=== PATIENT | female | born 1985 | race Caucasian/White ===

== ENCOUNTER 2019-03-18 06:26 | Emergency (ER) | payer OTHER, SELFPAY ==
[2019-03-18 06:27] VITALS: BP 130/81; PULSE 87; RESP 14; TEMP 36.4; O2SAT 99; BMI 20.4
--- NOTE | 2019-03-18 06:42 | EKG12_ITS ---
Test Reason : SOB Blood Pressure : / mmHG Vent. Rate : 088 BPM Atrial Rate : 088 BPM P-R Int : 124 ms QRS Dur : 094 ms QT Int : 350 ms P-R-T Axes : 082 080 062 degrees QTc Int : 423 ms Normal sinus rhythm Normal ECG Confirmed by LISA CHIU, KIP ([id number]), deputy editor in chief MARK NICHOLS ([id number]) on 03/21/2019 10:53:07 AM Referred By: GRABIEL Confirmed By:AMARI GONZALEZ MD
[2019-03-18 06:50] LABS: Absolute Lymphocyte Count 2.53 X10^3/uL (0.83-4.51); Absolute Neutrophil Count 4.3 X10^3/uL (2.0-7.7); Basophil# 0.03 X10^3/uL; Basophil% 0.4 % (0-1); Eosinophil# 0.06 X10^3/uL; Eosinophils% 0.8 % (0-5); Hematocrit 42.5 % (37-47); Hemoglobin 14.5 g/dL (12.0-15.0); Lymphocyte # 2.53 X10^3/ul (4.0); Lymphocyte % 34.3 % (19-41); Mean Corp Hgb Conc 34.1 g/dL (32-36); Mean Corpuscular Hgb 31.3 pg (27.0-32.0); Mean Corpuscular Volume 91.6 fL (81-99); Mean Platelet Vol. 9.7 fl (6.2-12.0); Monocyte# 0.48 X10^3/uL; Monocyte% 6.5 % (0-10); NRBC Flagged by Analyzer 0 % (0-5); Neutrophil # 4.26 X10^3/uL (2.7-7.7); Neutrophil % 57.7 % (47-70); Platelet Count 290 K/mm3 (150-450); RBC Distribution Width CV 11.7 % (11.6-14.6); RBC Distribution Width SD 39.3 fl (35.1-43.9); Red Blood Count 4.64 M/mm3 (4.2-5.4); White Blood Count 7.4 K/mm3 (4.4-11.0)
--- NOTE | 2019-03-18 06:50 | RAD_ITS ---
STUDY: X-RAY CHEST REASON FOR EXAM: Female, 33 years old. Chest tightness TECHNIQUE: PA and lateral views of the chest. COMPARISON: None. FINDINGS: EKG leads overlie the chest The lungs are clear and expanded. There is no demonstrated pleural abnormality. Normal size heart. Normal mediastinum and romeo. Normal visualized pulmonary arteries. Normal visualized aortic arch and descending thoracic aorta. Normal visualized thoracic spine. Normal visualized ribs, clavicles, and shoulders. There is no demonstrated abnormality of the visualized soft tissue structures of the upper abdomen. RAD/Chest PA and Lateral IMPRESSION: Normal x-ray examination of the chest. Electronically Signed: Edenilson Diop MD at 7:58 EST , Service support ,
--- NOTE | 2019-03-18 06:51 | ED.DCSUM_ITS ---
- ER Visit Summary Date of Service: 03/18/19 Chief Complaint: [Dyspnea and paresthesias] History of Present Illness: The patient is a 33 F [presents to the emergency department with complaint of paresthesias in the left leg that started 5 days ago. Patient initially thought maybe she slept wrong but described as a numb tingly sensation over the anterior aspect of her ankle and anterior galindo. Patient then 2 days ago when got adjusted at the chiropractor. This morning patient woke up at 5 AM and noted some numbness to the left arm as well as the left face and scalp. Patient denies any headache. She denies visual changes. She denies weakness in extremities. Patient does not have history of migraines. Patient has no medical history otherwise. She has had prior appendectomy. She denies recent illness. Patient also describes some discomfort and tightness in her chest. She does have some anxiety history but does not take any medications and she states that she is never had a panic attack.] Physical Examination: [HEENT-PERRLA, EOMI. Cranial nerves II through XII gr ossly intact. TMs clear. Mucous membranes moist. No adenopathy. Cardiovascular-regular rate and rhythm without murmur or ectopy Lungs-clear to auscultation, chest wall stable without crepitus or subcu emphysema Abdomen-normoactive bowel sounds, soft, nontender, no rebound or rigidity, no peritoneal signs. Neuro vzai-zbvrpl-ebco and heel galindo testing within normal limits, negative Romberg, negative pronator drift , Fundi benign. NIH stroke scale was a 1 for paresthesias. Extremities-intact ?4, normal range of motion, normal pulses, atraumatic] Test Results: [EKG obtained arrival showed a sinus rhythm with a ventricular rate of 88 bpm with no acute segment changes. Chemistries as well as CTA head and neck ordered and pending.] Emergency Department Course and Treatment: [] Treatment Plan: [Care of patient will be turned over the morning physician awaiting results and final disposition] Disposition: [Pending] Impression: [Paresthesias Chest pain] This note was generated with [employer] dictation software. It may contain incorrect words, spelling, and punctuation that were not noted in review of the chart prior to signing <Taj Vasquez - Last Filed: 03/18/19 06:53> - ER Visit Summary Date of Service: 03/18/19 Patient was signed out to me pending CTA of the head and neck. These are unremarkable. Noncontrast MRI of the head was then obtained and is unremarkable as well. At this time patient states the only symptom she has is slight numbness to the left upper lip. I spoke with her primary care physician, Dr. Moore. She will be sure to follow-up closely with the patient and have her seen by neurology. If the patient's symptoms worsen in any way she is to return to the emergency room. Patient and spouse at bedside voiced understanding and agreement. Disposition: Discharge Impression: Paresthesias This note was generated with [employer] dictation software. It may contain incorrect words, spelling, and punctuation that were not noted in review of the chart prior to signing <Cassandra Mcrae - Last Filed: 03/18/19 10:43> ED Disposition <Taj Vasquez - Last Filed: 03/18/19 06:53> <Cassandra Mcrae - Last Filed: 03/18/19 10:43> - Plan for ED Patient: Disposition: Home or Assisted Living Diagnosis: Paresthesia Instructions: Paraesthesias Referrals: Yuniel Moore DO [Primary Care Provider] - Keep Tc appointment
--- NOTE | 2019-03-18 06:53 | CT_ITS ---
STUDY: CTA HEAD AND NECK WITH CONTRAST REASON FOR EXAM: Female, 33 years old. NUMBNESS on left side RADIATION DOSAGE (If Supplied By Facility): CTDIvol = ( 23.30 ) mGy, DLP = ( 1196.28 ) mGycm TECHNIQUE: CT angiography was performed with a multi-detector CT scanner. Data acquisition was obtained from the skull base through the vertex following intravenous administration of 100 ML ISOVUE 370. MIP images were reconstructed from the axial data set. Post-processing of the angiographic images was performed, with multiplanar reformation and 3D reconstruction. Individualized dose optimization techniques were used for this CT. COMPARISON: No relevant priors. FINDINGS: Normal bilateral petrous carotid arteries. Normal right cavernous carotid artery with a normal supraclinoid bifurcation. Normal left cavernous carotid artery with a normal supraclinoid bifurcation. Normal right A1 segments of the anterior cerebral artery. Normal left A1 segments of the anterior cerebral artery. Normal intact anterior communicating artery (ACOM). Normal bilateral A2 segments of the anterior cerebral arteries. Normal right M1 and M2 segments of the middle cerebral arteries, with a normal M1 bifurcation. Normal left M1 and M2 segments of the middle cerebral arteries, with a normal M1 bifurcation. Normal right posterior communicating artery (PCOM). Normal left posterior communicating artery (PCOM). Normal bilateral vertebral arteries. Normal basilar artery with a normal basilar bifurcation. The visualized bilateral superior cerebellar (SCA) arteries are normal. Normal bilateral P1, P2 and visualized P3 segments of the posterior cerebral arteries. There is no demonstrated aneurysm of the mechoopda of [place]. There is no demonstrated abnormality of the visualized brain. AORTIC ARCH: Normal visualized aortic arch. Normal origins of the brachiocephalic, left common carotid, and left subclavian arteries. RIGHT CAROTID ARTERIES: Normal right common carotid artery (CCA). Normal right common carotid bulb. Normal origin of the right internal carotid (ICA) artery without a hemodynamically significant stenosis. Normal visualized cervical portion of the right internal carotid artery. Normal origin of the right external carotid artery (ECA). LEFT CAROTID ARTERIES: Normal left common carotid artery (CCA). Normal left common carotid bulb. Normal origin of the left internal carotid (ICA) artery without a hemodynamically significant stenosis. Normal visualized cervical portion of the left internal carotid artery. Normal origin of the left external carotid artery (ECA). VERTEBRAL ARTERIES: Normal bilateral vertebral arteries. CT/CTA Head AND Neck W/ Contrast IMPRESSION: Normal CTA Head and neck with contrast. Electronically Signed: Edenilson Diop MD at 7:37 EST , Service support ,
[2019-03-18 06:56] LABS: Internal QC Validated? YES +Cl - CLEAR BKGD; Pregnancy, Serum, hCG Quali. NEGATIVE Negative
[2019-03-18] MEDS: 0.9% Normal Saline 1,000 ML 150 ML IV (07:00)
[2019-03-18 07:08] LABS: Anion Gap 4 (5-15); BUN 14 mg/dL (7-18); BUN/Creat Ratio 16.3 RATIO (10-20); Calcium,Total 9.2 mg/dL (8.5-10.1); Chloride 108 mmol/L (98-107); Creatinine, Serum 0.86 mg/dL (0.55-1.02); EST Glomerular Filtration Rate 80 mL/min (>60); Est Glom Filt Rate - Afr Amer 97 mL/min (>60); Glucose 104 mg/dL (74-106); Potassium 3.5 mmol/L (3.5-5.1); Sodium Level 140 mmol/L (136-145)
--- NOTE | 2019-03-18 07:49 | MRI_ITS ---
STUDY: MRI BRAIN WITHOUT CONTRAST REASON FOR EXAM: Female, 33 years old. Numbness and tingling began 5 days ago in LEFT ankle, has progressed to left face and scalp area TECHNIQUE: Standardized multiplanar fat and water weighted pulse sequences were obtained. COMPARISON: None. FINDINGS: Normal size of the ventricles and extra-axial spaces for the patient''s age. Normal white matter tracts of the supratentorial brain. Normal bilateral basal ganglia. Normal thalami. There is no extra-axial fluid accumulation. Normal flow voids within the major intracranial circulation suggesting patency by spin echo criteria. Normal sella turcica, pituitary gland, infundibular stalk, optic chiasm and hypothalamus. Normal tectal plate and pineal gland. Normal midbrain, man and medulla. Normal cerebellum. Normal bilateral temporal bones. MRI/Brain without Contrast IMPRESSION: Unremarkable unenhanced MRI of the brain. Electronically Signed: John Lozano MD at 9:34 EST Tel , Service support ,
[2019-03-18 09:17] VITALS: BP 111/71; PULSE 82; RESP 16; O2SAT 98
[2019-03-18 10:54] VITALS: BP 108/77; PULSE 62; RESP 15; O2SAT 98
== END 2019-03-18 10:55 | disposition home or self-care (01) ==
PROVIDERS: Emergency Provider Emergency Medicine; PCP Student in an Organized Health Care Education/Training Program
DX: R07.9 Chest pain, unspecified (principal); R20.2 Paresthesia of skin; R06.00 Dyspnea, unspecified; F41.9 Anxiety disorder, unspecified
CPT/HCPCS: 70496; 70498; 70551; 71046; 80048; 84484; 84703; 85025; 93005; 96360; 96361; 99284; J7030; Q9967; A4216

== ENCOUNTER 2020-09-10 08:50 | Day surgery (SDC) | payer OTHER, SELFPAY ==
[2020-07-25 09:04] VITALS: BMI 20.4
--- NOTE | 2020-09-09 21:51 | PCM.HP.BLA ---
History and Physical Date of Admission: 09/10/20 HISTORY OF PRESENT ILLNESS 34 year old female presents for evaluation of a soft mass on her right posterior mid arm. She states that she has had it for years. It has enlarged over time. She denies fever. She denies trauma. She denies numbness. She has no trouble with activities of daily living. She presents at this time for further evaluation and treatment. PAST MEDICAL HISTORY Subcutaneous mass of right upper extremity PAST SURGICAL HISTORY appendectomy ALLERGIES No Known Allergies MEDICATIONS NK FAMILY HISTORY Father - Melanoma Mother - Osteoporosis Other - Family history of skin cancer SOCIAL HISTORY Smoking Status: Never smoker substance use type: does not use REVIEW OF SYSTEMS General - Denies fever, fatigue, and weight loss. Eyes - Denies cataracts and glaucoma. ENT - Denies nasal congestion and sore throat. Endocrine - Denies excessive thirst and urination. Skin - Denies skin cancer. Family history of melanoma. She has a mass on right posterior arm that has enlarged over time. Musculoskeletal - Denies joint pain, joint stiffness, weakness of muscles and joints, back pain, and arthritis. Neuro - Denies headaches. Cardiovascular - Denies chest pain, fatigue, and shortness of breath with exertion. Psych - Denies anxiety and depression. Respiratory - Denies chronic cough and shortness of breath. Gastrointestinal - Denies nausea, vomiting, diarrhea, and constipation. Hematologic - Denies abnormal bruising and bleeding. Genitourinary - Denies hematuria and urinary frequency. PHYSICAL EXAMINATION General - Alert and oriented. HEENT - PERRL. EOMI. Throat is clear. Neck - Supple and non-tender. No cervical adenopathy. Lungs- Clear to auscultation. Heart - Regular rate and rhythm. Abdomen - Soft and non distended. Extremities - FROM. No axillary adenopathy. Radial pulses are palpable. On the right posterior mid arm is a soft tissue mass that measures 8 x 8 cm. It is mobile. There is no evidence of infection. No ulceration. Mass is nontender. Neuro - CN II-XII grossly intact. Psych - Normal mood and affect. ASSESSMENT 1. 8 cm soft tissue mass right posterior mid arm. 2. Family history of skin cancer. PLAN Patient has a soft tissue mass right posterior mid arm that has increased in size over the last several months. She has trouble wearing clothes. She has concerns about possible carcinoma. Clinically it looks like a benign lipoma. Recommend excision of this enlarging soft tissue mass and send it to Pathology for analysis to rule out carcinoma. Depending on the size of the wound defect, a drain may be necessary postoperatively for 7-10 days. A compression rebeka wrap will also be placed to minimize postoperative seroma. Surgery can be done under local anesthesia and IV sedation on an outpatient basis. Patient was informed of the risks and complications of the procedure including alternatives to surgery. These were discussed with the patient personally. Patient voices understanding and wishes to proceed. Some of the risks and complications were included in a form from the [place] [employer]. Potential risks and complications included but not inclusive of bleeding, infection, seroma, hematoma, bruising, swelling, prolonged need for drains, loss of sensation to skin, wound breakdown, need for wound care, poor scarring, poor aesthetic outcome, intra operative cardiac or neurologic events, DVT, PE, and reaction to anesthesia. We discussed the current risks associated with COVID-19. While it is understood that there is a community spread of COVID-19, the risk of susy COVID-19 while at [facility] ([facility]) is very low; however, the risk cannot be completely mitigated because of the community spread of the disease. We discussed in detail the risk of exposure to and/or potential harm posed by the COVID-19 virus with having a surgery/procedure at this time versus the risk of delaying the surgery/procedure. It is not possible to know either the risk of delaying the surgery or procedure or chance of getting an infection with perfect accuracy, but a joint decision was made to proceed at this time with the scheduled surgery/procedure as indicated on the consent form. Patient was notified that we will need to comply with any screening or testing [facility] wishes to perform or that surgery may be delayed for any positive results. Procedure Criteria Procedure Type: Elective COVID Risk Discussion: The surgeon/proceduralist and patient have discussed in detail the risk of exposure to and/or potential harm posed by the COVID-19 virus with having a surgery/procedure at this time versus the risk of delaying the surgery/procedure. It is not possible to know either the risk of delaying the surgery or procedure or chance of getting an infection with perfect accuracy, but a joint decision was made between the patient and the surgeon/proceduralist to proceed at this time with the scheduled surgery/procedure as indicated on the consent form.
[2020-09-10] VITALS (9 sets, daily range): BP systolic 90–109; BP diastolic 45–73; PULSE 53–71; RESP 16; TEMP 36.4–36.8; O2SAT 100; BMI 20.9
--- NOTE | 2020-09-10 | MASS_PTH ---
PATIENT: JOEY DELVALLE [place] [facility] [id number] AGE/SX: 34/F ROOM: RE09/10/[address]: Dr. Jose Carey MD : 1985 BED: DIS: 09/10/2020 SPEC #: [id number] RECD: 09/11/20 08:09 STATUS: PRINCE RENiels #: [id number] MARIELOS: 09/10/20 00:[address]: Jose Carey DEPT: SURGICAL PATHOLOGY RECD BY: Shon Sanabria ENTERED: 09/11/20 08:09 SP TYPE: Mass OTHR DR: Dr. Yuniel Moore, DO Tissues: Arm, NOS Procedures: Surgery Specimen Level III HEADER OPERATION: Excision soft tissue mass posterior arm PRE-OP DIAGNOSIS: 8 cm soft tissue mass right posterior mid arm; family history skin cancer TISSUE SUBMITTED: Soft tissue mass right posterior arm MICROSCOPIC DIAGNOSIS Soft tissue mass of right posterior arm, excision: Mature adipose tissue consistent with lipoma. AM:cristal 09/12/2020 MICROSCOPIC DESCRIPTION Slides are reviewed. GROSS DESCRIPTION Received in fixative is one container labeled with the patient's name and designated soft tissue mass right posterior arm. The specimen consists of a piece of yellow adipose tissue measuring 7.5 x 6 x 3 cm. Also present in the container are multiple pieces of yellow adipose tissue measuring in aggregate 4 x 3.5 x 1 cm. Sections reveal yellow adipose cut surfaces without area of hemorrhage, necrosis or cystic degeneration. [employer] sections are submitted in four cassettes. / SJ:cristal 09/11/20 TC:1 CPT: 60308
[2020-09-10 09:30] LABS: Internal QC Validated? YES +Cl - CLEAR BKGD; Pregnancy, Urine Negative Negative
[2020-09-10] MEDS: Lactated Ringers 1,000 ML 100 ML IV (09:37)
--- NOTE | 2020-09-10 11:02 | SUR.PREOP ---
pt up to bathroom, given update about surgery delay. family at bedside
[2020-09-10] MEDS: Cefazolin 2 GM in 0.9% Normal Saline 100 ML IV (11:22)
[2020-09-10] MEDS: Lidocaine 1% /Epi 1:100 (20ml) 20 ML Vial (11:55)
--- NOTE | 2020-09-10 12:11 | PCM.OPRPT ---
Problems Associated Problem List Diagnoses (1) Subcutaneous mass of right upper extremity: (2) Family history of skin cancer: Report of Operation Date of Procedure: 09/10/20 Pre-Operative Diagnosis: 1. 8 cm soft tissue mass right posterior mid arm. 2. Family history of skin cancer. Post-Operative Diagnosis: Same. Surgery/Procedure Performed:: Excision 8 cm soft tissue mass right posterior mid arm with 5 cm layered closure. Description of Surgical Findings:: 34 year old female presents for evaluation of a soft mass on her right posterior mid arm. She states that she has had it for years. It has enlarged over time. She denies fever. She denies trauma. She denies numbness. She has no trouble with activities of daily living. Patient was informed of the risks and complications of the procedure including alternatives to surgery. These were discussed with the patient personally. Patient voices understanding and wishes to proceed. Some of the risks and complications were included in a form from the [place] [employer]. I used Kandi absorbable hemostat. Reference Number - [id number]-[id number]. Lot Number - [id number]. Expiration - November 06, 2024. Surgeon: Jose Carey mine engineering manager: None Type of Anesthesia: Local MAC (xylocaine with epinephrine and IV sedation.) Specimen's removed: Soft tissue mass right posterior mid arm to Pathology. Drains: Robert. Estimated Blood Loss (mL): 10. Description of Procedure: Patient was taken to OR in supine position and was given IV sedation. The right arm was prepped and draped in the usual fashion. SCD's were placed for DVT prophylaxis. Perioperative antibiotics were given intravenously. The soft tissue mass right posterior mid arm was infiltrated with xylocaine and epinephrine. After waiting 5 minutes for the anesthetic to take effect, I made a longitudinal incision down into the subcutaneous tissue until the soft tissue mass was identified. The mass was sharply dissected off the subcutaneous tissue. The soft tissue mass extended down to the muscular fascia. The soft tissue mass was well-encapsulated. It was clinically consistent with a soft tissue lipoma. It was excised in its entirety and sent to Pathology for analysis to rule out carcinoma. The wound was irrigated with saline. Hemostasis was obtained with electrocautery. Due to the size of the cavity, I decided on a drain postoperatively. I placed a size 15 Robert drain through a separate stab incision inferiorly and secured to the skin with 3-0 Nylon suture. I then sprayed Kandi absorbable hemostat into the wound to minimize seroma formation postoperatively. I then closed the incision in a layered fashion with 3-0 Monocryl figure of eight interrupted sutures for the deep subcutaneous tissue. The deep dermis and subcutaneous tissue was approximated with 3-0 Monocryl interrupted sutures. The skin was approximated with 4-0 V lock unidirectional barbed running subcuticular suture and followed with Histoacryl skin tissue adhesive. Gauze dressing was applied followed by a compression rebeka wrap. The length of the skin closure was 5 cm. Patient tolerated the procedure well and was sent to PACU in satisfactory condition. Patient will be sent home on antibiotics and pain medication. She will keep her right arm elevated during the initial postoperative period. Patient will followup in a week for a wound check and for discussion of the pathology report and for removal of the drain. Grafts/Implants Used: Kandi. Complications None. Admit VTE Documentation VTE Present on Admission: No VTE Mechan Device Prophylaxis: SCD's VTE Pharm Prophylaxis ordered?: No Addendum Addendum: Surgery Charges CPT - 24130 ICD-10 - R22.31, Z80.8
--- NOTE | 2020-09-10 12:11 | PCM.DC ---
Discharge Instructions Diet Discharge Diet: No restrictions Activity Discharge Activity: May Not Drive (while taking pain medication.), May Not Shower (until the drain is removed.) and - (elevate right arm. no heavy lifting.) May shower in (days): 7 (after the drain is removed.) May resume sexual activity in: No Restrictions Weight Bearing Status: Weight bearing as tolerated Lifting Restrictions: 20 lbs. Keep extremity elevated above heart level: Right Arm Dressing / Incision Call your doctor if your incision/area has: Continuous Slow Oozing, Sudden Increased Bleeding, Increased Pain/ Swelling, Increased Redness, Foul Smelling Discharge and Swelling at the incision site Call your doctor if you observe: Fever of 101 or Higher, Coldness, Increased Pain, Shortness of breath, Chest pain, Calf discomfort and Uncontrolled pain Suture Line Care: - (after operative dressing is removed in the office, apply dry dressing daily followed by compression rebeka wrap.) Remove Dressing in: 1 week (will remove dressing in the office.) Cleanse incision/area with: - (may get incision wet in the shower after the drain is removed.) Drain: Suction (edmond drain to bulb suction. empty and record drainage output daily.) Additional Dressing/Incision Instructions:: if right forearm and hand become swollen, may loosen the rebeka wrap. Follow Up Care Please Follow Up With: Jose Carey MD When: one week. call [phone] for appt. Test Results: Test results from this visit will be discussed in further detail at your follow-up appointment, if applicable. Discharge Plan Admission Primary Reason for Your Visit: outpatient surgery - excision lipoma right arm Attending Provider: Jose Carey Primary Care Provider: Yuniel Moore Discharge Orders/Prescriptions Prescriptions: New doxycycline hyclate 100 mg capsule 100 mg PO BID Qty: 14 RF: 0 oxycodone-acetaminophen [Percocet] 5-325 mg tablet 1 tab PO Q6H PRN (Reason: pain (scale score 7-10)) 5 Days Qty: 20 RF: 0 Referrals / Follow Up: Yuniel Moore DO [Primary Care Provider] - Disposition Disposition (needs filled in before D/C Order can be placed): Home, Self Care
== END 2020-09-10 13:56 | disposition home or self-care (01) ==
LOC: SDC 08:51 → AC 08:52
PROVIDERS: Anesthesiology; PCP Student in an Organized Health Care Education/Training Program; Referring Provider Surgery; Visit Provider Surgery
PROC: (CPT 24071; principal; 2020-09-10 10:10)
DX: R22.31 Localized swelling, mass and lump, right upper limb (principal); Z80.8 Family history of malignant neoplasm of other organs or systems
CPT/HCPCS: 00400; 24071; 81025; 88304; 88305; J7120; J2405

== ENCOUNTER 2021-10-14 17:55 | Outpatient (CLI) | payer OTHER, SELFPAY ==
[2021-10-14 18:09] VITALS: BP 115/76; PULSE 81; TEMP 36.9; O2SAT 98
[2021-10-14 18:10] VITALS: PULSE 81; O2SAT 98
--- NOTE | 2021-10-14 23:09 | OB.TRI.HP_ITS ---
HPI - General General Date of Admission: 10/14/21 Date of Service: 10/14/21 Chief Complaint: ctxs HPI Narrative JOEY DELVALLE, is a 35 F who presents at 38 weeks gestation with a breech fetus and some contractions. She has a history of rapid labor in the past. She denied any vaginal bleeding or leaking of fluid. [facility] Medical History (Updated 10/14/21 @ 23:[address] Radha Dumont MD) Anemia Breech presentation Lipoma of right upper extremity Non-smoker Subcutaneous mass of right upper extremity Wears glasses Home Medications Iron (ferrous sulfate) 325 mg PO.IVFORM DAILY anemia 10/14/21 [History Last Taken Unknown] Prenatabs FA 1 tab PO.IVFORM DAILY 10/14/21 [History Last Taken Un known] Allergy/AdvReac Type Severity Reaction Status Date / Time No Known Allergies Allergy Verified 10/02/20 13:35 Family History Father Melanoma Mother Osteoporosis Other Family history of skin cancer Surgical History History of appendectomy History of excision of mass Social History Smoking Status: Never smoker substance use type: does not use additional social history: Does Not Take Aspirin Does Not Take Ibuprofen History Elective abortions Hx Para 1 Spontaneous abortions Hx # Term Pregnancies Ectopic pregnancies Hx # Pregnancies Multiple births # of living children NST FHR Rate Baby A Baseline: 120 Variability:: Moderate Accelerations:: 15 x 15 Decelerations:: None NST Reactive:: Yes FHR Category:: Category I Uterine Activity:: irreg ctxs Assessment & Plan (1) False labor: PLAN: 35-year-old 3 para 2 at 38 weeks with false labor. Breech presentation. If fetus remains breech at 39 weeks or when she returns in labor we will proceed with primary section. Discharged home with routine follow-up or return as needed.
== END 2021-10-14 20:05 | disposition home or self-care (01) ==
LOC: WPOUT 17:57 → WP 17:57
PROVIDERS: PCP Student in an Organized Health Care Education/Training Program; Referring Provider Obstetrics & Gynecology; Visit Provider Obstetrics & Gynecology
DX: O47.1 False labor at or after 37 completed weeks of gestation (principal); O99.013 Anemia complicating pregnancy, third trimester; D64.9 Anemia, unspecified; O09.523 Supervision of elderly multigravida, third trimester; Z3A.38 38 weeks gestation of pregnancy; O32.1XX0 Maternal care for breech presentation, not applicable or unspecified
CPT/HCPCS: 59025; 59050; 99218; G0378

== ENCOUNTER 2021-10-17 04:05 | Inpatient (IN) | payer OTHER, SELFPAY ==
[2021-10-14 18:21] VITALS: BMI 25.7
[2021-10-17] VITALS (20 sets, daily range): BP systolic 97–127; BP diastolic 42–66; PULSE 64–99; RESP 14–18; TEMP 36.1–37.2; O2SAT 96–99; BMI 25.6
[2021-10-17] MEDS: Lactated Ringers 1,000 ML 999 ML IV (04:15)
[2021-10-17 04:26] LABS: ROM Internal Control Test YES-OK TO RESULT pt. (Internal QC); ROM Patient Test POSITIVE (Negative)
[2021-10-17 04:29] LABS: Absolute Lymphocyte Count 1.82 X10^3/uL (0.83-4.51); Basophil# 0.03 X10^3/uL; Basophil% 0.3 % (0-1); Eosinophil# 0.08 X10^3/uL; Eosinophils% 0.7 % (0-5); Hematocrit 32.9 % (37-47); Hemoglobin 11.2 g/dL (12.0-15.0); Lymphocyte # 1.82 X10^3/ul (0.83-4.51); Mean Corpuscular Hgb 32.4 pg (27.0-32.0); Mean Corpuscular Volume 95.1 fL (81-99); Monocyte# 0.71 X10^3/uL; Monocyte% 6.6 % (0-10); NRBC Flagged by Analyzer 0 % (0-5); Neutrophil # 7.95 X10^3/uL (2.7-7.7); Neutrophil % 74.2 % (47-70); Platelet Count 187 K/mm3 (150-450); RBC Distribution Width CV 13.4 % (11.6-14.6); RBC Distribution Width SD 46.5 fl (35.1-43.9); Red Blood Count 3.46 M/mm3 (4.2-5.4); White Blood Count 10.7 K/mm3 (4.4-11.0)
--- NOTE | 2021-10-17 04:54 | PCM.HP.OB ---
HPI - General General Date of Admission: 10/17/21 Date of Service: 10/17/21 Chief Complaint: SROM HPI Narrative JOEY DELVALLE, is a 35 F who presents with SROM at 38w3d. No regular ctx's. No vb. Good FM. Maternal Data Information Final BJ: 10/28/21 Final BJ Source: LMP PFSH PFSH Medical History (Updated 10/17/21 @ 04:[address] Cecelia Masters, DO) Anemia Breech presentation Lipoma of right upper extremity Non-smoker Subcutaneous mass of right upper extremity Wears glasses Home Medications Iron (ferrous sulfate) 325 mg PO.IVFORM DAILY anemia 10/14/21 [History Last Taken 10/15/21 08:00] Prenatabs FA 1 tab PO.IVFORM DAILY 10/14/21 [History Last Taken 10/16/21 08:00] Allergy/AdvReac Type Severity Reaction Status Date / Time No Known Allergies Allergy Verified 10/17/21 04:12 Family History Father Melanoma Mother Osteoporosis Other Family history of skin cancer Surgical History History of appendectomy History of excision of mass Social History Smoking Status: Never smoker substance use type: does not use additional social history: Does Not Take Aspirin Does Not Take Ibuprofen History Elective abortions Hx Para 2 Spontaneous abortions Hx # Term Pregnancies Ectopic pregnancies Hx # Pregnancies Multiple births # of living children NST FHR Rate Baby A FHR Category:: Category I Uterine Activity:: Irregular uterine ctx's Vital Signs Vital Signs Vital Signs: 10/17/21 03:50 10/17/21 03:50 10/17/21 04:26 Temperature Temperature Source Temporal Pulse Rate 99 Respiratory Rate Blood Pressure 104/66 Blood Pressure Mean BP Systolic 104 BP Diastolic 66 Blood Pressure Source Blood Pressure Position Blood Pressure Location Pulse Ox Oxygen Delivery Method 10/17/21 04:27 10/17/21 04:27 10/17/21 04:26 Temperature Temperature Source Pulse Rate 72 Respiratory Rate Blood Pressure 127/66 H Blood Pressure Mean BP Systolic 127 BP Diastolic 66 Blood Pressure Source Blood Pressure Position Blood Pressure Location Pulse Ox 98 Oxygen Delivery Method 10/17/21 04:26 10/17/21 04:28 Temperature 97.0 F L 97 F L Temperature Source Temporal Pulse Rate 72 Respiratory Rate 16 Blood Pressure 127/66 H Blood Pressure Mean 86 BP Systolic BP Diastolic Blood Pressure Source Monitor Blood Pressure Position Semi-Fowlers Blood Pressure Location Left Arm Pulse Ox 98 Oxygen Delivery Method Room Air Weight Weight: 154 lb 3.2 oz Body Mass Index (BMI) 25.6 Labs Labs Labs: Blood Type A POSITIVE Antibody Screen NEGATIVE Hct 32.9 % (37-47) L Hgb 11.2 g/dL (12.0-15.0) L Chlamydia DNA (SAUL) Negative (Negative) Neisseria gonorrhoeae DNA (SAUL) Negative (Negative) Rhogam given: No Assessment & Plan (1) 38 weeks gestation of : PLAN: - Admit for routine pre op care. Ancef pre op. Bedside TAUS performed and baby still in breech presentation. Discussed r/b/a to a section and she desires to proceed. (2) SROM (spontaneous rupture of membranes): (3) Breech presentation: (4) Advanced maternal age (AMA) in :
[2021-10-17] MEDS: Lactated Ringers 1,000 ML 150 ML IV (05:12)
[2021-10-17] MEDS: Acetaminophen 500 MG Tablet 1000 MG PO ×4 (05:13→23:31)
[2021-10-17] MEDS: Sodium Citrate/Citric Acid 30 ML UDC PO (05:13)
[2021-10-17] MEDS: Cefazolin 2 GM in 0.9% Normal Saline 100 ML IV (05:22)
--- NOTE | 2021-10-17 06:27 | OP.PCM_ITS ---
Problems Associated Problem List Diagnoses (1) Advanced maternal age (AMA) in : (2) Breech presentation: (3) SROM (spontaneous rupture of membranes): (4) 38 weeks gestation of : Report of Operation Date of Procedure: 10/17/21 Pre-Operative Diagnosis: 38 week gestation, single IUP, SROM, breech presentation Post-Operative Diagnosis: As above Surgery/Procedure Performed:: PLTCS via pfannenstiel incision Description of Surgical Findings:: VMI in joanna breech presentation. Apgars 9, 9. Clear fluid. Normal appearing placenta with 3 VC. Normal appearing uterus and bilateral adnexa. Surgeon: Cecelia Masters coach mechanic: Shahla FRANCISCO Type of Anesthesia: Spinal Special Medications: None Specimen's removed: Placenta Drains: Elizabeth Estimated Blood Loss (mL): 800 Fluids Replaced: 1 L Description of Procedure: The patient was taken to the operating room where spinal anesthesia was initiated. She was prepped and draped in the dorsal position with a leftward tilt. A Pfannenstiel skin incision was made with a scalpel and this was carried down to the underlying layer of fascia. The fascia was incised in midline. The fascia was extended laterally using Ordonez scissors. The fascia was dissected off of the rectus muscles using a combination of sharp and blunt dissection. Rectus muscles were in the midline. The peritoneum was entered bluntly with good visualization of the bladder. The peritoneal incision was extended bluntly. A bladder blade was inserted. A low transverse incision was made on the uterus with a scalpel. Uterine incision was extended bluntly. Membranes were ruptured for clear fluid. The buttocks of the infant was elevated and delivered through the hysterotomy, followed by the body and legs, arms, and head easily and without any force or delay. The head was flexed during delivery. The cord was clamped and cut after a slight delay. The male was vigorous and handed off to the waiting nursery staff. The placenta was removed with manual extraction. The uterus was exteriorized. The uterus was cleared of all clot and debris. The uterine incision was closed with 1-0 Vicryl in a 2 layer fashion. The first layer was running locked. The second layer was imbricating. Hemostasis was noted. The uterus and bilateral adnexa were normal-appearing. The uterus was placed back into the abdomen. Kandi was placed over the incision. The peritoneum was closed with 3-0 Vicryl in a running fashion. The fascia was closed with strata fix in a running fashion. The subcutaneous space was irrigated. The subcutaneous space was reapproximated with 3-0 Vicryl. The skin was closed with 4-0 Monocryl in a subcuticular fashion. A dressing was placed. Instrument, sponge, sharp counts correct. The patient was taken to the recovery in stable condition. Grafts/Implants Used: None Procedure Start Time: 05:42 Procedure Stop Time: 06:20 Complications None Admit VTE Documentation VTE Present on Admission: No VTE Mechan Device Prophylaxis: SCD's
[2021-10-17] MEDS: Oxytocin 30 units/NS 500 ml 30 UNITS/500 ML IV.SOLN 167 UNITS IV (06:28)
[2021-10-17] MEDS: Ketorolac 30 MG/ML Syringe IV ×3 (06:57→19:23)
[2021-10-17] MEDS: 0.9% Saline Lock 10 ML Syringe IV ×4 (06:57→19:23)
[2021-10-17] MEDS: Lactated Ringers 1,000 ML 100 ML IV (09:36)
[2021-10-17] MEDS: Senna/Docusate Sodium 1 Tablet PO (11:19)
--- NOTE | 2021-10-17 14:16 | NURSING ---
This nursing technician reviewed the documentation completed by Rudy Varner, student nurse.
[2021-10-18] MEDS: Ketorolac 30 MG/ML Syringe IV (01:04)
[2021-10-18] MEDS: 0.9% Saline Lock 10 ML Syringe IV (01:04)
[2021-10-18 04:20] VITALS: BP 93/55; PULSE 64; RESP 16; TEMP 36.3; O2SAT 97
[2021-10-18] MEDS: Acetaminophen 500 MG Tablet 1000 MG PO ×3 (05:38→18:16)
[2021-10-18 05:49] LABS: Hematocrit 27.8 % (37-47); Hemoglobin 9.4 g/dL (12.0-15.0); Mean Corp Hgb Conc 33.8 g/dL (32-36); Mean Corpuscular Volume 97.5 fL (81-99); Mean Platelet Vol. 10.5 fl (6.2-12.0); Platelet Count 151 K/mm3 (150-450); RBC Distribution Width CV 13.5 % (11.6-14.6); RBC Distribution Width SD 48.5 fl (35.1-43.9); Red Blood Count 2.85 M/mm3 (4.2-5.4); White Blood Count 14.8 K/mm3 (4.4-11.0)
--- NOTE | 2021-10-18 07:20 | PCM.PN.OB ---
Subjective Subjective Patient seen at bedside. Feeling good. Ambulating and voiding without difficulty. Denies headache, dizziness, SOB or CP. with shield. Desires discharge home tomorrow. Objective Data Objective Data Vital Signs: Vital Signs Temp Pulse Resp BP Pulse Ox O2 Del Method 97.4 F L 64 16 93/55 L 97 Room Air 10/18/21 04:20 10/18/21 04:20 10/18/21 04:20 10/18/21 04:20 10/18/21 04:20 10/18/21 04:20 Oxygen Delivery Method Room Air Weight: 154 lb 3.2 oz Body Mass Index (BMI) 25.6 Intake & Output: Intake and Output for Last 24 Hours 10/16/21 10/17/21 10/18/21 23:59 23:59 23:59 Intake Total 3077.38 / 3077.38 Output Total 1885 / 1885 700 / 700 Balance 1192.38 / 1192.38 -700 / -700 Lab / Micro Data Result Diagrams: 10/18/21 05:45 Labs: Laboratory Results - last 24 hr 10/18/21 05:45: WBC 14.8 H, RBC 2.85 L, Hgb 9.4 L, Hct 27.8 L, MCV 97.5, MCH 33.0 H, MCHC 33.8, RDW Std Deviation 48.5 H, RDW Coeff of Alber 13.5, Plt Count 151, MPV 10.5 Micro: Microbiology 10/17/21 04:15 Nasal Secretion SARS-CoV-2 Antigen (Rapid) - Final ROS Eyes Eyes: Denies blurry vision, change in vision or spots in vision ENT HEENT: Denies dizziness or headache(s) Cardiovascular Cardiovascular: Denies abdominal pain, chest pain or dyspnea Respiratory/Chest Respiratory/Chest: Denies cough, dyspnea, shortness of breath at rest or shortness of breath with exertion Gastrointestinal Gastrointestinal: Denies abdominal pain, diarrhea or vomiting Genitourinary Genitourinary: Denies change in urinary stream, difficulty urinating or dysuria Musculoskeletal Musculoskeletal: Reports none Integumentary Integumentary: Denies rash Neurologic Neurologic: Denies dizziness, headache(s), memory loss or weakness Physical Exam Narrative Dressing is dry and intact Const alert and no apparent distress General Appearance: cooperative and comfortable Exam Limitations: no limitations HEENT normocephalic Eyes General Eye: normal appearance of both eyes Neck full ROM General: normal visual inspection Chest Chest: symmetrical chest wall rise Resp normal respiratory effort and normal air movement Effort and Inspection: symmetric chest movement Auscultation: clear to auscultation bilaterally Cardio regular rate and regular rhythm GI normal to inspection, nondistended, normoactive bowel sounds Back/Spine normal ROM Extremity full ROM and no calf tenderness General Extremity: normal exam except as noted Skin no rashes or lesions noted Neuro CN's II-XII intact bilaterally Psych mental status grossly normal Assessment & Plan (1) Status post primary low transverse section: (2) Care and examination of lactating mother: PLAN: Plan PO Day 1 Primary C/S for breech Routine care Pain control Increase ambulation today Anticipate discharge home tomorrow
[2021-10-18] MEDS: Ibuprofen 600 MG Tablet PO ×3 (07:24→19:00)
[2021-10-18 07:26] VITALS: BP 99/60; PULSE 70; RESP 16; TEMP 36.3; O2SAT 98
[2021-10-18] MEDS: Senna/Docusate Sodium 1 Tablet PO (09:43)
[2021-10-18 13:22] VITALS: BP 100/54; PULSE 60; RESP 16; TEMP 36.6; O2SAT 100
--- NOTE | 2021-10-18 17:26 | NURSING ---
Reviewed and agreed with Freddy RN charting.
[2021-10-18 20:20] VITALS: BP 92/59; PULSE 74; RESP 16; TEMP 36.7; O2SAT 98
[2021-10-18] MEDS: oxyCODONE 5 MG Tablet PO (20:23)
[2021-10-19] MEDS: Acetaminophen 500 MG Tablet 1000 MG PO ×2 (00:29→06:30)
[2021-10-19] MEDS: Ibuprofen 600 MG Tablet PO ×2 (01:39→08:55)
[2021-10-19 01:40] VITALS: BP 93/56; PULSE 73; RESP 16; TEMP 36.5; O2SAT 99
--- NOTE | 2021-10-19 07:17 | DCINST_ITS ---
Discharge Instructions Diet Discharge Diet: No restrictions Activity Discharge Activity: May Not Drive (Until you are not longer taking oxycodone, and until you feel you can slam on a car brake or turn a steering wheel sharply) and May Shower May resume sexual activity in: 6 weeks Ice area for (Minutes): 15 Weight Bearing Status: Weight bearing as tolerated Lifting Restrictions: Nothing heavier than baby Dressing / Incision Call your doctor if your incision/area has: Continuous Slow Oozing, Sudden Increased Bleeding, Increased Pain/ Swelling, Increased Redness, Foul Smelling Discharge and Swelling at the incision site Call your doctor if you observe: Fever of 101 or Higher, Coldness, Increased Pain, Numbness or Tingling, Change in Color, Inability to urinate, Inability to have a bowel movement, Using more than 1 pad per hour, Shortness of breath, Dizziness, Fainting spells, Swelling in the ankles, Chest pain, Increased palpitations (irregular heartbeat), Calf discomfort and Uncontrolled pain Suture Line Care: Avoid Pulling/Pushing and Avoid Pinching/Bending Remove Dressing in: 4 days (Ok to remove in the shower. If you are uncomfortable removing it, ok to leave in place until follow up) Cleanse incision/area with: Soap & Water Follow Up Care Please Follow Up With: Cecelia Masters DO When: 1 week for incision check 6 weeks for visit Test Results: Test results from this visit will be discussed in further detail at your follow- up appointment, if applicable. Discharge Plan Admission Admit Date/Time: 10/17/21 04:05 Primary Reason for Your Visit: delivery Attending Provider: Cecelia Masters Primary Care Provider: Yuniel Moore Instructions Patient Instructions: After a Discharge Orders/Prescriptions Prescriptions: New oxycodone 5 mg tablet 5 mg PO Q6H PRN (Reason: pain) 7 Days Qty: 10 0RF ibuprofen 600 mg tablet 600 mg PO Q6H PRN (Reason: pain) Qty: 30 0RF docusate sodium [Colace] 100 mg capsule 100 mg PO BID Qty: 30 0RF Continued Iron (ferrous sulfate) 325 mg PO.IVFORM DAILY Prenatabs FA 1 tab PO.IVFORM DAILY Referrals / Follow Up: Yuniel Moore DO [Primary Care Provider] - Disposition Disposition (needs filled in before D/C Order can be placed): Home, Self Care
--- NOTE | 2021-10-19 07:19 | PCM.PN.OB ---
Subjective Subjective Pt is doing well. Pain well controlled. She is ambulating without lightheadedness or dizziness. She is voiding without difficulty. No bowel movements yet. She is tolerating a regular diet without nausea or vomiting. She denies chest pain, shortness of breath, leg pain. Lochia is normal. She is breast-feeding. She desires to go home today. Objective Data Objective Data Vital Signs: Vital Signs Temp Pulse Resp BP Pulse Ox O2 Del Method 97.7 F L 73 16 93/56 L 99 Room Air 10/19/21 01:40 10/19/21 01:40 10/19/21 01:40 10/19/21 01:40 10/19/21 01:40 10/19/21 01:40 Oxygen Delivery Method Room Air Weight: 154 lb 3.2 oz Body Mass Index (BMI) 25.6 Intake & Output: Intake and Output for Last 24 Hours 10/17/21 10/18/21 10/19/21 23:59 23:59 23:59 Intake Total 3077.38 / 3077.38 Output Total 1885 / 1885 700 / 700 Balance 1192.38 / 1192.38 -700 / -700 Lab / Micro Data Result Diagrams: 10/18/21 05:45 Micro: Microbiology 10/17/21 04:15 Nasal Secretion SARS-CoV-2 Antigen (Rapid) - Final Physical Exam Const alert and no apparent distress General Appearance: comfortable HEENT normocephalic Resp normal respiratory effort GI soft to palpation GI Narrative: ATTP, dressing intact with a small 1cm area of old blood present at left corner, non acute Assessment & Plan (1) Status post primary low transverse section: PLAN: S/p PLTCS for breech presentation. Meeting milestones to go home. Labs reviewed and VSS. Pt desires discharge today. Rx's sent and discharge instructions reviewed. To follow up next week.
[2021-10-19] MEDS: oxyCODONE 5 MG Tablet PO ×2 (07:30→11:47)
[2021-10-19 08:30] VITALS: BP 100/54; PULSE 71; RESP 18; TEMP 36.6; O2SAT 97
[2021-10-19] MEDS: Senna/Docusate Sodium 1 Tablet PO (08:56)
== END 2021-10-19 12:00 | disposition home or self-care (01) | DRG 788 ==
LOC: WPOUT 04:06 → WP 04:06
PROVIDERS: Admitting Provider Obstetrics & Gynecology; PCP Student in an Organized Health Care Education/Training Program; Visit Provider Obstetrics & Gynecology
DX: O32.1XX0 Maternal care for breech presentation, not applicable or unspecified (principal); D64.9 Anemia, unspecified; Z37.0 Single live birth; O99.02 Anemia complicating childbirth; Z79.899 Other long term (current) drug therapy; Z3A.38 38 weeks gestation of pregnancy; Z20.822 Contact with and (suspected) exposure to COVID-19
CPT/HCPCS: 59025; 59050; 76815; 84112; 85025; 85027; 86850; 86900; 86901; 87426; 99218; J7120; A4216; G0378; J2405

== ENCOUNTER 2024-08-28 10:09 | Emergency (ER) | payer OTHER, SELFPAY ==
[2024-08-28 10:11] VITALS: BP 141/96; PULSE 89; RESP 15; TEMP 35.8; O2SAT 100; BMI 22.3
--- NOTE | 2024-08-28 10:42 | EX.ED.DYSGE1 ---
HPI History of Present Illness Chief Complaint: Dizziness Informant: patient Onset/Context/Timing Onset: Today Timing: Intermittent Current Severity: Gone Maximum Severity: Mild Narrative Narrative: 38-year-old female past medical history of anemia. Today was in evangelical singing had an episode of dizziness which she described as lightheaded. She has had episodes like this before she had a CTA of her head and neck and an MRI in the last year or so both were negative. Currently she is symptom-free. She is going to physical therapy for some muscular tightness in her neck and upper back. She denies any recent illness. She denies any fever. No headache. No chest pain. No shortness of breath. No abdominal pain. No nausea, vomiting or diarrhea. No dysuria. Last menstrual period was within the last 2 weeks. Prior similar symptoms: Yes Recent Illness/Hospitalization: No PFSH PFSH Medical History Breech presentation Anemia Lipoma of right upper extremity Wears glasses Non-smoker Subcutaneous mass of right upper extremity Home Medications ?Medication ?Instructions ?Recorded ?Last Taken ?Type NK 08/28/24 Unknown History Allergy/AdvReac Type Severity Reaction Status Date / Time No Known Allergies Allergy Verified 08/28/24 10:14 Family History Father Melanoma Mother Osteoporosis Other Family history of skin cancer Surgical History Status post primary low transverse section History of excision of mass History of appendectomy Social History Smoking Status: Never smoker substance use type: does not use additional social history: Does Not Take Aspirin Does Not Take Ibuprofen ROS ROS ED ROS Narrative Denies recent illness. Constitutional Constitutional ED: Denies chills or fever(s) Eyes Eyes: Denies blurry vision ENT ENT ED: Denies ear pain Cardiovascular Cardiovascular: Denies chest pain Respiratory/Chest Respiratory/Chest: Denies cough or dyspnea Gastrointestinal Gastrointestinal: Denies abdominal pain Genitourinary Genitourinary ED: Denies dysuria or hematuria Musculoskeletal Musculoskeletal: Denies arthralgias Integumentary Denies abscess Neurologic Neurologic: Denies headache(s) Psychiatric Psychiatric: Denies anxiety Endocrine Endocrinology: Denies cold intolerance Hematologic/Lymphatic Hematologic/Lymphatic: Reports none Allergic/Immunologic Allergic/Immunologic ED: Denies mouth swelling, tongue swelling or urticaria EXAM Physical Exam Narrative Exam Narrative: Well-appearing 38-year-old female. Vital signs are stable afebrile. She is in no acute distress. Clinically looks well. H EENT exam pupils round reactive light. Moist mucous membranes. No facial droop. Normal speech. No trauma to her face or scalp. TMs normal bilaterally. Neck nontender. No lymphadenopathy. Lungs clear to auscultation bilaterally. Heart regular rhythm no murmur. Chest wall nontender. Abdomen nontender. Back nontender. Moving all 4 extremities. 5 out of 5 residential manager strength. Dorsi plantarflexion intact. Nontender no edema. Neurologic exam normal. NIH 0. Fingertip to nose [id number] within normal limits. No drift. Normal strength. Normal sensation. She got up out of bed ambulate to the door and back with no difficulty. Negative Romberg. She is a totally normal exam. Const Vital Signs: 08/28/24 10:11 Temperature 96.5 F L Temperature Source Temporal Pulse Rate 89 Respiratory Rate 15 Blood Pressure 141/96 H Blood Pressure Mean 111 Pulse Ox 100 Oxygen Delivery Method Room Air Positive well nourished and well developed; Negative for obese, cachectic, contractures or unkempt General Appearance ED: well developed; Negative for unkempt, cachectic, contractures, cyanotic, diaphoretic or pallor Nutritional Appearance: Negative for cachectic or obese HEENT Reports moist mucous membranes Negative for trauma or tenderness Eyes PERRL and EOMs intact bilaterally General Eye ED: Negative for pale conjunctiva or scleral icterus Neck no lymphadenopathy, supple and no JVD General: Negative for tenderness Chest Wall inspection of chest normal and palpation of chest normal Resp normal respiratory effort and clear to auscultation bilaterally Cardio regular rate, regular rhythm, S1 normal heart sound, S2 normal heart sound and no murmurs GI normal to inspection, nondistended, normoactive bowel sounds, non-tender, non-distended and no masses Auscultation: normoactive bowel sounds Palpation: soft; Negative for tender, guarding or rebound tenderness present Back/Spine no CVA tenderness General Back: Negative for CVA tenderness Cervical Spine: Negative for cervical spine tenderness Thoracic Spine / Upper Back: Negative for thoracic spinal tenderness or paraspinal muscle tenderness Lumbar Spine / Lower Back: Negative for lumbar spinal tenderness Extremity normal to inspection General Extremety ED: Negative for edema or tenderness General Extremity: Negative for edema Neuro oriented x3 and CN's II-XII intact bilaterally Sensorium / Orientation: alert; Negative for orientation impaired, lethargic or stuporous Motor Exam: strength 5/5 throughout; Negative for general weakness or strength abnormal Psych mental status grossly normal Appearance: Negative for unkempt Attitude: No agitated Mood & Affect: Negative for depressed, anxious or tearful Skin no rashes or lesions noted, no wounds and skin turgor normal General Skin Exam: Negative for jaundice or pallor Lesions: No lesion noted Rashes: No rashes noted Trauma: Negative for abrasion Wounds: Negative for wounds noted MDM MDM MDM Narrative Medical decision making narrative: 38-year-old female with lightheadedness. Currently exam is completely normal and benign. I will obtain a CBC and chemistry due to her anemia in the past. Repeat exam patient is doing well at 11:43 PM. We went over her test results. She will be discharged to home. History & Record Review Discussion w/independent historian: Patient Additional record(s) reviewed:: Prior inpatient record, Prior outpatient record, Prior ED visit and Prior labs Lab Data Attestation: I reviewed the patient's lab results. Lab results narrative: CBC white count of 7. H&H 13.3 and 37 which is better than her prior anemia at 9.4. Platelets of 220. Electrolytes normal gap 11. Normal BUN and creatinine of 14 and 0.7. Glucose 118. Labs: Laboratory Results - last 24 hr 08/28/24 10:55 WBC 7.2 RBC 4.24 Hgb 13.3 Hct 37.6 MCV 88.7 MCH 31.4 MCHC 35.4 RDW Std Deviation 37.8 RDW Coeff of Alber 11.9 Plt Count 220 MPV 9.7 Immature Gran % (Auto) 0.400 Neut % (Auto) 74.0 H Lymph % (Auto) 18.6 L [place] % (Auto) 6.0 Eos % (Auto) 0.6 Baso % (Auto) 0.4 Absolute Neuts (auto) 5.3 Absolute Lymphs (auto) 1.33 Nucleated RBC % 0 Sodium 136 Potassium 3.8 Chloride 105 Carbon Dioxide 20.4 L Anion Gap 11 BUN 14 Creatinine 0.76 Estim Creat Clear Calc 89.43 Est GFR (MDRD) Non-Af 102 BUN/Creatinine Ratio 18.4 Glucose 118 H Calcium 9.0 Discharge Plan Triage Chief Complaint: Dizziness ED Provider: Benedicto Rose Dx/Rx/DC Orders Clinical Impression: Dizziness Instructions: ED Dizziness, Uncertain Cause Prescriptions: No Action NK Primary Care Provider: Yuniel Moore Referrals: Yuniel Moore, DO [Primary Care Provider] - 3-5 Days if not improving Activity Restrictions/Additional Instructions: Exam and labs look good. You are not anemic your blood counts and electrolytes and kidney function are good. Follow-up with your doctor. As needed. Print Language: Bengali Disposition Disposition: Home, Self Care
[2024-08-28 11:02] LABS: Hematocrit 37.6 % (37-47); Hemoglobin 13.3 g/dL (12.0-15.0); Immature Granulocytes Count 0.030 X10^3/uL (0.0-0.0); Mean Corp Hgb Conc 35.4 g/dL (32-36); Mean Corpuscular Volume 88.7 fL (81-99); Mean Platelet Vol. 9.7 fl (6.2-12.0); NRBC Flagged by Analyzer 0 % (0-5); Platelet Count 220 K/mm3 (150-450); RBC Distribution Width CV 11.9 % (11.6-14.6); RBC Distribution Width SD 37.8 fl (35.1-43.9); Red Blood Count 4.24 M/mm3 (4.2-5.4); White Blood Count 7.2 K/mm3 (4.4-11.0)
--- OUTSIDE RECORDS SUMMARY | 2024-08-28 11:11 | XMS RPT_ITS | CCD ---
Author Organization [facility] Care Team Providers Care Process Control Operator Name Role Phone Yuniel Moore DO Primary Care Provider Kris Garcia Attending Unavailable Kris Garcia Admitting Unavailable Moore, Yuniel Primary Care Unavailable Radha Dumont Referring Unavailable Radha Dumont Attending Unavailable MooreYuniel Primary Care Unavailable Cecelia Masters Attending Unavailable Cecelia Masters Admitting Unavailable MooreYuniel Primary Care Unavailable Yuniel Moore DO Primary Care Provider Yuniel Moore DO Primary Care Provider Moore Yuniel NUNEZ Primary Care Provider Wu ACCESS CONTROL SPECIALIST.Myla ZAMBRANO Unavailable [facility] ACCESS CONTROL SPECIALIST.Madison ZAMBRANO Unavailable [facility] ACCESS CONTROL SPECIALIST.Belem ZAMBRANO Unavailable YUNIEL MOORE Primary Care Unavailable YUNIEL MOORE L Attending Unavailable MOORE, YUNIEL L Primary Care Unavailable PATRICK HIRSCH Attending Unavailable MOORE, YUNIEL L Primary Care Unavailable MOORE, YUNIEL L Referring Unavailable FELIX EMERSON Attending Unavailable MOORE, YUNIEL L Referring Unavailable FELIX EMERSON Attending Unavailable MOORE, YUNIEL L Primary Care Unavailable MOORE, YUNIEL L Primary Care Unavailable MOORE, YUNIEL L Referring Unavailable MOORE, YUNIEL L Primary Care Unavailable MOORE, YUNIEL L Referring Unavailable MOORE, YUNIEL L Primary Care Unavailable MOORE, YUNIEL L Referring Unavailable CAITY EMERSONN Attending Unavailable MOORE, YUNIEL L Referring Unavailable MOORE, YUNIEL L Primary Care Unavailable KI, FELIX Attending Unavailable MOORE, YUNIEL L Referring Unavailable MOORE, YUNIEL L Primary Care Unavailable FELIX EMERSON Attending Unavailable MOOREYUNIEL L Referring Unavailable MOORE, YUNIEL L Primary Care Unavailable FELIX EMERSON Attending Unavailable MOOREYUNIEL L Referring Unavailable MOORE, YUNIEL L Primary Care Unavailable FELIX EMERSON Attending Unavailable SANTOS WHITE Attending Unavailable MOORE, YUNIEL Grayson Primary Care Unavailable MOOREYUNIEL L Referring Unavailable MOORE, YUNIEL L Primary Care Unavailable MOOREYUNIEL Referring Unavailable FELIX EMERSON Attending Unavailable MOOREYUNIEL L Primary Care Unavailable MOORE, YUNIEL L Referring Unavailable FELIX EMERSON Attending Unavailable MOOREYUNIEL L Referring Unavailable MOORE, YUNIEL L Primary Care Unavailable FELIX EMERSON Attending Unavailable MOOREYUNIEL L Primary Care Unavailable MOORE, YUNIEL L Referring Unavailable KI, FELIX Attending Unavailable MOORE, YUNIEL L Primary Care Unavailable MOORE, YUNIEL L Attending Unavailable MOORE, YUNIEL L Primary Care Unavailable MOORE, YUNIEL L Attending Unavailable SELF Referring Unavailable MOOREYUNIEL L Primary Care Unavailable MOOREYUNIEL L Referring Unavailable FELIX EMERSON Attending Unavailable MOOREYUNIEL L Primary Care Unavailable MOORE, YUNIEL L Referring Unavailable KI, FELXI Attending Unavailable MOORE, YUNIEL L Primary Care Unavailable PATRICK HIRSCH Referring Unavailable MOOREYUNIEL Primary Care Unavailable PATRICK HIRSCH Referring Unavailable MOORE, YUNIEL L Primary Care Unavailable OMER NELSON Attending Unavailable Medications Current Medications Medication Drug Class(es) Dates Sig (Normalized) Sig (Original) cyclobenzaprine hydrochloride 10 mg oral tablet (20 sources) Muscle Relaxant Start: 10-14-2023 take 0.5-1 tablets by mouth at bedtime as needed for pain cyclobenzaprine (FLEXERIL) 10 mg tablet Indications: Numbness and tingling in both hands Take 0.5-1 tablets by mouth at bedtime as needed for muscle spasm or pain. 30 tablet 1 10/14/2023 Active docusate sodium 100 mg oral capsule (1 source) Start: 10-19-2021 take 1 capsule by mouth twice daily Docusate Sodium (Colace) 100 mg capsule Active 100 MG PO TWICE A DAY October 19, 2021 12:00am ibuprofen 600 mg oral tablet (1 source) Nonsteroidal Anti-inflammatory Drug Start: 10-19-2021 take 600 mg by mouth every six hours Ibuprofen Active 600 MG PO EVERY 6 HOURS October 19, 2021 12:00am Iron (2 sources) Start: 10-14-2021 take 325 mg by mouth once daily Iron (ferrous sulfate) Active 325 MG PO.IVFORM DAILY October 14, 2021 12:00am iv contrast (will be provided with radiology test) (2 sources) Start: 11-18-2023 End: 11-19-2023 inject 1 dose intravenously once iv contrast (will be provided with radiology test) Indications: Motor neuron disease (HCC) , Paresthesia of skin , Weakness of both arms , Chronic neck pain , Worsening headaches MRI Brain Inject, intravenously, once for 1 dose.No IV access, insert saline lock prior to beginning of sedation, infusion, injection of imaging exam.Discontinue saline lock post exam. If Pt. has a central line or IVAD, may access for administration according to line specific nursing protocol.Once exam is complete flush line and de-access according to line specific nursing protocol in the MR contrast administration guidelines link 1 Each 11/18/2023 11/19/2023 Active Start: 11-18-2023 End: 11-19-2023 iv contrast (will be provide d with radiology test) Indications: Motor neuron disease (HCC) , Paresthesia of skin , Weakness of both arms , Chronic neck pain , Worsening headaches MRI CSP Inject, intravenously, once for 1 dose. No IV access, insert saline lock prior to the beginning of sedation, infusion, injection of imaging exam. Discontinue saline lock post exam. If Pt. has a central line or IVAD, may access for administration according to line specific nursing protocol. Once exam is complete flush line and de-access according to line specific nursing protocol in the MR contrast administration guidelines link. 1 Each 11/18/2023 11/19/2023 Active meloxicam 15 mg oral tablet (20 sources) Nonsteroidal Anti-inflammatory Drug Start: 10-14-2023 take 1 tablet by mouth once daily at mealtime meloxicam (MOBIC) 15 mg tablet Indications: Numbness and tingling in both hands Take 1 tablet by mouth once daily. Take with food. 30 tablet 3 10/14/2023 Active naproxen 500 mg oral tablet (20 sources) Nonsteroidal Anti-inflammatory Drug Start: 10-06-2023 take 1 tablet by mouth twice daily as needed for pain naproxen (NAPROSYN) 500 mg tablet Indications: Cervicalgia , Numbness and tingling in both hands Take 1 tablet by mouth two times a day as needed (for pain/inflammation ). Take with food. 60 tablet 10/06/2023 Active oxyCODONE hydrochloride 5 mg oral tablet (1 source) Opioid Agonist Start: 10-19-2021 take 5 mg by mouth every six hours Oxycodone Active 5 MG PO EVERY 6 HOURS 11 15October 19, 2021 Start: 10-19-2021 take 5 mg by mouth e very six hours Oxycodone Active 5 MG PO EVERY 6 HOURS 11 15October 19, 2021 Prenatabs FA (2 sources) Start: 10-14-2021 [facility] Prenatabs FA Active 1 TABLET PO.IVFORM DAILY October 14, 2021 12:00am Completed/Discontinued Medications Medication Drug Class(es) Dates Sig (Normalized) Sig (Original) acetaminophen 325 mg / oxyCODONE hydrochloride 5 mg oral tablet (2 sources) Opioid Agonist Start: 09-10-2020 End: 10-02-2020 take 1 tablet by mouth every six hours Oxycodone-Acetamin ophen (Percocet) 5-325 mg tablet Discontinued 1 TABLET PO EVERY 6 HOURS 28 06September 10, 2020 October 02, 2020 1:36pm 20 tabs (twenty) cholecalciferol 0.125 mg oral capsule (20 sources) Vitamin D Start: 01-16-2021 End: 03-24-2024 take 1 capsule by mouth once daily Cholecalciferol, Vitamin D3, 125 mcg (5,000 unit) cap Indications: Vitamin D deficiency Take 1 capsule by mouth once daily. 90 capsule 3 01/16/2021 03/24/2024 Discontinued Comment on above: Take 1 capsule by [facility] once daily. doxycycline hyclate 100 mg oral capsule (2 sources) Tetracycline-cla ss Drug Start: 09-10-2020 End: 10-02-2020 take 100 mg by mouth twice daily Doxycycline Hyclate Discontinued 100 MG PO TWICE A DAY 14 September 10, 2020 12:00am October 02, 2020 1:36pm Nnhyfyqx-Eu-Ajz-Fe-FA ( VITAMIN) tab (11 sources) take 1 tablet by mouth once Ndakbkid-Vv-Uqi-Fe -FA ( VITAMIN) tab Take 1 tablet by mouth. 0 Active Comment on above: Take 1 tablet by [facility] Woerdecl-Ca-Ujq-Fe-FA tab (20 sources) End: 03-24-2024 take 1 tablet by mouth once Kkxwakst-Eo-Ojz-Fe -FA tab Take 1 tablet by mouth. 03/24/2024 Discontinued take 1 tablet by mouth once Pren atal Qsdmyway-Rl-Gjb-Fe-FA tab Take 1 tablet by mouth. Active take 1 tablet by mouth once Pren atal Hyqgbrjp-Ts-Srt-Fe-FA tab Take 1 tablet by mouth. 0 Active Comment on above: Take 1 tablet by [facility] Problems Active Problems Problem Classification Problem Date Documented Date Episodic/Chronic Early or threatened labor (2 sources) False labor; Translations: [False labor, unspecified] Episodic Headache; including migraine (3 sources) Headache; Translations: [Worsening headaches] 11-18-2023 Episodic Malaise and fatigue (2 sources) Fatigue; Translations: [Other fatigue] Episodic Other complications of ; puerperium affecting management of mother (2 sources) Advanced maternal age ; Translations: [Advanced maternal age during ] Episodic Other complications of (2 sources) High risk ; Translations: [Supervision of other high risk pregnancies, first trimester] Episodic Other complications of (1 source) Supervision of elderly multigravida, third trimester; Translations: [Supervision of elderly multigravida, third trimester] Onset: 11-12-2021 Episodic Other connective tissue disease (1 source) Muscle spasm of cervical muscle of neck; Translations: [Other muscle spasm] 10-14-2023 Episodic Other connective tissue disease (6 sources) Bilateral weakness of upper limbs; Translations: [Other symptoms and signs involving the musculoskeletal system] 10-14-2023 Episodic Other hereditary and degenerative nervous system conditions (3 sources) Motor neuron disease; Translations: [Motor neuron disease, unspecified] 11-18-2023 Chronic Other hereditary and degenerative nervous system conditions (1 source) Motor neuron disease, unspecified; Translations: [Motor neuron disease (HCC)] Onset: 12-24-2023 Chronic Other nervous system disorders (1 source) Other chronic pain; Translations: [Chronic neck pain] Onset: 12-24-2023 Chronic Other nervous system disorders (2 sources) Acute postoperative pain; Translations: [Other acute postprocedural pain] Episodic Other nervous system disorders (5 sources) Paresthesia; Translations: [Paresthesia of skin] 11-18-2023 Episodic Other nervous system disorders (1 source) Postoperative pain ; Translations: [Other acute postprocedural pain] Episodic Other nervous system disorders (20 sources) Paresthesia of hand ; Translations: [Anesthesia of skin] Onset: 11-04-2023 10-06-2023 Episodic Residual codes; unclassified (1 source) Gestation period, 17 weeks; Translations: [17 weeks gestation of ] Episodic Residual codes; unclassified (2 sources) Gestation period, 20 weeks; Translations: [20 weeks gestation of ] Episodic Residual codes; unclassified (1 source) Gestation period, 24 weeks; Translations: [24 weeks gestation of ] Episodic Residual codes; unclassified (1 source) Gestation period, 28 weeks; Translations: [28 weeks gestation of ] Episodic Residual codes; unclassified (1 source) Gestation period, 30 weeks; Translations: [30 weeks gestation of ] Episodic Residual codes; unclassified (2 sources) Gestation period, 32 weeks; Translations: [32 weeks gestation of ] Episodic Residual codes; unclassified (1 source) Gestation period, 34 weeks; Translations: [34 weeks gestation of ] Episodic Residual codes; unclassified (1 source) Gestation period, 36 weeks; Translations: [36 weeks gestation of ] Episodic Residual codes; unclassified (1 source) Gestation period, 37 weeks; Translations: [37 weeks gestation of ] Episodic Residual codes; unclassified (2 sources) History finding; Translations: [Other specified health status] Episodic Residual codes; unclassified (2 sources) Family history of malignant neoplasm of skin; Translations: [Family history of malignant neoplasm of other organs or systems] Episodic Residual codes; unclassified (1 source) Gestation period, 38 weeks; Translations: [38 weeks gestation of ] Episodic Residual codes; unclassified (1 source) 38 weeks gestation of ; Translations: [ state, incidental] Episodic Residual codes; unclassified (1 source) History of uterine scar from previous surgery; Translations: [Other postprocedural status] Episodic Thyroid disorders (2 sources) Finding of thyroid gland; Translations: [Other specified disorders of thyroid] Episodic Unclassified (2 sources) Spontaneous rupture of membranes; Translations: [Spontaneous rupture of amniotic membranes] Unclassified (1 source) Worsening headaches; Translations: [Worsening headaches] Onset: 12-24-2023 Past or Other Problems Problem Classification Problem Date Documented Date Episodic/Chronic Anal and rectal conditions (20 sources) Anal fissure; Translations: [Anal fissure, unspecified] Onset: 07-30-2016 Resolved: 12-07-2019 12-07-2019 Episodic Immunizations and screening for infectious disease (20 sources) Vaccination needed; Translations: [Encounter for immunization] Onset: 03-05-2016 Resolved: 05-19-2016 Episodic Malposition; malpresentation (20 sources) Breech presentation with problem; Translations: [Maternal care for breech presentation, not applicable or unspecified] Onset: 09-04-2021 Resolved: 11-29-2021 09-04-2021 Episodic Other and unspecified benign neoplasm (20 sources) Lipoma of right upper limb; Translations: [Benign lipomatous neoplasm of skin and subcutaneous tissue of right arm] Onset: 05-29-2015 Resolved: 12-07-2019 02-04-2021 Episodic Other complications of (20 sources) Anemia in mother complicating , childbirth AND/OR puerperium; Translations: [Anemia complicating , third trimester] Onset: 08-13-2021 Resolved: 11-29-2021 08-13-2021 Chronic Other complications of (20 sources) Multigravida of advanced maternal age; Translations: [Supervision of elderly multigravida, first trimester] Onset: 12-01-2019 Resolved: 11-29-2021 Episodic Other complications of (20 sources) History of third degree perineal laceration; Translations: [Supervision of with other poor reproductive or obstetric history, unspecified trimester] Onset: 12-03-2015 Resolved: 11-29-2021 03-21-2021 Episodic Other complications of (20 sources) H/O: previous delivery by vacuum extraction; Translations: [Supervision of with other poor reproductive or obstetric history, unspecified trimester] Onset: 12-03-2015 Resolved: 08-05-2016 08-05-2016 Episodic Other complications of (20 sources) Spotting per vagina in ; Translations: [Spotting complicating , unspecified trimester] Onset: 12-01-2019 Resolved: 12-07-2019 12-07-2019 Episodic Other connective tissue disease (1 source) Other symptoms and signs involving the musculoskeletal system; Translations: [Weakness of both arms] Onset: 12-24-2023 Episodic Other female genital disorders (20 sources) Vaginospasm; Translations: [Vaginismus] Onset: 09-26-2010 Resolved: 09-24-2011 09-24-2011 Episodic Other nervous system disorders (1 source) Anesthesia of skin; Translations: [Numbness and tingling in both hands] Onset: 11-04-2023 Episodic Other nervous system disorders (2 sources) Paresthesia of skin; Translations: [Numbness and tingling in both hands] Onset: 11-04-2023 Episodic Other and delivery including normal (20 sources) Encounter for care and examination of lactating mother; Translations: [ care and examination of lactating mother] Onset: 10-05-2013 Resolved: 12-03-2015 Episodic Other screening for suspected conditions (not mental disorders or infectious disease) (4 sources) Patient encounter status; Translations: [Encounter for other specified screening] Onset: 03-24-2024 Episodic Residual codes; unclassified (17 sources) Down's child in family; Translations: [Family history of other congenital malformations, deformations and chromosomal abnormalities] Onset: 12-03-2015 03-21-2021 Episodic Residual codes; unclassified (20 sources) H/O: ; Translations: [Personal history of other complications of , childbirth and the puerperium] Onset: 03-21-2021 Resolved: 11-29-2021 03-21-2021 Episodic Residual codes; unclassified (20 sources) FH: Chromosomal anomaly; Translations: [Family history of other congenital malformations, deformations and chromosomal abnormalities] Onset: 12-03-2015 Resolved: 11-29-2021 11-29-2021 Episodic Spondylosis; intervertebral disc disorders; other back problems (20 sources) Neck pain; Translations: [Cervicalgia] Onset: 11-04-2023 10-06-2023 Episodic Unclassified (1 source) Patient encounter status 03-24-2024 Results Test Name Value Interpretation Reference Range Facility CNTHERAPYon 08-11-2024 CNTHERAPY OT/PT/Speech Visit (PTWS) JOEY DELVALLE ([id number]) 1985 F Date Time Provider Department 08/11/24 5:15 PM FELIX EMERSON PTWS Date Time Provider Department [place] 08/11/2024 5:15 PM [id number], SEAN PTWS Karen Rainey Reason for Visit: PT Re-eval [891] Primary Visit Diagnosis:Cervicalgia [M54.2] Other Visit Diagnosis:Numbness and tingling in both hands [R20.0, R20.2] Allergies As of Date: 08/11/2024 (No Known Allergies) Date Reviewed: 07/27/2024 Reviewed by: Niurka Smith LPN - Fully Assessed Prescriptions as of 08/11/2024 - cyclobenzaprine (FLEXERIL) 10 mg tablet Take 0.5-1 tablets by mouth at bedtime as needed for muscle spasm or pain. - meloxicam (MOBIC) 15 mg tablet Take 1 tablet by mouth once daily. Take with food. - naproxen (NAPROSYN) 500 mg tablet Take 1 tablet by mouth two times a day as needed (for pain/inflammation). Take with food. Normal [facility] CNOVon 07-27-2024 CNOV Office Visit (FAMPWS ) JOEY DELVALLE ([id number]) 1985 F Date Time Provider Department 07/27/24 12:00 PM YUNIEL MOORE FAMPWS During your visit today, we recorded the following information about you: Temperature Pulse Respiration Blood pressure 99.2 degrees 64/minute 16/minute 104/70 Weight Height Last Period 59.4 kg 1.66 m 07/13/24 Yuniel Moore DO 07/27/2024 1:23 PM Signed CC: Joey Delvalle is a 38 year old female who presents to the office for physical HPI: Overall she is doing well Still with intermittent necck pain, left >right side, better with dry needling and PHYSICAL THERAPY as well as stretches and intermittent use of heating pad Wondering any supplements that would benefit her symptoms PAST MEDICAL HISTORY Diagnosis Date Antepartum anemia complicating in third trimester (HCC) 08/13/2021 PAST SURGICAL HISTORY Procedure Laterality Date APPENDECTOMY 02/09/1991 SECTION HX 10/17/2021 LIPOMA (LARGE) 09/10/2020 right arm Social History: Social History Tobacco Use Smoking status: Never Smokeless tobacco: Never Vaping Use Vaping status: Never Used Substance Use Topics Alcohol use: Not Currently Comment: very rare, not while Drug use: No FAMILY HISTORY Problem Relation Age of Onset Osteoporosis Mother 55 Hyperlipidemia Mother Cancer Father 57 melanoma Hyperlipidemia Father Heart Attack Father 66 No Known Problems Sister No Known Problems Brother Osteoporosis Maternal Grandmother Parkinson?s Disease Maternal Grandfather No Known Problems Paternal Grandmother No Known Problems Paternal Grandfather No Known Problems Son No Known Problems Son Parkinson?s Disease Maternal Uncle Current Outpatient prescriptions: cyclobenzaprine (FLEXERIL) 10 mg tablet Take 0.5-1 tablets by mouth at bedtime as needed for muscle spasm or pain. meloxicam (MOBIC) 15 mg tablet Take 1 tablet by mouth once daily. Take with food. naproxen (NAPROSYN) 500 mg tablet Take 1 tablet by mouth two times a day as needed (for pain/inflammation). Take with food. Allergies: ALLERGIES No Known Allergies ROS: See HPI PE: 07/27/24 1209 BP: 104/70 Pulse: 64 Resp: 16 Temp: 37.3 ?C (99.2 ?F) TempSrc: Right Tympanic Weight: 59.4 kg (131 lb) Height: 166 cm (5' 5.35) Gen: AANDO, NAD, non-toxic appearing, Pleasant, cooperative HEENT: NT/AC, PERRLA, EOMs intact b/l, nares clear and patent b/l, pharynx without erythema, exudate or lesions. Uvula midline. EACs without erythema or debris. TMs pearly laguerre with intact landmarks b/l. Neck: supple, No cervical LAD, no thyromegaly, no carotid bruits.. + cervical muscle spasms left >right CV: RRR, normal S1 and S2, no murmurs, no gallops, no rubs, Pulses 2+ and symmetric in UE and LE b/l Lungs: normal respiratory effort, CTA b/l, no wheezing or rhonchi or rales Abd: soft, small reducible umbilical hernia without signs of incarceration or strangulation. NT, ND, +BS, no hepatosplenomegaly MS: FROM all 4 extremities Neuro: CN II-XII intact b/l, strength 5/5 b/l UE and LE, DTRs 2/4 UE and LE, sensation intact. Skin: warm, dry, intact, No rashes or lesions on exposed skin. ASSESSMENT/PLAN: 1. Well adult exam - ICD9: V70.0, ICD10: Z00.00 (primary diagnosis) - Counseled on healthy diet and regular exercise 2. Cervicalgia - ICD9: 723.1, ICD10: M54.2 Continue PHYSICAL THERAPY/dry needling intermittently as well as use of TENS unit and stretches Yuniel Moore DO To ER if develops chest pain, shortness of breath, or severe worsening of symptoms. Discussed risks, benefits, alternatives, and potential side effects of medications. Patient expressed understanding and agreed with the plan. Yuniel Moore DO [address] [place] [address] Yuniel Moore DO 07/27/2024 1:02 PM Signed Collagen powder daily in coffee or hot tea or smoothie- brand that is good is Ancient nutrition or [employer] brand Vitamin B complex - liquid or chewable with at least 50-100 mg of vitamin B6 in it protein intake of at least 100 grams a day. Can use Transparent Pop.it brand of powder if interested. Use this post lift/work up Creatinine 2-5 mg after lifting- can use Transparent Kontest brand for this as well if interested. Turmeric-curcumin 500 mg 1-2 times a day with meals to help inflammation pain I also like super greens and super beets powders to add in smoothies- this brand I use is [employer] nutrition online Referring Provider: SELF [200] Allergies As of Date: 07/27/2024 (No Known Allergies) Date Reviewed: 07/27/2024 Reviewed by: Niurka Smith LPN - Fully Assessed Reason for Visit: Yearly Exam [187] Primary Visit Diagnosis:Well adult exam [Z00.00] Other Visit Diagnoses:Cervicalgia [M54.2] Weakness of both arm (more content not included)... Normal [facility] CNTHERAPYon 05-19-2024 CNTHERAPY OT/PT/Speech Visit (PTWS) JOEY DELVALLE ([id number]) 1985 F Date Time Provider Department 05/19/24 12:30 PM FELIX EMERSON PTWS Date Time Provider Department Center 05/19/2024 12:30 PM [id number], SEAN PTWS [facility] Reason for Visit: PT Discharge [752] Primary Visit Diagnosis:Cervicalgia [M54.2] Other Visit Diagnosis:Numbness and tingling in both hands [R20.0, R20.2] Allergies As of Date: 05/19/2024 (No Known Allergies) Date Reviewed: 03/24/2024 Reviewed by: Omer Nelson APRN.VICE PRESIDENT TALENT MANAGEMENT - Fully Assessed Prescriptions as of 05/20/2024 - cyclobenzaprine (FLEXERIL) 10 mg tablet Take 0.5-1 tablets by mouth at bedtime as needed for muscle spasm or pain. - meloxicam (MOBIC) 15 mg tablet Take 1 tablet by mouth once daily. Take with food. - naproxen (NAPROSYN) 500 mg tablet Take 1 tablet by mouth two times a day as needed (for pain/inflammation). Take with food. Normal [facility] CNTHERAPYon 04-08-2024 CNTHERAPY OT/PT/Speech Visit (PTWS) JOEY DELVALLE ([id number]) 1985 F Date Time Provider Department 04/08/24 1:45 PM FELIX EMERSON PTDOROTHY Date Time Provider Department Center 04/08/2024 1:45 PM [id number], SEAN PTDOROTHY Rainey Reason for Visit: Physical Therapy [503] Primary Visit Diagnosis:Cervicalgia [M54.2] Other Visit Diagnosis:Numbness and tingling in both hands [R20.0, R20.2] Allergies As of Date: 04/08/2024 (No Known Allergies) Date Reviewed: 03/24/2024 Reviewed by: Omer Nelson APRN.VICE PRESIDENT TALENT MANAGEMENT - Fully Assessed Prescriptions as of 04/08/2024 - cyclobenzaprine (FLEXERIL) 10 mg tablet Take 0.5-1 tablets by mouth at bedtime as needed for muscle spasm or pain. - meloxicam (MOBIC) 15 mg tablet Take 1 tablet by mouth once daily. Take with food. - naproxen (NAPROSYN) 500 mg tablet Take 1 tablet by mouth two times a day as needed (for pain/inflammation). Take with food. Normal [facility] CNOVon 03-24-2024 CNOV Office Visit (OBGYWM ) JOEY DELVALLE ([id number]) 1985 F Date Time Provider Department 03/24/24 4:00 PM OMER NELSON During your visit today, we recorded the following information about you: Blood pressure Weight Height Last Period 122/64 59.4 kg 1.651 m 02/28/24 Omer Nelson APRN.VICE PRESIDENT TALENT MANAGEMENT 03/24/2024 4:36 PM Signed Joey is a 38 year old who presents for an annual gynecologic exam without complaints. 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 History LMP: 02/28/2024, Having periods Age at Menarche: 11 Age at First : Age at Menopause: 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 History Comments: Sexual Activity: Yes; Male Contraception: Rhythm Menstrual Tracking History Flowsheet Row Appointment from 03/24/2024 in OB/Gynecology Period Cycle (Days) 26 Period Duration (Days) 5 Menstrual Flow Light PAST MEDICAL HISTORY Diagnosis Date Antepartum anemia complicating in third trimester 08/13/2021 NEGATIVE MEDICAL HISTORY PAST SURGICAL HISTORY Procedure Laterality Date APPENDECTOMY 02/09/1991 SECTION HX 10/17/2021 LIPOMA (LARGE) 09/10/2020 right arm FAMILY HISTORY Problem Relation Age of Onset Osteoporosis Mother 55 Hyperlipidemia Mother Cancer Father 57 melanoma Hyperlipidemia Father Heart Attack Father 66 No Known Problems Sister No Known Problems Brother Osteoporosis Maternal Grandmother Parkinson?s Disease Maternal Grandfather No Known Problems Paternal Grandmother No Known Problems Paternal Grandfather No Known Problems Son No Known Problems Son Parkinson?s Disease Maternal Uncle SOCIAL HISTORY Social History Tobacco Use Smoking status: Never Smokeless tobacco: Never Vaping Use Vaping status: Never Used Substance Use Topics Alcohol use: Not Currently Comment: very rare, not while Drug use: No REVIEW OF SYSTEMS Abdomen: No abdominal pain, nausea, vomiting, diarrhea, or constipation. No bloating, early satiety, indigestion, or increased flatulence. Bladder: No dysuria, gross hematuria, urinary frequency, urinary urgency, or incontinence. Breast: No breast lumps, nipple d/c, overlying skin changes, redness or skin retraction. Allergies and current medication updated:Yes SENSITIVE EXAM: The sensitive examination was discussed with the Patient or Patient's Authorized Oyster Fisherman. As applicable, any other physician, advance practice provider, medical student, or other health professional student that will be observing or involved in the sensitive examination for educational or training purposes was discussed with the Patient or Authorized Oyster Fisherman. The Patient or Authorized Oyster Fisherman has agreed to proceed with the sensitive examination. (Sensitive examination includes inspection and/or palpation of the breasts, pelvis, prostate and anorectal regions). EXAM: BP 122/64 Ht 5' 5 (1.65m) Wt 131 lb (59.4kg) LMP 02/28/2024 BMI 21.80 kg/(m2). GENERAL: pleasant, female in no apparent distress HEENT: Normocephalic, atraumatic, mucus membranes moist, and no lesions NECK: Supple, full range of motion, no adenopathy, and thyroid normal DERMATOLOGY: Normal, without lesions, non-icteric, and non-hirsute BREAST: soft, non-tender, symmetric, no dominant mass, normal nipple-areolar complex, no lymphadenopathy, and no nipple discharge CHEST: Normal inspiratory effort ABDOMEN: soft, non-tender, and no masses PELVIC: external genitalia normal, normal Bartholin's glands, urethra, [place]'s glands, no vulvar lesions, no cervical lesions, good vaginal support, physiologic discharge present, normal appearing perineal body and perianal region BIMANUAL: uterus normal size, shape and consistency, no adnexal masses, and non-tender RECTOVAGINAL: deferred. NEURO: alert and oriented x3,exam grossly non-focal EXTREMITIES: normal ASSESSMENT/PLAN: 1) Health maintenance: Pap/HPV up to date 2020. Deferred until 2025. Mammogram ordered. Nutrition, exercise and routine health maintenance exams reviewed. HPV vaccine: discussed, not interested Sees dermatology 2) Contraception: natural family planning. Declines contraception. Reviewed risk of and recommend PNV. 3) STD screening: Declined STD check. Plan for early BMD due to family history. 4) Follow up one year or sooner as n (more content not included)... Normal [facility] CNTHERAPYon 03-08-2024 CNTHERAPY OT/PT/Speech Visit (PTWS) JOEY DELVALLE ([id number]) 1985 F Date Time Provider Department 03/08/24 12:30 PM FELIX EMERSON PTWS Date Time Provider Department Center 03/08/2024 12:30 PM [id number], SEAN PTWS Karen Rainey Reason for Visit: PT Progress Note [1596] Primary Visit Diagnosis:Cervicalgia [M54.2] Other Visit Diagnosis:Numbness and tingling in both hands [R20.0, R20.2] Allergies As of Date: 03/08/2024 (No Known Allergies) Date Reviewed: 11/18/2023 Reviewed by: Niurka Smith LPN - Fully Assessed Prescriptions as of 03/08/2024 - cyclobenzaprine (FLEXERIL) 10 mg tablet Take 0.5-1 tablets by mouth at bedtime as needed for muscle spasm or pain. - meloxicam (MOBIC) 15 mg tablet Take 1 tablet by mouth once daily. Take with food. - naproxen (NAPROSYN) 500 mg tablet Take 1 tablet by mouth two times a day as needed (for pain/inflammation). Take with food. - Cholecalciferol, Vitamin D3, 125 mcg (5,000 unit) cap Take 1 capsule by mouth once daily. - Eiekpjsg-Mt-Peu-Fe-FA tab Take 1 tablet by mouth. Normal [facility] CNTHERAPYon 02-09-2024 CNTHERAPY OT/PT/Speech Visit (PTWS) JOEY DELVALLE ([id number]) 1985 F Date Time Provider Department 02/09/24 12:30 PM FELIX EMERSON PTWS Date Time Provider Department Center 02/09/2024 12:30 PM [id number], SEAN PTWS Karen Rainey Reason for Visit: Physical Therapy [503] Primary Visit Diagnosis:Cervicalgia [M54.2] Other Visit Diagnosis:Numbness and tingling in both hands [R20.0, R20.2] Allergies As of Date: 02/09/2024 (No Known Allergies) Date Reviewed: 11/18/2023 Reviewed by: Niurka Smith LPN - Fully Assessed Prescriptions as of 02/09/2024 - cyclobenzaprine (FLEXERIL) 10 mg tablet Take 0.5-1 tablets by mouth at bedtime as needed for muscle spasm or pain. - meloxicam (MOBIC) 15 mg tablet Take 1 tablet by mouth once daily. Take with food. - naproxen (NAPROSYN) 500 mg tablet Take 1 tablet by mouth two times a day as needed (for pain/inflammation). Take with food. - Cholecalciferol, Vitamin D3, 125 mcg (5,000 unit) cap Take 1 capsule by mouth once daily. - Njheslma-Ev-Bgp-Fe-FA tab Take 1 tablet by mouth. Normal [facility] CNTHERAPYon 01-29-2024 CNTHERAPY OT/PT/Speech Visit (PTWS) JOEY DELVALLE ([id number]) 1985 F Date Time Provider Department 01/29/24 1:00 PM FELIX EMERSON PTWS Date Time Provider Department Center 01/29/2024 1:00 PM [id number], SEAN PTWS Karen Ollie Reason for Visit: Physical Therapy [503] Primary Visit Diagnosis:Cervicalgia [M54.2] Other Visit Diagnosis:Numbness and tingling in both hands [R20.0, R20.2] Allergies As of Date: 01/29/2024 (No Known Allergies) Date Reviewed: 11/18/2023 Reviewed by: Niurka Smith LPN - Fully Assessed Prescriptions as of 01/29/2024 - cyclobenzaprine (FLEXERIL) 10 mg tablet Take 0.5-1 tablets by mouth at bedtime as needed for muscle spasm or pain. - meloxicam (MOBIC) 15 mg tablet Take 1 tablet by mouth once daily. Take with food. - naproxen (NAPROSYN) 500 mg tablet Take 1 tablet by mouth two times a day as needed (for pain/inflammation). Take with food. - Cholecalciferol, Vitamin D3, 125 mcg (5,000 unit) cap Take 1 capsule by mouth once daily. - Jmtskkpm-Dp-Vgj-Fe-FA tab Take 1 tablet by mouth. Die Polisher: Therapy (PT/OT/Speech/Resp) ID: [id number] 01/29/2024 1:40 PM Author: FELIX EMERSON Signed by FELIX EMERSON PT on 01/29/2024 at 1:40 PM Document text: Program_ID:[id number] Access Code: [email or web address] URL: [email or web address] Date: 01-29-2024 Prepared By: Felix Emerson Program Notes Exercises - Seated Passive Cervical Retraction - 1 x daily - 7 x weekly - 3 sets - 10 reps - Seated Cervical Retraction and Extension - 1 x daily - 7 x weekly - 3 sets - 10 reps - Upper Trapezius Stretch - 3 x daily - 7 x weekly - 1 sets - 3 reps - Seated Assisted Cervical Rotation with Towel - 1 x daily - 7 x weekly - 3 sets - 10 reps - Upper Cervical Extension SNAG with Strap - 1 x daily - 7 x weekly - 3 sets - 10 reps - Upper Cervical Rotation SNAG with Strap - 1 x daily - 7 x weekly - 3 sets - 10 reps - First Rib Mobilization with Strap - 1 x daily - 7 x weekly - 3 sets - 10 reps - Doorway Pec Stretch at 60 Degrees Abduction with Arm Straight - 1 x daily - 7 x weekly - 1 sets - 3 reps - Sternocleidomastoid Stretch - 1 x daily - 7 x weekly - 1 sets - 3 reps - Standing Shoulder External Rotation with Resistance - 1 x daily - 7 x weekly - 3 sets - 10 reps - Standing Shoulder Horizontal Abduction with Resistance - 1 x daily - 7 x weekly - 3 sets - 10 reps - Standing Shoulder Diagonal Horizontal Abduction 60/120 Degrees with Resistance - 1 x daily - 7 x weekly - 3 sets - 10 reps - Median Nerve Flossing - Tray - 1 x daily - 7 x weekly - 3 sets - 10 reps Normal [facility] THERAPY NTon 01-29-2024 THERAPY NT HNO ID: [id number] Author: FELIX EMERSON PT Service: ? Author Type: Physical Therapist Type: Therapy (PT/OT/Speech/Resp) Filed: 01/29/2024 13:40 Note Text: Program_ID:[id number] Access Code: [email or web address] URL: [email or web address] Date: 01-29-2024 Prepared By: Felix Emerson Program Notes Exercises - Seated Passive Cervical Retraction - 1 x daily - 7 x weekly - 3 sets - 10 reps - Seated Cervical Retraction and Extension - 1 x daily - 7 x weekly - 3 sets - 10 reps - Upper Trapezius Stretch - 3 x daily - 7 x weekly - 1 sets - 3 reps - Seated Assisted Cervical Rotation with Towel - 1 x daily - 7 x weekly - 3 sets - 10 reps - Upper Cervical Extension SNAG with Strap - 1 x daily - 7 x weekly - 3 sets - 10 reps - Upper Cervical Rotation SNAG with Strap - 1 x daily - 7 x weekly - 3 sets - 10 reps - First Rib Mobilization with Strap - 1 x daily - 7 x weekly - 3 sets - 10 reps - Doorway Pec Stretch at 60 Degrees Abduction with Arm Straight - 1 x daily - 7 x weekly - 1 sets - 3 reps - Sternocleidomastoid Stretch - 1 x daily - 7 x weekly - 1 sets - 3 reps - Standing Shoulder External Rotation with Resistance - 1 x daily - 7 x weekly - 3 sets - 10 reps - Standing Shoulder Horizontal Abduction with Resistance - 1 x daily - 7 x weekly - 3 sets - 10 reps - Standing Shoulder Diagonal Horizontal Abduction 60/120 Degrees with Resistance - 1 x daily - 7 x weekly - 3 sets - 10 reps - Median Nerve Flossing - Tray - 1 x daily - 7 x weekly - 3 sets - 10 reps Normal [facility] CNTHERAPYon 01-14-2024 CNTHERAPY OT/PT/Speech Visit (PTWS) JOEY DELVALLE ([id number]) 1985 F Date Time Provider Department 01/14/24 1:15 PM FELIX EMERSON PTWS Date Time Provider Department [place] 01/14/2024 1:15 PM [id number], SEAN PTWS Karen Rainey Reason for Visit: PT Progress Note [1596] Primary Visit Diagnosis:Cervicalgia [M54.2] Other Visit Diagnosis:Numbness and tingling in both hands [R20.0, R20.2] Allergies As of Date: 01/14/2024 (No Known Allergies) Date Reviewed: 11/18/2023 Reviewed by: Niurka Smith LPN - Fully Assessed Prescriptions as of 01/15/2024 - cyclobenzaprine (FLEXERIL) 10 mg tablet Take 0.5-1 tablets by mouth at bedtime as needed for muscle spasm or pain. - meloxicam (MOBIC) 15 mg tablet Take 1 tablet by mouth once daily. Take with food. - naproxen (NAPROSYN) 500 mg tablet Take 1 tablet by mouth two times a day as needed (for pain/inflammation). Take with food. - Cholecalciferol, Vitamin D3, 125 mcg (5,000 unit) cap Take 1 capsule by mouth once daily. - Jvltsiiw-Cr-Ezn-Fe-FA tab Take 1 tablet by mouth. Die Polisher: Therapy (PT/OT/Speech/Resp) ID: [id number] 01/14/2024 1:46 PM Author: FELIX EMERSON Signed by FELIX EMERSON PT on 01/14/2024 at 1:46 PM Document text: Program_ID:[id number] Access Code: [email or web address] URL: [email or web address] .[email or web address]/ Date: 01-14-2024 Prepared By: Felix Emerson Program Notes Exercises - Seated Passive Cervical Retraction - 1 x daily - 7 x weekly - 3 sets - 10 reps - Seated Cervical Retraction and Extension - 1 x daily - 7 x weekly - 3 sets - 10 reps - Upper Trapezius Stretch - 3 x daily - 7 x weekly - 1 sets - 3 reps - Seated Assisted Cervical Rotation with Towel - 1 x daily - 7 x weekly - 3 sets - 10 reps - Upper Cervical Extension SNAG with Strap - 1 x daily - 7 x weekly - 3 sets - 10 reps - Upper Cervical Rotation SNAG with Strap - 1 x daily - 7 x weekly - 3 sets - 10 reps - First Rib Mobilization with Strap - 1 x daily - 7 x weekly - 3 sets - 10 reps - Doorway Pec Stretch at 60 Degrees Abduction with Arm Straight - 1 x daily - 7 x weekly - 1 sets - 3 reps - Sternocleidomastoid Stretch - 1 x daily - 7 x weekly - 1 sets - 3 reps - Standing Shoulder External Rotation with Resistance - 1 x daily - 7 x weekly - 3 sets - 10 reps - Standing Shoulder Horizontal Abduction with Resistance - 1 x daily - 7 x weekly - 3 sets - 10 reps - Standing Shoulder Diagonal Horizontal Abduction 60/120 Degrees with Resistance - 1 x daily - 7 x weekly - 3 sets - 10 reps Normal [facility] THERAPY NTon 01-14-2024 THERAPY NT HNO ID: [id number] Author: FELIX EMERSON PT Service: ? Author Type: Physical Therapist Type: Therapy (PT/OT/Speech/Resp) Filed: 01/14/2024 13:46 Note Text: Program_ID:[id number] Access Code: [email or web address] URL: [email or web address] Date: 01-14-2024 Prepared By: Felix Emerson Program Notes Exercises - Seated Passive Cervical Retraction - 1 x daily - 7 x weekly - 3 sets - 10 reps - Seated Cervical Retraction and Extension - 1 x daily - 7 x weekly - 3 sets - 10 reps - Upper Trapezius Stretch - 3 x daily - 7 x weekly - 1 sets - 3 reps - Seated Assisted Cervical Rotation with Towel - 1 x daily - 7 x weekly - 3 sets - 10 reps - Upper Cervical Extension SNAG with Strap - 1 x daily - 7 x weekly - 3 sets - 10 reps - Upper Cervical Rotation SNAG with Strap - 1 x daily - 7 x weekly - 3 sets - 10 reps - First Rib Mobilization with Strap - 1 x daily - 7 x weekly - 3 sets - 10 reps - Doorway Pec Stretch at 60 Degrees Abduction with Arm Straight - 1 x daily - 7 x weekly - 1 sets - 3 reps - Sternocleidomastoid Stretch - 1 x daily - 7 x weekly - 1 sets - 3 reps - Standing Shoulder External Rotation with Resistance - 1 x daily - 7 x weekly - 3 sets - 10 reps - Standing Shoulder Horizontal Abduction with Resistance - 1 x daily - 7 x weekly - 3 sets - 10 reps - Standing Shoulder Diagonal Horizontal Abduction 60/120 Degrees with Resistance - 1 x daily - 7 x weekly - 3 sets - 10 reps Normal [facility] CNTHERAPYon 01-06-2024 CNTHERAPY OT/PT/Speech Visit (PTWS) JOEY DELVALLE ([id number]) 1985 F Date Time Provider Department 01/06/24 11:15 AM FELIX EMERSON Date Time Provider Department [place] 01/06/2024 11:15 AM [id number] EMERSONoster Ollie Reason for Visit: Physical Therapy [503] Primary Visit Diagnosis:Cervicalgia [M54.2] Other Visit Diagnosis:Numbness and tingling in both hands [R20.0, R20.2] Allergies As of Date: 01/06/2024 (No Known Allergies) Date Reviewed: 11/18/2023 Reviewed by: Niurka Smith LPN - Fully Assessed Prescriptions as of 01/06/2024 - cyclobenzaprine (FLEXERIL) 10 mg tablet Take 0.5-1 tablets by mouth at bedtime as needed for muscle spasm or pain. - meloxicam (MOBIC) 15 mg tablet Take 1 tablet by mouth once daily. Take with food. - naproxen (NAPROSYN) 500 mg tablet Take 1 tablet by mouth two times a day as needed (for pain/inflammation). Take with food. - Cholecalciferol, Vitamin D3, 125 mcg (5,000 unit) cap Take 1 capsule by mouth once daily. - Olsfrpqm-Zs-Wlr-Fe-FA tab Take 1 tablet by mouth. [facility] JOE[facility] DEL[facility] ([id number]) 1985 F Date Time Provider Department 12/30/23 YUNIEL MOORE [facility] During your visit today, we recorded the following information about you: Yuniel Moore DO 12/30/2023 10:13 PM Signed Please inform patient that her MRI of the brain and cervical spine are normal appearing. Her pain is likely coming from muscle tightness/spasm and restriction DO Abe Maria Linda M, LPN 12/31/2023 10:24 AM Signed Left message to return call. Jose Eduardo Lugo RN 12/31/2023 10:30 AM Signed Pt returned call and given provider's message below with verbalized understanding. Allergies As of Date: 12/30/2023 (No Known Allergies) Date Reviewed: 11/18/2023 Reviewed by: Niurka Smith LPN - Fully Assessed Prescriptions as of 12/31/2023 - cyclobenzaprine (FLEXERIL) 10 mg tablet Take 0.5-1 tablets by mouth at bedtime as needed for muscle spasm or pain. - meloxicam (MOBIC) 15 mg tablet Take 1 tablet by mouth once daily. Take with food. - naproxen (NAPROSYN) 500 mg tablet Take 1 tablet by mouth two times a day as needed (for pain/inflammation). Take with food. - Cholecalciferol, Vitamin D3, 125 mcg (5,000 unit) cap Take 1 capsule by mouth once daily. - Vjfwazlk-Yx-Mpu-Fe-FA tab Take 1 tablet by mouth. Problem List As Of Date 12/30/2023 Noted Resolved Vaginismus [N94.2] 09/26/2010 09/24/2011 Supervision of normal first [Z34.00] 10/05/2013 12/03/2015 Lipoma of right upper extremity [D17.21] 05/29/2015 12/07/2019 History of maternal third degree perineal lacer*12/03/2015 11/29/2021 History of delivery by vacuum extractionlan*12/03/2015 08/05/2016 Family history of Down syndrome [Z82.79] 12/03/2015 11/29/2021 Abnormal antibody titer [R76.0] 03/05/2016 05/19/2016 Anal fissure [K60.2] 07/30/2016 12/07/2019 Well adult exam [Z00.00] 07/30/2016 12/07/2019 Antepartum multigravida of advanced maternal ag*12/01/2019 11/29/2021 Spotting in [O26.859] 12/01/2019 12/07/2019 Well adult exam [Z00.00] 12/28/2020 H/O rapid labor [Z87.59] 03/21/2021 11/29/2021 Antepartum anemia complicating in thi*08/13/2021 11/29/2021 Breech presentation with problem [O32*09/04/2021 11/29/2021 Cervicalgia [M54.2] 11/04/2023 Numbness and tingling in both hands [R20.0, R20*11/04/2023 Encounter Status:Closed by Jose Eduardo LUGO on 12/31/23 [facility] CNTHERAPYon 12-24-2023 CNTHERAPY OT/PT/Speech Visit (PTWS) JOEY DELVALLE ([id number]) 1985 F Date Time Provider Department 12/24/23 10:30 AM SANTOS WHITE PTWS Date Time Provider Department [place] 12/24/2023 10:30 AM [id number], MCKENA PTWS Karen Ollie Reason for Visit: PT Progress Note [1596] Primary Visit Diagnosis:Cervicalgia [M54.2] Other Visit Diagnosis:Numbness and tingling in both hands [R20.0, R20.2] Allergies As of Date: 12/24/2023 (No Known Allergies) Date Reviewed: 11/18/2023 Reviewed by: Niurka Smith LPN - Fully Assessed Prescriptions as of 12/24/2023 - cyclobenzaprine (FLEXERIL) 10 mg tablet Take 0.5-1 tablets by mouth at bedtime as needed for muscle spasm or pain. - meloxicam (MOBIC) 15 mg tablet Take 1 tablet by mouth once daily. Take with food. - naproxen (NAPROSYN) 500 mg tablet Take 1 tablet by mouth two times a day as needed (for pain/inflammation). Take with food. - Cholecalciferol, Vitamin D3, 125 mcg (5,000 unit) cap Take 1 capsule by mouth once daily. - Cupgjbds-Wv-Swz-Fe-FA tab Take 1 tablet by mouth. Normal [facility] MR Brain WO and W contrast I Von 12-24-2023 * * *Final Report* * * DATE OF EXAM: Dec 24 2023 9:29AM [facility] [id number] - MRI BRAIN WO/W IVCON / PROCEDURE REASON: multiple diagnoses * * * * Physician Interpretation * * * * EXAMINATION: MRI BRAIN WO/W IVCON, MRI CERVICAL SPINE WO/W IVCON CLINICAL HISTORY: Intermittent numbness and paresthesias of the lower extremities, neck, left Velma left shoulder pain, numbness and paresthesias of the left upper extremity, and prior episode of lightheadedness and dizziness. Evaluate for demyelinating disease, cervical radiculopathy or motor neuron disease. TECHNIQUE: Demyelinating disease protocol the brain with and without gadolinium. MQ: MRBWOW_2; Routine cervical spine MR protocol without and with intravenous gadolinium. MQ: MRCSPWO_3 Contrast: 12 mL Dotarem IV COMPARISON: None. RESULT: BRAIN: Acute Change: There is no evidence of an acute intracranial process. Hemorrhage: No clear evidence of prior parenchymal hemorrhage within the constraints of the acquisition. Mass Lesion/ Mass Effect: There is no evidence of an intracranial mass or extra-axial fluid collection. No abnormal parenchymal or leptomeningeal enhancement is noted otherwise following gadolinium administration. Chronic Change: The white matter is within normal limits of signal intensity for age. Specifically, there is no evidence of intracranial demyelinating disease by MRI. Parenchyma: No significant volume loss for age. The brain parenchyma is otherwise within normal limits of signal intensity and morphology. Ventricles: Normal caliber and morphology. Skull Base: Hypothalamic and pituitary region are grossly normal. Craniocervical junction is normal. No significant marrow replacement process. Vasculature: Major intracranial arterial structures, and dural venous sinuses show typical flow void, suggesting patency by spin echo criteria. Other: The paranasal sinuses, mastoid air cells and middle ear cavities are clear. CERVICAL: Counting reference: Craniocervical junction. Anatomic Variants: None. Localizer images: No additional findings. Alignment: Alignment is anatomic. Craniocervical junction: Craniocervical junction is normal. Cord: The cervical and visualized upper thoracic spinal cord is within normal limits of signal intensity and morphology. Specifically, no evidence of demyelinating disease, syrinx formation, or other intrinsic abnormality of the upper spinal cord by MRI. No abnormal intradural enhancement is noted otherwise following gadolinium administration. Bone marrow signal/fracture: No evidence of pathologic marrow infiltration. No evidence of prior fracture. Cervical soft tissues: The paraspinal soft tissues are within normal limits. C2-C3: Canal and foramina are patent. C3-C4: Canal and foramina are patent. C4-C5: Canal and foramina are patent. C5-C6: Canal and foramina are patent. C6-C7: Canal and foramina are patent. C7-T1: Canal and foramina are patent. DIVISION OF RADIOLOGY Provider, [facility] - 12/24/2023 * * *Final Report* * * DATE OF EXAM: Dec 24 2023 9:29AM [facility] 0295 - MRI BRAIN WO/W IVCON / PROCEDURE REASON: multiple diagnoses * * * * Physician Interpretation * * * * EXAMINATION: MRI BRAIN WO/W IVCON, MRI CERVICAL SPINE WO/W IVCON CLINICAL HISTORY: Intermittent numbness and paresthesias of the lower extremities, neck, left Velma left shoulder pain, numbness and paresthesias of the left upper extremity, and prior episode of lightheadedness and dizziness. Evaluate for demyelinating disease, cervical radiculopathy or motor neuron disease. TECHNIQUE: Demyelinating disease protocol the brain with and without gadolinium. MQ: MRBWOW_2; Routine cervical spine MR protocol without and with intravenous gadolinium. MQ: MRCSPWO_3 Contrast: 12 mL Dotarem IV COMPARISON: None. RESULT: BRAIN: Acute Change: There is no evidence of an acute intracranial process. Hemorrhage: No clear evidence of prior parenchymal hemorrhage within the constraints of the acquisition. Mass Lesion/ Mass Effect: There is no evidence of an intracranial mass or extra-axial fluid collection. No abnormal parenchymal or leptomeningeal enhancement is noted otherwise following gadolinium administration. Chronic Change: The white matter is within normal limits of signal intensity for age. Specifically, there is no evidence of intracranial demyelinating disease by MRI. Parenchyma: No significant volume loss for age. The brain parenchyma is otherwise within normal limits of signal intensity and morphology. Ventricles: Normal caliber and morphology. Skull Base: Hypothalamic and pituitary region are grossly normal. Craniocervical junction is normal. No significant marrow replacement process. Vasculature: Major intracranial arterial structures, and dural venous sinuses show typical flow void, suggesting patency by spin echo criteria. Other: The paranasal sinuses, mastoid air cells and middle ear cavities are clear. CERVICAL: Counting reference: Craniocervical junction. Anatomic Variants: None. Localizer images: No additional findings. Alignment: Alignment is anatomic. Craniocervical junction: Craniocervical junction is normal. Cord: The cervical and visualized upper thoracic spinal cord is within normal limits of signal intensity and morphology. Specifically, no evidence of demyelinating disease, syrinx formation, or other intrinsic abnormality of the upper spinal cord by MRI. No abnormal intradural enhancement is noted otherwise following gadolinium administration. Bone marrow signal/fracture: No evidence of pathologic marrow infiltration. No evidence of prior fracture. Cervical soft tissues: The paraspinal soft tissues are within normal limits. C2-C3: Canal and foramina are patent. C3-C4: Canal and foramina are patent. C4-C5: Canal and foramina are patent. C5-C6: Canal and foramina are patent. C6-C7: Canal and foramina are patent. C7-T1: Canal and foramina are patent. IMPRESSION IMPRESSION: Normal MRI of the brain and cervical spine. Anatomic Variant: None. Assume 7 cervical vertebrae with counting from the craniocervical junction. News Broadcaster: PSC[employer] Transcribe Date/Time: Dec 24 2023 10:11A Dictated by : DARÍO CONROY MD This examination was interpreted and the report reviewed and electronically signed by: DARÍO CONROY MD on Dec 24 2023 10:19AM EST [facility] Radiology Study observation (narrative) [facility] MR Cervical spine WO and W pavan rodriguez Smith 12-24-2023 * * *Final Report* * * DATE OF EXAM: Dec 24 2023 9:29AM [facility] 0298 - MRI CERVICAL SPINE WO/W IVCON / PROCEDURE REASON: multiple diagnoses * * * * Physician Interpretation * * * * EXAMINATION: MRI BRAIN WO/W IVCON, MRI CERVICAL SPINE WO/W IVCON CLINICAL HISTORY: Intermittent numbness and paresthesias of the lower extremities, neck, left Velma left shoulder pain, numbness and paresthesias of the left upper extremity, and prior episode of lightheadedness and dizziness. Evaluate for demyelinating disease, cervical radiculopathy or motor neuron disease. TECHNIQUE: Demyelinating disease protocol the brain with and without gadolinium. MQ: MRBWOW_2; Routine cervical spine MR protocol without and with intravenous gadolinium. MQ: MRCSPWO_3 Contrast: 12 mL Dotarem IV COMPARISON: None. RESULT: BRAIN: Acute Change: There is no evidence of an acute intracranial process. Hemorrhage: No clear evidence of prior parenchymal hemorrhage within the constraints of the acquisition. Mass Lesion/ Mass Effect: There is no evidence of an intracranial mass or extra-axial fluid collection. No abnormal parenchymal or leptomeningeal enhancement is noted otherwise following gadolinium administration. Chronic Change: The white matter is within normal limits of signal intensity for age. Specifically, there is no evidence of intracranial demyelinating disease by MRI. Parenchyma: No significant volume loss for age. The brain parenchyma is otherwise within normal limits of signal intensity and morphology. Ventricles: Normal caliber and morphology. Skull Base: Hypothalamic and pituitary region are grossly normal. Craniocervical junction is normal. No significant marrow replacement process. Vasculature: Major intracranial arterial structures, and dural venous sinuses show typical flow void, suggesting patency by spin echo criteria. Other: The paranasal sinuses, mastoid air cells and middle ear cavities are clear. CERVICAL: Counting reference: Craniocervical junction. Anatomic Variants: None. Localizer images: No additional findings. Alignment: Alignment is anatomic. Craniocervical junction: Craniocervical junction is normal. Cord: The cervical and visualized upper thoracic spinal cord is within normal limits of signal intensity and morphology. Specifically, no evidence of demyelinating disease, syrinx formation, or other intrinsic abnormality of the upper spinal cord by MRI. No abnormal intradural enhancement is noted otherwise following gadolinium administration. Bone marrow signal/fracture: No evidence of pathologic marrow infiltration. No evidence of prior fracture. Cervical soft tissues: The paraspinal soft tissues are within normal limits. C2-C3: Canal and foramina are patent. C3-C4: Canal and foramina are patent. C4-C5: Canal and foramina are patent. C5-C6: Canal and foramina are patent. C6-C7: Canal and foramina are patent. C7-T1: Canal and foramina are patent. DIVISION OF RADIOLOGY Provider, Catrina Rodríguez [facility] - 12/24/2023 * * *Final Report* * * DATE OF EXAM: Dec 24 2023 9:29AM [facility] 0298 - MRI CERVICAL SPINE WO/W IVCON / PROCEDURE REASON: multiple diagnoses * * * * Physician Interpretation * * * * EXAMINATION: MRI BRAIN WO/W IVCON, MRI CERVICAL SPINE WO/W IVCON CLINICAL HISTORY: Intermittent numbness and paresthesias of the lower extremities, neck, left Velma left shoulder pain, numbness and paresthesias of the left upper extremity, and prior episode of lightheadedness and dizziness. Evaluate for demyelinating disease, cervical radiculopathy or motor neuron disease. TECHNIQUE: Demyelinating disease protocol the brain with and without gadolinium. MQ: MRBWOW_2; Routine cervical spine MR protocol without and with intravenous gadolinium. MQ: MRCSPWO_3 Contrast: 12 mL Dotarem IV COMPARISON: None. RESULT: BRAIN: Acute Change: There is no evidence of an acute intracranial process. Hemorrhage: No clear evidence of prior parenchymal hemorrhage within the constraints of the acquisition. Mass Lesion/ Mass Effect: There is no evidence of an intracranial mass or extra-axial fluid collection. No abnormal parenchymal or leptomeningeal enhancement is noted otherwise following gadolinium administration. Chronic Change: The white matter is within normal limits of signal intensity for age. Specifically, there is no evidence of intracranial demyelinating disease by MRI. Parenchyma: No significant volume loss for age. The brain parenchyma is otherwise within normal limits of signal intensity and morphology. Ventricles: Normal caliber and morphology. Skull Base: Hypothalamic and pituitary region are grossly normal. Craniocervical junction is normal. No significant marrow replacement process. Vasculature: Major intracranial arterial structures, and dural venous sinuses show typical flow void, suggesting patency by spin echo criteria. Other: The paranasal sinuses, mastoid air cells and middle ear cavities are clear. CERVICAL: Counting reference: Craniocervical junction. Anatomic Variants: None. Localizer images: No additional findings. Alignment: Alignment is anatomic. Craniocervical junction: Craniocervical junction is normal. Cord: The cervical and visualized upper thoracic spinal cord is within normal limits of signal intensity and morphology. Specifically, no evidence of demyelinating disease, syrinx formation, or other intrinsic abnormality of the upper spinal cord by MRI. No abnormal intradural enhancement is noted otherwise following gadolinium administration. Bone marrow signal/fracture: No evidence of pathologic marrow infiltration. No evidence of prior fracture. Cervical soft tissues: The paraspinal soft tissues are within normal limits. C2-C3: Canal and foramina are patent. C3-C4: Canal and foramina are patent. C4-C5: Canal and foramina are patent. C5-C6: Canal and foramina are patent. C6-C7: Canal and foramina are patent. C7-T1: Canal and foramina are patent. IMPRESSION IMPRESSION: Normal MRI of the brain and cervical spine. Anatomic Variant: None. Assume 7 cervical vertebrae with counting from the craniocervical junction. News Broadcaster: TWYLA Transcribe Date/Time: Dec 24 2023 10:11A Dictated by : DARÍO CONROY MD This examination was interpreted and the report reviewed and electronically signed by: DARÍO CONROY MD on Dec 24 2023 10:19AM EST [facility] Radiology Study observation (narrative) [facility] MRI BRAIN WO/W IVCONon 12-23 MRI BRAIN WO/W IVCON * * *Final Report* * * DATE OF EXAM: Dec 24 2023 9:29AM [facility] 0295 - MRI BRAIN WO/W IVCON / PROCEDURE REASON: multiple diagnoses * * * * Physician Interpretation * * * * EXAMINATION: MRI BRAIN WO/W IVCON, MRI CERVICAL SPINE WO/W IVCON CLINICAL HISTORY: Intermittent numbness and paresthesias of the lower extremities, neck, left Velma left shoulder pain, numbness and paresthesias of the left upper extremity, and prior episode of lightheadedness and dizziness. Evaluate for demyelinating disease, cervical radiculopathy or motor neuron disease. TECHNIQUE: Demyelinating disease protocol the brain with and without gadolinium. MQ: MRBWOW_2; Routine cervical spine MR protocol without and with intravenous gadolinium. MQ: MRCSPWO_3 Contrast: 12 mL Dotarem IV COMPARISON: None. RESULT: BRAIN: Acute Change: There is no evidence of an acute intracranial process. Hemorrhage: No clear evidence of prior parenchymal hemorrhage within the constraints of the acquisition. Mass Lesion/ Mass Effect: There is no evidence of an intracranial mass or extra-axial fluid collection. No abnormal parenchymal or leptomeningeal enhancement is noted otherwise following gadolinium administration. Chronic Change: The white matter is within normal limits of signal intensity for age. Specifically, there is no evidence of intracranial demyelinating disease by MRI. Parenchyma: No significant volume loss for age. The brain parenchyma is otherwise within normal limits of signal intensity and morphology. Ventricles: Normal caliber and morphology. Skull Base: Hypothalamic and pituitary region are grossly normal. Craniocervical junction is normal. No significant marrow replacement process. Vasculature: Major intracranial arterial structures, and dural venous sinuses show typical flow void, suggesting patency by spin echo criteria. Other: The paranasal sinuses, mastoid air cells and middle ear cavities are clear. CERVICAL: Counting reference: Craniocervical junction. Anatomic Variants: None. Localizer images: No additional findings. Alignment: Alignment is anatomic. Craniocervical junction: Craniocervical junction is normal. Cord: The cervical and visualized upper thoracic spinal cord is within normal limits of signal intensity and morphology. Specifically, no evidence of demyelinating disease, syrinx formation, or other intrinsic abnormality of the upper spinal cord by MRI. No abnormal intradural enhancement is noted otherwise following gadolinium administration. Bone marrow signal/fracture: No evidence of pathologic marrow infiltration. No evidence of prior fracture. Cervical soft tissues: The paraspinal soft tissues are within normal limits. C2-C3: Canal and foramina are patent. C3-C4: Canal and foramina are patent. C4-C5: Canal and foramina are patent. C5-C6: Canal and foramina are patent. C6-C7: Canal and foramina are patent. C7-T1: Canal and foramina are patent. IMPRESSION: Normal MRI of the brain and cervical spine. Anatomic Variant: None. Assume 7 cervical vertebrae with counting from the craniocervical junction. News Broadcaster: PSCB Transcribe Date/Time: Dec 24 2023 10:11A Dictated by : DARÍO CONROY MD This examination was interpreted and the report reviewed and electronically signed by: DARÍO CONROY MD on Dec 24 2023 10:19AM EST [id number] Normal [facility] MRI CERVICAL SPINE WO/W IVCO Non 12-24-2023 MRI CERVICAL SPINE WO/W IVCON * * *Final Report* * * DATE OF EXAM: Dec 24 2023 9:29AM [facility] 0298 - MRI CERVICAL SPINE WO/W IVCON / PROCEDURE REASON: multiple diagnoses * * * * Physician Interpretation * * * * EXAMINATION: MRI BRAIN WO/W IVCON, MRI CERVICAL SPINE WO/W IVCON CLINICAL HISTORY: Intermittent numbness and paresthesias of the lower extremities, neck, left Velma left shoulder pain, numbness and paresthesias of the left upper extremity, and prior episode of lightheadedness and dizziness. Evaluate for demyelinating disease, cervical radiculopathy or motor neuron disease. TECHNIQUE: Demyelinating disease protocol the brain with and without gadolinium. MQ: MRBWOW_2; Routine cervical spine MR protocol without and with intravenous gadolinium. MQ: MRCSPWO_3 Contrast: 12 mL Dotarem IV COMPARISON: None. RESULT: BRAIN: Acute Change: There is no evidence of an acute intracranial process. Hemorrhage: No clear evidence of prior parenchymal hemorrhage within the constraints of the acquisition. Mass Lesion/ Mass Effect: There is no evidence of an intracranial mass or extra-axial fluid collection. No abnormal parenchymal or leptomeningeal enhancement is noted otherwise following gadolinium administration. Chronic Change: The white matter is within normal limits of signal intensity for age. Specifically, there is no evidence of intracranial demyelinating disease by MRI. Parenchyma: No significant volume loss for age. The brain parenchyma is otherwise within normal limits of signal intensity and morphology. Ventricles: Normal caliber and morphology. Skull Base: Hypothalamic and pituitary region are grossly normal. Craniocervical junction is normal. No significant marrow replacement process. Vasculature: Major intracranial arterial structures, and dural venous sinuses show typical flow void, suggesting patency by spin echo criteria. Other: The paranasal sinuses, mastoid air cells and middle ear cavities are clear. CERVICAL: Counting reference: Craniocervical junction. Anatomic Variants: None. Localizer images: No additional findings. Alignment: Alignment is anatomic. Craniocervical junction: Craniocervical junction is normal. Cord: The cervical and visualized upper thoracic spinal cord is within normal limits of signal intensity and morphology. Specifically, no evidence of demyelinating disease, syrinx formation, or other intrinsic abnormality of the upper spinal cord by MRI. No abnormal intradural enhancement is noted otherwise following gadolinium administration. Bone marrow signal/fracture: No evidence of pathologic marrow infiltration. No evidence of prior fracture. Cervical soft tissues: The paraspinal soft tissues are within normal limits. C2-C3: Canal and foramina are patent. C3-C4: Canal and foramina are patent. C4-C5: Canal and foramina are patent. C5-C6: Canal and foramina are patent. C6-C7: Canal and foramina are patent. C7-T1: Canal and foramina are patent. IMPRESSION: Normal MRI of the brain and cervical spine. Anatomic Variant: None. Assume 7 cervical vertebrae with counting from the craniocervical junction. News Broadcaster: [employer] Transcribe Date/Time: Dec 24 2023 10:11A Dictated by : DARÍO CONROY MD This examination was interpreted and the report reviewed and electronically signed by: DARÍO CONROY MD on Dec 24 2023 10:19AM EST [id number] Normal [facility] No Panel Informationon 12-23 IMPRESSION: Normal MRI of the brain and cervical spine. Anatomic Variant: None. Assume 7 cervical vertebrae with counting from the craniocervical junction. News Broadcaster: [facility] Transcribe Date/Time: Dec 24 2023 10:11A Dictated by : DARÍO CONROY MD This examination was interpreted and the report reviewed and electronically signed by: DARÍO CONROY MD on Dec 24 2023 10:19AM EST DIVISION OF RADIOLOGY No Panel InformationOrdered By: Cc Provider on 12-24-2023 [facility] CNTHERAPYon 12-15-2023 CNTHERAPY OT/PT/Speech Visit (PTWS) JOEY DELVALLE ([id number]) 1985 F Date Time Provider Department 12/15/23 1:15 PM FELIX EMERSON Date Time Provider Department Center 12/15/2023 1:15 PM [id number] EMERSON Reason for Visit: Physical Therapy [503] Primary Visit Diagnosis:Cervicalgia [M54.2] Other Visit Diagnosis:Numbness and tingling in both hands [R20.0, R20.2] Allergies As of Date: 12/15/2023 (No Known Allergies) Date Reviewed: 11/18/2023 Reviewed by: Niurka Smith LPN - Fully Assessed Prescriptions as of 12/15/2023 - cyclobenzaprine (FLEXERIL) 10 mg tablet Take 0.5-1 tablets by mouth at bedtime as needed for muscle spasm or pain. - meloxicam (MOBIC) 15 mg tablet Take 1 tablet by mouth once daily. Take with food. - naproxen (NAPROSYN) 500 mg tablet Take 1 tablet by mouth two times a day as needed (for pain/inflammation). Take with food. - Cholecalciferol, Vitamin D3, 125 mcg (5,000 unit) cap Take 1 capsule by mouth once daily. - Udmwjmid-Ew-Gjv-Fe-FA tab Take 1 tablet by mouth. Die Polisher: Addendum Therapy (PT/OT/Speech/Resp) ID: [id number] 12/15/2023 1:40 PM Author: FELIX EMERSON Signed by FELIX EMERSON PT on 12/15/2023 at 1:40 PM * * * This document replaces document [id number] * * * Document text: Program_ID:[id number] Access Code: [email or web address] URL: [email or web address]/ Date: 12-15-2023 Prepared By: Felix Emerson Program Notes Exercises - Seated Passive Cervical Retraction - 1 x daily - 7 x weekly - 3 sets - 10 reps - Seated Cervical Retraction and Extension - 1 x daily - 7 x weekly - 3 sets - 10 reps - Upper Trapezius Stretch - 3 x daily - 7 x weekly - 1 sets - 3 reps - Seated Assisted Cervical Rotation with Towel - 1 x daily - 7 x weekly - 3 sets - 10 reps - Upper Cervical Extension SNAG with Strap - 1 x daily - 7 x weekly - 3 sets - 10 reps - Upper Cervical Rotation SNAG with Strap - 1 x daily - 7 x weekly - 3 sets - 10 reps - First Rib Mobilization with Strap - 1 x daily - 7 x weekly - 3 sets - 10 reps - Doorway Pec Stretch at 60 Degrees Abduction with Arm Straight - 1 x daily - 7 x weekly - 1 sets - 3 reps - Sternocleidomastoid Stretch - 1 x daily - 7 x weekly - 1 sets - 3 reps Normal [facility] THERAPY NTon 12-15-2023 THERAPY NT HNO ID: [id number] Author: FELIX EMERSON PT Service: ? Author Type: Physical Therapist Type: Therapy (PT/OT/Speech/Resp) Filed: 12/15/2023 13:40 Note Text: Program_ID:[id number] Access Code: [email or web address] URL: [email or web address]/ Date: 12-15-2023 Prepared By: Felix Emerson Program Notes Exercises - Seated Passive Cervical Retraction - 1 x daily - 7 x weekly - 3 sets - 10 reps - Seated Cervical Retraction and Extension - 1 x daily - 7 x weekly - 3 sets - 10 reps - Upper Trapezius Stretch - 3 x daily - 7 x weekly - 1 sets - 3 reps - Seated Assisted Cervical Rotation with Towel - 1 x daily - 7 x weekly - 3 sets - 10 reps - Upper Cervical Extension SNAG with Strap - 1 x daily - 7 x weekly - 3 sets - 10 reps - Upper Cervical Rotation SNAG with Strap - 1 x daily - 7 x weekly - 3 sets - 10 reps - First Rib Mobilization with Strap - 1 x daily - 7 x weekly - 3 sets - 10 reps - Doorway Pec Stretch at 60 Degrees Abduction with Arm Straight - 1 x daily - 7 x weekly - 1 sets - 3 reps - Sternocleidomastoid Stretch - 1 x daily - 7 x weekly - 1 sets - 3 reps Normal [facility] CNTHERAPYon 12-09-2023 CNTHERAPY OT/PT/Speech Visit (PTWS) JOEY DELVALLE ([id number]) 1985 F Date Time Provider Department 12/09/23 1:00 PM FELIX EMERSON PTDOROTHY Date Time Provider Department [place] 12/09/2023 1:00 PM [id number], SEAN PTDOROTHY FosterKaren Ollie Reason for Visit: Physical Therapy [503] Primary Visit Diagnosis:Cervicalgia [M54.2] Other Visit Diagnosis:Numbness and tingling in both hands [R20.0, R20.2] Allergies As of Date: 12/09/2023 (No Known Allergies) Date Reviewed: 11/18/2023 Reviewed by: Niurka Smith LPN - Fully Assessed Prescriptions as of 12/09/2023 - cyclobenzaprine (FLEXERIL) 10 mg tablet Take 0.5-1 tablets by mouth at bedtime as needed for muscle spasm or pain. - meloxicam (MOBIC) 15 mg tablet Take 1 tablet by mouth once daily. Take with food. - naproxen (NAPROSYN) 500 mg tablet Take 1 tablet by mouth two times a day as needed (for pain/inflammation). Take with food. - Cholecalciferol, Vitamin D3, 125 mcg (5,000 unit) cap Take 1 capsule by mouth once daily. - Mgikttfg-Xr-Hqv-Fe-FA tab Take 1 tablet by mouth. Normal [facility] CNTHERAPYon 12-02-2023 CNTHERAPY OT/PT/Speech Visit (PTWS) JOEY DELVALLE ([id number]) 1985 F Date Time Provider Department 12/02/23 1:00 PM FELIX EMERSON PTDOROTHY Date Time Provider Department Center 12/02/2023 1:00 PM [id number] ARREOLA Reason for Visit: Physical Therapy [503] Primary Visit Diagnosis:Cervicalgia [M54.2] Other Visit Diagnosis:Numbness and tingling in both hands [R20.0, R20.2] Allergies As of Date: 12/02/2023 (No Known Allergies) Date Reviewed: 11/18/2023 Reviewed by: Niurka Smith LPN - Fully Assessed Prescriptions as of 12/02/2023 - cyclobenzaprine (FLEXERIL) 10 mg tablet Take 0.5-1 tablets by mouth at bedtime as needed for muscle spasm or pain. - meloxicam (MOBIC) 15 mg tablet Take 1 tablet by mouth once daily. Take with food. - naproxen (NAPROSYN) 500 mg tablet Take 1 tablet by mouth two times a day as needed (for pain/inflammation). Take with food. - Cholecalciferol, Vitamin D3, 125 mcg (5,000 unit) cap Take 1 capsule by mouth once daily. - Marbnoqs-Vs-Iut-Fe-FA tab Take 1 tablet by mouth. Normal [facility] CNTHERAPYon 11-26-2023 CNTHERAPY OT/PT/Speech Visit (PTWS) JOEY DELVALLE ([id number]) 1985 F Date Time Provider Department 11/26/23 1:15 PM FELIX EMERSON Date Time Provider Department Center 11/26/2023 1:15 PM [id number] GREGG Reason for Visit: Physical Therapy [503] Primary Visit Diagnosis:Cervicalgia [M54.2] Other Visit Diagnosis:Numbness and tingling in both hands [R20.0, R20.2] Allergies As of Date: 11/26/2023 (No Known Allergies) Date Reviewed: 11/18/2023 Reviewed by: Niurka Smith LPN - Fully Assessed Prescriptions as of 11/26/2023 - cyclobenzaprine (FLEXERIL) 10 mg tablet Take 0.5-1 tablets by mouth at bedtime as needed for muscle spasm or pain. - meloxicam (MOBIC) 15 mg tablet Take 1 tablet by mouth once daily. Take with food. - naproxen (NAPROSYN) 500 mg tablet Take 1 tablet by mouth two times a day as needed (for pain/inflammation). Take with food. - Cholecalciferol, Vitamin D3, 125 mcg (5,000 unit) cap Take 1 capsule by mouth once daily. - Hvilvkyl-Cs-Ziq-Fe-FA tab Take 1 tablet by mouth. Die Polisher: Addendum Therapy (PT/OT/Speech/Resp) ID: [id number] 11/26/2023 2:04 PM Author: FELIX EMERSON Signed by FELIX EMERSON PT on 11/26/2023 at 2:05 PM * * * This document replaces document [id number] * * * Document text: Program_ID:[id number] Access Code: [email or web address] URL: [email or web address] .[email or web address]/ Date: 11-26-2023 Prepared By: Felix Emerson Program Notes Exercises - Seated Passive Cervical Retraction - 1 x daily - 7 x weekly - 3 sets - 10 reps - Seated Cervical Retraction and Extension - 1 x daily - 7 x weekly - 3 sets - 10 reps - Upper Trapezius Stretch - 3 x daily - 7 x weekly - 1 sets - 3 reps - Seated Assisted Cervical Rotation with Towel - 1 x daily - 7 x weekly - 3 sets - 10 reps - Upper Cervical Extension SNAG with Strap - 1 x daily - 7 x weekly - 3 sets - 10 reps - Upper Cervical Rotation SNAG with Strap - 1 x daily - 7 x weekly - 3 sets - 10 reps Normal [facility] THERAPY NTon 11-26-2023 THERAPY NT HNO ID: [id number] Author: FELIX EMERSON PT Service: ? Author Type: Physical Therapist Type: Therapy (PT/OT/Speech/Resp) Filed: 11/26/2023 14:05 Note Text: Program_ID:[id number] Access Code: [email or web address] URL: [email or web address]/ Date: 11-26-2023 Prepared By: Felix Emerson Program Notes Exercises - Seated Passive Cervical Retraction - 1 x daily - 7 x weekly - 3 sets - 10 reps - Seated Cervical Retraction and Extension - 1 x daily - 7 x weekly - 3 sets - 10 reps - Upper Trapezius Stretch - 3 x daily - 7 x weekly - 1 sets - 3 reps - Seated Assisted Cervical Rotation with Towel - 1 x daily - 7 x weekly - 3 sets - 10 reps - Upper Cervical Extension SNAG with Strap - 1 x daily - 7 x weekly - 3 sets - 10 reps - Upper Cervical Rotation SNAG with Strap - 1 x daily - 7 x weekly - 3 sets - 10 reps Normal [facility] CNPNon 11-24-2023 CNPN Telephone (FAMWS) JOEY DELVALLE ([id number]) 1985 F Date Time Provider Department 11/24/23 YUNIEL MOORE FAMPWS During your visit today, we recorded the following information about you: Niurka Smith LPN 11/24/2023 9:10 AM Addendum osebrock, Joey P Wstr Famp My Chart Rx Pool I thought of a few more questions I had. I am signed up to get my flu shot at school is it okay to go ahead and get this before my MRI. I also was wondering if I should avoid getting a massage before my MRI. Also we have been dealing with a mold issue in our newly renovated master bathroom. I have had mold exposure years ago in an old apartment of ours but never tested myself for mold toxicity. I didn't know if that could exacerbate my symptoms. I feel like my symptoms continue to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 m/uL [facility] WBC (Bld) [#/Vol] 10.43 10*3/uL [facility] Basophils (Bld) [#/Vol] 0.04 10*3/uL Normal <0.11 [facility] Comment on above: Order Comment: Speci men Type: BLOOD SPECIMENOrdering Facility: [facility] Address: [address] [place] [address] Performed By: #### 5 7021-8 ####[facility] LABCLIA [id number] [address] [place] Basophils/100 WBC (Bld) 0.4 % Normal [facility] Comment on above: Order Comment: Speci men Type: BLOOD SPECIMENOrdering Facility: [facility] Address: [address] [place] [address] Performed By: #### 5 7021-8 ####[facility] LABCLIA [id number] [place] [address] [place] Differential cell count method Nom (Bld) Auto Normal [facility] Comment on above: Order Comment: Speci men Type: BLOOD SPECIMENOrdering Facility: [facility] Address: [address] [place] [address] Performed By: #### 5 7021-8 ####[facility] LABCLIA [id number] [place] [address] [place] Eosinophils (Bld) [#/Vol] 10*3/uL Normal <0.46 [facility] Comment on above: Order Comment: Speci men Type: BLOOD SPECIMENOrdering Facility: [facility] Address: [address] [place] [address] Performed By: #### 5 7021-8 ####[facility] LABCLIA [id number] [place] [address] [place] Eosinophils/100 WBC (Bld) 0.1 % Normal [facility] Comment on above: Order Comment: Speci men Type: BLOOD SPECIMENOrdering Facility: [facility] Address: [address] [place] [address] Performed By: #### 5 7021-8 ####[facility] LABCLIA [id number] [place] [address] [place] Erythrocyte distribution width (RBC) [Ratio] 11.8 % Normal 11.5-15.0 [facility] Comment on above: Order Comment: Speci men Type: BLOOD SPECIMENOrdering Facility: [facility] Address: [address] [place] [address] Performed By: #### 5 7021-8 ####[facility] LABCLIA [id number] [place] [address] [place] Hematocrit (Bld) [Volume fraction] 39.6 % Normal 36.0-46.0 [facility] Comment on above: Order Comment: Speci men Type: BLOOD SPECIMENOrdering Facility: [facility] Address: [address] [place] [address] Performed By: #### 5 7021-8 ####[facility] LABIA [id number] [place] [address] [place] Hemoglobin (Bld) [Mass/Vol] 13.3 g/dL Normal 11.5-15.5 [facility] Comment on above: Order Comment: Speci men Type: BLOOD SPECIMENOrdering Facility: [facility] Address: [address] [place] [address] Performed By: #### 5 7021-8 ####[facility] LABIA [id number] [place] [address] [place] Immature granulocytes (Bld) [#/Vol] 0.03 10*3/uL Normal <0.10 [facility] Comment on above: Order Comment: Speci men Type: BLOOD SPECIMENOrdering Facility: [facility] Address: [address] [place] [address] Performed By: #### 5 7021-8 ####[facility] LABIA [id number] [place] [address] [place] Immature granulocytes/100 WBC (Bld) 0.3 % Normal [facility] Comment on above: Order Comment: Speci men Type: BLOOD SPECIMENOrdering Facility: [facility] Address: [address] [place] [address] Performed By: #### 5 7021-8 ####[facility] LABIA [id number] [place] [address] [place] Lymphocytes (Bld) [#/Vol] 1.71 10*3/uL Normal 1.00-4.00 [facility] Comment on above: Order Comment: Speci men Type: BLOOD SPECIMENOrdering Facility: [facility] Address: [address] [place] [address] Performed By: #### 5 7021-8 ####[facility] LABCLIA [id number] [place] [address] [place] Lymphocytes/100 WBC (Bld) 16.4 % Normal [facility] Comment on above: Order Comment: Speci men Type: BLOOD SPECIMENOrdering Facility: [facility] Address: [address] [place] [address] Performed By: #### 5 7021-8 ####[facility] LABCLIA [id number] [place] [address] [place] MCH (RBC) [Entitic mass] 30.9 pg Normal 26.0-34.0 [facility] Comment on above: Order Comment: Speci men Type: BLOOD SPECIMENOrdering Facility: [facility] Address: [address] [place] [address] Performed By: #### 5 7021-8 ####[facility] LABIA [id number] [place] [address] [place] MCHC (RBC) [Mass/Vol] 33.6 g/dL Normal 30.5-36.0 [facility] Comment on above: Order Comment: Speci men Type: BLOOD SPECIMENOrdering Facility: [facility] Address: [address] [place] [address] Performed By: #### 5 7021-8 ####[facility] LABIA [id number] [place] [address] [place] MCV (RBC) [Entitic vol] 92.1 fL Normal 80.0-100.0 [facility] Comment on above: Order Comment: Speci men Type: BLOOD SPECIMENOrdering Facility: [facility] Address: [address] [place] [address] Performed By: #### 5 7021-8 ####[facility] LABCLIA [id number] [place] [address] [place] Monocytes (Bld) [#/Vol] 0.54 10*3/uL Normal <0.87 [facility] Comment on above: Order Comment: Speci men Type: BLOOD SPECIMENOrdering Facility: [facility] Address: [facility] [place] [address] Performed By: #### 5 7021-8 ####[facility] LABCLIA [id number] [place] [address] [place] Monocytes/100 WBC (Bld) 5.2 % Normal [facility] Comment on above: Order Comment: Speci men Type: BLOOD SPECIMENOrdering Facility: [facility] Address: [address] [place] [address] Performed By: #### 5 7021-8 ####[facility] LABCLIA [id number] [place] [address] [place] Neutrophils (Bld) [#/Vol] 8.10 10*3/uL High 1.45-7.50 [facility] Comment on above: Order Comment: Speci men Type: BLOOD SPECIMENOrdering Facility: [facility] Address: [address] [place] [address] Performed By: #### 5 7021-8 ####[facility] LABCLIA [id number] [place] [address] [place] Neutrophils/100 WBC (Bld) 77.6 % Normal [facility] Comment on above: Order Comment: Speci men Type: BLOOD SPECIMENOrdering Facility: [facility] Address: [address] [place] [address] Performed By: #### 5 7021-8 ####[facility] LABCLIA [id number] [place] [address] [place] Nucleated RBC (Bld) [#/Vol] 10*3/uL Normal <0.01 [facility] Comment on above: Order Comment: Speci men Type: BLOOD SPECIMENOrdering Facility: [facility] Address: [address] [place] [address] Performed By: #### 5 7021-8 ####[facility] LABCLIA [id number] [place] [address] [place] Nucleated RBC/100 WBC (Bld) [Ratio] 0.0 /100 WBC Normal [facility] Comment on above: Order Comment: Speci men Type: BLOOD SPECIMENOrdering Facility: [facility] Address: [address] [place] [address] Performed By: #### 5 7021-8 ####[facility] LABIA [id number] [place] [address] [place] Platelet mean volume (Bld) [Entitic vol] 10.5 fL Normal 9.0-12.7 [facility] Comment on above: Order Comment: Speci men Type: BLOOD SPECIMENOrdering Facility: [facility] Address: [address] [place] [address] Performed By: #### 5 7021-8 ####[facility] LABIA [id number] [place] [address] [place] Platelets (Bld) [#/Vol] 245 10*3/uL Normal 150-400 [facility] Comment on above: Order Comment: Speci men Type: BLOOD SPECIMENOrdering Facility: [facility] Address: [address] [place] [address] Performed By: #### 5 7021-8 ####[facility] LABIA [id number] [place] [address] [place] RBC (Bld) [#/Vol] 4.30 10*6/uL Normal 3.90-5.[address] [facility] Comment on above: Order Comment: Speci men Type: BLOOD SPECIMENOrdering Facility: [facility] Address: [address] [place] [address] Performed By: #### 5 7021-8 ####[facility] LABIA [id number] [place] [address] [place] WBC (Bld) [#/Vol] 10.43 10*3/uL Normal 3.70-11.00 [facility] Comment on above: Order Comment: Speci men Type: BLOOD SPECIMENOrdering Facility: [facility] Address: [address] [place] [address] Performed By: #### 5 7021-8 ####[facility] LABCLIA [id number] [id number] [id number] [place] CNOVon 10-06-2023 CNOV Office Visit (FAMPWS ) JOEY DELVALLE ([id number]) 1985 F Date Time Provider Department 10/06/23 12:40 PM [facility] your visit today, we recorded the following information about you: Pulse Respiration Blood pressure Weight 90/minute 16/minute 108/66 59.2 kg Last Period 09/21/23 Patrick Hirsch PA-C 10/06/2023 1:45 PM Signed 10/06/2023 Patient presents with: hand/wrist pain: Has been ongoing issue pain comes and goes but consistent the last week. neck/shoulder pain/tightness that radiates SUBJECTIVE: This is a 37 year old that is here today for Complaint(s) of TUAN wrist/hand pain x years, worse over the last couple weeks. She also has had a lot of muscle tightness and tension in her upper back/shoulder, neck. Having pain in th posterior neck that radiates into the back of her head like a vice invasive physician. She did note some numbness/tingling in the top of her head today. .denies worst HAMMOND of life, vision changes, diplopia, vomiting, visual aura. 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 She did see her massage therapist today, which helped slightly. Wrists/hands-notes numbness/tingling and achy feeling in her hands TUAN, worse when waking up in the morning. She does mention having numbness/tingling in her toes TUAN at times as well. No LE weakness. PAST MEDICAL HISTORY 08/13/2021: Antepartum anemia complicating in third trimester No date: NEGATIVE MEDICAL HISTORY ALLERGIES Patient has no known allergies. MEDICATIONS Current Outpatient Medications Medication Sig Cholecalciferol, Vitamin D3, 125 mcg (5,000 unit) cap Take 1 capsule by mouth once daily. (Patient taking differently: Take 5,000 Units by mouth once daily. Patient reports not consistent.) Dppdgqkz-Qi-Jbg-Fe-FA tab Take 1 tablet by mouth. (Patient not taking: Reported on 10/06/2023) No current facility-administered medications for this visit. SOCIAL HISTORY Social History Tobacco Use Smoking status: Never Smokeless tobacco: Never Vaping Use Vaping status: Never Used Substance Use Topics Alcohol use: Not Currently Comment: very rare, not while Drug use: No REVIEW OF SYSTEMS See HPI OBJECTIVE: BP 108/66 Pulse 90 Resp 16 Wt 59.2 kg (130 lb 9.6 oz) LMP 09/21/2023 (Approximate) SpO2 99% BMI 21.73 kg/m? APPEARANCE Well appearing, alert, in no acute distress, well-hydrated, well nourished. EYES PERRLA, conjunctiva and sclera normal. EARS External ears normal, canals clear NOSE/SINUS Nares normal. Septum midline. Mucosa normal. No drainage or sinus tenderness. THROAT normal, no erythema NECK Supple, no adenopathy; thyroid symmetric, normal size, HEART RRR with normal S1 and S2 LUNG clear to auscultation BACK: Normal exam EXTREMITIES Extremities normal, No deformities, No skin discoloration, No edema, and Normal pulses bilaterally. NEURO Awake, alert and oriented x 3, Cranial nerves II-XII grossly intact, Reflexes symmetrical, Normal gait, and No involuntary motions. Normal finger to nose. Negative Romberg. ASSESSMENT/PLAN: 1. Cervicalgia - ICD9: 723.1, ICD10: M54.2 (primary diagnosis) Check XR today Consider referral to PT - XR CERV OTHER 4V AP/LAT/OBL - NAPROXEN 500 MG TABLET Reviewed red flags and when to seek care sooner. Seek care sooner if new/worsening HAs-consider MRI brain at that time. If PT not helpful, consider cervical MRI. 2. Numbness and tingling in both hands - ICD9: 782.0, ICD10: R20.0, R20.2 Check labs. Suspicious for carpal tunnel vs cervical radiculopathy. Cock up wrist splints applied today by nurse at visit. - VITAMIN B12 - IRON AND TIBC - FERRITIN - MAGNESIUM - COMPLETE BLOOD COUNT AND DIFFERENTIAL - BASIC METABOLIC PANEL - NAPROXEN 500 MG TABLET The patient indicates understanding of these issues and agrees with the plan. Reviewed red flags and when to seek care sooner. Patrick Hirsch PA-C Allergies As of Date: 10/06/2023 (No Known Allergies) Date Reviewed: 10/06/2023 Reviewed by: Faith Pham LPN - Fully Assessed Reason for Visit: hand/wrist pain [Other] Cmt: Has been ongoing issue pain comes and goes but consistent the last week. neck/shoulder pain/tightness that radiates [Other] Primary Visit Diagnosis:Cervicalgia [M54.2] Other Visit Diagnosis:Numbness and tingling in both hands [R20.0, R20.2] Order(s):XR CERV OTHER 4V AP/LAT/OBL [9971428] Order #: [id number] FUTURE VITAMIN B12 [SQB12] Order #: [id number] FUTURE IRON AND TIBC [SQIRON] Order #: [id number] FUTURE FERRITIN [SQFERR] Order #: [id number] FUTURE MAGNESIUM [SQMG1] Order #: [id number] FUTURE COMPLETE BLOOD COUNT AND DIFFERENTIAL [SQCBCDIF] Order #: [id number] FUTURE BASIC METABOLIC PANEL [SQBMP] Order #: [id number] FUTURE naproxen (NAPROSYN) 500 mg tabletTake (more content not included)... Normal [facility] Ferritin SerPl-christinaon 2023 Ferritin [Mass/Vol] 44.2 ng/mL Normal 14.7-205.[address] [facility] Comment on above: Order Comment: Speci men Type: BLOOD SPECIMENOrdering Facility: [facility] Address: [address] [place] [address] [place] [address] Performed By: #### 2 977-4, 61918-2, 19325-7, 61709-9 ####[facility] LABIA [id number] [place] [id number] [place] Iron and Iron binding capaci ty panelon 10-06-2023 Iron [Mass/Vol] 63 ug/dL Normal 41-186 [facility] Comment on above: Order Comment: Speci men Type: BLOOD SPECIMENOrdering Facility: [facility] Address: [address] [place] [address] Performed By: #### 2 276-4, 67023-4, 03497-6, 69335-8 ####[facility] [id number] [place] [address] [place] Iron binding capacity [Mass/Vol] 322 ug/dL Normal 232-386 [facility] Comment on above: Order Comment: Speci men Type: BLOOD SPECIMENOrdering Facility: [facility] Address: [address] [place] [address] Performed By: #### 2 276-4, 04184-7, 04046-3, 61124-5 ####[facility] [id number] [place] [address] [place] Iron/TIBC [Molar ratio] 19.6 % Normal 15.0-57.0 [facility] Comment on above: Order Comment: Speci men Type: BLOOD SPECIMENOrdering Facility: [facility] Address: [address] [place] [address] Performed By: #### 2 276-4, 98448-4, 92254-8, 61965-0 ####[facility] [id number] [place] [id number] [place] Magnesium SerPl-mCncon 10-05 Magnesium [Mass/Vol] 2.1 mg/dL Normal 1.7-2.3 [facility] Comment on above: Order Comment: Speci men Type: BLOOD SPECIMENOrdering Facility: [facility] Address: [address] [place] [address] Performed By: #### 2 276-4, 92706-7, 87297-8, 62978-0 ####[facility] LABCLIA [id number] [place] [address] [place] Vit B12 SerPl-mCncon 10-05-2 024 Cobalamin (Vitamin B12) [Mass/Vol] 464 pg/mL Normal 232-1245 [facility] Comment on above: Order Comment: Speci men Type: BLOOD SPECIMENOrdering Facility: [facility] Address: [address] [place] [address] Performed By: #### 2 132-9 ####[facility] LABCLIA [id number] [place] [address] [place] XR CERVICAL 4V AP/LAT/OBLon 10-06-2023 XR CERVICAL 4V AP/LAT/OBL * * *Final Report* * * DATE OF EXAM: Oct 06 2023 2:05PM WOX [id number] - XR CERVICAL 4V AP/LAT/OBL / PROCEDURE REASON: Cervicalgia * * * * Physician Interpretation * * * * EXAMINATION: XR CERVICAL 4V AP/LAT/OBL PATIENT/TECHNOLOGIST PROVIDED HISTORY: Chronic neck pain CLINICAL INFORMATION: 37 years old Female with Cervicalgia TECHNIQUE: XR CERVICAL 4V AP/LAT/OBL Laterality: NOT APPLICABLE Number of different views (projections): 4 COMPARISON: None RESULT: Cervical spine: Counting reference: Craniocervical junction. Anatomic Variants: None. Post-op assessment: N/A Alignment: Alignment is satisfactory. Vertebral bodies: Vertebral body heights are maintained. Spine articulations: Disc spaces are maintained. Oblique images demonstrate patent bilateral neural foramina. IMPRESSION: No significant radiographic abnormality in the cervical spine. News Broadcaster: PSC[employer] Transcribe Date/Time: Oct 08 2023 6:11P Dictated by : PIPER JIANG DO This examination was interpreted and the report reviewed and electronically signed by: PIPER JIANG DO on Oct 08 2023 6:12PM EST [id number] Normal [facility] XR Cervical spine AP and Lat eral and obliqueon 10-06-2023 Radiology Study observation (narrative) [facility] Discharge Instructionon 10-10 Discharge Instruction [facility] Medical Records Department [address] [place] [address] Instructions for Home/Discharge Instructions 10/19/21 0717 MR#: [id number] Acct: [id number] Name: JOEY DELVALLE Rep #: [id number] : 1985 35 From: Cecelia Masters DO PCP: Dr. Yuniel Moore DO Status:ADM IN Discharge Instructions Diet Discharge Diet: No restrictions Activity Discharge Activity: May Not Drive (Until you are not longer taking oxycodone, and until you feel you can slam on a car brake or turn a steering wheel sharply) and May Shower May resume sexual activity in: 6 weeks Ice area for (Minutes): 15 Weight Bearing Status: Weight bearing as tolerated Lifting Restrictions: Nothing heavier than baby Dressing / Incision Call your doctor if your incision/area has: Continuous Slow Oozing, Sudden Increased Bleeding, Increased Pain/ Swelling, Increased Redness, Foul Smelling Discharge and Swelling at the incision site Call your doctor if you observe: Fever of 101 or Higher, Coldness, Increased Pain, Numbness or Tingling, Change in Color, Inability to urinate, Inability to have a bowel movement, Using more than 1 pad per hour, Shortness of breath, Dizziness, Fainting spells, Swelling in the ankles, Chest pain, Increased palpitations (irregular heartbeat), Calf discomfort and Uncontrolled pain Suture Line Care: Avoid Pulling/Pushing and Avoid Pinching/Bending Remove Dressing in: 4 days (Ok to remove in the shower. If you are uncomfortable removing it, ok to leave in place until follow up) Cleanse incision/area with: Soap Water Follow Up Care Please Follow Up With: Cecelia Masters DO When: 1 week for incision check 6 weeks for visit Test Results: Test results from this visit will be discussed in further detail at your follow-up appointment, if applicable. Discharge Plan Admission Admit Date/Time: 10/17/21 04:05 Primary Reason for Your Visit: delivery Attending Provider: Cecelia Masters Primary Care Provider: Yuniel Moore Instructions Patient Instructions: After a Discharge Orders/Prescriptions Prescriptions: New oxycodone 5 mg tablet 5 mg PO Q6H PRN (Reason: pain) 7 Days Qty: 10 0RF ibuprofen 600 mg tablet 600 mg PO Q6H PRN (Reason: pain) Qty: 30 0RF docusate sodium [Colace] 100 mg capsule 100 mg PO BID Qty: 30 0RF Continued Iron (ferrous sulfate) 325 mg PO.IVFORM DAILY Prenatabs FA 1 tab PO.IVFORM DAILY Referrals / Follow Up: Yuniel Moore DO [Primary Care Provider] - Disposition Disposition (needs filled in before D/C Order can be placed): Home, Self Care 10/19/21 0719 Cecelia Masters DO CC: Dr. Yuniel Moore DO Signed Normal [facility] Basophil percentageon 2021 WBC (Bld) [#/Vol] 14.8 10*3/uL 4.4-11.0 [facility] Work Phone: Blood erythrocytes count (nu mber/volume)on 10-18-2021 RBC (Bld) [#/Vol] 2.85 10*6/uL 4.2-5.4 [facility] Work Phone: Blood hemoglobin measurement (mass/volume)on 10-18-2021 Hemoglobin (Bld) [Mass/Vol] 9.4 g/dL 12.0-15.0 [facility] Work Phone: Blood platelet mean volumeon 10-18-2021 Platelet mean volume (Bld) [Entitic vol] 10.5 fL 6.2-12.0 [facility] Work Phone: CBC-Complete Blood Cnt No Di ffon 10-18-2021 Erythrocyte distribution width (RBC) [Ratio] 13.5 % Normal 11.6-14.6 [facility] Comment on above: Order Comment: Comme nts: Day #1 Reason for Laboratory Test Performed By: #### L 100.0500 #### [facility] [address] [place], [place], [id number] Hematocrit (Bld) [Volume fraction] 27.8 % Low 37-47 [facility] Comment on above: Order Comment: Comme nts: Day #1 Reason for Laboratory Test Performed By: #### L 100.0500 #### [facility] [address] [place], [address] Hemoglobin (Bld) [Mass/Vol] 9.4 g/dL Low 12.0-15.0 [facility] Comment on above: Order Comment: Comme nts: Day #1 Reason for Laboratory Test Performed By: #### L 100.0500 #### [facility] [address] [place], [address] MCH (RBC) [Entitic mass] 33.0 pg High 27.0-32.0 [facility] Comment on above: Order Comment: Comme nts: Day #1 Reason for Laboratory Test Performed By: #### L 100.0500 #### [facility] [address] [place], [address] MCHC (RBC) [Mass/Vol] 33.8 g/dL Normal 32-36 [facility] Comment on above: Order Comment: Comme nts: Day #1 Reason for Laboratory Test Performed By: #### L 100.0500 #### [facility] [address] [place], [address] MCV (RBC) [Entitic vol] 97.5 fL Normal 81-99 [facility] Comment on above: Order Comment: Comme nts: Day #1 Reason for Laboratory Test Performed By: #### L 100.0500 #### [facility] [address] [place], [address] Platelet mean volume (Bld) [Entitic vol] 10.5 fL Normal 6.2-12.0 [facility] Comment on above: Order Comment: Comme nts: Day #1 Reason for Laboratory Test Performed By: #### L 100.0500 #### [facility] [address] [place], [address] Platelets (Bld) [#/Vol] 151 10*3/uL Normal 150-450 [facility] Comment on above: Order Comment: Comme nts: Day #1 Reason for Laboratory Test Performed By: #### L 100.0500 #### [facility] [address] [place], [address] RBC (Bld) [#/Vol] 2.85 10*6/uL Low 4.2-5.4 [facility] Comment on above: Order Comment: Comme nts: Day #1 Reason for Laboratory Test Performed By: #### L 100.0500 #### [facility] [address] [place], [address] RDW SD 48.5 fl High 35.1-43.9 [facility] Comment on above: Order Comment: Comme nts: Day #1 Reason for Laboratory Test Performed By: #### L 100.0500 #### [facility] [address] [place], [address] WBC (Bld) [#/Vol] 14.8 10*3/uL High 4.4-11.0 [facility] Comment on above: Order Comment: Comme nts: Day #1 Reason for Laboratory Test Performed By: #### L 100.0500 #### [facility] [address] [place], [address] Determination of erythrocyte mean corpuscular volume (MCV)on 10-18-2021 MCV (RBC) [Entitic vol] 97.5 fL 81-99 [facility] Work Phone: Hematocrit Auto (Bld) [Volum e fraction]on 10-18-2021 Hematocrit (Bld) [Volume fraction] 27.8 % 37-47 [facility] Work Phone: Laboratory - Hematology and Cell countson 10-18-2021 Erythrocyte distribution width (RBC) [Entitic vol] 48.5 fL 35.1-43.9 [facility] Work Phone: Erythrocyte distribution width (RBC) [Ratio] 13.5 % 11.6-14.6 [facility] Work Phone: MCH (RBC) [Entitic mass] 33.0 pg 27.0-32.0 [facility] Work Phone: MCHC Auto (RBC) [Mass/Vol]on 10-18-2021 MCHC (RBC) [Mass/Vol] 33.8 g/dL 32-36 [facility] Work Phone: Platelets bldon 10-18-2021 Platelets (Bld) [#/Vol] 151 10*3/uL 150-450 [facility] Work Phone: (ROM) Rupture Of Membraneson 10-17-2021 ROM Positive Abnormal Negative [facility] Comment on above: Result Comment: Amni otic fluid present indicates rupture of Membranes. RESULTS CALLED TO Alex PUGA 10/17/21 0426 Antoni Cheung. REPORT READ BACK BY SAME. Performed By: #### L 205.1000 #### [facility] [address] [place], [place], [id number] Absolute lymphocyte counton 10-17-2021 Lymphocytes Auto (Unsp spec) [#/Vol] 1.82 10*3/uL 0.83-4.51 [facility] Work Phone: Basophil percentageon 2021 Basophils/100 WBC (Bld) 0.3 % 0-1 [facility] Work Phone: Eosinophils/100 WBC (Bld) 0.7 % 0-5 [facility] Work Phone: Neutrophils (Bld) [#/Vol] 8.0 10*3/uL 2.0-7.7 [facility] Work Phone: Neutrophils/100 WBC (Bld) 74.2 % 47-70 [facility] Work Phone: Blood lymphocytes/100 leukoc yteson 10-17-2021 Lymphocytes/100 WBC (Bld) 17.0 % 19-41 [facility] Work Phone: Blood monocytes/100 leukocyt eson 10-17-2021 Monocytes/100 WBC (Bld) 6.6 % 0-10 [facility] Work Phone: CBC W/Diff, Automatedon - Absolute Lymph 1.82 X10 3/uL Normal 0.83-4.51 [facility] Comment on above: Performed By: #### Alex HALE, L100.0100 #### [facility] [address] [place], [address] Absolute Neut 8.0 X10 3/uL High 2.0-7.7 [facility] Comment on above: Performed By: #### Alex HALE, L100.0100 #### [facility] [address] [place], [address] Basophils/100 WBC (Bld) 0.3 % Normal 0-1 [facility] Comment on above: Performed By: #### Alex HALE, L100.0100 #### [facility] [address] [place], [address] Eosinophils/100 WBC (Bld) 0.7 % Normal 0-5 [facility] Comment on above: Performed By: #### Alex HALE, L100.0100 #### [facility] [address] [place], [address] Erythrocyte distribution width (RBC) [Ratio] 13.4 % Normal 11.6-14.6 [facility] Comment on above: Performed By: #### Alex HALE, L100.0100 #### [facility] [address] [place], [address] Hematocrit (Bld) [Volume fraction] 32.9 % Low 37-47 [facility] Comment on above: Performed By: #### Alex HALE, L100.0100 #### [facility] [address] [place], [address] Hemoglobin (Bld) [Mass/Vol] 11.2 g/dL Low 12.0-15.0 [facility] Comment on above: Performed By: #### Alex HALE, L100.0100 #### [facility] [address] [place], [address] IG% 1.200 High 0.0-0.9 [facility] Comment on above: Result Comment: IG% - Immature Granulocytes (promyelocytes, myelocytes and metamyelocytes) > 1% indicates that a LEFT SHIFT is Present. Performed By: #### Alex HALE, L100.0100 #### [facility] [address] [place], [address] Lymphocytes/100 WBC (Bld) 17.0 % Low 19-41 [facility] Comment on above: Performed By: #### Alex HALE, L100.0100 #### [facility] [address] [place], [address] MCH (RBC) [Entitic mass] 32.4 pg High 27.0-32.0 [facility] Comment on above: Performed By: #### Alex HALE, L100.0100 #### [facility] [address] [place], [address] MCHC (RBC) [Mass/Vol] 34.0 g/dL Normal 32-36 [facility] Comment on above: Performed By: #### Alex HALE, L100.0100 #### [facility] [address] [place], [address] MCV (RBC) [Entitic vol] 95.1 fL Normal 81-99 [facility] Comment on above: Performed By: #### Alex HALE, L100.0100 #### [facility] [address] [place], [address] Monocytes/100 WBC (Bld) 6.6 % Normal 0-10 [facility] Comment on above: Performed By: #### Alex HALE, L100.0100 #### [facility] [address] [place], [address] Neutrophils/100 WBC (Bld) 74.2 % High 47-70 [facility] Comment on above: Performed By: #### Alex HALE, L100.0100 #### [facility] [address] [place], [address] Nucleated RBC (Bld) [#/Vol] 0 10*3/uL Normal 0-5 [facility] Comment on above: Performed By: #### Alex HALE, L100.0100 #### [facility] [address] [place], [address] Platelet mean volume (Bld) [Entitic vol] 11.0 fL Normal 6.2-12.0 [facility] Comment on above: Performed By: #### Alex HALE, L100.0100 #### [facility] [address] [place], [address] Platelets (Bld) [#/Vol] 187 10*3/uL Normal 150-450 [facility] Comment on above: Performed By: #### Alex HALE, L100.0100 #### [facility] [address] [place], [address] RBC (Bld) [#/Vol] 3.46 10*6/uL Low 4.2-5.4 [facility] Comment on above: Performed By: #### Alex HALE, L100.0100 #### [facility] [address] [place], [address] RDW SD 46.5 fl High 35.1-43.9 [facility] Comment on above: Performed By: #### Alex HALE, L100.0100 #### [facility] [address] [place], [address] WBC (Bld) [#/Vol] 10.7 10*3/uL Normal 4.4-11.0 [facility] Comment on above: Performed By: #### B TS, L100.0100 #### [facility] [address] [place], [place], [id number] COVID 19 AG RAPID (NETO Saleem)on 10-17-2021 SARS-CoV-2 (COVID-19) RNA SAUL+probe Ql (Unsp spec) *Negative results from patients with symptom onset beyond five days should be treated as presumptive and confirmed by a molecular assay if clinically necessary. Negative results should not be used as the sole basis for treatment or for patient management. SARS-CoV-2 Ag Resp Ql IA.rapid *Positive results do not differentiate between SARS-CoV and SARS-CoV-2. If differentiation of the specific SARS virus is desired an additional sample and an additional order is required. SARS-CoV-2 Ag Resp Ql IA.rapid * This test has not been FDA cleared or approved; the test has been authorized by FDA under an Emergency Use Authorization (EAU) for use by laboratories certified under CLIA that meet the requirements to perform moderate, high, or waived complexity tests. SARS-CoV-2 Ag Resp Ql IA.rapid Normal Reference Range: Negative SARS-CoV-2 (COVID 19) Negative RAPID METHOD Quidel Fabiola Analyzer BEE Normal [facility] Comment on above: Performed By: #### M 100.505 #### [facility] [address] [place], [place], [address] H AND P Exam - OB/GYNon H&P Exam - NUTRITION EDUCATOR [facility] Medical Records Department [address] [place] [address] H P Exam - NUTRITION EDUCATOR 10/17/21 0454 MR#: [id number] Acct: [id number] Name: ADELIAJOEY L Rep #: [id number] : 1985 35 From: Cecelia Masters DO PCP: Dr. Yuniel Moore DO Status:ADM IN Location: [id number] HPI - General General Date of Admission: 10/17/21 Date of Service: 10/17/21 Chief Complaint: SROM HPI Narrative JOEY DELVALLE, is a 35 F who presents with SROM at 38w3d. No regular ctx's. No vb. Good FM. Maternal Data Information Final BJ: 10/28/21 Final BJ Source: LMP PFSH PFS Medical History (Updated 10/17/21 @ 04:[address] Cecelia Masters, DO) Anemia Breech presentation Lipoma of right upper extremity Non-smoker Subcutaneous mass of right upper extremity Wears glasses Home Medications Iron (ferrous sulfate) 325 mg PO.IVFORM DAILY anemia 10/14/21 [History Last Taken 10/15/21 08:00] Prenatabs FA 1 tab PO.IVFORM DAILY 10/14/21 [History Last Taken 10/16/21 08:00] Allergy/AdvReac Type Severity Reaction Status Date / Time No Known Allergies Allergy Verified 10/17/21 04:12 Family History Father Melanoma Mother Osteoporosis Other Family history of skin cancer Surgical History History of appendectomy History of excision of mass Social History Smoking Status: Never smoker substance use type: does not use additional social history: Does Not Take Aspirin Does Not Take Ibuprofen History Elective abortions Hx Para 2 Spontaneous abortions Hx # Term Pregnancies Ectopic pregnancies Hx # Pregnancies Multiple births # of living children NST FHR Rate Baby A FHR Category:: Category I Uterine Activity:: Irregular uterine ctx's Vital Signs Vital Signs Vital Signs: 10/17/21 03:50 10/17/21 03:50 10/17/21 04:26 Temperature Temperature Source Temporal Pulse Rate 99 Respiratory Rate Blood Pressure 104/66 Blood Pressure Mean BP Systolic 104 BP Diastolic 66 Blood Pressure Source Blood Pressure Position Blood Pressure Location Pulse Ox Oxygen Delivery Method 10/17/21 04:27 10/17/21 04:27 10/17/21 04:26 Temperature Temperature Source Pulse Rate 72 Respiratory Rate Blood Pressure 127/66 H Blood Pressure Mean BP Systolic 127 BP Diastolic 66 Blood Pressure Source Blood Pressure Position Blood Pressure Location Pulse Ox 98 Oxygen Delivery Method 10/17/21 04:26 10/17/21 04:28 Temperature 97.0 F L 97 F L Temperature Source Temporal Pulse Rate 72 Respiratory Rate 16 Blood Pressure 127/66 H Blood Pressure Mean 86 BP Systolic BP Diastolic Blood Pressure Source Monitor Blood Pressure Position Semi-Fowlers Blood Pressure Location Left Arm Pulse Ox 98 Oxygen Delivery Method Room Air Weight Weight: 154 lb 3.2 oz Body Mass Index (BMI) 25.6 Labs Labs Labs: Blood Type A POSITIVE Antibody Screen NEGATIVE Hct 32.9 % (37-47) L Hgb 11.2 g/dL (12.0-15.0) L Chlamydia DNA (SAUL) Negative (Negative) Neisseria gonorrhoeae DNA (SAUL) Negative (Negative) Rhogam given: No Assessment Plan (1) 38 weeks gestation of : PLAN: - Admit for routine pre op care. Ancef pre op. Bedside TAUS performed and baby still in breech presentation. Discussed r/b/a to a section and she desires to proceed. (2) SROM (spontaneous rupture of membranes): (3) Breech presentation: (4) Advanced maternal age (AMA) in : 10/17/21 0457 Cosigner Signature (if applicable): CC: Dr. Yuniel Moore, DO; Dr. Cecelia Masters, DO Signed Normal [facility] - Hematology and Cell countson 10-17-2021 Immature granulocytes/100 WBC (Bld) 1.200 % 0.0-0.9 [facility] Work Phone: Comment on above: IG% - Immature Granu locytes (promyelocytes, myelocytes and metamyelocytes) > 1% indicates that a LEFT SHIFT is Present. Nucleated RBC/100 WBC (Bld) [Ratio] 0 % 0-5 [facility] Work Phone: No Panel Informationon 10-17 Vaginal Amniotic Fluid Detection Positive Negative [facility] Work Phone: Comment on above: Amniotic fluid prese nt indicates rupture of Membranes. RESULTS CALLED TO Alex PRO RN WP 10/17/21 0426 Antoni Cheung.REPORT READ BACK BY SAME. Operative Reporton Operative Report [facility] Medical Records Department [address] [place] [address] Operative Report 10/17/21 0627 MR#: [id number] Acct: [id number] Name: JOEY DELVALLE Rep #: [id number] : 1985 35 From: Cecelia Masters DO PCP: Dr. Yuniel Moore DO Status:ADM IN Location: [id number] Problems Associated Problem List Diagnoses (1) Advanced maternal age (AMA) in : (2) Breech presentation: (3) SROM (spontaneous rupture of membranes): (4) 38 weeks gestation of : Report of Operation Date of Procedure: 10/17/21 Pre-Operative Diagnosis: 38 week gestation, single IUP, SROM, breech presentation Post-Operative Diagnosis: As above Surgery/Procedure Performed:: PLTCS via pfannenstiel incision Description of Surgical Findings:: VMI in jaonna breech presentation. Apgars 9, 9. Clear fluid. Normal appearing placenta with 3 VC. Normal appearing uterus and bilateral adnexa. Surgeon: Cecelia Masters carpet sewer: Shahla FRANCISCO Type of Anesthesia: Spinal Special Medications: None Specimen's removed: Placenta Drains: Elizabeth Estimated Blood Loss (mL): 800 Fluids Replaced: 1 L Description of Procedure: The patient was taken to the operating room where spinal anesthesia was initiated. She was prepped and draped in the dorsal position with a leftward tilt. A Pfannenstiel skin incision was made with a scalpel and this was carried down to the underlying layer of fascia. The fascia was incised in midline. The fascia was extended laterally using Ordonez scissors. The fascia was dissected off of the rectus muscles using a combination of sharp and blunt dissection. Rectus muscles were in the midline. The peritoneum was entered bluntly with good visualization of the bladder. The peritoneal incision was extended bluntly. A bladder blade was inserted. A low transverse incision was made on the uterus with a scalpel. Uterine incision was extended bluntly. Membranes were ruptured for clear fluid. The buttocks of the was elevated and delivered through the hysterotomy, followed by the body and legs, arms, and head easily and without any force or delay. The head was flexed during delivery. The cord was clamped and cut after a slight delay. The male was vigorous and handed off to the waiting nursery staff. The placenta was removed with manual extraction. The uterus was exteriorized. The uterus was cleared of all clot and debris. The uterine incision was closed with 1-0 Vicryl in a 2 layer fashion. The first layer was running locked. The second layer was imbricating. Hemostasis was noted. The uterus and bilateral adnexa were normal-appearing. The uterus was placed back into the abdomen. Sonia was placed over the incision. The peritoneum was closed with 3-0 Vicryl in a running fashion. The fascia was closed with strata fix in a running fashion. The subcutaneous space was irrigated. The subcutaneous space was reapproximated with 3-0 Vicryl. The skin was closed with 4-0 Monocryl in a subcuticular fashion. A dressing was placed. Instrument, sponge, sharp counts correct. The patient was taken to the recovery in stable condition. Grafts/Implants Used: None Procedure Start Time: 05:42 Procedure Stop Time: 06:20 Complications None Admit VTE Documentation VTE Present on Admission: No VTE Mechan Device Prophylaxis: SCD's 10/17/2133 Cosigner Signature (if applicable): CC: Dr. Yuniel Moore, DO; Dr. Cecelia Masters, DO Signed Normal [facility] Type AND Screenon 10-17-2021 Ab SCREEN GEL Negative [facility] Comment on above: Order Comment: S Performed By: #### B TS, L100.0100 #### [facility] [address] [place], [address] ABO and Rh group Nom (Bld) Blood group A Rh(D) positive [facility] Comment on above: Order Comment: S Performed By: #### B TS, L100.0100 #### [facility] [address] [place], [address] OB Triage Physician Noteon 0 10-15-2021 OB Triage Physician Note [facility] Medical Records Department [address] [place] [address] OB Triage Physician Note 10/14/21 2309 MR#: [id number] Acct: [id number] Name: JOEY DELVALLE Rep #: [id number] : 1985 35 From: Radha Dumont MD PCP: Dr. Yuniel Moore, DO Status:DEP CLI Y Location: [facility] - General General Date of Admission: 10/14/21 Date of Service: 10/14/21 Chief Complaint: ctxs HPI Narrative JOEY DELVALLE, is a 35 F who presents at 38 weeks gestation with a breech fetus and some contractions. She has a history of rapid labor in the past. She denied any vaginal bleeding or leaking of fluid. [facility] Medical History (Updated 10/14/21 @ 23:[address] Radha Dumont MD) Anemia Breech presentation Lipoma of right upper extremity Non-smoker Subcutaneous mass of right upper extremity Wears glasses Home Medications Iron (ferrous sulfate) 325 mg PO.IVFORM DAILY anemia 10/14/21 [History Last Taken Unknown] Prenatabs FA 1 tab PO.IVFORM DAILY 10/14/21 [History Last Taken Unknown] Allergy/AdvReac Type Severity Reaction Status Date / Time No Known Allergies Allergy Verified 10/02/20 13:35 Family History Father Melanoma Mother Osteoporosis Other Family history of skin cancer Surgical History History of appendectomy History of excision of mass Social History Smoking Status: Never smoker substance use type: does not use additional social history: Does Not Take Aspirin Does Not Take Ibuprofen History Elective abortions Hx Para 1 Spontaneous abortions Hx # Term Pregnancies Ectopic pregnancies Hx # Pregnancies Multiple births # of living children NST FHR Rate Baby A Baseline: 120 Variability:: Moderate Accelerations:: 15 x 15 Decelerations:: None NST Reactive:: Yes FHR Category:: Category I Uterine Activity:: irreg ctxs Assessment Plan (1) False labor: PLAN: 35-year-old 3 para 2 at 38 weeks with false labor. Breech presentation. If fetus remains breech at 39 weeks or when she returns in labor we will proceed with primary section. Discharged home with routine follow-up or return as needed. 10/14/21 2311 Date Radha Dumont MD Cosign Signature (if applicable): Date CC: Dr. Yuniel Moore DO; Dr. Radha Dumont MD Signed Normal [facility] URINE OB DIP B/Oon 2 Glucose Ql (U) Negative Neg mg/dL [facility] Protein.monoclonal (U) [Mass/Vol] Negative Neg mg/dL [facility] URINE OB DIP B/Oon 2 Glucose Ql (U) Negative Neg mg/dL [facility] Protein.monoclonal (U) [Mass/Vol] Negative Neg mg/dL [facility] URINE OB DIP B/Oon 2 Glucose Ql (U) Negative Neg mg/dL [facility] Protein.monoclonal (U) [Mass/Vol] Negative Neg mg/dL [facility] URINE OB DIP B/Oon 2 Glucose Ql (U) Negative Neg mg/dL [facility] Protein.monoclonal (U) [Mass/Vol] Negative Neg mg/dL [facility] URINE OB DIP B/Oon 2 Glucose Ql (U) Negative Neg mg/dL [facility] Protein.monoclonal (U) [Mass/Vol] Negative Neg mg/dL [facility] URINE OB DIP B/Oon 2 Glucose Ql (U) Negative Neg mg/dL [facility] Protein.monoclonal (U) [Mass/Vol] Negative Neg mg/dL [facility] URINE OB DIP B/Oon 2 Glucose Ql (U) Negative Neg mg/dL [facility] Protein.monoclonal (U) [Mass/Vol] Negative Neg mg/dL [facility] OBSTETRIC ULTRASOUND WHIon 0 06-12-2021 [facility] URINE OB DIP B/Oon 2 Glucose Ql (U) Negative Neg mg/dL [facility] Protein.monoclonal (U) [Mass/Vol] Negative Neg mg/dL [facility] Vital Signs Date Time Vital Sign Value Performing Clinician Facility 07-27-2024 12:09-0400 Body height 166 cm Yuniel Moore DO Work Phone: [facility] 07-27-2024 12:09-0400 Body mass index (BMI) [Ratio] 21.56 kg/m2 Yuniel Moore DO Work Phone: [facility] 07-27-2024 12:09-0400 Body temperature 99.19 [degF] Yuniel Moore DO Work Phone: [facility] 07-27-2024 12:09-0400 Body weight 59.42 kg Yuniel Moore DO Work Phone: [facility] 07-27-2024 12:09-0400 Diastolic blood pressure 70 mm[Hg] Yuniel Moore DO Work Phone: [facility] 07-27-2024 12:09-0400 Heart rate 64 /min Yuniel Moore DO Work Phone: [facility] 07-27-2024 12:09-0400 Respiratory rate 16 /min Yuniel Moore DO Work Phone: [facility] 07-27-2024 12:09-0400 Systolic blood pressure 104 mm[Hg] Yuniel Moore DO Work Phone: [facility] 03-24-2024 15:51-0500 Body height 165.1 cm Omer Nelson APRN.VICE PRESIDENT TALENT MANAGEMENT Work Phone: [facility] 03-24-2024 15:51-0500 Body mass index (BMI) [Ratio] 21.8 kg/m2 Omer Nelson ACCESS CONTROL SPECIALIST.VICE PRESIDENT TALENT MANAGEMENT Work Phone: [facility] 03-24-2024 15:51-0500 Body weight 59.42 kg Omer Nelson APRN.VICE PRESIDENT TALENT MANAGEMENT Work Phone: [facility] 03-24-2024 15:51-0500 Diastolic blood pressure 64 mm[Hg] Omer Nelson APRN.VICE PRESIDENT TALENT MANAGEMENT Work Phone: [facility] 03-24-2024 15:51-0500 Systolic blood pressure 122 mm[Hg] Omer Hammondlucho VIZCARRA.VICE PRESIDENT TALENT MANAGEMENT Work Phone: [facility] 11-18-2023 15:18-0400 Body mass index (BMI) [Ratio] 21.47 kg/m2 Yuniel Moore DO Work Phone: [facility] 11-18-2023 15:18-0400 Body temperature 97.5 [degF] Yuniel Moore DO Work Phone: [facility] 11-18-2023 15:18-0400 Body weight 58.51 kg Yuniel Moore DO Work Phone: [facility] 11-18-2023 15:18-0400 Diastolic blood pressure 70 mm[Hg] Yuniel Moore DO Work Phone: [facility] 11-18-2023 15:18-0400 Heart rate 80 /min Yuniel Moore DO Work Phone: [facility] 11-18-2023 15:18-0400 Respiratory rate 16 /min Yuniel Moore DO Work Phone: [facility] 11-18-2023 15:18-0400 Systolic blood pressure 116 mm[Hg] Yuniel Moore DO Work Phone: [facility] 10-14-2023 12:52-0400 Body mass index (BMI) [Ratio] 21.63 kg/m2 Yuniel Moore DO Work Phone: [facility] 10-14-2023 12:52-0400 Body temperature 96.8 [degF] Yuniel Moore DO Work Phone: [facility] 10-14-2023 12:52-0400 Body weight 58.97 kg Yuniel Moore DO Work Phone: [facility] 10-14-2023 12:52-0400 Diastolic blood pressure 80 mm[Hg] Yuniel Moore DO Work Phone: [facility] 10-14-2023 12:52-0400 Heart rate 76 /min Yuniel Moore DO Work Phone: [facility] 10-14-2023 12:52-0400 Respiratory rate 12 /min Yuniel Moore DO Work Phone: [facility] 10-14-2023 12:52-0400 Systolic blood pressure 120 mm[Hg] Yuniel Moore DO Work Phone: [facility] 10-06-2023 12:44-0400 Body mass index (BMI) [Ratio] 21.73 kg/m2 Patrick Bogner PA-C Work Phone: [facility] 10-06-2023 12:44-0400 Body weight 59.24 kg Patrick Bogner PA-C Work Phone: [facility] 10-06-2023 12:44-0400 Diastolic blood pressure 66 mm[Hg] Patrick Bogner PA-C Work Phone: [facility] 10-06-2023 12:44-0400 Heart rate 90 /min Patrick Bogner PA-C Work Phone: [facility] 10-06-2023 12:44-0400 Respiratory rate 16 /min Patrick Bogner PA-C Work Phone: [facility] [facility] 10-06-2023 12:44-0400 SaO2% (BldA) [Mass fraction] 99 % Patrick Bogner PA-C Work Phone: [facility] 10-06-2023 12:44-0400 Systolic blood pressure 108 mm[Hg] Patrick Bogner PA-C Work Phone: [facility] 03-20-2023 15:40-0500 Body height 165.1 cm Omer Nelson APRN.VICE PRESIDENT [employer]NAG[employer] Work Phone: [facility] 03-20-2023 15:40-0500 Body weight 58.6 kg Omer Nelson APRN.VICE PRESIDENT [employer] MANAG[employer] Work Phone: [facility] 03-20-2023 15:40-0500 Diastolic blood pressure 60 mm[Hg] Omer Nelson APRN.VICE PRESIDENT [employer] MANAGEMENT Work Phone: [facility] 03-20-2023 15:40-0500 Systolic blood pressure 100 mm[Hg] Omer Nelson VICE PRESIDENT [employer]AL[employer] MANAGEMENT Work Phone: [facility] 03-05-2022 17:12-0500 Body height 166 cm Yuniel Moore DO Work Phone: [facility] 03-05-2022 17:12-0500 Body temperature 96.69 [degF] Yuniel Moore DO Work Phone: [facility] 03-05-2022 17:12-0500 Body weight 58.51 kg Yuniel Moore DO Work Phone: [facility] 03-05-2022 17:12-0500 Diastolic blood pressure 70 mm[Hg] Yuniel Moore DO Work Phone: [facility] 03-05-2022 17:12-0500 Heart rate 80 /min Yuniel Moore DO Work Phone: [facility] 03-05-2022 17:12-0500 Respiratory rate 12 /min Yuniel Moore DO Work Phone: [facility] 03-05-2022 17:12-0500 Systolic blood pressure 110 mm[Hg] Yuniel Moore DO Work Phone: [facility] 11-29-2021 16:10-0400 Body weight 61.24 kg Radha Dumont MD Work Phone: [facility] 11-29-2021 16:10-0400 Diastolic blood pressure 76 mm[Hg] Radha Dumont MD Work Phone: [facility] 11-29-2021 16:10-0400 Systolic blood pressure 110 mm[Hg] Radha Dumont MD Work Phone: [facility] 10-25-2021 13:18-0400 Body weight 64.68 kg Cec[place] Masters MD Work Phone: [facility] 10-25-2021 13:18-0400 Diastolic blood pressure 64 mm[Hg] [place] Masters MD Work Phone: [facility] 10-25-2021 13:18-0400 Systolic blood pressure 110 mm[Hg] [place] Masters MD Work Phone: [facility] 10-19-2021 08:30-0400 Body temperature 98 [degF] [facility] Work Phone: 10-19-2021 08:30-0400 Diastolic blood pressure 54 mm[Hg] [facility] Work Phone: 10-19-2021 08:30-0400 Heart rate 71 /min [facility] Work Phone: 10-19-2021 08:30-0400 Respiratory rate 18 /min [facility] Work Phone: 10-19-2021 08:30-0400 SaO2% (BldA) [Mass fraction] 97 % [facility] Work Phone: 10-19-2021 08:30-0400 Systolic blood pressure 100 mm[Hg] [facility] Work Phone: 10-17-2021 04:11-0400 Body height 165.1 cm [facility] Work Phone: 10-17-2021 04:11-0400 Body mass index (BMI) [Ratio] 25.6 kg/m2 [facility] Work Phone: 10-17-2021 04:11-0400 Body weight 69.94 kg [facility] Work Phone: 10-14-2021 18:10-0400 Heart rate 81 /min [facility] Work Phone: 10-14-2021 18:10-0400 SaO2% (BldA) [Mass fraction] 98 % [facility] Work Phone: 10-14-2021 18:09-0400 Body temperature 98.5 [degF] [facility] Work Phone: 10-14-2021 18:09-0400 Diastolic blood pressure 76 mm[Hg] [facility] Work Phone: 10-14-2021 18:09-0400 Systolic blood pressure 115 mm[Hg] [facility] Work Phone: 10-09-2021 13:29-0400 Body weight 69.94 kg Cecelia Masters MD Work Phone: [facility] 10-09-2021 13:29-0400 Diastolic blood pressure 62 mm[Hg] [place] Masters MD Work Phone: [facility] 10-09-2021 13:29-0400 Systolic blood pressure 106 mm[Hg] [place] Masters MD Work Phone: [facility] 10-03-2021 08:37-0400 Body weight 69.4 kg Radha Dumont MD Work Phone: [facility] 10-03-2021 08:37-0400 Diastolic blood pressure 62 mm[Hg] Radha Dumont MD Work Phone: [facility] 10-03-2021 08:37-0400 Systolic blood pressure 104 mm[Hg] Radha Dumont MD Work Phone: [facility] 09-18-2021 08:25-0400 Body weight 68.49 kg Radha Dumont MD Work Phone: [facility] 09-18-2021 08:25-0400 Diastolic blood pressure 68 mm[Hg] Radha Dumont MD Work Phone: [facility] 09-18-2021 08:25-0400 Systolic blood pressure 104 mm[Hg] Radha Dumont MD Work Phone: [facility] 09-04-2021 10:24-0400 Body weight 68.04 kg Radha Dumont MD Work Phone: [facility] 09-04-2021 10:24-0400 Diastolic blood pressure 60 mm[Hg] Radha Dumont MD Work Phone: [facility] 09-04-2021 10:24-0400 Systolic blood pressure 102 mm[Hg] Radha Duomnt MD Work Phone: [facility] 08-21-2021 08:40-0400 Body weight 65.77 kg Radha Dumont MD Work Phone: [facility] 08-21-2021 08:40-0400 Diastolic blood pressure 58 mm[Hg] Radha Dumont MD Work Phone: [facility] 08-21-2021 08:40-0400 Systolic blood pressure 98 mm[Hg] Radha Dumont MD Work Phone: [facility] 08-07-2021 11:04-0400 Body weight 66.22 kg Radha Dumont MD Work Phone: [facility] 08-07-2021 11:04-0400 Diastolic blood pressure 60 mm[Hg] Radha Dumont MD Work Phone: [facility] 08-07-2021 11:04-0400 Systolic blood pressure 102 mm[Hg] Radha Dumont MD Work Phone: [facility] 07-10-2021 08:41-0400 Body weight 63.96 kg Radha Dumont MD Work Phone: [facility] 07-10-2021 08:41-0400 Diastolic blood pressure 58 mm[Hg] Radha Dumont MD Work Phone: [facility] 07-10-2021 08:41-0400 Systolic blood pressure 110 mm[Hg] Radha Dumont MD Work Phone: [facility] 06-12-2021 13:44-0400 Body weight 61.69 kg Radha Dumont MD Work Phone: [facility] 06-12-2021 13:44-0400 Diastolic blood pressure 60 mm[Hg] Radha Dumont MD Work Phone: [facility] 06-12-2021 13:44-0400 Systolic blood pressure 120 mm[Hg] Radha Dumont MD Work Phone: [facility] 05-20-2021 13:36-0400 Body weight 60.06 kg Cecelia Masters MD Work Phone: [facility] 05-20-2021 13:36-0400 Diastolic blood pressure 62 mm[Hg] Cecelia Masters MD Work Phone: [facility] 05-20-2021 13:36-0400 Systolic blood pressure 100 mm[Hg] Cecelia Masters MD Work Phone: [facility] Encounters Encounter Date Encounter Type Care Provider Facility Start: 08-11-2024 End: 08-11-2024 ambulatory Felix Emerson PT [facility] Comment on above: Cervicalgia (Primary Dx); Numbness and tingling in both hands Start: 07-27-2024 End: 07-27-2024 Patient encounter procedure Yuniel Moore DO Work Phone: [facility] Comment on above: Well adult exam (Gloria don Dx); Cervicalgia; Weakness of both arms; Numbness and tingling in both hands Start: 07-27-2024 End: 07-27-2024 Patient encounter status Yuniel Moore DO Work Phone: [facility] Start: 07-27-2024 End: 07-27-2024 ambulatory YUNIEL MOORE Facility:[facility] Start: 05-19-2024 End: 05-19-2024 ambulatory Felix Emerson PT [facility] Comment on above: Cervicalgia (Primary Dx); Numbness and tingling in both hands Start: 04-08-2024 End: 04-08-2024 ambulatory Felix Emerson PT [facility] Comment on above: Cervicalgia (Primary Dx); Numbness and tingling in both hands Start: 03-24-2024 End: 03-24-2024 Patient encounter procedure Omer Nelson APRN.VICE PRESIDENT [employer]AL[employer] MANAGEMENT Work Phone: OB/Gynecology Comment on above: Encounter for gyneco logical examination (general) (routine) without abnormal findings (Primary Dx); Encounter for screening mammogram for breast cancer Start: 03-24-2024 End: 03-24-2024 Patient encounter status Omer Nelson APRN.VICE PRESIDENT [employer] MANAGEMENT Work Phone: [facility] Start: 03-24-2024 End: 03-24-2024 ambulatory YUNIEL MOORE Facility:[facility] Start: 03-24-2024 Encounter for gynecological examination (general) (routine) without abnormal findings OMER NELSON [facility] Start: 03-08-2024 End: 03-08-2024 ambulatory Felix Emerson [facility] Comment on above: Cervicalgia (Primary Dx); Numbness and tingling in both hands Start: 02-09-2024 End: 02-09-2024 ambulatory Felix Emerson PT [facility] Comment on above: Cervicalgia (Primary Dx); Numbness and tingling in both hands Start: 01-29-2024 End: 01-29-2024 ambulatory Felix Emerson PT [facility] Comment on above: Cervicalgia (Primary Dx); Numbness and tingling in both hands Start: 01-14-2024 End: 01-14-2024 ambulatory Felix Emerson PT [facility] Comment on above: Cervicalgia (Primary Dx); Numbness and tingling in both hands Start: 01-06-2024 End: 01-06-2024 ambulatory Felix Emerson PT [facility] Comment on above: Cervicalgia (Primary Dx); Numbness and tingling in both hands Start: 12-30-2023 End: 12-31-2023 Telephone encounter Yuniel Moore DO Work Phone: [facility] Start: 12-24-2023 End: 12-24-2023 ambulatory Santos White PT, DPT [facility] Comment on above: Cervicalgia (Primary Dx); Numbness and tingling in both hands Start: 12-24-2023 End: 12-24-2023 ambulatory YUNIEL MOORE Facility:[facility] Start: 12-24-2023 End: 12-24-2023 Subsequent hospital visit by physician Mri Radio [facility] (I-Stat/1.5t) Work Phone: Radiology Comment on above: 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] Start: 12-15-2023 End: 12-15-2023 ambulatory Felix Emerson [facility] Comment on above: Cervicalgia (Primary Dx); Numbness and tingling in both hands Start: 12-09-2023 End: 12-09-2023 ambulatory Felix Emerson [facility] Comment on above: Cervicalgia (Primary Dx); Numbness and tingling in both hands Start: 12-02-2023 End: 12-02-2023 ambulatory Felix Emerson NABOR [facility] Comment on above: Cervicalgia (Primary Dx); Numbness and tingling in both hands Start: 11-26-2023 End: 11-26-2023 ambulatory Felix Emerson NABOR [facility] Comment on above: Cervicalgia (Primary Dx); Numbness and tingling in both hands Start: 11-24-2023 End: 02-16-2024 Telephone encounter Yuniel Moore DO Work Phone: [facility] [place] Comment on above: Question Start: 11-21-2023 End: 11-24-2023 ambulatory Yuniel Moore DO Work Phone: [facility] [place] Comment on above: Symptoms and MRI Start: 11-18-2023 End: 11-18-2023 ambulatory YUNIEL MOORE Facility:[facility] Start: 11-18-2023 End: 11-18-2023 Patient encounter procedure Yuniel Moore DO Work Phone: [facility] [place] Comment on above: Motor neuron disease (HCC) (Primary Dx); Paresthesia of skin; Weakness of both arms; Chronic neck pain; Worsening headaches Start: 11-04-2023 End: 11-04-2023 ambulatory Felix Emerson [facility] Comment on above: Cervicalgia (Primary Dx); Numbness and tingling in both hands Start: 10-14-2023 End: 10-14-2023 Patient encounter procedure Yuniel Moore DO Work Phone: [facility] [place] Comment on above: Cervicalgia (Primary Dx); Numbness and tingling in both hands; Muscle spasms of neck; Bilateral arm weakness Start: 10-14-2023 End: 10-14-2023 ambulatory Nurse Intm/Famp Triage [facility] Work Phone: Nurse Phone Triage Comment on above: left side jaw pain; left shoulder pain Continue to experien ce pain Start: 10-09-2023 End: 10-09-2023 ambulatory Yuniel Moore DO Work Phone: [facility] [place] Comment on above: X ray results. MRI p erhaps? Start: 10-06-2023 End: 10-06-2023 Subsequent hospital visit by physician [place] Work Phone: Radiology Comment on above: Cervicalgia [M54.2] Start: 10-06-2023 End: 10-06-2023 ambulatory YUNIEL SALASRISON Facility:[facility] Start: 10-06-2023 End: 10-06-2023 ambulatory YUNIEL L MOORE Facility:[facility] Start: 10-06-2023 End: 10-06-2023 Office outpatient visit 25 minutes Patrick Hirsch PA-C Work Phone: [facility] [place] Comment on above: Cervicalgia (Primary Dx); Numbness and tingling in both hands Start: 07-07-2023 Telephone encounter Yuniel Renuka fletcher DO Work Phone: [facility] [place] Comment on above: Results Start: 07-02-2023 ambulatory Yuniel wilson DO Work Phone: [facility] [place] Comment on above: Blood Work Start: 07-02-2023 Patient encounter status Marilu Moore DO Work Phone: [facility] Start: 03-20-2023 End: 03-20-2023 Patient encounter procedure Omer Nelson APRN.VICE PRESIDENT [employer]ALENT MANAGEMENT Work Phone: OB/Gynecology Comment on above: Encounter for gyneco logical examination (general) (routine) without abnormal findings (Primary Dx) Start: 03-20-2023 End: 03-20-2023 Patient encounter status Omer Nelson APRN.VICE PRESIDENT TALENT MANAGEMENT Work Phone: [facility] Start: 03-05-2022 End: 03-05-2022 Patient encounter procedure Yuniel Moore DO Work Phone: [facility] [place] Comment on above: Well adult exam ([facility] Dx); Fatigue, unspecified type; Thyroid fullness Start: 03-05-2022 End: 03-05-2022 Patient encounter status Yuniel Moore DO Work Phone: [facility] Start: 02-06-2022 ambulatory Radha pugh MD Work Phone: OB/Gynecology Comment on above: Return to work form Start: 11-29-2021 End: 11-29-2021 Patient encounter procedure Radha Dumont MD Work Phone: OB/Gynecology Comment on above: care and examination (Primary Dx) Start: 11-20-2021 End: 11-20-2021 Patient encounter procedure [facility] Comment on above: Need for influenza v accination (Primary Dx) Start: 10-25-2021 End: 10-25-2021 Patient encounter procedure Cecelia Masters MD Work Phone: OB/Gynecology Comment on above: state (Pr imary Dx) Start: 10-21-2021 ambulatory Kris Garcia Facility:[facility] Start: 10-17-2021 ambulatory Cecelia Ballard Work Phone: OB/Gynecology Comment on above: Ob Delivery Note Start: 10-17-2021 End: 10-19-2021 Evaluation and management of inpatient Cecelia Masters Facility:[facility] Start: 10-17-2021 End: 10-19-2021 Evaluation and management of inpatient [facility] Start: 10-14-2021 End: 10-14-2021 ambulatory Radha Dumont Facility:[facility] Start: 10-14-2021 End: 10-14-2021 ambulatory [facility] Work Phone: Start: 10-14-2021 End: 10-14-2021 Patient encounter procedure [facility] Start: 10-09-2021 End: 10-09-2021 Patient encounter procedure Cecelia Masters MD Work Phone: OB/Gynecology Comment on above: 37 weeks gestation o f (Primary Dx); AMA (advanced maternal age) multigravida 35+, third trimester; Breech presentation, single or unspecified fetus; Supervision of high-risk of elderly multigravida, third trimester Start: 10-03-2021 End: 10-03-2021 Patient encounter procedure Radha Dumont MD Work Phone: OB/Gynecology Comment on above: AMA (advanced matern al age) multigravida 35+, third trimester (Primary Dx); 36 weeks gestation of Start: 09-18-2021 End: 09-18-2021 Patient encounter procedure Radha Dumont MD Work Phone: OB/Gynecology Comment on above: 34 weeks gestation o f (Primary Dx); AMA (advanced maternal age) multigravida 35+, third trimester Start: 09-04-2021 End: 09-04-2021 Patient encounter procedure Janey Cohn MD Work Phone: Maternal Medicine Comment on above: Multigravida of adva nced maternal age in third trimester (Primary Dx); 32 weeks gestation of 32 weeks gestation o f (Primary Dx); AMA (advanced maternal age) multigravida 35+, third trimester Start: 08-21-2021 End: 08-21-2021 Patient encounter procedure Radha Dumont MD Work Phone: OB/Gynecology Comment on above: AMA (advanced matern al age) multigravida 35+, third trimester (Primary Dx); 30 weeks gestation of Start: 08-19-2021 ambulatory Radha pugh MD Work Phone: OB/Gynecology Comment on above: FMLA paperwork Start: 08-19-2021 E-mail encounter fro m caregiver Radha Dumont MD Work Phone: [facility] Start: 08-16-2021 ambulatory Radha pugh MD Work Phone: OB/Gynecology Comment on above: Paper Work for FMLA Start: 08-07-2021 End: 08-07-2021 Patient encounter procedure Radha Dumont MD Work Phone: OB/Gynecology Comment on above: AMA (advanced matern al age) multigravida 35+, third trimester (Primary Dx); 28 weeks gestation of ; Need for vaccination Start: 07-10-2021 End: 07-10-2021 Patient encounter procedure Radha Dumont MD Work Phone: OB/Gynecology Comment on above: AMA (advanced matern al age) multigravida 35+, second trimester (Primary Dx); 24 weeks gestation of Start: 06-12-2021 End: 06-12-2021 Patient encounter procedure Radha Dumont MD Work Phone: OB/Gynecology Comment on above: 20 weeks gestation o f (Primary Dx) Encounter for anatomic survey (Primary Dx); Multigravida of advanced maternal age in second trimester; 20 weeks gestation of Start: 05-20-2021 Telephone encounter Cecelia crawford MD Work Phone: OB/Gynecology Comment on above: Orders Start: 05-20-2021 End: 05-20-2021 Patient encounter procedure Cecelia Masters MD Work Phone: OB/Gynecology Comment on above: 17 weeks gestation o f (Primary Dx); AMA (advanced maternal age) multigravida 35+, first trimester; Supervision of other high risk pregnancies, first trimester Start: 12-28-2020 Encounter for genera l adult medical examination without abnormal findings YUNIEL MOORE [facility] Start: 12-28-2020 Patient encounter status Cecelia Masters MD Work Phone: [facility] Work Phone: Start: 07-30-2016 End: 12-07-2019 Patient encounter status Yuniel Moore DO Work Phone: [facility] Procedures Date Procedure Procedure Detail Performing Clinician Start: 12-24-2023 Mri brain brain stem w/o w/contrast material Yuniel Moore DO Work Phone: Start: 10-14-2023 Ecg routine ecg w/le ast 12 lds i&r only [facility] Provider Start: 10-06-2023 Radex spine cervical 4 or 5 views Patrick Hirsch PA-C Work Phone: Start: 11-20-2021 INFLUENZA VACCINE QUADRIVALENT 6 MO - 64 YRS IM Dottie Hernadez CHRISS Work Phone: Start: 10-09-2021 URINE OB DIP B/O Cecelia lehman MD Work Phone: Start: 10-03-2021 URINE OB DIP B/O Ryan Dumont MD Work Phone: Start: 09-18-2021 URINE OB DIP B/O Ryan Dumont MD Work Phone: Start: 09-04-2021 URINE OB DIP B/O Ryan Dumont MD Work Phone: Start: 08-21-2021 URINE OB DIP B/O Ryan Dumont MD Work Phone: Start: 08-07-2021 URINE OB DIP B/O Ryan Dumont MD Work Phone: Start: 07-10-2021 URINE OB DIP B/O Ryan Dumont MD Work Phone: Start: 06-12-2021 Us preg uterus after 1st trimest 02/09 gestation Radha Dumont MD Work Phone: Start: 05-20-2021 URINE OB DIP B/O Cecelia lehman MD Work Phone: Start: 12-28-2020 Adult depression screening assessment Cecelia Masters MD Work Phone: H/O: section Status pos t primary low transverse section H/O: surgery History of excis ion of mass Viral antigen assay Plan of Treatment Date Care Activity Detail Author Start: 08-08-2031 Urine microalbumin profile [facility] Start: 03-24-2026 Urine microalbumin profile DTA P,TDAP,TD (3 - Td or Tdap) [facility] Start: 11-06-2025 HPV TESTING HPV TESTING [facility] Start: 11-06-2025 PAP TESTING PAP TESTING [facility] Start: 11-06-2025 Screening for malign ant neoplasm of cervix [facility] Start: 07-27-2025 End: 10-26-2025 CBC panel - Blood by Automated count COMPLETE BLOOD COUNT Lab Routine Well adult exam Expected: 07/27/2025, Expires: 10/26/2025 [facility] Comment on above: Expected: 07/27/2025 , Expires: 10/26/2025 Start: 07-27-2025 End: 10-26-2025 Comprehensive metabolic 2000 panel - Serum or Plasma COMPREHENSIVE METABOLIC PANEL Lab Routine Well adult exam Expected: 07/27/2025, Expires: 10/26/2025 [facility] Work Phone: Comment on above: Expected: 07/27/2025 , Expires: 10/26/2025 Start: 07-27-2025 End: 10-26-2025 Hemoglobin A1c in Blood HEMOGLOBIN A1C Lab Routine Well adult exam Expected: 07/27/2025, Expires: 10/26/2025 [facility] Comment on above: Expected: 07/27/2025 , Expires: 10/26/2025 Start: 07-27-2025 End: 10-26-2025 Lipid 1996 panel - Serum or Plasma LIPID PANEL, FASTING Lab Routine Well adult exam Expected: 07/27/2025, Expires: 10/26/2025 [facility] Comment on above: Expected: 07/27/2025 , Expires: 10/26/2025 Start: 07-27-2025 End: 10-26-2025 Thyrotropin [Units/volume] in Serum or Plasma THYROID STIMULATING HORMONE Lab Routine Well adult exam Expected: 07/27/2025, Expires: 10/26/2025 [facility] Comment on above: Expected: 07/27/2025 , Expires: 10/26/2025 Start: 11-17-2024 Covid-19 Vaccine ( season) Covid-19 Vaccine () [facility] Comment on above: Postponed from 10/10 (Declined at this time) Start: 10-11-2024 End: 10-11-2024 ambulatory 10/11/2024 5:15 PM EDT OT/PT/Speech Visit [facility] [address] [place] [address] Felix Emerson PT Cervicalgia [M54.2] [facility] Comment on above: Cervicalgia [M54.2] Start: 10-10-2024 Influenza vaccination [facility] Start: 09-15-2024 End: 09-15-2024 ambulatory 09/15/2024 5:15 PM EDT OT/PT/Speech Visit [facility] [address] [place] [address] Felix Emerson, PT Cervicalgia [M54.2] [facility] Comment on above: Cervicalgia [M54.2] Start: 08-11-2024 End: 08-11-2024 ambulatory 08/11/2024 5:15 PM EDT OT/PT/Speech Visit [facility] [address] [place] [address] Felix Emerson, PT Cervicalgia [M54.2] [facility] Comment on above: Cervicalgia [M54.2] Start: 08-08-2024 Influenza vaccination Influenza Vacc ine (#1) [facility] Comment on above: Postponed from 10/10 (Declined at this time) Start: 07-27-2024 End: 07-27-2024 Patient encounter procedure 07/27/2024 12:00 PM EDT Office Visit [facility] [place] [address] [facility] [place] [address] Yuniel Moore, [address] [place] [address] yearly exam [facility] [place] Comment on above: yearly exam Start: 05-19-2024 End: 05-19-2024 ambulatory 05/19/2024 12:30 PM EDT OT/PT/Speech Visit [facility] [address] [place] [address] Felix Emerson, PT Cervicalgia [M54.2] [facility] Comment on above: Cervicalgia [M54.2] Start: 04-08-2024 End: 04-08-2024 ambulatory 04/08/2024 1:45 PM EST OT/PT/Speech Visit [facility] [address] [place] [address] Felix Emerson, PT Cervicalgia [M54.2] [facility] Comment on above: Cervicalgia [M54.2] Start: 03-24-2024 End: 03-24-2024 Patient encounter procedure 03/24/2024 4:00 PM EST Office Visit OB/Gynecology [address] [place] [address] Omer Nelson APRN.VICE PRESIDENT [employer] MANAGEMENT [address] [place] [address] ANNUAL OB/Gynecology Comment on above: ANNUAL Start: 03-16-2024 End: 03-16-2024 Patient encounter procedure 03/16/2024 5:00 PM EST Office Visit [facility] [place] [address] [facility] [place] [address] Yuniel Moore DO [address] [place] [address] yearly exam [facility] Comment on above: yearly exam Start: 03-11-2024 Covid-19 Vaccine () Covid-19 Vaccine () [facility] Comment on above: Postponed from 10/10 (Declined at this time) Start: 03-08-2024 End: 03-08-2024 ambulatory 03/08/2024 12:30 PM EST OT/PT/Speech Visit [facility] [address] [place] [address] Felix Emerson, PT M54.2 - Cervicalgia [facility] Comment on above: M54.2 - Cervicalgia Start: 02-09-2024 End: 02-09-2024 ambulatory 02/09/2024 12:30 PM EST OT/PT/Speech Visit [facility] [address] [place] [address] Felix Emerson, PT M54.2 (ICD-10-CM) - Cervicalgia [facility] Comment on above: M54.2 (ICD-10-CM) - Cervicalgia Start: 01-29-2024 End: 01-29-2024 ambulatory 01/29/2024 1:00 PM EST OT/PT/Speech Visit [facility] [address] [place] [address] Felix Emerson, PT M54.2 (ICD-10-CM) - Cervicalgia [facility] Comment on above: M54.2 (ICD-10-CM) - Cervicalgia Start: 01-14-2024 End: 01-14-2024 ambulatory 01/14/2024 1:15 PM EST OT/PT/Speech Visit [facility] [address] [place] [address] Felix Emerson, PT Dx: Cervicalgia [M54.2 (ICD-10-CM)]; Numbness and tingling in both hands [R20.0, R20.2 (ICD-10-CM)] [facility] Comment on above: Dx: Cervicalgia [M54 .2 (ICD-10-CM)]; Numbness and tingling in both hands [R20.0, R20.2 (ICD-10-CM)] Start: 01-08-2024 End: 01-08-2024 ambulatory 01/08/2024 8:15 AM EST OT/PT/Speech Visit [facility] [address] [place] [address] Felix Emerson, PT Dx: Cervicalgia [M54.2 (ICD-10-CM)]; Numbness and tingling in both hands [R20.0, R20.2 (ICD-10-CM)] [facility] Comment on above: Dx: Cervicalgia [M54 .2 (ICD-10-CM)]; Numbness and tingling in both hands [R20.0, R20.2 (ICD-10-CM)] Start: 01-06-2024 End: 01-06-2024 ambulatory 01/06/2024 11:15 AM EST OT/PT/Speech Visit [facility] [address] [place] [address] Felix Emerson, PT Dx: Cervicalgia [M54.2 (ICD-10-CM)]; Numbness and tingling in both hands [R20.0, R20.2 (ICD-10-CM)] [facility] Comment on above: Dx: Cervicalgia [M54 .2 (ICD-10-CM)]; Numbness and tingling in both hands [R20.0, R20.2 (ICD-10-CM)] Start: 12-29-2023 End: 12-29-2023 ambulatory 12/29/2023 12:45 PM EST OT/PT/Speech Visit [facility] [address] [place] [address] Santos Whiet, PT, DPT Dx: Cervicalgia [M54.2 (ICD-10-CM)]; Numbness and tingling in both hands [R20.0, R20.2 (ICD-10-CM)] [facility] Comment on above: Dx: Cervicalgia [M54 .2 (ICD-10-CM)]; Numbness and tingling in both hands [R20.0, R20.2 (ICD-10-CM)] Start: 12-24-2023 End: 12-24-2023 ambulatory 12/24/2023 10:30 AM EST OT/PT/Speech Visit [facility] [address] [place] [address] Santos White, PT, DPT Dx: Cervicalgia [M54.2 (ICD-10-CM)]; Numbness and tingling in both hands [R20.0, R20.2 (ICD-10-CM)] [facility] Comment on above: Dx: Cervicalgia [M54 .2 (ICD-10-CM)]; Numbness and tingling in both hands [R20.0, R20.2 (ICD-10-CM)] Start: 12-24-2023 End: 12-24-2023 Patient encounter procedure Radiology Comment on above: 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] Start: 12-15-2023 End: 12-15-2023 ambulatory 12/15/2023 1:15 PM EST OT/PT/Speech Visit [facility] [address] [place] [address] Felix Emerson, PT M54.2 (ICD-10-CM) - Cervicalgia [facility] Comment on above: M54.2 (ICD-10-CM) - Cervicalgia Start: 12-09-2023 End: 12-09-2023 ambulatory 12/09/2023 1:00 PM EDT OT/PT/Speech Visit [facility] [address] [place] [address] Felix Emerson, PT M54.2 (ICD-10-CM) - Cervicalgia [facility] Comment on above: M54.2 (ICD-10-CM) - Cervicalgia Start: 12-02-2023 End: 12-02-2023 ambulatory 12/02/2023 1:00 PM EDT OT/PT/Speech Visit [facility] [address] [place] [address] Felix Emerson, PT M54.2 (ICD-10-CM) - Cervicalgia [facility] Comment on above: M54.2 (ICD-10-CM) - Cervicalgia Start: 11-26-2023 End: 11-26-2023 ambulatory 11/26/2023 1:15 PM EDT OT/PT/Speech Visit [facility] [address] [place] [address] Felix Emerson, PT M54.2 (ICD-10-CM) - Cervicalgia [facility] Comment on above: M54.2 (ICD-10-CM) - Cervicalgia Start: 11-18-2023 End: 11-18-2023 Patient encounter procedure 11/18/2023 3:20 PM EDT Office Visit [facility] [address] [place] [address] Yuniel Moore DO [address] [place] [address] Follow up Family Medicine [place] Comment on above: Follow up Start: 11-04-2023 End: 11-04-2023 ambulatory 11/04/2023 11:15 AM EDT OT/PT/Speech Visit [facility] [address] [place] [address] Felix Emerson, PT Neck pain [facility] Comment on above: Neck pain Start: 11-03-2023 End: 11-03-2023 Patient encounter procedure 11/03/2023 1:00 PM EDT Office Visit [facility] [address] [place] [address] Patrick Hirsch PA-C [address] [place] [address] 4 week follow up- wrist Family Medicine [facility] Comment on above: 4 week follow up- wr ist Start: 10-11-2023 Covid-19 Vaccine ( season) Covid-19 Vaccine ( season) [facility] Start: 10-11-2023 Covid-19 Vaccine ( season) Covid-19 Vaccine ( season) [facility] Start: 10-11-2023 Influenza vaccination Influenza Vacc ine (#1) [facility] Start: 10-06-2023 End: 01-05-2024 Basic metabolic 2000 panel - Serum or Plasma [facility] Comment on above: Expected: 10/06/2023 , Expires: 01/05/2024 Start: 10-06-2023 End: 01-05-2024 Cobalamin (Vitamin B12) [Mass/volume] in Serum or Plasma [facility] Comment on above: Expected: 10/06/2023 , Expires: 01/05/2024 Start: 10-06-2023 End: 01-05-2024 Ferritin [Mass/volume] in Serum or Plasma [facility] Comment on above: Expected: 10/06/2023 , Expires: 01/05/2024 Start: 10-06-2023 End: 01-05-2024 Iron and Iron binding capacity panel - Serum or Plasma [facility] Comment on above: Expected: 10/06/2023 , Expires: 01/05/2024 Start: 10-06-2023 End: 01-05-2024 Magnesium [Mass/volume] in Serum or Plasma [facility] Comment on above: Expected: 10/06/2023 , Expires: 01/05/2024 Start: 07-04-2023 End: 07-04-2023 ambulatory 07/04/2023 8:00 AM EDT Results Only [facility] Draw Station [address] [facility] [place] [address] Karen [facility] Draw Station Start: 07-02-2023 End: 10-01-2023 25-hydroxyvitamin D3 [Mass/volume] in Serum or Plasma VITAMIN D 25 HYDROXY Lab Routine Fatigue, unspecified type Expected: 07/02/2023, Expires: 10/01/2023 [facility] Comment on above: Expected: 07/02/2023 , Expires: 10/01/2023 Start: 07-02-2023 End: 10-01-2023 Comprehensive metabolic 2000 panel - Serum or Plasma COMPREHENSIVE METABOLIC PANEL Lab Routine Fatigue, unspecified type Well adult exam Expected: 07/02/2023, Expires: 10/01/2023 [facility] Comment on above: Expected: 07/02/2023 , Expires: 10/01/2023 Start: 07-02-2023 End: 10-01-2023 Lipid 1996 panel - Serum or Plasma LIPID PANEL BASIC Lab Routine Fatigue, unspecified type Well adult exam Expected: 07/02/2023, Expires: 10/01/2023 [facility] Work Phone: Comment on above: Expected: 07/02/2023 , Expires: 10/01/2023 Start: 07-02-2023 End: 10-01-2023 Thyrotropin [Units/volume] in Serum or Plasma THYROID STIMULATING HORMONE Lab Routine Thyroid fullness Expected: 07/02/2023, Expires: 10/01/2023 [facility] Comment on above: Expected: 07/02/2023 , Expires: 10/01/2023 Start: 07-02-2023 End: 10-01-2023 Thyroxine (T4) free [Mass/volume] in Serum or Plasma T4 FREE/FREE THYROXINE Lab Routine Thyroid fullness Expected: 07/02/2023, Expires: 10/01/2023 [facility] Comment on above: Expected: 07/02/2023 , Expires: 10/01/2023 Start: 07-02-2023 End: 10-01-2023 Triiodothyronine (T3) [Mass/volume] in Serum or Plasma T3 Lab Routine Thyroid fullness Expected: 07/02/2023, Expires: 10/01/2023 [facility] Comment on above: Expected: 07/02/2023 , Expires: 10/01/2023 Start: 02-09-2023 Behavioral Health Screening Behavioral Health Screening [facility] Start: 03-05-2022 End: 05-05-2022 25-hydroxyvitamin D3 [Mass/volume] in Serum or Plasma VITAMIN D 25 HYDROXY Lab Routine Well adult exam Fatigue, unspecified type Expected: 03/05/2022, Expires: 05/05/2022 [facility] Work Phone: Comment on above: Expected: 03/05/2022 , Expires: 05/05/2022 Start: 03-05-2022 End: 05-05-2022 C reactive protein [Mass/volume] in Serum or Plasma C-REACTIVE PROTEIN (CRP) Lab Routine Well adult exam Fatigue, unspecified type Expected: 03/05/2022, Expires: 05/05/2022 [facility] Work Phone: Comment on above: Expected: 03/05/2022 , Expires: 05/05/2022 Start: 03-05-2022 End: 05-05-2022 CBC W Auto Differential panel - Blood CBC + DIFF Lab Routine Well adult exam Fatigue, unspecified type Thyroid fullness Expected: 03/05/2022, Expires: 05/05/2022 [facility] Work Phone: Comment on above: Expected: 03/05/2022 , Expires: 05/05/2022 Start: 03-05-2022 End: 05-05-2022 Cobalamin (Vitamin B12) [Mass/volume] in Serum or Plasma VITAMIN B12 BLOOD Lab Routine Well adult exam Fatigue, unspecified type Expected: 03/05/2022, Expires: 05/05/2022 [facility] Work Phone: Comment on above: Expected: 03/05/2022 , Expires: 05/05/2022 Start: 03-05-2022 End: 05-05-2022 Comprehensive metabolic 2000 panel - Serum or Plasma COMP METABOLIC PANEL Lab Routine Well adult exam Fatigue, unspecified type Thyroid fullness Expected: 03/05/2022, Expires: 05/05/2022 [facility] Work Phone: Comment on above: Expected: 03/05/2022 , Expires: 05/05/2022 Start: 03-05-2022 End: 05-05-2022 Ferritin [Mass/volume] in Serum or Plasma FERRITIN BLD Lab Routine Well adult exam Fatigue, unspecified type Expected: 03/05/2022, Expires: 05/05/2022 [facility] Work Phone: Comment on above: Expected: 03/05/2022 , Expires: 05/05/2022 Start: 03-05-2022 End: 05-05-2022 Iron and Iron binding capacity panel - Serum or Plasma IRON + TIBC Lab Routine Well adult exam Fatigue, unspecified type Expected: 03/05/2022, Expires: 05/05/2022 [facility] Work Phone: Comment on above: Expected: 03/05/2022 , Expires: 05/05/2022 Start: 03-05-2022 End: 05-05-2022 THYROID PEROXIDASE ANTIBODY BLOOD THYROID PEROXIDASE ANTIBODY BLOOD Lab Routine Thyroid fullness Expected: 03/05/2022, Expires: 05/05/2022 [facility] Work Phone: Comment on above: Expected: 03/05/2022 , Expires: 05/05/2022 Start: 03-05-2022 End: 05-05-2022 Thyrotropin [Units/volume] in Serum or Plasma TSH BLD Lab Routine Well adult exam Fatigue, unspecified type Thyroid fullness Expected: 03/05/2022, Expires: 05/05/2022 [facility] Work Phone: Comment on above: Expected: 03/05/2022 , Expires: 05/05/2022 Start: 03-05-2022 End: 05-05-2022 Thyroxine (T4) free [Mass/volume] in Serum or Plasma T4 FREE/FREE THYROX Lab Routine Well adult exam Fatigue, unspecified type Thyroid fullness Expected: 03/05/2022, Expires: 05/05/2022 [facility] Work Phone: Comment on above: Expected: 03/05/2022 , Expires: 05/05/2022 Start: 03-05-2022 End: 05-05-2022 Triiodothyronine (T3) Free [Mass/volume] in Serum or Plasma T3 FREE BLD Lab Routine Well adult exam Fatigue, unspecified type Thyroid fullness Expected: 03/05/2022, Expires: 05/05/2022 [facility] Work Phone: Comment on above: Expected: 03/05/2022 , Expires: 05/05/2022 Start: 02-09-2022 DEPRESSION ASSESSMENT DEPRESSION ASS ESSMENT [facility] Start: 12-28-2021 Adult depression scr eening assessment DEPRESSION SCREENING [facility] Start: 10-19-2021 Patient discharge [facility] Work Phone: Start: 10-18-2021 Application of abdom inal corset [facility] Work Phone: Start: 10-17-2021 End: 10-18-2021 [facility] Work Phone: Start: 10-17-2021 Post-anesthesia assessment [facility] Work Phone: Start: 10-17-2021 Administration of medication [facility] Work Phone: Start: 10-17-2021 Ambulation therapy management [facility] Work Phone: Start: 10-17-2021 Application of device [facility] Work Phone: Start: 10-17-2021 Application of intermittent pneumatic compression device [facility] Work Phone: Start: 10-17-2021 Assessment of risk o f venous thromboembolism [facility] Work Phone: Start: 10-17-2021 Catheterization of vein [facility] Work Phone: Start: 10-17-2021 Deep breathing and coughing exercises [facility] Work Phone: Start: 10-17-2021 Exercises [facility] Work Phone: Start: 10-17-2021 Incentive spirometry [facility] Work Phone: Start: 10-17-2021 Introduction of urin bolivar catheter [facility] Work Phone: Start: 10-17-2021 Measuring intake and output [facility] Work Phone: Start: 10-17-2021 Notification of physician [facility] Work Phone: Start: 10-17-2021 Procedure discontinued [facility] Work Phone: Start: 10-17-2021 Provision of activit y privileges [facility] Work Phone: Start: 10-17-2021 Vital signs measurements [facility] Work Phone: Start: 10-17-2021 Wound care [facility] Work Phone: Start: 10-17-2021 Application of abdom inal corset [facility] Work Phone: Start: 10-17-2021 Admission procedure [facility] Work Phone: Start: 10-10-2021 Influenza vaccination INFLUENZA (#1) [facility] Start: 07-10-2021 End: 09-09-2021 CBC W Auto Differential panel - Blood CBC + DIFF Lab Routine AMA (advanced maternal age) multigravida 35+, second trimester 24 weeks gestation of Expected: 07/10/2021, Expires: 09/09/2021 [facility] Work Phone: Comment on above: Expected: 07/10/2021 , Expires: 09/09/2021 Start: 07-10-2021 End: 09-09-2021 GEST GLUC SCREEN, 1-HR, 50 GM, NON-FASTING GEST GLUC SCREEN, 1-HR, 50 GM, NON-FASTING Lab Routine AMA (advanced maternal age) multigravida 35+, second trimester 24 weeks gestation of Expected: 07/10/2021, Expires: 09/09/2021 [facility] Work Phone: Comment on above: Expected: 07/10/2021 , Expires: 09/09/2021 Start: 07-10-2021 End: 09-09-2021 SYPHILIS TOTAL W/REFLEX SYPHILIS TOTAL W/REFLEX Lab Routine AMA (advanced maternal age) multigravida 35+, second trimester 24 weeks gestation of Expected: 07/10/2021, Expires: 09/09/2021 [facility] Work Phone: Comment on above: Expected: 07/10/2021 , Expires: 09/09/2021 Start: 05-20-2021 End: 07-20-2021 ALPHA FETOPRO MATERNAL ALPHA FETOPRO MATERNAL Lab Routine 17 weeks gestation of AMA (advanced maternal age) multigravida 35+, first trimester Supervision of other high risk pregnancies, first trimester Expected: 05/20/2021, Expires: 07/20/2021 [facility] Work Phone: Comment on above: Expected: 05/20/2021 , Expires: 07/20/2021 Start: 03-20-2021 COVID-19 VACCINE (4 - Booster for Moderna series) COVID-19 VACCINE (4 - Booster for Moderna series) [facility] Start: 02-09-2021 DEPRESSION ASSESSMENT DEPRESSION ASS ESSMENT [facility] Start: 2002 Anxiety Screening Anxiety Screening [facility] Start: 2002 Depression Screening Depression Scre ening [facility] Start: 1984 HEPATITIS B (1 of 3 - 3-dose series) HEPATITIS B (1 of 3 - 3-dose series) [facility] ECG COMPLETE [facility] Comment on above: Ordered: 10/14/2023 End: 04-23-2025 MG Breast Screening DIANA SCREENING Radiology Routine Encounter for screening mammogram for breast cancer 1 Occurrences starting 03/24/2024 until 04/23/2025 [facility] Work Phone: Comment on above: 1 Occurrences starti ng 03/24/2024 until 04/23/2025 End: 12-17-2024 MR Brain WO and W contrast IV MRI BRAIN WO/W IVCON Radiology Routine Motor neuron disease (HCC) Paresthesia of skin Weakness of both arms Chronic neck pain Worsening headaches 1 Occurrences starting 11/18/2023 until 12/17/2024 [facility] Work Phone: Comment on above: 1 Occurrences starti ng 11/18/2023 until 12/17/2024 End: 12-17-2024 MR Cervical spine WO and W contrast IV MRI CERVICAL SPINE WO/W IVCON Radiology Routine Motor neuron disease (HCC) Paresthesia of skin Weakness of both arms Chronic neck pain Worsening headaches 1 Occurrences starting 11/18/2023 until 12/17/2024 [facility] Comment on above: 1 Occurrences starti ng 11/18/2023 until 12/17/2024 OBSTETRIC ULTRASOUND WHI OBSTETR IC ULTRASOUND WHI Anc Imaging Routine AMA (advanced maternal age) multigravida 35+, third trimester 28 weeks gestation of Ordered: 08/07/2021 [facility] Work Phone: Comment on above: Ordered: 08/07/2021 Patient Education [facility] Work Phone: Patient referral [facility] Work Phone: ROUTINE, GR OUP B STREP PCR ROUTINE, GROUP B STREP PCR Microbiology Routine AMA (advanced maternal age) multigravida 35+, third trimester 36 weeks gestation of Ordered: 10/03/2021 [facility] Work Phone: Comment on above: Ordered: 10/03/2021 Ther px 1/> areas ea ch 15 minutes massage [facility] Procedures Routine Cervicalgia Numbness and tingling in both hands Ordered: 10/14/2023 [facility] Comment on above: Ordered: 10/14/2023 URINE OB DIP B/O URINE OB DIP B/ O Lab Routine 20 weeks gestation of Ordered: 06/12/2021 [facility] Work Phone: Comment on above: Ordered: 06/12/2021 End: 11-04-2024 XR Cervical spine AP and Lateral and oblique XR CERV OTHER 4V AP/LAT/OBL Radiology Routine Cervicalgia 1 Occurrences starting 10/06/2023 until 11/04/2024 [facility] Work Phone: Comment on above: 1 Occurrences starti ng 10/06/2023 until 11/04/2024 XR Cervical spine AP and Lateral and oblique XR CERV OTHER 4V AP/LAT/OBL Radiology Routine Cervicalgia 10/06/2023 2:05 PM EDT [facility] Immunizations Immunization Date Immunization Notes Care Provider Jackson coppola 11-19-2022 influenza, seasonal, injectable Omer Nelson APRN.CNP Work Phone: [facility] Work Phone: 11-19-2022 influenza virus vaccine, unspecified formulation Patrick Hirsch PA-C Work Phone: [facility] 11-20-2021 influenza, injectabl e, quadrivalent, contains preservative [facility] 08-07-2021 tetanus toxoid, reduced diphtheria toxoid, and acellular pertussis vaccine, adsorbed Radha Dumont MD Work Phone: [facility] 08-05-2021 Diphtheria, tetanus toxoids and acellular pertussis vaccine, and poliovirus vaccine, inactivated [facility] Work Phone: 11-23-2020 influenza, seasonal, injectable Cecelia Masters MD Work Phone: [facility] Work Phone: 04-13-2020 COVID-19 vaccine, fu ll dose (MODERNA) Cecelia Masters MD Work Phone: [facility] Work Phone: 03-13-2020 COVID-19 vaccine, fu ll dose (MODERNA) Cecelia Masters MD Work Phone: [facility] Work Phone: 10-18-2019 influenza, injectabl e, quadrivalent, preservative free Cecelia Masters MD Work Phone: [facility] 01-08-2018 influenza, injectabl e, quadrivalent, contains preservative Cecelia Masters MD Work Phone: [facility] 01-06-2017 influenza, injectabl e, quadrivalent, contains preservative Cecelia Masters MD Work Phone: [facility] Work Phone: 03-24-2016 tetanus toxoid, reduced diphtheria toxoid, and acellular pertussis vaccine, adsorbed Cecelia Masters MD Work Phone: [facility] 01-23-2016 tetanus toxoid, reduced diphtheria toxoid, and acellular pertussis vaccine, adsorbed [facility] Work Phone: 11-07-2015 Influenza virus vaccine [facility] Work Phone: 01-24-2014 tetanus toxoid, reduced diphtheria toxoid, and acellular pertussis vaccine, adsorbed Cecelia Masters MD Work Phone: [facility] Work Phone: 12-02-2013 Influenza virus vaccine [facility] Work Phone: 12-02-2013 influenza, seasonal, injectable Cecelia Masters MD Work Phone: [facility] Work Phone: Payers Date Payer Category Payer Self-pay [id number] 2020 Private Health Insurance [employer] [id number] 2020 Unknown [employer] PPO [id number] 2020-Present [phone] [address] [place] [address] PPO [id number] 2020 Unknown [id number] 2016 Unknown [id number] Unknown [id number] Unknown [id number] Social History Date Type Detail Facility Start: 10-09-2021 [facility] Work Phone: Start: 04-22-2021 End: 07-27-2024 Alcohol intake Ex-drinker (finding) [facility] Start: 12-03-2015 History SDOH Alcohol Comment very rare, not while [facility] Start: 12-07-2019 History SDOH Financial 5 [facility] Start: 12-07-2019 History SDOH Food Worry 2 [facility] Start: 12-01-2019 Education 18 [facility] Start: 02-04-2021 [facility] Start: 1985 Sex Assigned At Not on file [facility] Start: 04-12-2021 End: 11-29-2021 Exposure to SARS-CoV-2 (event) Not sure [facility] Start: 10-09-2021 Tobacco use and exposure Smoke less tobacco non-user [facility] Start: 10-02-2020 End: 10-17-2021 Tobacco smoking status NHIS Unknown if ever smoked [facility] Work Phone: Start: 1985 Sex Assigned At Female [facility] Work Phone: Start: 03-11-2023 End: 03-20-2023 History of Social function [facility] Start: 03-11-2023 End: 03-20-2023 Tobacco use panel [facility] How hard is it for y ou to pay for the very basics like food, housing, medical care, and heating Not hard at all [facility] (I/We) worried wheth er (my/our) food would run out before (I/we) got money to buy more. Sometimes true [facility] Has the [employer] or [employer] threatened to shut off services in your home in past 12Mo No [facility] Do you belong to any clubs or organizations such as bahai groups, unions, fraternal or athletic groups, or school groups? Yes [facility] Are you now , , , , never or living with a partner? [facility] How often to you hav e a drink containing alcohol? Monthly or less [facility] How many standard dr inks containing alcohol do you have on a typical day? 1 or 2 [facility] How often do you hav e 6 or more drinks on 1 occasion? Never [facility] Do you feel stress - tense, restless, nervous, or anxious, or unable to sleep at night because your mind is troubled all the time - these days [OSQ] Only a little [facility] (I/We) worried wheth er (my/our) food would run out before (I/we) got money to buy more. Never true [facility] Medical Equipment Procedure Code Equipment Code Equipment Origin al Text Equipment Identifier Dates Excision, mass SONIA 3GRM HEMO STAT ABS FDA Start: 09-10-2020 Excision, mass SONIA 3GRM HEMO STAT ABS FDA Start: 09-10-2020 Goals Date Patient Goal Desired Activity /State Functional Status Date Assessment Result Facility 06-07-2014 Are you deaf, or do you have serious difficulty hearing No 06/07/2014 4:25 PM EDT Vianca Linares LPN No [facility] 06-07-2014 Are you blind, or do you have serious difficulty seeing, even when wearing glasses No 06/07/2014 4:25 PM EDT Vianca Linares LPN No [facility] 06-07-2014 Do you have serious difficulty walking or climbing stairs No 06/07/2014 4:25 PM EDT Vianca Linares LPN [facility] 06-07-2014 Do you have difficul ty dressing or bathing No 06/07/2014 4:25 PM EDT Vianca Linares LPN [facility] 06-07-2014 Because of a physica l, mental, or emotional condition, do you have difficulty doing errands alone such as visiting a physician's office or shopping No 06/07/2014 4:25 PM EDT Vianca Linares LPN [facility] Mental Status Date Assessment Result Facility 10-17-2021 Cognitive function Level Of Cons ciousness Awake;Alert;Appropriate;Fol lows Commands [facility] Work Phone: 06-07-2014 Because of a physica l, mental, or emotional condition, do you have serious difficulty concentrating, remembering, or making decisions No 06/07/2014 4:25 PM AVRILT Vianca Linares LPN [facility] Clinical Notes 12-01-2019 to 08-11-2024 Felix Emerson, PT - 08/11/2024 6:07 PM EDTPatient Yuniel Linton DO - 07/27/2024 12:59 PM Felix Dias PT - 05/20/2024 1:14 PM Felix Dias PT - 04/08/2024 3:27 PM EST Note Date & Type Note Facility 08-11-2024 Note HNO ID: [id number] Author: FELIX EMERSON PT Service: ? 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 The patient has progressed toward goals. Patient continues to present with impairments in ADL's, overall function, range of motion, symptom management, and tissue tenderness that interfere with . Current prognosis is Good due to: current objective clinical presentation, good overall health status, positive past response to therapy, within-session changes, good support system/ coping skills . The patient will benefit from continued skilled therapy services to meet the updated goals for this plan of care as noted below. Goals for Episode of Care: established 08/11/24 Independent in a Home Exercise Program. Patient will decrease pain rating by 2 points to meet minimal clinical important difference for numeric pain rating scale. Restore pain free cervical ROM to WNL to allow for decreased pain. Improved Sleep throughout the night without pain/symptoms. Maintain proper sitting posture throughout the session to allow for decreased pain. Time Frame for Goals and Treatment : 10/12/24 Planned Interventions, Frequency, and Duration: 1x/month, 8 weeks Total Number of Visits Planned: 2 Patient to be seen for Therapeutic exercise (59087), Neuromuscular re-education (30579), Manual therapy (26191), Therapeutic activities (65032), Self-usp management (60982), Patient/Family/Caregiver Education, Body Mechanics Training PLAN FOR NEXT VISIT: Manual for symptom modulation and improved motion SUBJECTIVE: Patient returns with L>R numbness into pinky's and forearms. Also noticed B feet were sore and burning with increased activity, more stress with her travelling for work. Tight in the back, calves as well. Pain: Pain Pain Level: 5 Pain Location: Neck, Hand - Left, Hand - Right Description: Tightness, Sore, Radiating, Numbness Frequency: Continuous (tightness constant, numbness intermittent) Additional Pain Information : Location 2 Pain Level 2: 5 Pain Location 2: Low Back/Lumbar Spine - Right Description 2: Tightness, Aching, Burning Frequency 2: Intermittent Post Treatment Pain Post Treatment Pain Level: 3 Post Treatment Pain Location: Neck Post Treatment Pain Description: Sore Post Treatment Pain Score 2: No Change Post Treatment Pain Location 2: Low Back/Lumbar Spine - Right PROMIS Scales 08/11/2024 05/19/2024 04/08/2024 Higher is Better Phys Func - T Score 55 (within normal limits) 60 (within normal limits) 57 (within normal limits) Phys Func - Percentile 69 84 76 Self-Eff Symptom - T Score 48 (Average) 48 (Average) 48 (Average) Self-Eff Symptom - Percentile 42 42 42 11/04/2023 Lower is Better Pain Interference - T Score 62 (moderate) Pain Interference - Percentile 12 T-scores: mean of general population = 50. 5 points is clinically meaningfully difference Percentiles provide an indication of how the patient's score ranks in relation to the general population. Higher percentile rankings indicate better function/quality of life. 50th percentile is the average of the general population and indicates half of respondents had a worse score. OBJECTIVE MEASURES WITH LEVEL OF FUNCTION: Spine Observations R Cervical Spine Palpation Tenderness: Upper trapezius, Paraspinals L Cervical Spine Palpation Tenderness: Upper trapezius Lumbar Spine AROM Lumbar Flexion: Minimal limitation Lumbar Extension: Normal Lumbar R Side-Bend: Minimal limitation Lumbar L Side-Bend: Minimal limitation Lumbar R Rotation: Normal Lumbar L Rotation: Normal Cervical Spine ROM Cervical ROM : Limitation AROM Cervical Flexion AROM: Minimal limitation, End range pain Cervical Extension AROM: Normal Cervical Side-Bend Right AROM: Moderate limitation, End range pain Cervical Side-Bend Left AROM: Normal Cervical Rotation Right AROM: Normal Cervical Rotation Left AROM: Normal Special Tests - Cervical Cervical Special Tests: Cervical Compression, Cervical Distraction, Spurling Cervical Compression: Positive Cervical Distraction: Positive Spurling: Left Positive, Right Negative TREATMENT: Re-evaluation: Performed due to return of patient to therapy for same diagnosis. Manual Therapy: 2: STM, stripping, and CFM to R upper trap and paraspinals with push to tolerance 3: Manual cervical traction x5 min Dry Needling: (2) 30 mm enedles to L upper trap with pistoning and fanning (2 needles in, 2 needles out. Patient (more content not included)... [facility] 08-11-2024 History of Present illness Narrative Images from the original note were not included. 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 The patient has progressed toward goals. Patient continues to present with impairments in ADL's, overall function, range of motion, symptom management, and tissue tenderness that interfere with . Current prognosis is Good due to: current objective clinical presentation, good overall health status, positive past response to therapy, within-session changes, good support system/ coping skills . The patient will benefit from continued skilled therapy services to meet the updated goals for this plan of care as noted below. Goals for Episode of Care: established 08/11/24 Independent in a Home Exercise Program. Patient will decrease pain rating by 2 points to meet minimal clinical important difference for numeric pain rating scale. Restore pain free cervical ROM to WNL to allow for decreased pain. Improved Sleep throughout the night without pain/symptoms. Maintain proper sitting posture throughout the session to allow for decreased pain. Time Frame for Goals and Treatment : 10/12/24 Planned Interventions, Frequency, and Duration: 1x/month, 8 weeks Total Number of Visits Planned: 2 Patient to be seen for Therapeutic exercise (16202), Neuromuscular re-education (29719), Manual therapy (70131), Therapeutic activities (15385), Self-usp management (27050), Patient/Family/Caregiver Education, Body Mechanics Training PLAN FOR NEXT VISIT: Manual for symptom modulation and improved motion SUBJECTIVE: Patient returns with L>R numbness into pinky's and forearms. Also noticed B feet were sore and burning with increased activity, more stress with her travelling for work. Tight in the back, calves as well. Pain: Pain Pain Level: 5 Pain Location: Neck, Hand - Left, Hand - Right Description: Tightness, Sore, Radiating, Numbness Frequency: Continuous (tightness constant, numbness intermittent) Additional Pain Information : Location 2 Pain Level 2: 5 Pain Location 2: Low Back/Lumbar Spine - Right Description 2: Tightness, Aching, Burning Frequency 2: Intermittent Post Treatment Pain Post Treatment Pain Level: 3 Post Treatment Pain Location: Neck Post Treatment Pain Description: Sore Post Treatment Pain Score 2: No Change Post Treatment Pain Location 2: Low Back/Lumbar Spine - Right PROMIS Scales 08/11/2024 05/19/2024 04/08/2024 Higher is Better Phys Func - T Score 55 (within normal limits) 60 (within normal limits) 57 (within normal limits) Phys Func - Percentile 69 84 76 Self-Eff Symptom - T Score 48 (Average) 48 (Average) 48 (Average) Self-Eff Symptom - Percentile 42 42 42 11/04/2023 Lower is Better Pain Interference - T Score 62 (moderate) Pain Interference - Percentile 12 T-scores: mean of general population = 50. 5 points is clinically meaningfully difference Percentiles provide an indication of how the patient's score ranks in relation to the general population. Higher percentile rankings indicate better function/quality of life. 50th percentile is the average of the general population and indicates half of respondents had a worse score. OBJECTIVE MEASURES WITH LEVEL OF FUNCTION: Spine Observations R Cervical Spine Palpation Tenderness: Upper trapezius, Paraspinals L Cervical Spine Palpation Tenderness: Upper trapezius Lumbar Spine AROM Lumbar Flexion: Minimal limitation Lumbar Extension: Normal Lumbar R Side-Bend: Minimal limitation Lumbar L Side-Bend: Minimal limitation Lumbar R Rotation: Normal Lumbar L Rotation: Normal Cervical Spine ROM Cervical ROM : Limitation AROM Cervical Flexion AROM: Minimal limitation, End range pain Cervical Extension AROM: Normal Cervical Side-Bend Right AROM: Moderate limitation, End range pain Cervical Side-Bend Left AROM: Normal Cervical Rotation Right AROM: Normal Cervical Rotation Left AROM: Normal Special Tests - Cervical Cervical Special Tests: Cervical Compression, Cervical Distraction, Spurling Cervical Compression: Positive Cervical Distraction: Positive Spurling: Left Positive, Right Negative TREATMENT: Re-evaluation: Performed due to return of patient to therapy for same diagnosis. Manual Therapy: 2: STM, stripping, and CFM to R upper trap and paraspinals with push to tolerance 3: Manual cervical traction x5 min Dry Needling: (2) 30 mm enedles to L upper trap with pistoning and fanning (2 needles in, 2 needles out. Patient reports decreased tightness/pain, improved mobility, appropriate soreness.) Skilled Intervention: Manual skills to improve joint mobility, ROM, and decrease pain. Utilized anatomy knowledge of the clinician, and assessment of patient's response to intervention. Billing * Re-Evaluation Complexity: 1 Unit Manual TherapyTreatment Minutes: 30 Skilled Treatment Time Minutes (timed and untimed codes): 50 Total Session Time (minutes): 50 Session Start Time : 170 Session Stop Time : 1758 Felix Emerson PT documented in this encounter [facility] 07-27-2024 Instructions Yuniel Moore DO - 07/27/2024 1:02 PM EDT Collagen powder daily in coffee or hot tea or smoothie- brand that is good is [employer] or [employer] brand Vitamin B complex - liquid or chewable with at least 50-100 mg of vitamin B6 in it protein intake of at least 100 grams a day. Can use [employer] brand of powder if interested. Use this post lift/work up Creatinine 2-5 mg after lifting- can use [employer] brand for this as well if interested. Turmeric-curcumin 500 mg 1-2 times a day with meals to help inflammation pain I also like super greens and super beets powders to add in smoothies- this brand I use is [employer] online documented in this encounter [facility] 07-27-2024 Note HNO ID: [id number] Author: YUNIEL MOORE DO Service: ? Author Type: Physician Type: Progress Notes Filed: 07/27/2024 13:23 Note Text: CC: Joey Delvalle is a 38 year old female who presents to the office for physical HPI: Overall she is doing well Still with intermittent necck pain, left >right side, better with dry needling and PHYSICAL THERAPY as well as stretches and intermittent use of heating pad Wondering any supplements that would benefit her symptoms PAST MEDICAL HISTORY Diagnosis Date Antepartum anemia complicating in third trimester (HCC) 08/13/2021 PAST SURGICAL HISTORY Procedure Laterality Date APPENDECTOMY 02/09/1991 SECTION HX 10/17/2021 LIPOMA (LARGE) 09/10/2020 right arm Social History: Social History Tobacco Use Smoking status: Never Smokeless tobacco: Never Vaping Use Vaping status: Never Used Substance Use Topics Alcohol use: Not Currently Comment: very rare, not while Drug use: No FAMILY HISTORY Problem Relation Age of Onset Osteoporosis Mother 55 Hyperlipidemia Mother Cancer Father 57 melanoma Hyperlipidemia Father Heart Attack Father 66 No Known Problems Sister No Known Problems Brother Osteoporosis Maternal Grandmother Parkinson?s Disease Maternal Grandfather No Known Problems Paternal Grandmother No Known Problems Paternal Grandfather No Known Problems Son No Known Problems Son Parkinson?s Disease Maternal Uncle Current Outpatient prescriptions: cyclobenzaprine (FLEXERIL) 10 mg tablet Take 0.5-1 tablets by mouth at bedtime as needed for muscle spasm or pain. meloxicam (MOBIC) 15 mg tablet Take 1 tablet by mouth once daily. Take with food. naproxen (NAPROSYN) 500 mg tablet Take 1 tablet by mouth two times a day as needed (for pain/inflammation). Take with food. Allergies: ALLERGIES No Known Allergies ROS: See HPI PE: 07/27/24 1209 BP: 104/70 Pulse: 64 Resp: 16 Temp: 37.3 ?C (99.2 ?F) TempSrc: Right Tympanic Weight: 59.4 kg (131 lb) Height: 166 cm (5' 5.35) Gen: AANDO, NAD, non-toxic appearing, Pleasant, cooperative HEENT: NT/AC, PERRLA, EOMs intact b/l, nares clear and patent b/l, pharynx without erythema, exudate or lesions. Uvula midline. EACs without erythema or debris. TMs pearly laguerre with intact landmarks b/l. Neck: supple, No cervical LAD, no thyromegaly, no carotid bruits.. + cervical muscle spasms left >right CV: RRR, normal S1 and S2, no murmurs, no gallops, no rubs, Pulses 2+ and symmetric in UE and LE b/l Lungs: normal respiratory effort, CTA b/l, no wheezing or rhonchi or rales Abd: soft, small reducible umbilical hernia without signs of incarceration or strangulation. NT, ND, +BS, no hepatosplenomegaly MS: FROM all 4 extremities Neuro: CN II-XII intact b/l, strength 5/5 b/l UE and LE, DTRs 2/4 UE and LE, sensation intact. Skin: warm, dry, intact, No rashes or lesions on exposed skin. ASSESSMENT/PLAN: 1. Well adult exam - ICD9: V70.0, ICD10: Z00.00 (primary diagnosis) - Counseled on healthy diet and regular exercise 2. Cervicalgia - ICD9: 723.1, ICD10: M54.2 Continue PHYSICAL THERAPY/dry needling intermittently as well as use of TENS unit and stretches Yuniel Moore DO To ER if develops chest pain, shortness of breath, or severe worsening of symptoms. Discussed risks, benefits, alternatives, and potential side effects of medications. Patient expressed understanding and agreed with the plan. Yuniel Moore DO [address] [place] [address] [facility] 07-27-2024 History of Present illness Narrative CC: Joey Delvalle is a 38 year old female who presents to the office for physical HPI: Overall she is doing well Still with intermittent necck pain, left >right side, better with dry needling and PHYSICAL THERAPY as well as stretches and intermittent use of heating pad Wondering any supplements that would benefit her symptoms PAST MEDICAL HISTORY Diagnosis Date Antepartum anemia complicating in third trimester (HCC) 08/13/2021 PAST SURGICAL HISTORY Procedure Laterality Date APPENDECTOMY 02/09/1991 SECTION HX 10/17/2021 LIPOMA (LARGE) 09/10/2020 right arm Social History: Social History Tobacco Use Smoking status: Never Smokeless tobacco: Never Vaping Use Vaping status: Never Used Substance Use Topics Alcohol use: Not Currently Comment: very rare, not while Drug use: No FAMILY HISTORY Problem Relation Age of Onset Osteoporosis Mother 55 Hyperlipidemia Mother Cancer Father 57 melanoma Hyperlipidemia Father Heart Attack Father 66 No Known Problems Sister No Known Problems Brother Osteoporosis Maternal Grandmother Parkinson s Disease Maternal Grandfather No Known Problems Paternal Grandmother No Known Problems Paternal Grandfather No Known Problems Son No Known Problems Son Parkinson s Disease Maternal Uncle Current Outpatient prescriptions: cyclobenzaprine (FLEXERIL) 10 mg tablet Take 0.5-1 tablets by mouth at bedtime as needed for muscle spasm or pain. meloxicam (MOBIC) 15 mg tablet Take 1 tablet by mouth once daily. Take with food. naproxen (NAPROSYN) 500 mg tablet Take 1 tablet by mouth two times a day as needed (for pain/inflammation). Take with food. Allergies: ALLERGIES No Known Allergies ROS: See HPI PE: 07/27/24 1209 BP: 104/70 Pulse: 64 Resp: 16 Temp: 37.3 C (99.2 F) TempSrc: Right Tympanic Weight: 59.4 kg (131 lb) Height: 166 cm (5' 5.35) Gen: A&O, NAD, non-toxic appearing, Pleasant, cooperative HEENT: NT/AC, PERRLA, EOMs intact b/l, nares clear and patent b/l, pharynx without erythema, exudate or lesions. Uvula midline. EACs without erythema or debris. TMs pearly laguerre with intact landmarks b/l. Neck: supple, No cervical LAD, no thyromegaly, no carotid bruits.. + cervical muscle spasms left >right CV: RRR, normal S1 and S2, no murmurs, no gallops, no rubs, Pulses 2+ and symmetric in UE and LE b/l Lungs: normal respiratory effort, CTA b/l, no wheezing or rhonchi or rales Abd: soft, small reducible umbilical hernia without signs of incarceration or strangulation. NT, ND, +BS, no hepatosplenomegaly MS: FROM all 4 extremities Neuro: CN II-XII intact b/l, strength 5/5 b/l UE and LE, DTRs 2/4 UE and LE, sensation intact. Skin: warm, dry, intact, No rashes or lesions on exposed skin. ASSESSMENT/PLAN: 1. Well adult exam - ICD9: V70.0, ICD10: Z00.00 (primary diagnosis) - Counseled on healthy diet and regular exercise 2. Cervicalgia - ICD9: 723.1, ICD10: M54.2 Continue PHYSICAL THERAPY/dry needling intermittently as well as use of TENS unit and stretches Yuniel Moore DO To ER if develops chest pain, shortness of breath, or severe worsening of symptoms. Discussed risks, benefits, alternatives, and potential side effects of medications. Patient expressed understanding and agreed with the plan. Yuniel Moore DO [address] [place] [address] documented in this encounter [facility] 05-20-2024 History of Present illness Narrative Images from the original note were not included. Episode Visit Count: 13 Therapist That Will Accept/Oversee The Plan Of Care: Felix Emerson Start of Care Date: 11/04/23 Onset Date: 09/10/23 REHABILITATION AND SPORTS THERAPY PHYSICAL THERAPY DISCONTINUANCE OF CARE PLAN OF CARE UPDATE: Assessment: Joey Delvalle is discontinued from Physical Therapy services due to Patient/Clinician mutual decision to discontinue current plan of care.. Patient was seen for 13 visits from Start of Care Date: 11/04/23 to 05/20/2024 and treatment included: Therapeutic exercise and Manual therapy. Goals updated on 05/20/2024. Goals for Episode of Care: established 11/04/23 Independent in a Home Exercise Program. --met Patient will decrease pain rating by 2 points to meet minimal clinical important difference for numeric pain rating scale.-- Met Restore pain free cervical ROM to WNL to allow for decreased pain. Improved Sleep throughout the night without pain/symptoms.-- Partially met Maintain proper sitting posture throughout the session to allow for decreased pain. --Improved SUBJECTIVE: Patient has done well managing symptoms on her own. She has had a few HAMMOND's over the last 6 weeks, but the stretches continue to help. At this point she would like to try to manage on her own. Pain: Pain Pain Level: 2 Pain Location: Neck Description: Tightness, Sore Frequency: Intermittent PROMIS Scales 05/19/2024 04/08/2024 02/09/2024 Higher is Better Phys Func - T Score 60 (within normal limits) 57 (within normal limits) 55 (within normal limits) Phys Func - Percentile 84 76 69 Self-Eff Symptom - T Score 48 (Average) 48 (Average) 48 (Average) Self-Eff Symptom - Percentile 42 42 42 Proxy-reported 11/04/2023 Lower is Better Pain Interference - T Score 62 (moderate) Pain Interference - Percentile 12 T-scores: mean of general population = 50. 5 points is clinically meaningfully difference Percentiles provide an indication of how the patient's score ranks in relation to the general population. Higher percentile rankings indicate better function/quality of life. 50th percentile is the average of the general population and indicates half of respondents had a worse score. OBJECTIVE MEASURES WITH LEVEL OF FUNCTION: UE and Cervical Strength R UE Strength: 4+/5 L UE Strength: 4+/5 TREATMENT: Therapeutic Exercise: 1: C1 rotation 2: Pec minor stretch 3: Retractions plus extension 4: Objective measures obtained Skilled Intervention: Patient was educated in proper exercise technique and purpose for exercises. Skilled judgment was used in selection of appropriate interventions. Provided written instruction for home exercise program to facilitate proper performance and compliance. Correct performance of therapeutic exercises was facilitated with verbal, visual, and tactile cuing. Manual Therapy: 2: STM, stripping, and CFM to R upper trap and paraspinals with push to tolerance 3: Manual cervical traction x5 min 4: C1 rotation mobs 3x30 on L Skilled Intervention: Manual skills to improve joint mobility, ROM, and decrease pain. Utilized anatomy knowledge of the therapist, and assessment of patient's response to intervention. Billing Therapeutic Exercise Treatment Minutes: 15 Manual TherapyTreatment Minutes: 40 Skilled Treatment Time Minutes (timed and untimed codes): 55 Total Session Time (minutes): 55 Session Start Time : 1230 Session Stop Time : 1325 Felix Emerson PT documented in this encounter [facility] 05-20-2024 Note HNO ID: [id number] Author: FELIX EMERSON PT Service: ? Author Type: Physical Therapist Type: Progress Notes Filed: 05/20/2024 13:19 Note Text: Episode Visit Count: 13 Therapist That Will Accept/Oversee The Plan Of Care: Felix Emerson Start of Care Date: 11/04/23 Onset Date: 09/10/23 REHABILITATION AND SPORTS THERAPY PHYSICAL THERAPY DISCONTINUANCE OF CARE PLAN OF CARE UPDATE: Assessment: Joey Delvalle is discontinued from Physical Therapy services due to Patient/Clinician mutual decision to discontinue current plan of care.. Patient was seen for 13 visits from Start of Care Date: 11/04/23 to 05/20/2024 and treatment included: Therapeutic exercise and Manual therapy. Goals updated on 05/20/2024. Goals for Episode of Care: established 11/04/23 Independent in a Home Exercise Program. --met Patient will decrease pain rating by 2 points to meet minimal clinical important difference for numeric pain rating scale.-- Met Restore pain free cervical ROM to WNL to allow for decreased pain. Improved Sleep throughout the night without pain/symptoms.-- Partially met Maintain proper sitting posture throughout the session to allow for decreased pain. --Improved SUBJECTIVE: Patient has done well managing symptoms on her own. She has had a few HAMMOND's over the last 6 weeks, but the stretches continue to help. At this point she would like to try to manage on her own. Pain: Pain Pain Level: 2 Pain Location: Neck Description: Tightness, Sore Frequency: Intermittent PROMIS Scales 05/19/2024 04/08/2024 02/09/2024 Higher is Better Phys Func - T Score 60 (within normal limits) 57 (within normal limits) 55 (within normal limits) Phys Func - Percentile 84 76 69 Self-Eff Symptom - T Score 48 (Average) 48 (Average) 48 (Average) Self-Eff Symptom - Percentile 42 42 42 Proxy-reported 11/04/2023 Lower is Better Pain Interference - T Score 62 (moderate) Pain Interference - Percentile 12 T-scores: mean of general population = 50. 5 points is clinically meaningfully difference Percentiles provide an indication of how the patient's score ranks in relation to the general population. Higher percentile rankings indicate better function/quality of life. 50th percentile is the average of the general population and indicates half of respondents had a worse score. OBJECTIVE MEASURES WITH LEVEL OF FUNCTION: UE and Cervical Strength R UE Strength: 4+/5 L UE Strength: 4+/5 TREATMENT: Therapeutic Exercise: 1: C1 rotation 2: Pec minor stretch 3: Retractions plus extension 4: Objective measures obtained Skilled Intervention: Patient was educated in proper exercise technique and purpose for exercises. Skilled judgment was used in selection of appropriate interventions. Provided written instruction for home exercise program to facilitate proper performance and compliance. Correct performance of therapeutic exercises was facilitated with verbal, visual, and tactile cuing. Manual Therapy: 2: STM, stripping, and CFM to R upper trap and paraspinals with push to tolerance 3: Manual cervical traction x5 min 4: C1 rotation mobs 3x30 on L Skilled Intervention: Manual skills to improve joint mobility, ROM, and decrease pain. Utilized anatomy knowledge of the therapist, and assessment of patient's response to intervention. Billing Therapeutic Exercise Treatment Minutes: 15 Manual TherapyTreatment Minutes: 40 Skilled Treatment Time Minutes (timed and untimed codes): 55 Total Session Time (minutes): 55 Session Start Time : 1230 Session Stop Time : 1325 Felix Emerson PT [facility] 04-08-2024 Note HNO ID: [id number] Author: FELIX EMERSON PT Service: ? Author Type: Physical Therapist Type: Progress Notes Filed: 04/08/2024 15:30 Note Text: Episode Visit Count: 12 Therapist That Will Accept/Oversee The Plan Of Care: Felix Emerson Start of Care Date: 11/04/23 Onset Date: 09/10/23 REHABILITATION AND SPORTS THERAPY PHYSICAL THERAPY PROGRESS REPORT PLAN OF CARE UPDATE: Assessment: oJey Delvalle demonstrates moderate improvement in sleeping, working, ADLs. The patient has progressed toward goals. Patient continues to present with impairments in ADL's, overall function, range of motion, symptom management, and tissue tenderness that interfere with nothing . Current prognosis is Good due to: current objective clinical presentation, good overall health status, within-session changes, good support system/ coping skills . The patient will benefit from continued skilled therapy services to meet the updated goals for this plan of care as noted below. Goals updated on 04/08/2024. Goals for Episode of Care: established 11/04/23 Independent in a Home Exercise Program. --met Patient will decrease pain rating by 2 points to meet minimal clinical important difference for numeric pain rating scale.-- Met Restore pain free cervical ROM to WNL to allow for decreased pain. Progressing Sleep throughout the night without pain/symptoms.-- Progressing Maintain proper sitting posture throughout the session to allow for decreased pain. --Progressing Time Frame for Goals and Treatment : 06/06/24 Planned Interventions, Frequency, and Duration: 1 visit, 6 weeks Total Number of Visits Planned: 1 Patient to be seen for Therapeutic exercise (46209), Neuromuscular re-education (24051), Manual therapy (48920), Therapeutic activities (94703), Self-usp management (27637), Patient/Family/Caregiver Education, Body Mechanics Training PLAN FOR NEXT VISIT: [place] vs DC SUBJECTIVE: Overall patient did well, notes that she didn't get her exercises in as much as she would like last week and she had a HAMMOND and a bit more pain. When she can stretch daily, she feels great. If she doesnt, she feels more HAMMOND's. Functional Limitations: nothing Pain: Pain Pain Level: 2 Pain Location: Neck - Right Description: Tightness, Sore Frequency: Intermittent PROMIS Scales 04/08/2024 02/09/2024 12/24/2023 Higher is Better Phys Func - T Score 57 (within normal limits) 55 (within normal limits) Phys Func - Percentile 76 69 Self-Eff Symptom - T Score 48 (Average) 48 (Average) 48 (Average) Self-Eff Symptom - Percentile 42 42 42 Proxy-reported 11/04/2023 Lower is Better Pain Interference - T Score 62 (moderate) Pain Interference - Percentile 12 T-scores: mean of general population = 50. 5 points is clinically meaningfully difference Percentiles provide an indication of how the patient's score ranks in relation to the general population. Higher percentile rankings indicate better function/quality of life. 50th percentile is the average of the general population and indicates half of respondents had a worse score. OBJECTIVE MEASURES WITH LEVEL OF FUNCTION: Cervical Spine ROM Cervical Side-Bend Right AROM (degrees): 35 Degrees Cervical Side-Bend Left AROM (degrees) : 37 Degrees UE and Cervical Strength R UE Strength: 4/5 L UE Strength: 4/5 TREATMENT: Manual Therapy: 2: STM, stripping, and CFM to R upper trap and paraspinals with push to tolerance 3: Manual cervical traction x5 min 4: R facet closing and opening x30 each C3-5 5: Objective measures obtained Skilled Intervention: Manual skills to improve joint mobility, ROM, and decrease pain. Utilized anatomy knowledge of the therapist, and assessment of patient's response to intervention. Billing Manual TherapyTreatment Minutes: 42 Skilled Treatment Time Minutes (timed and untimed codes): 42 Total Session Time (minutes): 42 Session Start Time : 1346 Session Stop Time : 1428 Felix Emerson PT [facility] 04-08-2024 History of Present illness Narrative Images from the original note were not included. Episode Visit Count: 12 Therapist That Will Accept/Oversee The Plan Of Care: Felix Emerson Start of Care Date: 11/04/23 Onset Date: 09/10/23 REHABILITATION AND SPORTS THERAPY PHYSICAL THERAPY PROGRESS REPORT PLAN OF CARE UPDATE: Assessment: Joey Delvalle demonstrates moderate improvement in sleeping, working, ADLs. The patient has progressed toward goals. Patient continues to present with impairments in ADL's, overall function, range of motion, symptom management, and tissue tenderness that interfere with nothing . Current prognosis is Good due to: current objective clinical presentation, good overall health status, within-session changes, good support system/ coping skills . The patient will benefit from continued skilled therapy services to meet the updated goals for this plan of care as noted below. Goals updated on 04/08/2024. Goals for Episode of Care: established 11/04/23 Independent in a Home Exercise Program. --met Patient will decrease pain rating by 2 points to meet minimal clinical important difference for numeric pain rating scale.-- Met Restore pain free cervical ROM to WNL to allow for decreased pain. Progressing Sleep throughout the night without pain/symptoms.-- Progressing Maintain proper sitting posture throughout the session to allow for decreased pain. --Progressing Time Frame for Goals and Treatment : 06/06/24 Planned Interventions, Frequency, and Duration: 1 visit, 6 weeks Total Number of Visits Planned: 1 Patient to be seen for Therapeutic exercise (79711), Neuromuscular re-education (10609), Manual therapy (75951), Therapeutic activities (33566), Self-usp management (49004), Patient/Family/Caregiver Education, Body Mechanics Training PLAN FOR NEXT VISIT: [place] vs DC SUBJECTIVE: Overall patient did well, notes that she didn't get her exercises in as much as she would like last week and she had a HAMMOND and a bit more pain. When she can stretch daily, she feels great. If she doesnt, she feels more HAMMOND's. Functional Limitations: nothing Pain: Pain Pain Level: 2 Pain Location: Neck - Right Description: Tightness, Sore Frequency: Intermittent PROMIS Scales 04/08/2024 02/09/2024 12/24/2023 Higher is Better Phys Func - T Score 57 (within normal limits) 55 (within normal limits) Phys Func - Percentile 76 69 Self-Eff Symptom - T Score 48 (Average) 48 (Average) 48 (Average) Self-Eff Symptom - Percentile 42 42 42 Proxy-reported 11/04/2023 Lower is Better Pain Interference - T Score 62 (moderate) Pain Interference - Percentile 12 T-scores: mean of general population = 50. 5 points is clinically meaningfully difference Percentiles provide an indication of how the patient's score ranks in relation to the general population. Higher percentile rankings indicate better function/quality of life. 50th percentile is the average of the general population and indicates half of respondents had a worse score. OBJECTIVE MEASURES WITH LEVEL OF FUNCTION: Cervical Spine ROM Cervical Side-Bend Right AROM (degrees): 35 Degrees Cervical Side-Bend Left AROM (degrees) : 37 Degrees UE and Cervical Strength R UE Strength: 4/5 L UE Strength: 4/5 TREATMENT: Manual Therapy: 2: STM, stripping, and CFM to R upper trap and paraspinals with push to tolerance 3: Manual cervical traction x5 min 4: R facet closing and opening x30 each C3-5 5: Objective measures obtained Skilled Intervention: Manual skills to improve joint mobility, ROM, and decrease pain. Utilized anatomy knowledge of the therapist, and assessment of patient's response to intervention. Billing Manual TherapyTreatment Minutes: 42 Skilled Treatment Time Minutes (timed and untimed codes): 42 Total Session Time (minutes): 42 Session Start Time : 1346 Session Stop Time : 1428 Felix Emerson PT documented in this encounter [facility] 03-24-2024 Note HNO ID: [id number] Author: OMER NELSON APRN.[employer] Service: ? Author Type: Nurse Practitioner Type: Progress Notes Filed: 03/24/2024 16:36 Note Text: Joey is a 38 year old who presents for an annual gynecologic exam without complaints. 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 History LMP: 02/28/2024, Having periods Age at Menarche: 11 Age at First : Age at Menopause: 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 History Comments: Sexual Activity: Yes; Male Contraception: Rhythm Menstrual Tracking History Flowsheet Row Appointment from 03/24/2024 in OB/Gynecology Period Cycle (Days) 26 Period Duration (Days) 5 Menstrual Flow Light PAST MEDICAL HISTORY Diagnosis Date Antepartum anemia complicating in third trimester 08/13/2021 NEGATIVE MEDICAL HISTORY PAST SURGICAL HISTORY Procedure Laterality Date APPENDECTOMY 02/09/1991 SECTION HX 10/17/2021 LIPOMA (LARGE) 09/10/2020 right arm FAMILY HISTORY Problem Relation Age of Onset Osteoporosis Mother 55 Hyperlipidemia Mother Cancer Father 57 melanoma Hyperlipidemia Father Heart Attack Father 66 No Known Problems Sister No Known Problems Brother Osteoporosis Maternal Grandmother Parkinson?s Disease Maternal Grandfather No Known Problems Paternal Grandmother No Known Problems Paternal Grandfather No Known Problems Son No Known Problems Son Parkinson?s Disease Maternal Uncle SOCIAL HISTORY Social History Tobacco Use Smoking status: Never Smokeless tobacco: Never Vaping Use Vaping status: Never Used Substance Use Topics Alcohol use: Not Currently Comment: very rare, not while Drug use: No REVIEW OF SYSTEMS Abdomen: No abdominal pain, nausea, vomiting, diarrhea, or constipation. No bloating, early satiety, indigestion, or increased flatulence. Bladder: No dysuria, gross hematuria, urinary frequency, urinary urgency, or incontinence. Breast: No breast lumps, nipple d/c, overlying skin changes, redness or skin retraction. Allergies and current medication updated:Yes SENSITIVE EXAM: The sensitive examination was discussed with the Patient or Patient's Authorized Oyster Fisherman. As applicable, any other physician, advance practice provider, medical student, or other health professional student that will be observing or involved in the sensitive examination for educational or training purposes was discussed with the Patient or Authorized Oyster Fisherman. The Patient or Authorized Oyster Fisherman has agreed to proceed with the sensitive examination. (Sensitive examination includes inspection and/or palpation of the breasts, pelvis, prostate and anorectal regions). EXAM: BP 122/64 Ht 5' 5 (1.65m) Wt 131 lb (59.4kg) LMP 02/28/2024 BMI 21.80 kg/(m2). GENERAL: pleasant, female in no apparent distress HEENT: Normocephalic, atraumatic, mucus membranes moist, and no lesions NECK: Supple, full range of motion, no adenopathy, and thyroid normal DERMATOLOGY: Normal, without lesions, non-icteric, and non-hirsute BREAST: soft, non-tender, symmetric, no dominant mass, normal nipple-areolar complex, no lymphadenopathy, and no nipple discharge CHEST: Normal inspiratory effort ABDOMEN: soft, non-tender, and no masses PELVIC: external genitalia normal, normal Bartholin's glands, urethra, [place]'s glands, no vulvar lesions, no cervical lesions, good vaginal support, physiologic discharge present, normal appearing perineal body and perianal region BIMANUAL: uterus normal size, shape and consistency, no adnexal masses, and non-tender RECTOVAGINAL: deferred. NEURO: alert and oriented x3,exam grossly non-focal EXTREMITIES: normal ASSESSMENT/PLAN: 1) Health maintenance: Pap/HPV up to date 2020. Deferred until 2025. Mammogram ordered. Nutrition, exercise and routine health maintenance exams reviewed. HPV vaccine: discussed, not interested Sees dermatology 2) Contraception: natural family planning. Declines contraception. Reviewed risk of and recommend PNV. 3) STD screening: Declined STD check. Plan for early BMD due to family history. 4) Follow up one year or sooner as needed Omer Nelson APRN.[facility] 03-24-2024 History of Present illness Narrative Joey is a 38 year old who presents for an annual gynecologic exam without complaints. 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 History LMP: 02/28/2024, Having periods Age at Menarche: 11 Age at First : Age at Menopause: 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 History Comments: Sexual Activity: Yes; Male Contraception: Rhythm Menstrual Tracking History Flowsheet Row Appointment from 03/24/2024 in OB/Gynecology Period Cycle (Days) 26 Period Duration (Days) 5 Menstrual Flow Light PAST MEDICAL HISTORY Diagnosis Date Antepartum anemia complicating in third trimester 08/13/2021 NEGATIVE MEDICAL HISTORY PAST SURGICAL HISTORY Procedure Laterality Date APPENDECTOMY 02/09/1991 SECTION HX 10/17/2021 LIPOMA (LARGE) 09/10/2020 right arm FAMILY HISTORY Problem Relation Age of Onset Osteoporosis Mother 55 Hyperlipidemia Mother Cancer Father 57 melanoma Hyperlipidemia Father Heart Attack Father 66 No Known Problems Sister No Known Problems Brother Osteoporosis Maternal Grandmother Parkinson s Disease Maternal Grandfather No Known Problems Paternal Grandmother No Known Problems Paternal Grandfather No Known Problems Son No Known Problems Son Parkinson s Disease Maternal Uncle SOCIAL HISTORY Social History Tobacco Use Smoking status: Never Smokeless tobacco: Never Vaping Use Vaping status: Never Used Substance Use Topics Alcohol use: Not Currently Comment: very rare, not while Drug use: No REVIEW OF SYSTEMS Abdomen: No abdominal pain, nausea, vomiting, diarrhea, or constipation. No bloating, early satiety, indigestion, or increased flatulence. Bladder: No dysuria, gross hematuria, urinary frequency, urinary urgency, or incontinence. Breast: No breast lumps, nipple d/c, overlying skin changes, redness or skin retraction. Allergies and current medication updated:Yes SENSITIVE EXAM: The sensitive examination was discussed with the Patient or Patient's Authorized Oyster Fisherman. As applicable, any other physician, advance practice provider, medical student, or other health professional student that will be observing or involved in the sensitive examination for educational or training purposes was discussed with the Patient or Authorized Oyster Fisherman. The Patient or Authorized Oyster Fisherman has agreed to proceed with the sensitive examination. (Sensitive examination includes inspection and/or palpation of the breasts, pelvis, prostate and anorectal regions). EXAM: BP 122/64 Ht 5' 5 (1.65m) Wt 131 lb (59.4kg) LMP 02/28/2024 BMI 21.80 kg/(m^2). GENERAL: pleasant, female in no apparent distress HEENT: Normocephalic, atraumatic, mucus membranes moist, and no lesions NECK: Supple, full range of motion, no adenopathy, and thyroid normal DERMATOLOGY: Normal, without lesions, non-icteric, and non-hirsute BREAST: soft, non-tender, symmetric, no dominant mass, normal nipple-areolar complex, no lymphadenopathy, and no nipple discharge CHEST: Normal inspiratory effort ABDOMEN: soft, non-tender, and no masses PELVIC: external genitalia normal, normal Bartholin's glands, urethra, [place]'s glands, no vulvar lesions, no cervical lesions, good vaginal support, physiologic discharge present, normal appearing perineal body and perianal region BIMANUAL: uterus normal size, shape and consistency, no adnexal masses, and non-tender RECTOVAGINAL: deferred. NEURO: alert and oriented x3,exam grossly non-focal EXTREMITIES: normal ASSESSMENT/PLAN: 1) Health maintenance: Pap/HPV up to date 2020. Deferred until 2025. Mammogram ordered. Nutrition, exercise and routine health maintenance exams reviewed. HPV vaccine: discussed, not interested Sees dermatology 2) Contraception: natural family planning. Declines contraception. Reviewed risk of and recommend PNV. 3) STD screening: Declined STD check. Plan for early BMD due to family history. 4) Follow up one year or sooner as needed Omer Nelson APRN.[employer] PRESIDENT [employer]NAG[employer] documented in this encounter [facility] 03-08-2024 Note HNO ID: [id number] Author: FELIX EMERSON PT Service: ? Author Type: Physical Therapist Type: Progress Notes Filed: 03/08/2024 17:54 Note Text: Episode Visit Count: 11 Therapist That Will Accept/Oversee The Plan Of Care: Felix Emerson Start of Care Date: 11/04/23 Onset Date: 09/10/23 REHABILITATION AND SPORTS THERAPY PHYSICAL THERAPY PROGRESS REPORT PLAN OF CARE UPDATE: Assessment: Joey Delvalle demonstrates moderate improvement in HAMMOND's. The patient has progressed toward goals. Patient continues to present with impairments in strength, symptom management, and tissue tenderness that interfere with nothing . Current prognosis is Good due to: current objective clinical presentation, good overall health status, within-session changes, good support system/ coping skills . The patient will benefit from continued skilled therapy services to meet the updated goals for this plan of care as noted below. Goals updated on 03/08/2024. Goals for Episode of Care: established 11/04/23 Independent in a Home Exercise Program. --met Patient will decrease pain rating by 2 points to meet minimal clinical important difference for numeric pain rating scale.-- Met Restore pain free cervical ROM to WNL to allow for decreased pain. Progressing Sleep throughout the night without pain/symptoms.-- Progressing Maintain proper sitting posture throughout the session to allow for decreased pain. --Progressing Time Frame for Goals and Treatment : 04/08/24 Planned Interventions, Frequency, and Duration: 1x/month, 1 visit Total Number of Visits Planned: 1 Patient to be seen for Therapeutic exercise (95155), Neuromuscular re-education (37826), Manual therapy (07692), Therapeutic activities (60130), Self-usp management (61408), Patient/Family/Caregiver Education, Body Mechanics Training PLAN FOR NEXT VISIT: [place] vs DC SUBJECTIVE: Patient has felt pretty good the last month. She continues to notice when life gets busy and she is not as diligent with exercises that she hurts more, but nothing like when she first came in. Slight HAMMOND's here and there, but usually if she is able to rest or do her exercises, she is much better. Functional Limitations: nothing Pain: Pain Pain Level: 3 Pain Location: Neck, Jaw Description: Tightness, Numbness, Dull Frequency: Intermittent PROMIS Scales 02/09/2024 12/24/2023 12/08/2023 Higher is Better Phys Func - T Score 55 (within normal limits) 52 (within normal limits) Phys Func - Percentile 69 58 Self-Eff Symptom - T Score 48 (Average) 48 (Average) Self-Eff Symptom - Percentile 42 42 11/04/2023 Lower is Better Pain Interference - T Score 62 (moderate) Pain Interference - Percentile 12 T-scores: mean of general population = 50. 5 points is clinically meaningfully difference Percentiles provide an indication of how the patient's score ranks in relation to the general population. Higher percentile rankings indicate better function/quality of life. 50th percentile is the average of the general population and indicates half of respondents had a worse score. OBJECTIVE MEASURES WITH LEVEL OF FUNCTION: UE and Cervical Strength R UE Strength: 4/5 L UE Strength: 4/5 TREATMENT: Manual Therapy: 2: STM to L upper trap and cervical paraspinals with push to tolerance 3: Manual cervical traction x10 min 4: Objective measures obtained Skilled Intervention: Manual skills to improve joint mobility, ROM, and decrease pain. Utilized anatomy knowledge of the therapist, and assessment of patient's response to intervention. Billing Manual TherapyTreatment Minutes: 39 Skilled Treatment Time Minutes (timed and untimed codes): 39 Total Session Time (minutes): 39 Session Start Time : 1235 Session Stop Time : 1314 Felix Emerson PT [facility] 03-08-2024 History of Present illness Narrative Images from the original note were not included. Episode Visit Count: 11 Therapist That Will Accept/Oversee The Plan Of Care: Felix Emerson Start of Care Date: 11/04/23 Onset Date: 09/10/23 REHABILITATION AND SPORTS THERAPY PHYSICAL THERAPY PROGRESS REPORT PLAN OF CARE UPDATE: Assessment: Joey Delvalle demonstrates moderate improvement in HAMMOND's. The patient has progressed toward goals. Patient continues to present with impairments in strength, symptom management, and tissue tenderness that interfere with nothing . Current prognosis is Good due to: current objective clinical presentation, good overall health status, within-session changes, good support system/ coping skills . The patient will benefit from continued skilled therapy services to meet the updated goals for this plan of care as noted below. Goals updated on 03/08/2024. Goals for Episode of Care: established 11/04/23 Independent in a Home Exercise Program. --met Patient will decrease pain rating by 2 points to meet minimal clinical important difference for numeric pain rating scale.-- Met Restore pain free cervical ROM to WNL to allow for decreased pain. Progressing Sleep throughout the night without pain/symptoms.-- Progressing Maintain proper sitting posture throughout the session to allow for decreased pain. --Progressing Time Frame for Goals and Treatment : 04/08/24 Planned Interventions, Frequency, and Duration: 1x/month, 1 visit Total Number of Visits Planned: 1 Patient to be seen for Therapeutic exercise (14712), Neuromuscular re-education (65664), Manual therapy (76635), Therapeutic activities (30665), Self-usp management (83925), Patient/Family/Caregiver Education, Body Mechanics Training PLAN FOR NEXT VISIT: [place] vs DC SUBJECTIVE: Patient has felt pretty good the last month. She continues to notice when life gets busy and she is not as diligent with exercises that she hurts more, but nothing like when she first came in. Slight HAMMOND's here and there, but usually if she is able to rest or do her exercises, she is much better. Functional Limitations: nothing Pain: Pain Pain Level: 3 Pain Location: Neck, Jaw Description: Tightness, Numbness, Dull Frequency: Intermittent PROMIS Scales 02/09/2024 12/24/2023 12/08/2023 Higher is Better Phys Func - T Score 55 (within normal limits) 52 (within normal limits) Phys Func - Percentile 69 58 Self-Eff Symptom - T Score 48 (Average) 48 (Average) Self-Eff Symptom - Percentile 42 42 11/04/2023 Lower is Better Pain Interference - T Score 62 (moderate) Pain Interference - Percentile 12 T-scores: mean of general population = 50. 5 points is clinically meaningfully difference Percentiles provide an indication of how the patient's score ranks in relation to the general population. Higher percentile rankings indicate better function/quality of life. 50th percentile is the average of the general population and indicates half of respondents had a worse score. OBJECTIVE MEASURES WITH LEVEL OF FUNCTION: UE and Cervical Strength R UE Strength: 4/5 L UE Strength: 4/5 TREATMENT: Manual Therapy: 2: STM to L upper trap and cervical paraspinals with push to tolerance 3: Manual cervical traction x10 min 4: Objective measures obtained Skilled Intervention: Manual skills to improve joint mobility, ROM, and decrease pain. Utilized anatomy knowledge of the therapist, and assessment of patient's response to intervention. Billing Manual TherapyTreatment Minutes: 39 Skilled Treatment Time Minutes (timed and untimed codes): 39 Total Session Time (minutes): 39 Session Start Time : 1235 Session Stop Time : 1314 Felix Emerson PT documented in this encounter [facility] 02-09-2024 Note HNO ID: [id number] Author: FELIX EMERSON PT Service: ? Author Type: Physical Therapist Type: Progress Notes Filed: 02/09/2024 15:01 Note Text: Episode Visit Count: 10 Therapist That Will Accept/Oversee The Plan Of Care: Felix Emerson Start of Care Date: 11/04/23 Onset Date: 09/10/23 REHABILITATION AND SPORTS THERAPY PHYSICAL THERAPY PROGRESS REPORT PLAN OF CARE UPDATE: Assessment: Joey Delvalle demonstrates moderate improvement in sitting, heavy exertion, physical activities, working, and sleeping. The patient has progressed toward goals. Patient continues to present with impairments in strength, symptom management, and tissue tenderness that interfere with nothing . Current prognosis is Good due to: current objective clinical presentation, good overall health status, within-session changes, good support system/ coping skills . The patient will benefit from continued skilled therapy services to meet the updated goals for this plan of care as noted below. Goals updated on 01/14/2024. Goals for Episode of Care: established 11/04/23 Independent in a Home Exercise Program. --met Patient will decrease pain rating by 2 points to meet minimal clinical important difference for numeric pain rating scale.-- progressing Restore pain free cervical ROM to WNL to allow for decreased pain. Sleep throughout the night without pain/symptoms.-- progressing Maintain proper sitting posture throughout the session to allow for decreased pain. --progressing Time Frame for Goals and Treatment : 03/11/23 Planned Interventions, Frequency, and Duration: 1x/month, 1 visit Total Number of Visits Planned: 1 Patient to be seen for Therapeutic exercise (68524), Neuromuscular re-education (72356), Manual therapy (39534), Therapeutic activities (38670), Self-usp management ([id number]), Patient/Family/Caregiver Education, Body Mechanics Training PLAN FOR NEXT VISIT: CA vs DC SUBJECTIVE: Overall patient is doing much better. Being more consistent with exercises has eased symptoms. Constant tightness in the L upper trap, but symptoms are minimal compared to before. Only very light and infrequent numbness into her L jaw. Patient is doing well but still feels unsure if she is confident enough to be on her own. Functional Limitations: nothing Pain: Pain Pain Level: 1 Pain Location: Neck, Jaw Description: Tightness, Numbness Frequency: Intermittent PROMIS Scales 02/09/2024 12/24/2023 12/08/2023 Higher is Better Phys Func - Score 55 (within normal limits) 52 (within normal limits) Phys Func - Percentile 69 58 Self-Eff Symptom - Score 48 (Average) 48 (Average) Self-Eff Symptom - Percentile 42 42 T-scores: mean of general population = 50. 5 points is clinically meaningfully difference Percentiles provide an indication of how the patient's score ranks in relation to the general population. Higher percentile rankings indicate better function/quality of life. 50th percentile is the average of the general population and indicates half of respondents had a worse score. OBJECTIVE MEASURES WITH LEVEL OF FUNCTION: Cervical Spine ROM Cervical Flexion AROM (degrees) : 45 Degrees Cervical Extension AROM (degrees) : 45 Degrees Cervical Side-Bend Right AROM (degrees): 35 Degrees Cervical Side-Bend Left AROM (degrees) : 35 Degrees Cervical Rotation Right AROM (degrees) : 70 Degrees Cervical Rotation Left AROM (degrees) : 75 Degrees UE and Cervical Strength R UE Strength: 4/5 grossly L UE Strength: 4/5 grossly TREATMENT: Manual Therapy: 2: STM to L upper trap and cervical paraspinals with push to tolerance 3: Manual cervical traction x10 min 4: Objective measures obtained Skilled Intervention: Manual skills to improve joint mobility, ROM, and decrease pain. Utilized anatomy knowledge of the therapist, and assessment of patient's response to intervention. Billing Manual TherapyTreatment Minutes: 39 Skilled Treatment Time Minutes (timed and untimed codes): 39 Total Session Time (minutes): 39 Session Start Time : 1236 Session Stop Time : 1315 Felix Emerson PT [facility] 02-09-2024 History of Present illness Narrative Episode Visit Count: 10 Therapist That Will Accept/Oversee The Plan Of Care: Felix Emerson Start of Care Date: 11/04/23 Onset Date: 09/10/23 REHABILITATION AND SPORTS THERAPY PHYSICAL THERAPY PROGRESS REPORT PLAN OF CARE UPDATE: Assessment: Joey Delvalle demonstrates moderate improvement in sitting, heavy exertion, physical activities, working, and sleeping. The patient has progressed toward goals. Patient continues to present with impairments in strength, symptom management, and tissue tenderness that interfere with nothing . Current prognosis is Good due to: current objective clinical presentation, good overall health status, within-session changes, good support system/ coping skills . The patient will benefit from continued skilled therapy services to meet the updated goals for this plan of care as noted below. Goals updated on 01/14/2024. Goals for Episode of Care: established 11/04/23 Independent in a Home Exercise Program. --met Patient will decrease pain rating by 2 points to meet minimal clinical important difference for numeric pain rating scale.-- progressing Restore pain free cervical ROM to WNL to allow for decreased pain. Sleep throughout the night without pain/symptoms.-- progressing Maintain proper sitting posture throughout the session to allow for decreased pain. --progressing Time Frame for Goals and Treatment : 03/11/23 Planned Interventions, Frequency, and Duration: 1x/month, 1 visit Total Number of Visits Planned: 1 Patient to be seen for Therapeutic exercise (66034), Neuromuscular re-education (28139), Manual therapy (37118), Therapeutic activities (47194), Self-usp management ([id number]), Patient/Family/Caregiver Education, Body Mechanics Training PLAN FOR NEXT VISIT: CA vs DC SUBJECTIVE: Overall patient is doing much better. Being more consistent with exercises has eased symptoms. Constant tightness in the L upper trap, but symptoms are minimal compared to before. Only very light and infrequent numbness into her L jaw. Patient is doing well but still feels unsure if she is confident enough to be on her own. Functional Limitations: nothing Pain: Pain Pain Level: 1 Pain Location: Neck, Jaw Description: Tightness, Numbness Frequency: Intermittent PROMIS Scales 02/09/2024 12/24/2023 12/08/2023 Higher is Better Phys Func - Score 55 (within normal limits) 52 (within normal limits) Phys Func - Percentile 69 58 Self-Eff Symptom - Score 48 (Average) 48 (Average) Self-Eff Symptom - Percentile 42 42 T-scores: mean of general population = 50. 5 points is clinically meaningfully difference Percentiles provide an indication of how the patient's score ranks in relation to the general population. Higher percentile rankings indicate better function/quality of life. 50th percentile is the average of the general population and indicates half of respondents had a worse score. OBJECTIVE MEASURES WITH LEVEL OF FUNCTION: Cervical Spine ROM Cervical Flexion AROM (degrees) : 45 Degrees Cervical Extension AROM (degrees) : 45 Degrees Cervical Side-Bend Right AROM (degrees): 35 Degrees Cervical Side-Bend Left AROM (degrees) : 35 Degrees Cervical Rotation Right AROM (degrees) : 70 Degrees Cervical Rotation Left AROM (degrees) : 75 Degrees UE and Cervical Strength R UE Strength: 4/5 grossly L UE Strength: 4/5 grossly TREATMENT: Manual Therapy: 2: STM to L upper trap and cervical paraspinals with push to tolerance 3: Manual cervical traction x10 min 4: Objective measures obtained Skilled Intervention: Manual skills to improve joint mobility, ROM, and decrease pain. Utilized anatomy knowledge of the therapist, and assessment of patient's response to intervention. Billing Manual TherapyTreatment Minutes: 39 Skilled Treatment Time Minutes (timed and untimed codes): 39 Total Session Time (minutes): 39 Session Start Time : 1236 Session Stop Time : 1315 Felix Emerson PT documented in this encounter [facility] 01-29-2024 Note HNO ID: [id number] Author: FELIX EMERSON PT Service: ? Author Type: Physical Therapist Type: Progress Notes Filed: 01/29/2024 14:06 Note Text: Episode Visit Count: 9 Therapist That Will Accept/Oversee The Plan Of Care: Felix Emerson Start of Care Date: 11/04/23 Onset Date: 09/10/23 REHABILITATION AND SPORTS THERAPY PHYSICAL THERAPY TREATMENT NOTE ASSESSMENT: Joey Delvalle tolerated the session with decreased symptoms. She demonstrated improvements in RUE median nerve tension post session. The patient will continue to benefit from ongoing skilled physical therapy to progress toward set goals. PLAN FOR NEXT VISIT: CA SUBJECTIVE: Patient did have some light numbness in B digits 1-3, and then some tingling into the head and L cheek since last being seen. Neither were intense or long lasting, but the first time they have been present in quite awhile Pain: Pain Pain Level: 3 Pain Location: Neck Description: Tightness Frequency: Continuous OBJECTIVE MEASURES WITH LEVEL OF FUNCTION: Median nerve RUE ULTT + TREATMENT: Therapeutic Exercise: 1: *Median nerve glides 3x10 Skilled Intervention: Patient was educated in proper exercise technique and purpose for exercises. Skilled judgment was used in selection of appropriate interventions. Provided written instruction for home exercise program to facilitate proper performance and compliance. Correct performance of therapeutic exercises was facilitated with verbal, visual, and tactile cuing. Manual Therapy: 2: STM to R scalenes, upper trap, and L suboccipitals and masseter with push to tolerance 3: Manual cervical traction x12 min 4: Median nerve glides on RUE x20 (Issued for HEP in tray position 3x10, 1-2 sec holds for bump on bump off) Skilled Intervention: Manual skills to improve joint mobility, ROM, and decrease pain. Utilized anatomy knowledge of the therapist, and assessment of patient's response to intervention. Billing Therapeutic Exercise Treatment Minutes: 3 Manual TherapyTreatment Minutes: 40 Skilled Treatment Time Minutes (timed and untimed codes): 43 Total Session Time (minutes): 43 Session Start Time : 1302 Session Stop Time : 1344 Felix Emerson PT [facility] 01-29-2024 History of Present illness Narrative Episode Visit Count: 9 Therapist That Will Accept/Oversee The Plan Of Care: Felix Emerson Start of Care Date: 11/04/23 Onset Date: 09/10/23 REHABILITATION AND SPORTS THERAPY PHYSICAL THERAPY TREATMENT NOTE ASSESSMENT: Joey Delvalle tolerated the session with decreased symptoms. She demonstrated improvements in RUE median nerve tension post session. The patient will continue to benefit from ongoing skilled physical therapy to progress toward set goals. PLAN FOR NEXT VISIT: CA SUBJECTIVE: Patient did have some light numbness in B digits 1-3, and then some tingling into the head and L cheek since last being seen. Neither were intense or long lasting, but the first time they have been present in quite awhile Pain: Pain Pain Level: 3 Pain Location: Neck Description: Tightness Frequency: Continuous OBJECTIVE MEASURES WITH LEVEL OF FUNCTION: Median nerve RUE ULTT + TREATMENT: Therapeutic Exercise: 1: *Median nerve glides 3x10 Skilled Intervention: Patient was educated in proper exercise technique and purpose for exercises. Skilled judgment was used in selection of appropriate interventions. Provided written instruction for home exercise program to facilitate proper performance and compliance. Correct performance of therapeutic exercises was facilitated with verbal, visual, and tactile cuing. Manual Therapy: 2: STM to R scalenes, upper trap, and L suboccipitals and masseter with push to tolerance 3: Manual cervical traction x12 min 4: Median nerve glides on RUE x20 (Issued for HEP in tray position 3x10, 1-2 sec holds for bump on bump off) Skilled Intervention: Manual skills to improve joint mobility, ROM, and decrease pain. Utilized anatomy knowledge of the therapist, and assessment of patient's response to intervention. Billing Therapeutic Exercise Treatment Minutes: 3 Manual TherapyTreatment Minutes: 40 Skilled Treatment Time Minutes (timed and untimed codes): 43 Total Session Time (minutes): 43 Session Start Time : 1301 Session Stop Time : 1344 Felix Emerson PT Program_ID:[id number] Access Code: [email or web address] URL: [email or web address] Date: 01-29-2024 Prepared By: Felix Emerson Program Notes Exercises - Seated Passive Cervical Retraction - 1 x daily - 7 x weekly - 3 sets - 10 reps - Seated Cervical Retraction and Extension - 1 x daily - 7 x weekly - 3 sets - 10 reps - Upper Trapezius Stretch - 3 x daily - 7 x weekly - 1 sets - 3 reps - Seated Assisted Cervical Rotation with Towel - 1 x daily - 7 x weekly - 3 sets - 10 reps - Upper Cervical Extension SNAG with Strap - 1 x daily - 7 x weekly - 3 sets - 10 reps - Upper Cervical Rotation SNAG with Strap - 1 x daily - 7 x weekly - 3 sets - 10 reps - First Rib Mobilization with Strap - 1 x daily - 7 x weekly - 3 sets - 10 reps - Doorway Pec Stretch at 60 Degrees Abduction with Arm Straight - 1 x daily - 7 x weekly - 1 sets - 3 reps - Sternocleidomastoid Stretch - 1 x daily - 7 x weekly - 1 sets - 3 reps - Standing Shoulder External Rotation with Resistance - 1 x daily - 7 x weekly - 3 sets - 10 reps - Standing Shoulder Horizontal Abduction with Resistance - 1 x daily - 7 x weekly - 3 sets - 10 reps - Standing Shoulder Diagonal Horizontal Abduction 60/120 Degrees with Resistance - 1 x daily - 7 x weekly - 3 sets - 10 reps - Median Nerve Flossing - Tray - 1 x daily - 7 x weekly - 3 sets - 10 reps documented in this encounter [facility] 01-15-2024 Note HNO ID: [id number] Author: FELIX EMERSON PT Service: ? Author Type: Physical Therapist Type: Progress Notes Filed: 01/15/2024 13:42 Note Text: Episode Visit Count: 8 Therapist That Will Accept/Oversee The Plan Of Care: Felix Emerson Start of Care Date: 11/04/23 Onset Date: 09/10/23 REHABILITATION AND SPORTS THERAPY PHYSICAL THERAPY PROGRESS REPORT PLAN OF CARE UPDATE: Assessment: Joey Delvalle demonstrates moderate improvement in physical activities, recreational activities, working, and sleeping. The patient has progressed toward goals. Patient continues to present with impairments in overall function, range of motion, strength, symptom management, and tissue tenderness that interfere with nothing . Current prognosis is Good due to: current objective clinical presentation, good overall health status, within-session changes, good support system/ coping skills . The patient will benefit from continued skilled therapy services to meet the updated goals for this plan of care as noted below. Goals updated on 01/14/2024. Goals for Episode of Care: established 11/04/23 Independent in a Home Exercise Program. --met Patient will decrease pain rating by 2 points to meet minimal clinical important difference for numeric pain rating scale.-- progressing Restore pain free cervical ROM to WNL to allow for decreased pain. Sleep throughout the night without pain/symptoms.-- progressing Maintain proper sitting posture throughout the session to allow for decreased pain. --progressing Time Frame for Goals and Treatment : 02/09/23 Planned Interventions, Frequency, and Duration: 1x every other week, 4 weeks Total Number of Visits Planned: 2 Patient to be seen for Therapeutic exercise (93382), Neuromuscular re-education (36361), Manual therapy (92199), Therapeutic activities (60512), Self-usp management (08474), Patient/Family/Caregiver Education, Body Mechanics Training PLAN FOR NEXT VISIT: Assess addition of strengthening exercises, manual as needed for symptom management SUBJECTIVE: Overall patient doing much better. her pain in less intense and less frequent. Notes that the exercises help and feel good. Most days there is a low level of symptoms and very manageable, but a day here or there where things flare. Especially when she gets busy or over exerts herself. Functional Limitations: nothing Pain: Pain Pain Level: 2 Pain Location: Neck, Jaw Description: Tightness, Dull Frequency: Continuous PROMIS Scales 12/24/2023 12/08/2023 11/04/2023 Higher is Better Phys Func - Score 52 (within normal limits) 51 (within normal limits) Phys Func - Percentile 58 54 Self-Eff Symptom - Score 48 (Average) 41 (Average) Self-Eff Symptom - Percentile 42 18 T-scores: mean of general population = 50. 5 points is clinically meaningfully difference Percentiles provide an indication of how the patient's score ranks in relation to the general population. Higher percentile rankings indicate better function/quality of life. 50th percentile is the average of the general population and indicates half of respondents had a worse score. OBJECTIVE MEASURES WITH LEVEL OF FUNCTION: Cervical Spine ROM Cervical Side-Bend Right AROM (degrees): 30 Degrees Cervical Side-Bend Left AROM (degrees) : 33 Degrees Cervical Rotation Right AROM (degrees) : 60 Degrees Cervical Rotation Left AROM (degrees) : 65 Degrees UE and Cervical Strength Strength Tested: Scapula R Shoulder Horizontal ABduction: 4-/5 R Scapular Retraction: 4-/5 R Middle Trapezius: 4-/5 R Lower Trapezius: 3+/5 L Shoulder Horizontal ABduction: 4-/5 L Scapular Retraction: 4-/5 L Middle Trapezius: 4-/5 L Lower Trapezius: 3+/5 TREATMENT: Therapeutic Exercise: 1: *Chin tuck W's 3x10 BTB 2: *Star exercise 3x10 each way (T, diagonal both ways) 3: Objective measures obtained Skilled Intervention: Patient was educated in proper exercise technique and purpose for exercises. Skilled judgment was used in selection of appropriate interventions. Provided written instruction for home exercise program to facilitate proper performance and compliance. Correct performance of therapeutic exercises was facilitated with verbal, visual, and tactile cuing. Manual Therapy: 2: Manual cervical traction and suboccipital release x5 min 3: B SCM, scalenes, upper trap STM with push to tolerance Skilled Intervention: Manual skills to improve joint mobility, ROM, and decrease pain. Utilized anatomy knowledge of the therapist, and assessment of patient's response to intervention. Billing Therapeutic Exercise Treatment Minutes: 28 Manual TherapyTreatment Minutes: 20 Skilled Treatment Time Minutes (timed and untimed codes): 48 Total Session Time (minutes): 48 Session Start Time : 1312 Session Stop Time : 1400 Felix Emerson PT [facility] 01-15-2024 History of Present illness Narrative Episode Visit Count: 8 Therapist That Will Accept/Oversee The Plan Of Care: Felix Emerson Start of Care Date: 11/04/23 Onset Date: 09/10/23 REHABILITATION AND SPORTS THERAPY PHYSICAL THERAPY PROGRESS REPORT PLAN OF CARE UPDATE: Assessment: Joey Delvalle demonstrates moderate improvement in physical activities, recreational activities, working, and sleeping. The patient has progressed toward goals. Patient continues to present with impairments in overall function, range of motion, strength, symptom management, and tissue tenderness that interfere with nothing . Current prognosis is Good due to: current objective clinical presentation, good overall health status, within-session changes, good support system/ coping skills . The patient will benefit from continued skilled therapy services to meet the updated goals for this plan of care as noted below. Goals updated on 01/14/2024. Goals for Episode of Care: established 11/04/23 Independent in a Home Exercise Program. --met Patient will decrease pain rating by 2 points to meet minimal clinical important difference for numeric pain rating scale.-- progressing Restore pain free cervical ROM to WNL to allow for decreased pain. Sleep throughout the night without pain/symptoms.-- progressing Maintain proper sitting posture throughout the session to allow for decreased pain. --progressing Time Frame for Goals and Treatment : 02/09/23 Planned Interventions, Frequency, and Duration: 1x every other week, 4 weeks Total Number of Visits Planned: 2 Patient to be seen for Therapeutic exercise (00399), Neuromuscular re-education (63110), Manual therapy (47537), Therapeutic activities (08544), Self-usp management (23088), Patient/Family/Caregiver Education, Body Mechanics Training PLAN FOR NEXT VISIT: Assess addition of strengthening exercises, manual as needed for symptom management SUBJECTIVE: Overall patient doing much better. her pain in less intense and less frequent. Notes that the exercises help and feel good. Most days there is a low level of symptoms and very manageable, but a day here or there where things flare. Especially when she gets busy or over exerts herself. Functional Limitations: nothing Pain: Pain Pain Level: 2 Pain Location: Neck, Jaw Description: Tightness, Dull Frequency: Continuous PROMIS Scales 12/24/2023 12/08/2023 11/04/2023 Higher is Better Phys Func - Score 52 (within normal limits) 51 (within normal limits) Phys Func - Percentile 58 54 Self-Eff Symptom - Score 48 (Average) 41 (Average) Self-Eff Symptom - Percentile 42 18 T-scores: mean of general population = 50. 5 points is clinically meaningfully difference Percentiles provide an indication of how the patient's score ranks in relation to the general population. Higher percentile rankings indicate better function/quality of life. 50th percentile is the average of the general population and indicates half of respondents had a worse score. OBJECTIVE MEASURES WITH LEVEL OF FUNCTION: Cervical Spine ROM Cervical Side-Bend Right AROM (degrees): 30 Degrees Cervical Side-Bend Left AROM (degrees) : 33 Degrees Cervical Rotation Right AROM (degrees) : 60 Degrees Cervical Rotation Left AROM (degrees) : 65 Degrees UE and Cervical Strength Strength Tested: Scapula R Shoulder Horizontal ABduction: 4-/5 R Scapular Retraction: 4-/5 R Middle Trapezius: 4-/5 R Lower Trapezius: 3+/5 L Shoulder Horizontal ABduction: 4-/5 L Scapular Retraction: 4-/5 L Middle Trapezius: 4-/5 L Lower Trapezius: 3+/5 TREATMENT: Therapeutic Exercise: 1: *Chin tuck W's 3x10 BTB 2: *Star exercise 3x10 each way (T, diagonal both ways) 3: Objective measures obtained Skilled Intervention: Patient was educated in proper exercise technique and purpose for exercises. Skilled judgment was used in selection of appropriate interventions. Provided written instruction for home exercise program to facilitate proper performance and compliance. Correct performance of therapeutic exercises was facilitated with verbal, visual, and tactile cuing. Manual Therapy: 2: Manual cervical traction and suboccipital release x5 min 3: B SCM, scalenes, upper trap STM with push to tolerance Skilled Intervention: Manual skills to improve joint mobility, ROM, and decrease pain. Utilized anatomy knowledge of the therapist, and assessment of patient's response to intervention. Billing Therapeutic Exercise Treatment Minutes: 28 Manual TherapyTreatment Minutes: 20 Skilled Treatment Time Minutes (timed and untimed codes): 48 Total Session Time (minutes): 48 Session Start Time : 1312 Session Stop Time : 1400 Felix Emerson PT Program_ID:[id number] Access Code: [email or web address] URL: [email or web address] Date: 01-14-2024 Prepared By: Felix Emerson Program Notes Exercises - Seated Passive Cervical Retraction - 1 x daily - 7 x weekly - 3 sets - 10 reps - Seated Cervical Retraction and Extension - 1 x daily - 7 x weekly - 3 sets - 10 reps - Upper Trapezius Stretch - 3 x daily - 7 x weekly - 1 sets - 3 reps - Seated Assisted Cervical Rotation with Towel - 1 x daily - 7 x weekly - 3 sets - 10 reps - Upper Cervical Extension SNAG with Strap - 1 x daily - 7 x weekly - 3 sets - 10 reps - Upper Cervical Rotation SNAG with Strap - 1 x daily - 7 x weekly - 3 sets - 10 reps - First Rib Mobilization with Strap - 1 x daily - 7 x weekly - 3 sets - 10 reps - Doorway Pec Stretch at 60 Degrees Abduction with Arm Straight - 1 x daily - 7 x weekly - 1 sets - 3 reps - Sternocleidomastoid Stretch - 1 x daily - 7 x weekly - 1 sets - 3 reps - Standing Shoulder External Rotation with Resistance - 1 x daily - 7 x weekly - 3 sets - 10 reps - Standing Shoulder Horizontal Abduction with Resistance - 1 x daily - 7 x weekly - 3 sets - 10 reps - Standing Shoulder Diagonal Horizontal Abduction 60/120 Degrees with Resistance - 1 x daily - 7 x weekly - 3 sets - 10 reps documented in this encounter [facility] 01-06-2024 Note HNO ID: [id number] Author: FELIX EMERSON PT Service: ? Author Type: Physical Therapist Type: Progress Notes Filed: 01/06/2024 14:09 Note Text: Episode Visit Count: 7 Therapist That Will Accept/Oversee The Plan Of Care: Felix Emerson Start of Care Date: 11/04/23 Onset Date: 09/10/23 REHABILITATION AND SPORTS THERAPY PHYSICAL THERAPY TREATMENT NOTE ASSESSMENT: Joey Delvalle tolerated the session with decreased symptoms. She demonstrated difficulty with neck tightness increasing as she was unable to perform HEP as previously due to care taking duties with her kids. The patient will continue to benefit from ongoing skilled physical therapy to progress toward set goals. PLAN FOR NEXT VISIT: CA SUBJECTIVE: Patient has been doing well voerall, but a little bit tighter in the last week when her kids got sick, she didn't sleep well, and she was unable to keep up with exercises as she was Pain: Pain Pain Level: 3 Pain Location: Neck Description: Tightness Frequency: Continuous OBJECTIVE MEASURES WITH LEVEL OF FUNCTION: B upper traps tight and reproduce symptoms TREATMENT: Manual Therapy: 2: Manual cervical traction and suboccipital release x5 min 3: B SCM, scalenes, upper trap STM with push to tolerance 4: Stripping to B upper traps and SCMs Skilled Intervention: Manual skills to improve joint mobility, ROM, and decrease pain. Utilized anatomy knowledge of the therapist, and assessment of patient's response to intervention. Billing Manual TherapyTreatment Minutes: 40 Skilled Treatment Time Minutes (timed and untimed codes): 40 Total Session Time (minutes): 40 Session Start Time : 1120 Session Stop Time : 1200 Felix Emerson PT [facility] 01-06-2024 History of Present illness Narrative Episode Visit Count: 7 Therapist That Will Accept/Oversee The Plan Of Care: Felix Emerson Start of Care Date: 11/04/23 Onset Date: 09/10/23 REHABILITATION AND SPORTS THERAPY PHYSICAL THERAPY TREATMENT NOTE ASSESSMENT: Joey Delvalle tolerated the session with decreased symptoms. She demonstrated difficulty with neck tightness increasing as she was unable to perform HEP as previously due to care taking duties with her kids. The patient will continue to benefit from ongoing skilled physical therapy to progress toward set goals. PLAN FOR NEXT VISIT: CA SUBJECTIVE: Patient has been doing well voerall, but a little bit tighter in the last week when her kids got sick, she didn't sleep well, and she was unable to keep up with exercises as she was Pain: Pain Pain Level: 3 Pain Location: Neck Description: Tightness Frequency: Continuous OBJECTIVE MEASURES WITH LEVEL OF FUNCTION: B upper traps tight and reproduce symptoms TREATMENT: Manual Therapy: 2: Manual cervical traction and suboccipital release x5 min 3: B SCM, scalenes, upper trap STM with push to tolerance 4: Stripping to B upper traps and SCMs Skilled Intervention: Manual skills to improve joint mobility, ROM, and decrease pain. Utilized anatomy knowledge of the therapist, and assessment of patient's response to intervention. Billing Manual TherapyTreatment Minutes: 40 Skilled Treatment Time Minutes (timed and untimed codes): 40 Total Session Time (minutes): 40 Session Start Time : 1120 Session Stop Time : 1200 Felix Emerson PT documented in this encounter [facility] 12-31-2023 Telephone encounter Note Pt returned call and given provider's message below with verbalized understanding. [facility] 12-31-2023 Miscellaneous Notes Pt returned call and given provider's message below with verbalized understanding. Left message to return call. Please inform patient that her MRI of the brain and cervical spine are normal appearing. Her pain is likely coming from muscle tightness/spasm and restriction Yuniel Moore DO documented in this encounter [facility] 12-31-2023 Telephone encounter Note Left message to return call. [facility] 12-30-2023 Telephone encounter Note Please inform patient that her MRI of the brain and cervical spine are normal appearing. Her pain is likely coming from muscle tightness/spasm and restriction Yuniel Moore DO [facility] 12-24-2023 Note HNO ID: [id number] Author: SANTOS WHITE, PT, DPT Service: ? Author Type: Physical Therapist Type: Progress Notes Filed: 12/24/2023 12:53 Note Text: Episode Visit Count: 6 Therapist That Will Accept/Oversee The Plan Of Care: Felix Emerson Start of Care Date: 11/04/23 Onset Date: 09/10/23 Patient Identified by Name and Date of : Yes REHABILITATION AND SPORTS THERAPY PHYSICAL THERAPY PROGRESS REPORT PLAN OF CARE UPDATE: Assessment: Joey Delvalle demonstrates improvements in radicular symptoms and overall pain levels. Ongoing limitation into right cervical rotation, with some associated pain. Intermittent radicular symptoms into LUE, jaw, and head. The patient has progressed toward goals as outlined below. Patient continues to present with impairments in flexibility, range of motion, symptom management, and tissue tenderness that interfere with nothing . Current prognosis is Good due to: current objective clinical presentation, good overall health status, within-session changes, good support system/ coping skills . The patient will benefit from continued skilled therapy services to meet the updated goals for this plan of care as noted below. Goals for Episode of Care: established 11/04/23 (updated 12/24/2023) Independent in a Home Exercise Program. --met Patient will decrease pain rating by 2 points to meet minimal clinical important difference for numeric pain rating scale.-- progressing Restore pain free cervical ROM to WNL to allow for decreased pain. Sleep throughout the night without pain/symptoms.-- progressing Maintain proper sitting posture throughout the session to allow for decreased pain. --progressing Time Frame for Goals and Treatment : 01/21/24 Planned Interventions, Frequency, and Duration: 1x/week, 4 weeks Total Number of Visits Planned: 4 Patient to be seen for Therapeutic exercise (38053), Neuromuscular re-education (50669), Manual therapy (13054), Therapeutic activities (07243), Self-usp management (33729), Patient/Family/Caregiver Education, Body Mechanics Training PLAN FOR NEXT VISIT: Assess exercise additions, especially 1st rib mobs. These eased a lot of tension in scalenes, upper traps. SUBJECTIVE: Patient notes overall good improvements. Minimal tingling into left arm and into the head area. Ongoing neck tightness. Results in for brain and cervical MRI, no abnormal findings per report. Functional Limitations: nothing Pain: Pain Pain Level: 2 Pain Location: Neck, Jaw Post Treatment Pain Post Treatment Symptoms: soreness from needling PROMIS Scales 12/24/2023 12/08/2023 11/04/2023 Higher is Better Phys Func - Score 52 (within normal limits) 51 (within normal limits) Phys Func - Percentile 58 54 Self-Eff Symptom - Score 48 (Average) 41 (Average) Self-Eff Symptom - Percentile 42 18 T-scores: mean of general population = 50. 5 points is clinically meaningfully difference Percentiles provide an indication of how the patient's score ranks in relation to the general population. Higher percentile rankings indicate better function/quality of life. 50th percentile is the average of the general population and indicates half of respondents had a worse score. OBJECTIVE MEASURES WITH LEVEL OF FUNCTION: Posture / Alignment Posture: Good Sensation - Cervical Spine Cervical Spine Sensation: Grossly Intact Cervical Spine ROM Cervical ROM : Measurement AROM Cervical Flexion AROM (degrees) : 43 Degrees Cervical Extension AROM (degrees) : 45 Degrees Cervical Side-Bend Right AROM (degrees): 32 Degrees Cervical Side-Bend Left AROM (degrees) : 34 Degrees Cervical Rotation Right AROM (degrees) : 61 Degrees Cervical Rotation Left AROM (degrees) : 71 Degrees TREATMENT: Therapeutic Exercise: 1: *SCM stretch 2x30 sec bilaterally 2: *L 1st rib self inferior mobs 2x10 with strap, review 3: *Pec minor stretch with hand at 45 degrees elevation 2x30 sec 4: Reassessment per above 5: *Upper cervical rotation SNAG 2x10/side Skilled Intervention: Patient was educated in proper exercise technique and purpose for exercises. Reviewed and educated patient on additions/changes for home exercise program as above (*). Skilled judgment was used in selection of appropriate interventions. Provided written instruction for home exercise program to facilitate proper performance and compliance. Correct performance of therapeutic exercises was facilitated with verbal and visual cuing. Manual Therapy: 2: Suboccipital release and traction x8 min 3: L masseter CFM and raking x3 min 4: L 1st rib inferior mobs 2x20 grade 3-4 5: DN per below Skilled Intervention: Manual skills to improve joint mobility, ROM, and decrease pain. Utilized anatomy knowledge of the therapist, and assessment of patient's response to intervention. Dry needling to following Trigger points: L upper trap Needle length: 30mm 1.2 in. [place] used 2, need (more content not included)... [facility] 12-24-2023 History of Present illness Narrative Episode Visit Count: 6 Therapist That Will Accept/Oversee The Plan Of Care: Felix Emerson Start of Care Date: 11/04/23 Onset Date: 09/10/23 Patient Identified by Name and Date of : Yes REHABILITATION AND SPORTS THERAPY PHYSICAL THERAPY PROGRESS REPORT PLAN OF CARE UPDATE: Assessment: Joey Delvalle demonstrates improvements in radicular symptoms and overall pain levels. Ongoing limitation into right cervical rotation, with some associated pain. Intermittent radicular symptoms into LUE, jaw, and head. The patient has progressed toward goals as outlined below. Patient continues to present with impairments in flexibility, range of motion, symptom management, and tissue tenderness that interfere with nothing . Current prognosis is Good due to: current objective clinical presentation, good overall health status, within-session changes, good support system/ coping skills . The patient will benefit from continued skilled therapy services to meet the updated goals for this plan of care as noted below. Goals for Episode of Care: established 11/04/23 (updated 12/24/2023) Independent in a Home Exercise Program. --met Patient will decrease pain rating by 2 points to meet minimal clinical important difference for numeric pain rating scale.-- progressing Restore pain free cervical ROM to WNL to allow for decreased pain. Sleep throughout the night without pain/symptoms.-- progressing Maintain proper sitting posture throughout the session to allow for decreased pain. --progressing Time Frame for Goals and Treatment : 01/21/24 Planned Interventions, Frequency, and Duration: 1x/week, 4 weeks Total Number of Visits Planned: 4 Patient to be seen for Therapeutic exercise (54158), Neuromuscular re-education (75544), Manual therapy (81540), Therapeutic activities (35728), Self-usp management (59613), Patient/Family/Caregiver Education, Body Mechanics Training PLAN FOR NEXT VISIT: Assess exercise additions, especially 1st rib mobs. These eased a lot of tension in scalenes, upper traps. SUBJECTIVE: Patient notes overall good improvements. Minimal tingling into left arm and into the head area. Ongoing neck tightness. Results in for brain and cervical MRI, no abnormal findings per report. Functional Limitations: nothing Pain: Pain Pain Level: 2 Pain Location: Neck, Jaw Post Treatment Pain Post Treatment Symptoms: soreness from needling PROMIS Scales 12/24/2023 12/08/2023 11/04/2023 Higher is Better Phys Func - Score 52 (within normal limits) 51 (within normal limits) Phys Func - Percentile 58 54 Self-Eff Symptom - Score 48 (Average) 41 (Average) Self-Eff Symptom - Percentile 42 18 T-scores: mean of general population = 50. 5 points is clinically meaningfully difference Percentiles provide an indication of how the patient's score ranks in relation to the general population. Higher percentile rankings indicate better function/quality of life. 50th percentile is the average of the general population and indicates half of respondents had a worse score. OBJECTIVE MEASURES WITH LEVEL OF FUNCTION: Posture / Alignment Posture: Good Sensation - Cervical Spine Cervical Spine Sensation: Grossly Intact Cervical Spine ROM Cervical ROM : Measurement AROM Cervical Flexion AROM (degrees) : 43 Degrees Cervical Extension AROM (degrees) : 45 Degrees Cervical Side-Bend Right AROM (degrees): 32 Degrees Cervical Side-Bend Left AROM (degrees) : 34 Degrees Cervical Rotation Right AROM (degrees) : 61 Degrees Cervical Rotation Left AROM (degrees) : 71 Degrees TREATMENT: Therapeutic Exercise: 1: *SCM stretch 2x30 sec bilaterally 2: *L 1st rib self inferior mobs 2x10 with strap, review 3: *Pec minor stretch with hand at 45 degrees elevation 2x30 sec 4: Reassessment per above 5: *Upper cervical rotation SNAG 2x10/side Skilled Intervention: Patient was educated in proper exercise technique and purpose for exercises. Reviewed and educated patient on additions/changes for home exercise program as above (*). Skilled judgment was used in selection of appropriate interventions. Provided written instruction for home exercise program to facilitate proper performance and compliance. Correct performance of therapeutic exercises was facilitated with verbal and visual cuing. Manual Therapy: 2: Suboccipital release and traction x8 min 3: L masseter CFM and raking x3 min 4: L 1st rib inferior mobs 2x20 grade 3-4 5: DN per below Skilled Intervention: Manual skills to improve joint mobility, ROM, and decrease pain. Utilized anatomy knowledge of the therapist, and assessment of patient's response to intervention. Dry needling to following Trigger points: L upper trap Needle length: 30mm 1.2 in. [place] used 2, needles removed 2. Dry needling technique used: Pistoning and Fanning. Patient education on purpose, precautions, safety, risks, and other treatment options regarding dry needling. Verbal consent received. Billing Therapeutic Exercise Treatment Minutes: 22 Manual TherapyTreatment Minutes: 23 Skilled Treatment Time Minutes (timed and untimed codes): 45 Total Session Time (minutes): 45 Session Start Time : 1015 Session Stop Time : 1100 Santos White PT, DPT documented in this encounter [facility] 12-24-2023 History of Present illness Narrative Radiology Service Progress Note DATE OF SERVICE: December 24, 2023 TIME: 8:47 AM PATIENT IDENTITY VERIFICATION COMPLETED USING TWO (2) STANDARD IDENTIFIERS: Name and Date of confirmed by patient verbally. FALL SCREENING: Has the patient had 2 falls in the last year or 1 fall with injury or currently using an Ambulatory Assistive Device (Walker, Cane, Wheelchair, Crutches, etc.)? No PATIENT GENDER DATA: Female. status: : No status: NO. PATIENT RELEVANT IMPLANT DATA REVIEWED: Yes PATIENT PRESENTS WITH AN IMPLANTABLE OR ATTACHED HOSPITAL ADMINISTRATIVE ASSISTANT: No ALLERGIES: Reviewed and unchanged CONTRAST ALLERGY: NO. EXAM: MRI - CONTRAST TYPE: GROUP II PERIPHERAL IV DATA: Ambulatory: A peripheral IV was started in the Left antecubital site with a Angio cath: 22 gauge. RADIOLOGY DEPARTMENT: MR; Exam(s) Completed: Head: Multiple Sclerosis Spine: Cervical spine SIGNATURE: RT Adrien(Paty) PATIENT NAME: Joey Delvalle DATE: December 24, 2023 TIME: 8:47 AM documented in this encounter [facility] 12-24-2023 Note HNO ID: [id number] Author: KRUPA OCAMPO RT (R) Service: ? Author Type: Technologist Type: Progress Notes Filed: 12/24/2023 08:47 Note Text: Radiology Service Progress Note DATE OF SERVICE: December 24, 2023 TIME: 8:47 AM PATIENT IDENTITY VERIFICATION COMPLETED USING TWO (2) STANDARD IDENTIFIERS: Name and Date of confirmed by patient verbally. FALL SCREENING: Has the patient had 2 falls in the last year or 1 fall with injury or currently using an Ambulatory Assistive Device (Walker, Cane, Wheelchair, Crutches, etc.)? No PATIENT GENDER DATA: Female. status: : No status: NO. PATIENT RELEVANT IMPLANT DATA REVIEWED: Yes PATIENT PRESENTS WITH AN IMPLANTABLE OR ATTACHED HOSPITAL ADMINISTRATIVE ASSISTANT: No ALLERGIES: Reviewed and unchanged CONTRAST ALLERGY: NO. EXAM: MRI - CONTRAST TYPE: GROUP II PERIPHERAL IV DATA: Ambulatory: A peripheral IV was started in the Left antecubital site with a Angio cath: 22 gauge. RADIOLOGY DEPARTMENT: MR; Exam(s) Completed: Head: Multiple Sclerosis Spine: Cervical spine SIGNATURE: RT Adrien(Paty) PATIENT NAME: Joey Delvalle DATE: December 24, 2023 TIME: 8:47 AM [facility] 12-15-2023 Note HNO ID: [id number] Author: FELIX EMERSON PT Service: ? Author Type: Physical Therapist Type: Progress Notes Filed: 12/15/2023 14:23 Note Text: Episode Visit Count: 5 Therapist That Will Accept/Oversee The Plan Of Care: Felix Emerson Start of Care Date: 11/04/23 Onset Date: 09/10/23 REHABILITATION AND SPORTS THERAPY PHYSICAL THERAPY TREATMENT NOTE ASSESSMENT: Joey Delvalle tolerated the session with decreased symptoms. She demonstrated improvements in pain and tightness post session with no jaw or neck complaints, just a light pull in the collar bone region. The patient will continue to benefit from ongoing skilled physical therapy to progress toward set goals. PLAN FOR NEXT VISIT: Assess exercise additions, especially 1st rib mobs. These eased a lot of tension in scalenes, upper traps. SUBJECTIVE: Patient doing better overall but still tension in the L side, into the jaw and neck Pain: Pain Pain Level: 3 Pain Location: Neck, Jaw Description: Tightness Frequency: Continuous OBJECTIVE MEASURES WITH LEVEL OF FUNCTION: TREATMENT: Therapeutic Exercise: 1: *SCM stretch 3x30 sec bilaterally 2: *L 1st rib self inferior mobs 3x10 with strap (L cervical side bend) 3: *Pec minor stretch with hand at 45 degrees elevation 3x30 sec Skilled Intervention: Patient was educated in proper exercise technique and purpose for exercises. Skilled judgment was used in selection of appropriate interventions. Provided written instruction for home exercise program to facilitate proper performance and compliance. Correct performance of therapeutic exercises was facilitated with verbal, visual, and tactile cuing. Manual Therapy: 1: C1 AP mobs 2x20 2: Suboccipital release and traction x5 min 3: L masseter CFM and raking x5 min 4: L 1st rib inferior mobs 2x20 grade 3-4 5: B SCM, scalenes, upper trap STM with push to tolerance 6: TrPr to L pec minor Skilled Intervention: Manual skills to improve joint mobility, ROM, and decrease pain. Utilized anatomy knowledge of the therapist, and assessment of patient's response to intervention. Billing Therapeutic Exercise Treatment Minutes: 5 Manual TherapyTreatment Minutes: 40 Skilled Treatment Time Minutes (timed and untimed codes): 45 Total Session Time (minutes): 45 Session Start Time : 1312 Session Stop Time : 1357 Felix Emerson PT [facility] 12-15-2023 History of Present illness Narrative Episode Visit Count: 5 Therapist That Will Accept/Oversee The Plan Of Care: Felix Emerson Start of Care Date: 11/04/23 Onset Date: 09/10/23 REHABILITATION AND SPORTS THERAPY PHYSICAL THERAPY TREATMENT NOTE ASSESSMENT: Joey Delvalle tolerated the session with decreased symptoms. She demonstrated improvements in pain and tightness post session with no jaw or neck complaints, just a light pull in the collar bone region. The patient will continue to benefit from ongoing skilled physical therapy to progress toward set goals. PLAN FOR NEXT VISIT: Assess exercise additions, especially 1st rib mobs. These eased a lot of tension in scalenes, upper traps. SUBJECTIVE: Patient doing better overall but still tension in the L side, into the jaw and neck Pain: Pain Pain Level: 3 Pain Location: Neck, Jaw Description: Tightness Frequency: Continuous OBJECTIVE MEASURES WITH LEVEL OF FUNCTION: TREATMENT: Therapeutic Exercise: 1: *SCM stretch 3x30 sec bilaterally 2: *L 1st rib self inferior mobs 3x10 with strap (L cervical side bend) 3: *Pec minor stretch with hand at 45 degrees elevation 3x30 sec Skilled Intervention: Patient was educated in proper exercise technique and purpose for exercises. Skilled judgment was used in selection of appropriate interventions. Provided written instruction for home exercise program to facilitate proper performance and compliance. Correct performance of therapeutic exercises was facilitated with verbal, visual, and tactile cuing. Manual Therapy: 1: C1 AP mobs 2x20 2: Suboccipital release and traction x5 min 3: L masseter CFM and raking x5 min 4: L 1st rib inferior mobs 2x20 grade 3-4 5: B SCM, scalenes, upper trap STM with push to tolerance 6: TrPr to L pec minor Skilled Intervention: Manual skills to improve joint mobility, ROM, and decrease pain. Utilized anatomy knowledge of the therapist, and assessment of patient's response to intervention. Billing Therapeutic Exercise Treatment Minutes: 5 Manual TherapyTreatment Minutes: 40 Skilled Treatment Time Minutes (timed and untimed codes): 45 Total Session Time (minutes): 45 Session Start Time : 1312 Session Stop Time : 1357 Felix Emerson PT Program_ID:[id number] Access Code: [email or web address] URL: [email or web address] Date: 12-15-2023 Prepared By: Felix Emerson Program Notes Exercises - Seated Passive Cervical Retraction - 1 x daily - 7 x weekly - 3 sets - 10 reps - Seated Cervical Retraction and Extension - 1 x daily - 7 x weekly - 3 sets - 10 reps - Upper Trapezius Stretch - 3 x daily - 7 x weekly - 1 sets - 3 reps - Seated Assisted Cervical Rotation with Towel - 1 x daily - 7 x weekly - 3 sets - 10 reps - Upper Cervical Extension SNAG with Strap - 1 x daily - 7 x weekly - 3 sets - 10 reps - Upper Cervical Rotation SNAG with Strap - 1 x daily - 7 x weekly - 3 sets - 10 reps - First Rib Mobilization with Strap - 1 x daily - 7 x weekly - 3 sets - 10 reps - Doorway Pec Stretch at 60 Degrees Abduction with Arm Straight - 1 x daily - 7 x weekly - 1 sets - 3 reps - Sternocleidomastoid Stretch - 1 x daily - 7 x weekly - 1 sets - 3 reps documented in this encounter [facility] 12-09-2023 Note HNO ID: [id number] Author: FELIX EMERSON PT Service: ? Author Type: Physical Therapist Type: Progress Notes Filed: 12/09/2023 14:14 Note Text: Episode Visit Count: 4 Therapist That Will Accept/Oversee The Plan Of Care: Felix Emerson Start of Care Date: 11/04/23 Onset Date: 09/10/23 REHABILITATION AND SPORTS THERAPY PHYSICAL THERAPY TREATMENT NOTE ASSESSMENT: Joey Delvalle tolerated the session with decreased symptoms and expected muscle soreness. She demonstrated improvements in neck pain and referred symptoms into BUE and head/face. The patient will continue to benefit from ongoing skilled physical therapy for reassessment by supervising therapist. PLAN FOR NEXT VISIT: CA, add in posterior chain strengthening SUBJECTIVE: Patient having relief of face and head symptoms for the first time since starting therapy. She did not have neck and upper trap tightness until Thursday after last visit. She also had 1 instance of B hands going numb and feeling weak after doing dishes Pain: Pain Pain Level: 2 Pain Location: Neck Description: Tightness Frequency: Continuous Post Treatment Pain Post Treatment Symptoms: looser, better OBJECTIVE MEASURES WITH LEVEL OF FUNCTION: Palpation to B upper traps recreates pain today TREATMENT: Manual Therapy: 1: STM, CFM to B upper traps, SCM, and cervical paraspinals with push to tolerance 2: Manual cervical traction x10 min with pull to tolerance Dry Needling: (1) 30 and 40 mm needle to B upper traps with push to tolerance (4 needles in, 4 needles out, patient consent gained.) Skilled Intervention: Manual skills to improve joint mobility, ROM, and decrease pain. Utilized anatomy knowledge of the therapist, and assessment of patient's response to intervention. Billing Manual TherapyTreatment Minutes: 45 Skilled Treatment Time Minutes (timed and untimed codes): 45 Total Session Time (minutes): 45 Session Start Time : 1302 Session Stop Time : 1347 Felix Emerson, PT [facility] 12-09-2023 History of Present illness Narrative Episode Visit Count: 4 Therapist That Will Accept/Oversee The Plan Of Care: Felix Emerson Start of Care Date: 11/04/23 Onset Date: 09/10/23 REHABILITATION AND SPORTS THERAPY PHYSICAL THERAPY TREATMENT NOTE ASSESSMENT: Joey Delvalle tolerated the session with decreased symptoms and expected muscle soreness. She demonstrated improvements in neck pain and referred symptoms into BUE and head/face. The patient will continue to benefit from ongoing skilled physical therapy for reassessment by supervising therapist. PLAN FOR NEXT VISIT: CA, add in posterior chain strengthening SUBJECTIVE: Patient having relief of face and head symptoms for the first time since starting therapy. She did not have neck and upper trap tightness until Thursday after last visit. She also had 1 instance of B hands going numb and feeling weak after doing dishes Pain: Pain Pain Level: 2 Pain Location: Neck Description: Tightness Frequency: Continuous Post Treatment Pain Post Treatment Symptoms: looser, better OBJECTIVE MEASURES WITH LEVEL OF FUNCTION: Palpation to B upper traps recreates pain today TREATMENT: Manual Therapy: 1: STM, CFM to B upper traps, SCM, and cervical paraspinals with push to tolerance 2: Manual cervical traction x10 min with pull to tolerance Dry Needling: (1) 30 and 40 mm needle to B upper traps with push to tolerance (4 needles in, 4 needles out, patient consent gained.) Skilled Intervention: Manual skills to improve joint mobility, ROM, and decrease pain. Utilized anatomy knowledge of the therapist, and assessment of patient's response to intervention. Billing Manual TherapyTreatment Minutes: 45 Skilled Treatment Time Minutes (timed and untimed codes): 45 Total Session Time (minutes): 45 Session Start Time : 1302 Session Stop Time : 1347 Felix Emerson PT documented in this encounter [facility] 12-02-2023 Note HNO ID: [id number] Author: FELIX EMERSON PT Service: ? Author Type: Physical Therapist Type: Progress Notes Filed: 12/02/2023 14:55 Note Text: Episode Visit Count: 3 Therapist That Will Accept/Oversee The Plan Of Care: Felix Emerson Start of Care Date: 11/04/23 Onset Date: 09/10/23 REHABILITATION AND SPORTS THERAPY PHYSICAL THERAPY TREATMENT NOTE ASSESSMENT: Joey Delvalle tolerated the session with decreased symptoms. She demonstrated improvements in neck pain and mobility post session, and describes less jaw pain as well. The patient will continue to benefit from ongoing skilled physical therapy to progress toward set goals. PLAN FOR NEXT VISIT: Continue manual as needed. May add periscapular strengthening if tolerated SUBJECTIVE: Patients L neck and jaw both very tight today. [place] great for a day after last session before pain and tightness returned. Pain: Pain Pain Level: 3 Pain Location: Neck - Left, Jaw Description: Tightness Frequency: Continuous OBJECTIVE MEASURES WITH LEVEL OF FUNCTION: L upper trap refers HAMMOND pain TREATMENT: Manual Therapy: 1: STM and CFM to L upper trap and masseter with push to tolerance 2: Manual cervical traction x10 min with pull to tolerance 3: L upper trap stripping Dry Needling: (2) 30 mm needles to L upper trap with pistoning and fanning (2 needles in, 2 needles out. Patient consent gained after discussing risks, benefits, and after care. Patient response: noted decreased tightness and pain, appropriate needling soreness) Skilled Intervention: Manual skills to improve joint mobility, ROM, and decrease pain. Utilized anatomy knowledge of the therapist, and assessment of patient's response to intervention. Billing Manual TherapyTreatment Minutes: 45 Skilled Treatment Time Minutes (timed and untimed codes): 45 Total Session Time (minutes): 45 Session Start Time : 1300 Session Stop Time : 1344 Felix Emerson PT [facility] 12-02-2023 History of Present illness Narrative Episode Visit Count: 3 Therapist That Will Accept/Oversee The Plan Of Care: Felix Emerson Start of Care Date: 11/04/23 Onset Date: 09/10/23 REHABILITATION AND SPORTS THERAPY PHYSICAL THERAPY TREATMENT NOTE ASSESSMENT: Joey Delvalle tolerated the session with decreased symptoms. She demonstrated improvements in neck pain and mobility post session, and describes less jaw pain as well. The patient will continue to benefit from ongoing skilled physical therapy to progress toward set goals. PLAN FOR NEXT VISIT: Continue manual as needed. May add periscapular strengthening if tolerated SUBJECTIVE: Patients L neck and jaw both very tight today. [place] great for a day after last session before pain and tightness returned. Pain: Pain Pain Level: 3 Pain Location: Neck - Left, Jaw Description: Tightness Frequency: Continuous OBJECTIVE MEASURES WITH LEVEL OF FUNCTION: L upper trap refers HAMMOND pain TREATMENT: Manual Therapy: 1: STM and CFM to L upper trap and masseter with push to tolerance 2: Manual cervical traction x10 min with pull to tolerance 3: L upper trap stripping Dry Needling: (2) 30 mm needles to L upper trap with pistoning and fanning (2 needles in, 2 needles out. Patient consent gained after discussing risks, benefits, and after care. Patient response: noted decreased tightness and pain, appropriate needling soreness) Skilled Intervention: Manual skills to improve joint mobility, ROM, and decrease pain. Utilized anatomy knowledge of the therapist, and assessment of patient's response to intervention. Billing Manual TherapyTreatment Minutes: 45 Skilled Treatment Time Minutes (timed and untimed codes): 45 Total Session Time (minutes): 45 Session Start Time : 1300 Session Stop Time : 1344 Felix Emerson PT documented in this encounter [facility] 11-26-2023 Note HNO ID: [id number] Author: FELIX EMERSON PT Service: ? Author Type: Physical Therapist Type: Progress Notes Filed: 11/26/2023 14:45 Note Text: Episode Visit Count: 2 Therapist That Will Accept/Oversee The Plan Of Care: Felix mEerson Start of Care Date: 11/04/23 Onset Date: 09/10/23 REHABILITATION AND SPORTS THERAPY PHYSICAL THERAPY TREATMENT NOTE ASSESSMENT: Joey Delvalle tolerated the session with decreased symptoms and no issues. She demonstrated improvements in neck range of motion and less LUE radicular symptoms. The patient will continue to benefit from ongoing skilled physical therapy to progress toward set goals. PLAN FOR NEXT VISIT: Continue manual. L suboccipitals may be a candidate for needling SUBJECTIVE: Numbness not as bad as previously but still there into the 4th and 5th digits. Notes that she still gets the referred symptoms into the head, espeially with looking down. Pain: Pain Pain Level: 2 Pain Location: Neck - Left Description: Tightness Frequency: Continuous OBJECTIVE MEASURES WITH LEVEL OF FUNCTION: Palpation to L suboccipitals recreates L cheek tingling TREATMENT: Therapeutic Exercise: 1: *C1 rotation mobs 3x10/side 2: *Upper cervical rotation SNAG 3x10/side 3: *Upper cervical extension SNAG 3x10 Skilled Intervention: Patient was educated in proper exercise technique and purpose for exercises. Skilled judgment was used in selection of appropriate interventions. Provided written instruction for home exercise program to facilitate proper performance and compliance. Correct performance of therapeutic exercises was facilitated with verbal, visual, and tactile cuing. Manual Therapy: 1: Manual cervical traction x10 min 2: STM and CFM to L upper trap, cervical paraspinals, and suboccipitals with push to tolerance 3: Stripping to L upper trap and paraspinals with push to tolerance Skilled Intervention: Manual skills to improve joint mobility, ROM, and decrease pain. Utilized anatomy knowledge of the therapist, and assessment of patient's response to intervention. Billing Therapeutic Exercise Treatment Minutes: 10 Manual TherapyTreatment Minutes: 38 Skilled Treatment Time Minutes (timed and untimed codes): 48 Total Session Time (minutes): 48 Session Start Time : 1317 Session Stop Time : 1405 Felix Emerson PT [facility] 11-26-2023 History of Present illness Narrative Episode Visit Count: 2 Therapist That Will Accept/Oversee The Plan Of Care: Felix Emerson Start of Care Date: 11/04/23 Onset Date: 09/10/23 REHABILITATION AND SPORTS THERAPY PHYSICAL THERAPY TREATMENT NOTE ASSESSMENT: Joey Delvalle tolerated the session with decreased symptoms and no issues. She demonstrated improvements in neck range of motion and less LUE radicular symptoms. The patient will continue to benefit from ongoing skilled physical therapy to progress toward set goals. PLAN FOR NEXT VISIT: Continue manual. L suboccipitals may be a candidate for needling SUBJECTIVE: Numbness not as bad as previously but still there into the 4th and 5th digits. Notes that she still gets the referred symptoms into the head, espeially with looking down. Pain: Pain Pain Level: 2 Pain Location: Neck - Left Description: Tightness Frequency: Continuous OBJECTIVE MEASURES WITH LEVEL OF FUNCTION: Palpation to L suboccipitals recreates L cheek tingling TREATMENT: Therapeutic Exercise: 1: *C1 rotation mobs 3x10/side 2: *Upper cervical rotation SNAG 3x10/side 3: *Upper cervical extension SNAG 3x10 Skilled Intervention: Patient was educated in proper exercise technique and purpose for exercises. Skilled judgment was used in selection of appropriate interventions. Provided written instruction for home exercise program to facilitate proper performance and compliance. Correct performance of therapeutic exercises was facilitated with verbal, visual, and tactile cuing. Manual Therapy: 1: Manual cervical traction x10 min 2: STM and CFM to L upper trap, cervical paraspinals, and suboccipitals with push to tolerance 3: Stripping to L upper trap and paraspinals with push to tolerance Skilled Intervention: Manual skills to improve joint mobility, ROM, and decrease pain. Utilized anatomy knowledge of the therapist, and assessment of patient's response to intervention. Billing Therapeutic Exercise Treatment Minutes: 10 Manual TherapyTreatment Minutes: 38 Skilled Treatment Time Minutes (timed and untimed codes): 48 Total Session Time (minutes): 48 Session Start Time : 1317 Session Stop Time : 1405 Felix Emerson PT Program_ID:[id number] Access Code: [email or web address] URL: [email or web address] Date: 11-26-2023 Prepared By: Felix Emerson Program Notes Exercises - Seated Passive Cervical Retraction - 1 x daily - 7 x weekly - 3 sets - 10 reps - Seated Cervical Retraction and Extension - 1 x daily - 7 x weekly - 3 sets - 10 reps - Upper Trapezius Stretch - 3 x daily - 7 x weekly - 1 sets - 3 reps - Seated Assisted Cervical Rotation with Towel - 1 x daily - 7 x weekly - 3 sets - 10 reps - Upper Cervical Extension SNAG with Strap - 1 x daily - 7 x weekly - 3 sets - 10 reps - Upper Cervical Rotation SNAG with Strap - 1 x daily - 7 x weekly - 3 sets - 10 reps documented in this encounter [facility] 11-25-2023 Telephone encounter Note As of now that date is the soonest any location has for this an MRI. Patient was placed on a wait list. [facility] 11-25-2023 Miscellaneous Notes As of now that date is the soonest any location has for this an MRI. Patient was placed on a wait list. Please check on sooner MRI? Okay to get flu shot. Can we check to see if there is any sooner availability for MRI appointment? Thanks Patrick Hirsch PA-C 11/24/2023 Images from the original note were not included. Joey mayfield [facility] My Chart Rx Pool I thought of a few more questions I had. I am signed up to get my flu shot at school is it okay to go ahead and get this before my MRI. I also was wondering if I should avoid getting a massage before my MRI. Also we have been dealing with a mold issue in our newly renovated master bathroom. I have had mold exposure years ago in an old apartment of ours but never tested myself for mold toxicity. I didn't know if that could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 Vaping status: Never Used Substance Use Topics Alcohol use: Not Currently Comment: very rare, not while Drug use: No REVIEW OF SYSTEMS See HPI OBJECTIVE: BP 108/66 Pulse 90 Resp 16 Wt 59.2 kg (130 lb 9.6 oz) LMP 09/21/2023 (Approximate) SpO2 99% BMI 21.73 kg/m APPEARANCE Well appearing, alert, in no acute distress, well-hydrated, well nourished. EYES PERRLA, conjunctiva and sclera normal. EARS External ears normal, canals clear NOSE/SINUS Nares normal. Septum midline. Mucosa normal. No drainage or sinus tenderness. THROAT normal, no erythema NECK Supple, no adenopathy; thyroid symmetric, normal size, HEART RRR with normal S1 and S2 LUNG clear to auscultation BACK: Normal exam EXTREMITIES Extremities normal, No deformities, No skin discoloration, No edema, and Normal pulses bilaterally. NEURO Awake, alert and oriented x 3, Cranial nerves II-XII grossly intact, Reflexes symmetrical, Normal gait, and No involuntary motions. Normal finger to nose. Negative Romberg. ASSESSMENT/PLAN: 1. Cervicalgia - ICD9: 723.1, ICD10: M54.2 (primary diagnosis) Check XR today Consider referral to PT - XR CERV OTHER 4V AP/LAT/OBL - NAPROXEN 500 MG TABLET Reviewed red flags and when to seek care sooner. Seek care sooner if new/worsening HAs-consider MRI brain at that time. If PT not helpful, consider cervical MRI. 2. Numbness and tingling in both hands - ICD9: 782.0, ICD10: R20.0, R20.2 Check labs. Suspicious for carpal tunnel vs cervical radiculopathy. Cock up wrist splints applied today by nurse at visit. - VITAMIN B12 - IRON AND TIBC - FERRITIN - MAGNESIUM - COMPLETE BLOOD COUNT AND DIFFERENTIAL - BASIC METABOLIC PANEL - NAPROXEN 500 MG TABLET The patient indicates understanding of these issues and agrees with the plan. Reviewed red flags and when to seek care sooner. Patrick Hirsch PA-C documented in this encounter [facility] 07-09-2023 Telephone encounter Note Myla Kellogg sent [employer] message 07/08/23. Heena Bender MA [facility] 07-09-2023 Miscellaneous Notes Myla Kellogg sent [employer] message 07/08/23. Heena Bender MA TC no answer. Left VM to return call. WENDY Otero Line remains busy. Will need to try back. Line busy need to try back. Please inform patient that her labs are stable and LDL cholesterol continues to improve and almost to a normal range. Great work! Yuniel Moore DO documented in this encounter [facility] 07-09-2023 Telephone encounter Note TC no answer. Left VM to return call. WENDY Otero [facility] 07-08-2023 Telephone encounter Note Line remains busy. Will need to try back. [facility] 07-08-2023 Telephone encounter Note Line busy need to try back. [facility] 07-07-2023 Telephone encounter Note Please inform patient that her labs are stable and LDL cholesterol continues to improve and almost to a normal range. Great work! Yuniel Moore DO [facility] 07-02-2023 Telephone encounter Note No labs ordered at this time. Please advise. Claire Connelly MA [facility] 07-02-2023 Miscellaneous Notes No labs ordered at this time. Please advise. Claire Connelly MA documented in this encounter [facility] 03-20-2023 Instructions Omer Nelson APRN.VICE PRESIDENT [employer]ALENT MANAGEMENT - 03/20/2023 4:03 PM EST Gardasil Gardasil is a vaccine to protect against Human Papillomavirus (HPV) types 6, 11, 16, 18, 31,33,45, 52, 58. These viruses cause cancer and precancerous lesions on the cervix (opening between vagina and uterus), in the vagina and on the vulva (skin around the outside of the vagina) as well as genital warts. The vaccine cannot cause these diseases and cannot treat them if already present. Gardasil works best if given before contact with HPV. Most people are exposed to HPV soon after starting sexual activity. The vaccine is recommended between the ages of 9 and 45. Gardasil does not protect against all strains of HPV. Women who receive the vaccine still need to have regular pelvic exams and cervical cancer screening with the pap smear. You should ask your doctor if Gardasil is right for you if you have a weakened immune system, a bleeding disorder, plan to become soon or have a current illness causing fever. Gardasil is not recommended for women. You should be sure your doctor is aware of any allergies you have and all medications and herbal supplements you take. Gardasil is given to those ages 9-14 in 2 doses at 0 and 8 months. In ages 15-45, three injections are given at 0,2,6 months. Common side effects include pain, redness, itching and swelling at the injection site, nausea, fever, dizziness and fainting. Rare but potentially serious reactions have been reported. These include allergic reaction, swollen glands, joint and muscle pain, weakness and Guillain-[place] syndrome. Calcium and Vitamin D Supplementation (from the National Institutes of Health Office of Dietary Supplements 2011) Calcium is required by the body for blood vessel, muscle, hormone and nerve functioning. Most of the body's calcium is stored in the bones and teeth where it supports structure and function. Bone is continuously broken down and reformed. When bone breakdown exceeds formation, especially in postmenopausal women, bone loss can increase the risk of osteoporosis and fractures. In addition to low calcium intake, women who smoke, have a family history of osteoporosis, are thin, or , or who take certain medications such as cancer chemotherapy, seizure mediations and steroids are at increased risk of osteoporosis. The calcium requirements in women change with age. The National Institutes of Health (NIH) recommends: 1000mg elemental calcium for premenopausal women age 19-50 1200mg elemental calcium for postmenopausal women and all women over 50 Milk, yogurt, and cheese are rich natural sources of calcium and are the major food contributors in the [place]. For example, 8oz of milk (whole, lowfat or skim) contains about 300mg calcium, 8oz of yogurt contains 415mg. Nondairy sources include salmon and sardines and vegetables, such as Malian cabbage, kale, and broccoli. Foods fortified with calcium include many fruit juices, tofu and cereals. For more food calcium content information, visit http://ods.od.nih.gov/factsheets/c alcium. Calcium supplements come in several different forms. Remember that the recommendations are for millgrams (mg) of elemental calcium which may be less than the total weight of the supplement. The amount of elemental calcium is required to be printed on the label. Calcium carbonate is the least expensive form. It must be taken on a full stomach to be properly absorbed. Some patients may experience gas or constipation. Calcium phosphate and calcium citrate may be taken either with or without food and tend to have less side effects but are generally more expensive. Because of its ability to neutralize stomach acid, calcium carbonate is found in some tora-pbk-mpcuxfx antacid products, such as Tums and Rolaids . Depending on its strength, each chewable pill or softchew provides 200 to 400 mg of elemental calcium. The percentage of calcium absorbed depends on the total amount of elemental calcium consumed at one time. Absorption is highest in doses <500mg. So a woman who takes 1,000mg/day of calcium from supplements should split the dose and take 500mg at two separate times during the day. Too much calcium can cause kidney stones, constipation, difficulty absorbing other nutrients and calcium buildup in blood vessels. Women under 50 should not exceed 2500mg/day (2000mg/day for women over 50) of calcium from food and supplements. Excessive alcohol and caffeine intake can inhibit absorption of calcium. Calcium can reduce the absorption of some medications if taken at the same time of day (bisphosphonates, thyroid medication, Phenytoin and other seizure medications, some antibiotics and iron supplements). Vitamin D promotes calcium absorption in the gut and maintains adequate blood levels of calcium and phosphate for normal bone growth and bone remodeling. Vitamin D also helps regulate cell growth as well as nerve, muscle and immune system function. Vitamin D is produced in the skin as a result of ultraviolet sunlight rays and must be altered in the liver and kidney to become its active form. Recommended intake according to the National Institutes of Health is 600 International Units (IU) for girls and women ages 1-70 and 800 IU for women over 70. Very few foods in nature contain vitamin D. The flesh of fatty fish (such as salmon, tuna, and mackerel) and fish liver oils are among the best sources. Small amounts of vitamin D are found in beef liver, cheese, mushrooms and egg yolks. Most people meet at least some of their vitamin D needs through exposure to sunlight. Season, time of day, length of day, cloud cover, smog, skin melanin content, and sunscreen are among the factors that affect UV radiation exposure and vitamin D synthesis. Despite the importance of the sun for vitamin D synthesis, it is prudent to limit exposure of skin to sunlight and avoid tanning beds. UV radiation is a carcinogen responsible for most of the estimated 1.5 million skin cancers that occur annually in the [place]. Lifetime cumulative UV damage to skin is also responsible for some age-associated dryness and other cosmetic changes. In supplements and fortified foods, vitamin D is available in two forms, D2 (ergocalciferol) and D3 (cholecalciferol). The two are equivalent at normal supplement doses. For women who require high supplement doses because of vitamin D deficiency, D3 may work better to raise blood levels. Some medications can prevent proper absorption of Vitamin D. These include laxatives, corticosteroids like prednisone, the seizure drugs phenobarbital and phenytoin, the weight-loss drug orlistat ( Xenical and AlliTM) and the cholesterol-lowering drug cholestyramine (Questran , LoCholest , and Prevalite ). Talk to your doctor about adjusting your recommended daily vitamin D dosage if you take these medications. You should not exceed 4000 mg of vitamin D supplementation daily unless specifically prescribed by your doctor. documented in this encounter [facility] 03-20-2023 History of Present illness Narrative [employer] offered: Patient declines. Joey is a 37 year old who presents for an annual gynecologic exam without complaints. Menses: cycles every 28 days and 5 days of flow. Contraception: condoms and natural family planning HPV vaccine: No Last Pap: 11/16/2020 normal HPV: 11/12/2020 negative History of abnormal pap: No Last mammogram: never Sexually active: Yes History of STDS: None Patient concerns for STD exposure: No. 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 LMP: 02/28/2023 (Exact Date), Having periods Age at Menarche: Age at First : Age at Menopause: 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 History Comments: Sexual Activity: Yes; Male Contraception: Rhythm PAST MEDICAL HISTORY Diagnosis Date Antepartum anemia complicating in third trimester 08/13/2021 NEGATIVE MEDICAL HISTORY PAST SURGICAL HISTORY Procedure Laterality Date APPENDECTOMY 02/09/1991 SECTION HX 10/17/2021 LIPOMA (LARGE) 09/10/2020 right arm FAMILY HISTORY Problem Relation Age of Onset Osteoporosis Mother 55 Hyperlipidemia Mother Cancer Father 57 melanoma Hyperlipidemia Father Heart Attack Father 66 No Known Problems Sister No Known Problems Brother Osteoporosis Maternal Grandmother Parkinson s Disease Maternal Grandfather No Known Problems Paternal Grandmother No Known Problems Paternal Grandfather No Known Problems Son No Known Problems Son Parkinson s Disease Maternal Uncle SOCIAL HISTORY Social History Tobacco Use Smoking status: Never Smokeless tobacco: Never Vaping Use Vaping Use: Never used Substance Use Topics Alcohol use: Not Currently Comment: very rare, not while Drug use: No REVIEW OF SYSTEMS Abdomen: No abdominal pain, nausea, vomiting, diarrhea, or constipation. No bloating, early satiety, indigestion, or increased flatulence. Bladder: No dysuria, gross hematuria, urinary frequency, urinary urgency, or incontinence. Breast: No breast lumps, nipple d/c, overlying skin changes, redness or skin retraction. Allergies and current medication updated:Yes EXAM: BP 100/60 Ht 5' 5 (1.65m) Wt 129 lb 3.2 oz (58.6kg) LMP 02/28/2023 BMI 21.50 kg/(m^2). GENERAL: pleasant, female in no apparent distress HEENT: Normocephalic, atraumatic, mucus membranes moist, and no lesions NECK: Supple, full range of motion, no adenopathy, and thyroid normal DERMATOLOGY: Normal, without lesions, non-icteric, and non-hirsute BREAST: soft, non-tender, symmetric, no dominant mass, normal nipple-areolar complex, no lymphadenopathy, and no nipple discharge CHEST: Normal inspiratory effort ABDOMEN: soft, non-tender, and no masses PELVIC: external genitalia normal, normal Bartholin's glands, urethra, [place]'s glands, no vulvar lesions, no cervical lesions, good vaginal support, physiologic discharge present, normal appearing perineal body and perianal region BIMANUAL: uterus normal size, shape and consistency, no adnexal masses, and non-tender RECTOVAGINAL: deferred. NEURO: alert and oriented x3,exam grossly non-focal EXTREMITIES: normal ASSESSMENT/PLAN: 1) Health maintenance: Pap/HPV up to date UTD 2020. Deferred until 2025. Nutrition, exercise and routine health maintenance exams reviewed. Calcium/Vitamin D supplementation information provided. Lipids/glucose: followed by PCP HPV vaccine: discussed, literature given 2) Contraception: condoms and natural family planning. Considering vasectomy. 3) STD screening: Declined STD check. 4) Follow up one year or sooner as needed Omer Nelson APRN.VICE PRESIDENT TALENT MANAGEMENT documented in this encounter [facility] 03-05-2022 History of Present illness Narrative CC: Joey Delvalle is a 36 year old female who presents to the office for physical HPI: She is currently 4 months post from the of her 3rd son, she is doing well and feels her mood is stable. She has normal appetite and overall managing the stressors. Has some fatigue symptoms only. 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 PAST MEDICAL HISTORY Diagnosis Date Antepartum anemia complicating in third trimester 08/13/2021 NEGATIVE MEDICAL HISTORY PAST SURGICAL HISTORY Procedure Laterality Date APPENDECTOMY 02/09/1991 SECTION HX 10/17/2021 LIPOMA (LARGE) 09/10/2020 right arm Social History: Social History Tobacco Use Smoking status: Never Smokeless tobacco: Never Vaping Use Vaping Use: Never used Substance Use Topics Alcohol use: Not Currently Comment: very rare, not while Drug use: No FAMILY HISTORY Problem Relation Age of Onset Osteoporosis Mother 55 Hyperlipidemia Mother Cancer Father 57 melanoma Hyperlipidemia Father Heart Attack Father 66 No Known Problems Sister No Known Problems Brother Osteoporosis Maternal Grandmother Parkinson s Disease Maternal Grandfather No Known Problems Paternal Grandmother No Known Problems Paternal Grandfather No Known Problems Son No Known Problems Son Parkinson s Disease Maternal Uncle Current Outpatient prescriptions: Cholecalciferol, Vitamin D3, 125 mcg (5,000 unit) cap Take 1 capsule by mouth once daily. [id number] tab Take 1 tablet by mouth. Allergies: ALLERGIES No Known Allergies ROS: See HPI PE: 03/05/22 1712 BP: 110/70 Pulse: 80 Resp: 12 Temp: (!) 35.9 C (96.7 F) TempSrc: Left Tympanic Weight: 58.5 kg (129 lb) Height: 166 cm (5' 5.35) Gen: A&O, NAD, non-toxic appearing, Pleasant, cooperative HEENT: NT/AC, PERRLA, EOMs intact b/l, nares clear and patent b/l, pharynx without erythema, exudate or lesions. Uvula midline. EACs without erythema or debris. TMs pearly laguerre with intact landmarks b/l. Neck: supple, No cervical LAD, minimal symmetric thyromegaly, no carotid bruits CV: RRR, normal S1 and S2, no murmurs, no gallops, no rubs, Pulses 2+ and symmetric in UE and LE b/l Lungs: normal respiratory effort, CTA b/l, no wheezing or rhonchi or rales Abd: soft, NT, ND, +BS, no hepatosplenomegaly MS: FROM all 4 extremities Neuro: CN II-XII intact b/l, strength 5/5 b/l UE and LE, DTRs 2/4 UE and LE, sensation intact. Skin: warm, dry, intact, No rashes or lesions on exposed skin. No edema, normal pulses ASSESSMENT/PLAN: 1. Well adult exam - ICD9: V70.0, ICD10: Z00.00 (primary diagnosis) - Counseled on healthy diet and regular exercise - Recommend vitamin containing 0.4 mg of folic acid - Calcium intake with supplements or by diet of 1000 mg/day for under 50, 1286-4812 mg/day for 50+ - COMP METABOLIC PANEL - CBC + DIFF - VITAMIN D 25 HYDROXY - VITAMIN B12 BLOOD - TSH BLD - T4 FREE/FREE THYROX - T3 FREE BLD - IRON + TIBC - FERRITIN BLD - C-REACTIVE PROTEIN (CRP) 2. Fatigue, unspecified type - ICD9: 780.79, ICD10: R53.83 Check labs as ordered - COMP METABOLIC PANEL - CBC + DIFF - VITAMIN D 25 HYDROXY - VITAMIN B12 BLOOD - TSH BLD - T4 FREE/FREE THYROX - T3 FREE BLD - IRON + TIBC - FERRITIN BLD - C-REACTIVE PROTEIN (CRP) Yuniel Moore DO To ER if develops chest pain, shortness of breath, or severe worsening of symptoms. Discussed risks, benefits, alternatives, and potential side effects of medications. Patient expressed understanding and agreed with the plan. Yuniel Moore DO [address] [place] [address] documented in this encounter [facility] 02-07-2022 Miscellaneous Notes Return to work letter faxed to the fax number provided. documented in this encounter [facility] 11-29-2021 History of Present illness Narrative VISIT Joey Delvalle is a 36 year old year old here for visit. Delivery Summary: c/s for breech ROS/ Recovery: Feeding: Breast feeding problems: None Menses since delivery: n/a Menstrual pattern prior to : Regular periods Hilton since delivery: Not resumed Depression: denies symptoms of depression. OB Depression and Anxiety Screening- This Encounter (since 11/28/2021) Over the past 2 weeks have you felt down, depressed, or hopeless? Negative Over the past two weeks, have you felt little interest or pleasure in doing things? Negative Feeling nervous, anxious or on edge 0-Not at all Not being able to stop or control worrying 0-Not al all Anxiety Pre-Screening Total (If >/= 3 additional questions will be reviewed) 0 Emotional support: Yes Bowel symptoms: Negative for abdominal discomfort, blood in stools or black stools and change in bowel habits Abdomen: incision still a little tenderness Bladder symptoms: No dysuria, gross hematuria, urinary frequency, urinary urgency, or incontinence Other issues: None Last Pap: 2020 normal HPV: negative PAST MEDICAL HISTORY Diagnosis Date Antepartum anemia complicating in third trimester 08/13/2021 NEGATIVE MEDICAL HISTORY PAST SURGICAL HISTORY Procedure Laterality Date APPENDECTOMY 02/09/1991 LIPOMA (LARGE) 09/10/2020 right arm FAMILY HISTORY Problem Relation Age of Onset Osteoporosis Mother 55 Hyperlipidemia Mother Cancer Father 57 melanoma Hyperlipidemia Father Heart Attack Father 66 No Known Problems Sister No Known Problems Brother Osteoporosis Maternal Grandmother Parkinson s Disease Maternal Grandfather No Known Problems Paternal Grandmother No Known Problems Paternal Grandfather No Known Problems Son No Known Problems Son Parkinson s Disease Maternal Uncle Social History Tobacco Use Smoking status: Never Smokeless tobacco: Never Vaping Use Vaping Use: Never used Substance Use Topics Alcohol use: Not Currently Comment: very rare, not while Drug use: No PHYSICAL EXAMINATION: BP 110/76 Wt 135 lb (61.2kg) LMP 01/21/2021 GENERAL: pleasant, female in no apparent distress HEENT: Normocephalic, atraumatic, mucus membranes moist, and no lesions NECK: Supple, full range of motion, no adenopathy, and thyroid normal DERMATOLOGY: Normal, without lesions, non-icteric, and non-hirsute BREAST: soft, non-tender, symmetric, no dominant mass, normal nipple-areolar complex, no lymphadenopathy, and no nipple discharge CHEST: Normal inspiratory effort ABDOMEN: soft, non-tender, and no masses. INCISION: No incisional redness, swelling, or drainage PELVIC: external genitalia normal, normal Bartholin's glands, urethra, [place]'s glands, no vulvar lesions, no cervical lesions, good vaginal support, physiologic discharge present, normal appearing perineal body and perianal region BIMANUAL: uterus normal size, shape and consistency, no adnexal masses, and non-tender NEURO: alert and oriented x3,exam grossly non-focal EXTREMITIES: normal ASSESSMENT AND PLAN: 36 year old status post with normal course. Contraception plan: vasectomy Follow up: RTC for annual exams and PRN Radha Dumont MD documented in this encounter [facility] 10-25-2021 History of Present illness Narrative EARLY VISIT Joey Delvalle is a 35 year old here for 1 week visit. Delivery Summary: c/s 10/17/2021 - SROM breech ROS: General: Denies any fever or chills Hypertension Screening: Headache? No. Visual Changes? No Epigastric Pain? No Increased Swelling? No Taking any BP medications at home? No If applicable, monitoring BP at home? (If Yes, include results) NA Mood: normal Depression: denies symptoms of depression. OB Depression and Anxiety Screening- This Encounter (since 10/24/2021) Over the past 2 weeks have you felt down, depressed, or hopeless? Negative Over the past two weeks, have you felt little interest or pleasure in doing things? Negative Feeling nervous, anxious or on edge 0-Not at all Not being able to stop or control worrying 0-Not al all Anxiety Pre-Screening Total (If >/= 3 additional questions will be reviewed) 0 Feeding: Breast feeding problems: None Bladder: No dysuria, gross hematuria, urinary frequency, urinary urgency, or incontinence Bowel symptoms: Negative for abdominal discomfort, blood in stools or black stools and change in bowel habits Abdomen: She reports no incisional redness, tenderness, erythema Bleeding: light flow Bottom and Perineum: No issues Sleep: no sleep concerns Hilton since delivery: Not resumed Emotional support: Yes Exercise: N/A Other issues: None PHYSICAL EXAMINATION: BP 110/64 Wt 142 lb 9.6 oz (64.7 kg) LMP 01/21/2021 (Exact Date) Yes BMI 23.37 kg/m General: pleasant,female in no apparent distress Skin warm and intact. Breast: Deferred Abdomen: soft, non-tender, and no masses /Incision: No incisional redness, swelling, or drainage Pelvic: Deferred Bimanual: Deferred ASSESSMENT AND PLAN: 35 year old status post CS with normal course. Contraception plan: not applicable. Reinforced 6-week pelvic rest. Encouraged condom usage should patient deviate. Education: resources provided - see MA/RN note Follow up: Follow-up with provider for 6 week visit and as needed Medical Decision Making: Medical Decision Making Level: 1 - N/A Cecelia Masters DO documented in this encounter [facility] 10-17-2021 History of Present illness Narrative Patient delivered via by Dr. Masters on 10/17/21 at [facility]. See OB history. Andressa Alegre RN documented in this encounter [facility] 10-09-2021 Miscellaneous Notes SW- No regular ctx, vb, lof. Good FM. Discussed reasons to call. RTO 1 wk. Cecelia Masters DO documented in this encounter [facility] 10-09-2021 Instructions Kaity Rubio MA - 10/09/2021 1:17 PM EDT SEQUENTIAL SCREENINGS The [facility] offers sequential screenings for women who are interested in screenings for chromosomal abnormalities and certain defects during a . The sequential screen combines ultrasound and blood tests to determine the risk of chromosomal abnormalities, including Down's Syndrome (Trisomy 21) and Trisomy 18, as well as open neural tube defects including spina bifida. Ultrasound examination is performed between 11 weeks and 13 weeks gestational age. Blood tests are drawn after the ultrasound and again later in the between 15 and 21 weeks gestational age. Please let your physician know if you are interested in this testing. It will require an appointment with our home theatre technician. This is not an ultrasound performed by a physician in our office during a routine visit. SIGNS AND SYMPTOMS OF LABOR 1. Contractions every 10 minutes or more often 2. Clear, pink, or brownish fluid (water) leaking from vagina 3. Feeling that baby is pushing down, pressure 4. Low, dull backache 5. Cramps that feel like a period 6. Cramps with or without diarrhea If you notice any of the above symptoms, contact our office at [phone] and ask to speak with a nurse. After hours, you can call [facility] at [phone] OR call [facility] at [phone] and ask to have the doctor personal development mentor paged. If you consider this an emergency, dial 9--1 or go to your nearest emergency department. NEED HELP? Are you dealing with a violent or abusive relationship? Are you a victim of rape or sexual assult? Call [facility] ([place]) 24 hour Crisis Hotline: 762.988.9396 or 114-438-5847. MANUAL Your Guide to a Healthy manual is now on-line. Visit [email or web address] to download your free copy documented in this encounter [facility] 10-03-2021 Miscellaneous Notes RR_ No VB/LOF. Good FM. NO regulacr ctx. Brief US confirms joanna breech. Anterior placenta. D/ wher option of attempted ECV vs scheduled c/s if baby does not spont. convert to vtx. Elects for c/s. Will plan 10/21/21. F/u in 1 week or prn. GBS done. Kick counts. Radha Dumont MD documented in this encounter [facility] 10-03-2021 Amirah Mcintyre Ma - 10/03/2021 8:33 AM EDT SEQUENTIAL SCREENINGS The [facility] offers sequential screenings for women who are interested in screenings for chromosomal abnormalities and certain defects during a . The sequential screen combines ultrasound and blood tests to determine the risk of chromosomal abnormalities, including Down's Syndrome (Trisomy 21) and Trisomy 18, as well as open neural tube defects including spina bifida. Ultrasound examination is performed between 11 weeks and 13 weeks gestational age. Blood tests are drawn after the ultrasound and again later in the between 15 and 21 weeks gestational age. Please let your physician know if you are interested in this testing. It will require an appointment with our home theatre technician. This is not an ultrasound performed by a physician in our office during a routine visit. SIGNS AND SYMPTOMS OF LABOR 1. Contractions every 10 minutes or more often 2. Clear, pink, or brownish fluid (water) leaking from vagina 3. Feeling that baby is pushing down, pressure 4. Low, dull backache 5. Cramps that feel like a period 6. Cramps with or without diarrhea If you notice any of the above symptoms, contact our office at [phone] and ask to speak with a nurse. After hours, you can call [facility] at [phone] OR call [facility] at [phone] and ask to have the doctor personal development mentor paged. If you consider this an emergency, dial 9-1-7 or go to your nearest emergency department. NEED HELP? Are you dealing with a violent or abusive relationship? Are you a victim of rape or sexual assult? Call [facility] ([place]) 24 hour Crisis Hotline: 465.587.9209 or 516-144-5704. MANUAL Your Guide to a Healthy manual is now on-line. Visit [email or web address] to download your free copy documented in this encounter [facility] 09-18-2021 Miscellaneous Notes RR- Doing well overall. No VB/LOF. No ctxs. Good Fm. Still breech. Follow up in 2 weeks, if still breech consider. Radha Dumont MD documented in this encounter [facility] 09-18-2021 Instructions Maribel Mcintyre Ma - 09/18/2021 8:24 AM EDT SEQUENTIAL SCREENINGS The [facility] offers sequential screenings for women who are interested in screenings for chromosomal abnormalities and certain defects during a . The sequential screen combines ultrasound and blood tests to determine the risk of chromosomal abnormalities, including Down's Syndrome (Trisomy 21) and Trisomy 18, as well as open neural tube defects including spina bifida. Ultrasound examination is performed between 11 weeks and 13 weeks gestational age. Blood tests are drawn after the ultrasound and again later in the between 15 and 21 weeks gestational age. Please let your physician know if you are interested in this testing. It will require an appointment with our home theatre technician. This is not an ultrasound performed by a physician in our office during a routine visit. SIGNS AND SYMPTOMS OF LABOR 1. Contractions every 10 minutes or more often 2. Clear, pink, or brownish fluid (water) leaking from vagina 3. Feeling that baby is pushing down, pressure 4. Low, dull backache 5. Cramps that feel like a period 6. Cramps with or without diarrhea If you notice any of the above symptoms, contact our office at [phone] and ask to speak with a nurse. After hours, you can call [facility] at [phone] OR call [facility] at [phone] and ask to have the doctor personal development mentor paged. If you consider this an emergency, dial 5-3-1 or go to your nearest emergency department. NEED HELP? Are you dealing with a violent or abusive relationship? Are you a victim of rape or sexual assult? Call [facility] ([place]) 24 hour Crisis Hotline: 496.391.7220 or 614-542-1547. MANUAL Your Guide to a Healthy manual is now on-line. Visit [email or web address] to download your free copy documented in this encounter [facility] 09-04-2021 History of Past i llness Narrative Problem Noted Date Resolved Date Breech presentation with problem 09/0411/29/2021 Overview: September 04, 2021 On growth scan today breech. Radha Dumont MD Antepartum anemia complicating in thir d trimester 08/13/2021 11/29/2021 Overview: August 13, 2021 Add fe. Radha Dumont MD H/O rapid labor 03/21/2021 11/29/2021 Overview: 03/21/2021atient has a history of a rapid labor and delivery with her last child. Patient delivered within 3 hours after her water broke. TKRN Antepartum multigravida of advanced maternal age 1012/01/2019 11/29/2021 Overview: 03/21/2021 Patient is 35 years old. Advanced maternal age discussed. Invasive and noninvasive testing discussed. Patient considering nuchal ultrasound and materniti 21 testing. Contact information for integrated [facility] given to patient to check on insurance coverage. TKRN Spotting in 12/01/2019 12/07/2019 Overview: 12/01/2019Patient states she had spotting 1 day on October 25. Denies any spotting or cramping since then last menstrual period 10/02/2019. Patient is advised to call/come in if she develops any further bleeding, the development of pain or as needed problems.TKRN Anal fissure 07/30/2016 12/07/2019 Well adult exam 07/30/2016 12/07/2019 Abnormal antibody titer 03/05/2016 05/20/19 17 Overview: March 05, 2016 Likely false positive, repeat in 6 weeks. Radha Dumont MD History of maternal third de gree perineal laceration, currently 12/03/2015 11/29/2021 Overview: 03/21/2021 Patient has a history of a third-degree laceration with the of her first child and a second-degree laceration with her second. TKRN History of delivery by vacuum extraction, lexi tly 12/03/2015 08/05/2016 Overview: Boy on us Family history of Down syndrome 12/03/2015 11/29/2021 Overview: 03/21/2021Father of the baby's brother with Down syndrome. Patient declines genetic carrier screening testing.Judy Eldridge RN Lipoma of right upper extremity 05/29/2015 12/07/2019 Overview: over triceps Supervision of normal first 10/05/2013 12/03/2015 Vaginismus 09/26/2010 09/24/2011 documented as of this encounter (statuses as of 11/29/2021) [facility] History of Past illness Narrative* Problem Noted Date Resolved Date Breech presentation with problem 09/0411/29/2021 Overview: September 04, 2021 On growth scan today breech. Radha Dumont MD Antepartum anemia complicating in thir d trimester 08/13/2021 11/29/2021 Overview: August 13, 2021 Add fe. Radha Dumont MD H/O rapid labor 03/21/2021 11/29/2021 Overview: 03/21/2021atient has a history of a rapid labor and delivery with her last child. Patient delivered within 3 hours after her water broke. TKRN Antepartum multigravida of advanced maternal age 1012/01/2019 11/29/2021 Overview: 03/21/2021 Patient is 35 years old. Advanced maternal age discussed. Invasive and noninvasive testing discussed. Patient considering nuchal ultrasound and materniti 21 testing. Contact information for integrated [facility] given to patient to check on insurance coverage. TKRN Spotting in 12/01/2019 12/07/2019 Overview: 12/01/2019Patient states she had spotting 1 day on October 25. Denies any spotting or cramping since then last menstrual period 10/02/2019. Patient is advised to call/come in if she develops any further bleeding, the development of pain or as needed problems.TKRN Anal fissure 07/30/2016 12/07/2019 Well adult exam 07/30/2016 12/07/2019 Abnormal antibody titer 03/05/2016 05/20/19 17 Overview: March 05, 2016 Likely false positive, repeat in 6 weeks. Radha Dumont MD History of maternal third de gree perineal laceration, currently 12/03/2015 11/29/2021 Overview: 03/21/2021 Patient has a history of a third-degree laceration with the of her first child and a second-degree laceration with her second. TKRN History of delivery by vacuum extraction, lexi lamb 12/03/2015 08/05/2016 Overview: Boy on us Family history of Down syndrome 12/03/2015 11/29/2021 Overview: 03/21/2021Father of the baby's brother with Down syndrome. Patient declines genetic carrier screening testing.Judy Eldridge RN Lipoma of right upper extremity 05/29/2015 12/07/2019 Overview: over triceps Supervision of normal first 10/05/2013 12/03/2015 Vaginismus 09/26/2010 09/24/2011 documented as of this encounter (statuses as of 02/12/2022) [facility] History of Past illness Narrative* Problem Noted Date Resolved Date Breech presentation with problem 09/0411/29/2021 Overview: September 04, 2021 On growth scan today breech. Radha Dumont MD Antepartum anemia complicating in thir d trimester 08/13/2021 11/29/2021 Overview: August 13, 2021 Add fe. Radha Dumont MD H/O rapid labor 03/21/2021 11/29/2021 Overview: 03/21/2021atient has a history of a rapid labor and delivery with her last child. Patient delivered within 3 hours after her water broke. TKRN Antepartum multigravida of advanced maternal age 1012/01/2019 11/29/2021 Overview: 03/21/2021 Patient is 35 years old. Advanced maternal age discussed. Invasive and noninvasive testing discussed. Patient considering nuchal ultrasound and materniti 21 testing. Contact information for integrated [facility] given to patient to check on insurance coverage. TKRN Spotting in 12/01/2019 12/07/2019 Overview: 12/01/2019Patient states she had spotting 1 day on October 25. Denies any spotting or cramping since then last menstrual period 10/02/2019. Patient is advised to call/come in if she develops any further bleeding, the development of pain or as needed problems.TKRN Anal fissure 07/30/2016 12/07/2019 Well adult exam 07/30/2016 12/07/2019 Abnormal antibody titer 03/05/2016 05/20/19 17 Overview: March 05, 2016 Likely false positive, repeat in 6 weeks. Radha Dumont MD History of maternal third de gree perineal laceration, currently 12/03/2015 11/29/2021 Overview: 03/21/2021 Patient has a history of a third-degree laceration with the of her first child and a second-degree laceration with her second. TKRN History of delivery by vacuum extraction, lexi tly 12/03/2015 08/05/2016 Overview: Boy on us Family history of Down syndrome 12/03/2015 11/29/2021 Overview: 03/21/2021Father of the baby's brother with Down syndrome. Patient declines genetic carrier screening testing.Judy Eldridge RN Lipoma of right upper extremity 05/29/2015 12/07/2019 Overview: over triceps Supervision of normal first 10/05/2013 12/03/2015 Vaginismus 09/26/2010 09/24/2011 documented as of this encounter (statuses as of 03/06/2022) [facility]-27-[facility] History of Past illness Narrative* Problem Noted Date Diagnosed Date Resolved Date Breech presentation with problem 09/04/2021 11/29/2021 Overview: September 04, 2021 On growth scan today breech. Radha Dumont MD Antepartum anemia complicati ng in third trimester 08/13/2021 11/29/2021 Overview: August 13, 2021 Add fe. Radha Dumont MD H/O rapid labor 03/21/2021 11/29/2021 Overview: 03/21/2021atient has a history of a rapid labor and delivery with her last child. Patient delivered within 3 hours after her water broke. TKRN Antepartum multigravida of a dvanced maternal age 1012/01/2019 11/29/2021 Overview: 03/21/2021 Patient is 35 years old. Advanced maternal age discussed. Invasive and noninvasive testing discussed. Patient considering nuchal ultrasound and materniti 21 testing. Contact information for [facility] given to patient to check on insurance coverage. TKRN Spotting in 12/01/20192019 Overview: 12/01/2019Patient states she had spotting 1 day on October 25. Denies any spotting or cramping since then last menstrual period 10/02/2019. Patient is advised to call/come in if she develops any further bleeding, the development of pain or as needed problems.TKRN Anal fissure 07/30/2016 12/07/2019 Well adult exam 07/30/2016 12/07/2019 Abnormal antibody titer 03/05/2016 04/ Overview: March 05, 2016 Likely false positive, repeat in 6 weeks. Radha Dumont MD History of maternal third de gree perineal laceration, currently 12/03/2015 Overview: 03/21/2021 Patient has a history of a third-degree laceration with the of her first child and a second-degree laceration with her second. TKRN History of delivery by vacuu m extraction, currently 12/03/2015 08/05/2016 Overview: Boy on us Family history of Down syndrome 12/03/2015 11/29/2021 Overview: 03/21/2021Father of the baby's brother with Down syndrome. Patient declines genetic carrier screening testing.Judy Eldridge RN Lipoma of right upper extremity 05/29/2015 12/07/2019 Overview: over triceps Supervision of normal first 10/05/2013 12/03/2015 Vaginismus 09/26/2010 09/24/2011 documented as of this encounter (statuses as of 03/20/2023) [facility] Miscellaneous Notes* Quick Notes - Radha Dumont MD - 09/04/2021 12:08 PM EDT RR- Spoke w/ patient via phone as I was called away to hospital. Doing well overall. Answered quesitons about breech presentation of fetus. Reeval at 36 weeks, F/u in 2 weeks for OB visit. Radha Dumont MD documented in this encounterDay[facility]22 Instructions* Patient Instructions* Maribel Mcintyre Ma - 09/04/2021 10:24 AM EDT SEQUENTIAL SCREENINGS The [facility] offers sequential screenings for women who are interested in screenings for chromosomal abnormalities and certain defects during a . The sequential screen combinesultrasound and blood tests to determine the risk of chromosomal abnormalities, including Down's Syndrome (Trisomy 21) and Trisomy 18, as well as open neural tube defects including spina bifida. Ultrasound examination is performed between 11 weeks and 13 weeks gestational age. Blood tests are drawn after the ultrasound and again later in the between 15 and 21 weeks gestational age. Please let your physician know if you are interested in this testing. It will require an appointment withour home theatre technician. This is not an ultrasound performed by a physician in our office during a routine visit. SIGNS AND SYMPTOMS OF LABOR 1. Contractions every 10 minutes or more often 2. Clear, pink, or brownish fluid (water) leaking from vagina 3. Feeling that baby is pushing down, pressure 4. Low, dull backache 5. Cramps that feel like a period 6. Cramps with or without diarrhea If you notice any of the above symptoms, contact our office at [phone] and ask to speak with anurse. After hours, you can call doctors registry at [phone] OR call [facility] at [phone] ask to have the doctor personal development mentor paged. If you consider this an emergency, dial 9-1-3 or go to your nearest emergency department. NEED HELP? Are you dealing with a violent or abusive relationship? Are you a victim of rape or sexual assult? Call [facility] ([place]) 24 hour Crisis Hotline: 235.105.8308 or 256-150-8169. MANUAL Your Guide to a Healthy manual is now on-line. Visit [email or web address] to download your free copy documented in this encounterDay[facility]07[facility]22 Miscellaneous Notes* Quick Notes - Radha Dumont MD - 08/21/2021 8:53 AM EDT RR_ No VB/LOF. Good FM. No ctxs. No edema. Some skin irritation around groin for a few garland, no sureif is razor burn and has used hydrocortisone cream. Mild anemia, taking fe. Us for growth on 09/04/21. Groin area- small area that does seem consistent w/ razor burn/irritation. Use hydrocortisone prn. F/u in 2 weeks or prn. Radha Dumont MD documented in this encounterDay[facility]07[facility]22 Instructions* Patient Instructions* Maribel Mcintyre Ma - 08/21/2021 8:36 AM EDT SEQUENTIAL SCREENINGS The [facility] offers sequential screenings for women who are interested in screenings for chromosomal abnormalities and certain defects during a . The sequential screen combinesultrasound and blood tests to determine the risk of chromosomal abnormalities, including Down's Syndrome (Trisomy 21) and Trisomy 18, as well as open neural tube defects including spina bifida. Ultrasound examination is performed between 11 weeks and 13 weeks gestational age. Blood tests are drawn after the ultrasound and again later in the between 15 and 21 weeks gestational age. Please let your physician know if you are interested in this testing. It will require an appointment withour home theatre technician. This is not an ultrasound performed by a physician in our office during a routine visit. SIGNS AND SYMPTOMS OF LABOR 1. Contractions every 10 minutes or more often 2. Clear, pink, or brownish fluid (water) leaking from vagina 3. Feeling that baby is pushing down, pressure 4. Low, dull backache 5. Cramps that feel like a period 6. Cramps with or without diarrhea If you notice any of the above symptoms, contact our office at [phone] and ask to speak with anurse. After hours, you can call doctors registry at [phone] OR call [facility] at [phone] ask to have the doctor personal development mentor paged. If you consider this an emergency, dial 91-0 or go to your nearest emergency department. NEED HELP? Are you dealing with a violent or abusive relationship? Are you a victim of rape or sexual assult? Call [facility] ([place]) 24 hour Crisis Hotline: 989.161.3599 or 920-579-9655. MANUAL Your Guide to a Healthy manual is now on-line. Visit [email or web address] to download your free copy documented in this encounterDay[facility]07-[facility]22 Miscellaneous Notes* Telephone Encounter - Vianca Linares LPN - 08/20/2021 10:43 AM EDT Failed attempt to fax FMLA. Pt has appt 08/21/21 with RR. Forms placed in RR nurses station to give to pt tomorrow. Scanned into EMR and copy filed in CARDIAC CARE NURSE suite. Vianca Linares LPN * Telephone Encounter - Andressa Alegre RN - 08/20/2021 10:08 AM EDT Patient verified fax number and it is correct. 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 Andressa Alegre RN * Telephone Encounter - Vianca Linares LPN - 08/20/2021 9:11 AM EDT 2nd message left for pt to contact the office to verify fax number for FMLA. Vianca Linares LPN * Telephone Encounter - Vianca Linares LPN - 08/19/2021 11:45 AM EDT Message left for pt to contact the office with fax number for FMLA. Number provided is not working.Vianca Linares LPN documented in this encounterDay[facility]07-[facility]-2022 Miscellaneous Notes* Telephone Encounter - Vianca Linares LPN - 08/19/2021 11:06 AM EDT FMLA paperwork completed, faxed to employer,scanned into EMR and filed in CARDIAC CARE NURSE suite. Vianca Linares LPN * Telephone Encounter - Vianca Linares LPN - 08/19/2021 7:35 AM EDT FMLA paperwork completed and placed on providers desk for signature. Vianca Linares LPN documented in this encounterDayton [facility] Center06-29-2022 Miscellaneous Notes* Quick Notes - Radha Dumont MD - 08/07/2021 11:24 AM EDT RR_ doing well overall. Good FM. No edema. 28 week labs. tdap today. Growth scan for AMA at 32-34 weeks. Radha Dumont MD documented in this encounterDayton [facility] Center06-29-2022 History of Present illness Narrative* Maribel Mcintyre Ma - 08/07/2021 11:09 AM EDT Patient identified by name and date of . Joey Delvalle presents today for a vaccination of Tdap. Patient denies an allergy to latex: yes Patient denies a severe (life-threatening) allergy to a previous dose of Tdap, DTP, DTaP, DT or Td vaccine. Yes Patient denies history of epilepsy or neurological problems: Yes Patient is afebrile and denies being moderately or severely ill: Yes Patient denies history of Guillain-[place] Syndrome (a severe paralytic illness): Yes Tdap Adacel injection was given without incident. See immunizations for details of immunizations administered today. VIS sheet provided: Yes Provider Dr Dumont was present in office at time of injection. Maribel Mcintyre Ma documented in this encounterDayton [facility] Center06-29-2022 Instructions* Patient Instructions* Maribel Mcintyre Ma - 08/07/2021 11:05 AM EDT SEQUENTIAL SCREENINGS The [facility] offers sequential screenings for women who are interested in screenings for chromosomal abnormalities and certain defects during a . The sequential screen combinesultrasound and blood tests to determine the risk of chromosomal abnormalities, including Down's Syndrome (Trisomy 21) and Trisomy 18, as well as open neural tube defects including spina bifida. Ultrasound examination is performed between 11 weeks and 13 weeks gestational age. Blood tests are drawn after the ultrasound and again later in the between 15 and 21 weeks gestational age. Please let your physician know if you are interested in this testing. It will require an appointment withour home theatre technician. This is not an ultrasound performed by a physician in our office during a routine visit. SIGNS AND SYMPTOMS OF LABOR 1. Contractions every 10 minutes or more often 2. Clear, pink, or brownish fluid (water) leaking from vagina 3. Feeling that baby is pushing down, pressure 4. Low, dull backache 5. Cramps that feel like a period 6. Cramps with or without diarrhea If you notice any of the above symptoms, contact our office at [phone] and ask to speak with anurse. After hours, you can call doctors registry at [phone] OR call [facility] at [phone] ask to have the doctor personal development mentor paged. If you consider this an emergency, dial 9--7 or go to your nearest emergency department. NEED HELP? Are you dealing with a violent or abusive relationship? Are you a victim of rape or sexual assult? Call [facility] ([place]) 24 hour Crisis Hotline: 239.243.7708 or 986-339-0913. MANUAL Your Guide to a Healthy manual is now on-line. Visit [email or web address] to download your free copy documented in this encounterDayton [facility] Center06-01-2022 Miscellaneous Notes* Quick Notes - Radha Dumont MD - 07/10/2021 9:02 AM EDT RR- No VB/LOF. Good FM. Some heartburn intermittently. Taking PNV. F/u in 4 weeks for 28 week labs.Radha Dumont MD documented in this encounterDayton [facility] Center06-01-2022 Instructions* Patient Instructions* Maribel Mcintyre Ma - 07/10/2021 8:41 AM EDT SEQUENTIAL SCREENINGS The [facility] offers sequential screenings for women who are interested in screenings for chromosomal abnormalities and certain defects during a . The sequential screen combinesultrasound and blood tests to determine the risk of chromosomal abnormalities, including Down's Syndrome (Trisomy 21) and Trisomy 18, as well as open neural tube defects including spina bifida. Ultrasound examination is performed between 11 weeks and 13 weeks gestational age. Blood tests are drawn after the ultrasound and again later in the between 15 and 21 weeks gestational age. Please let your physician know if you are interested in this testing. It will require an appointment withour home theatre technician. This is not an ultrasound performed by a physician in our office during a routine visit. SIGNS AND SYMPTOMS OF LABOR 1. Contractions every 10 minutes or more often 2. Clear, pink, or brownish fluid (water) leaking from vagina 3. Feeling that baby is pushing down, pressure 4. Low, dull backache 5. Cramps that feel like a period 6. Cramps with or without diarrhea If you notice any of the above symptoms, contact our office at [phone] and ask to speak with anurse. After hours, you can call doctors registry at [phone] OR call [facility] at [phone] ask to have the doctor personal development mentor paged. If you consider this an emergency, dial 6-1-2 or go to your nearest emergency department. NEED HELP? Are you dealing with a violent or abusive relationship? Are you a victim of rape or sexual assult? Call [facility] ([place]) 24 hour Crisis Hotline: 604.310.7729 or 600-755-9120. MANUAL Your Guide to a Healthy manual is now on-line. Visit [email or web address] to download your free copy documented in this encounterDayton [facility] Medical Center05-04-2022 Miscellaneous Notes* Quick Notes - Radha Dumont MD - 06/12/2021 1:52 PM EDT RR- No VB/LOF. Taking pNV. ANatomy US today. It's a boy. AFP low risk. F/u in 4 weeks or prn. Radha Dumont MD documented in this encounterDayton [facility] Medical Center05-04-2022 Instructions* Patient Instructions* Tiera Bunch MA - 06/12/2021 1:38 PM EDT SEQUENTIAL SCREENINGS The [facility] offers sequential screenings for women who are interested in screenings for chromosomal abnormalities and certain defects during a . The sequential screen combinesultrasound and blood tests to determine the risk of chromosomal abnormalities, including Down's Syndrome (Trisomy 21) and Trisomy 18, as well as open neural tube defects including spina bifida. Ultrasound examination is performed between 11 weeks and 13 weeks gestational age. Blood tests are drawn after the ultrasound and again later in the between 15 and 21 weeks gestational age. Please let your physician know if you are interested in this testing. It will require an appointment withour home theatre technician. This is not an ultrasound performed by a physician in our office during a routine visit. SIGNS AND SYMPTOMS OF LABOR 1. Contractions every 10 minutes or more often 2. Clear, pink, or brownish fluid (water) leaking from vagina 3. Feeling that baby is pushing down, pressure 4. Low, dull backache 5. Cramps that feel like a period 6. Cramps with or without diarrhea If you notice any of the above symptoms, contact our office at [phone] and ask to speak with anurse. After hours, you can call doctors registry at [phone] OR call [facility] at [phone] ask to have the doctor personal development mentor paged. If you consider this an emergency, dial 9-1-2 or go to your nearest emergency department. NEED HELP? Are you dealing with a violent or abusive relationship? Are you a victim of rape or sexual assult? Call [facility] ([place]) 24 hour Crisis Hotline: 745.836.9466 or 141-952-7954. MANUAL Your Guide to a Healthy manual is now on-line. Visit [email or web address] to download your free copy documented in this encounterDayton [facility] Medical Center04-11-2022 Miscellaneous Notes* Telephone Encounter - Vianca Linares LPN - 05/20/2021 3:07 PM EDT Pt returned call and was given below message. Pt voiced understanding and will have the lab drawn this week. Vianca Linares LPN * Telephone Encounter - Andressa Alegre RN - 05/20/2021 2:36 PM EDT Images from the original note were not included. Left message for patient to call office. Andressa Masters MD P Wstr 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 Pool Forgot to have pt complete AFP today - please call her and have her get blood work done sometime this week thanks. Order placed documented in this encounterDayton [facility] Medical Center04-11-2022 Miscellaneous Notes* Quick Notes - Cecelia Masters MD - 05/20/2021 1:44 PM EDT SW- No pain, vb, lof. No FM yet. AFP ordered. Discussed upcoming expectations. RTO anatomy US and visit. Cecelia Masters DO documented in this encounterDayton Va Medical Center04-11-2022 Instructions* Patient Instructions* Kaity Rubio MA - 05/20/2021 1:30 PM EDT SEQUENTIAL SCREENINGS The [facility] offers sequential screenings for women who are interested in screenings for chromosomal abnormalities and certain defects during a . The sequential screen combinesultrasound and blood tests to determine the risk of chromosomal abnormalities, including Down's Syndrome (Trisomy 21) and Trisomy 18, as well as open neural tube defects including spina bifida. Ultrasound examination is performed between 11 weeks and 13 weeks gestational age. Blood tests are drawn after the ultrasound and again later in the between 15 and 21 weeks gestational age. Please let your physician know if you are interested in this testing. It will require an appointment withour home theatre technician. This is not an ultrasound performed by a physician in our office during a routine visit. SIGNS AND SYMPTOMS OF LABOR 1. Contractions every 10 minutes or more often 2. Clear, pink, or brownish fluid (water) leaking from vagina 3. Feeling that baby is pushing down, pressure 4. Low, dull backache 5. Cramps that feel like a period 6. Cramps with or without diarrhea If you notice any of the above symptoms, contact our office at [phone] and ask to speak with anurse. After hours, you can call doctors registry at [phone] OR call [facility] at [phone] ask to have the doctor personal development mentor paged. If you consider this an emergency, dial 9-1-7 or go to your nearest emergency department. NEED HELP? Are you dealing with a violent or abusive relationship? Are you a victim of rape or sexual assult? Call [facility] ([place]) 24 hour Crisis Hotline: 907.166.5720 or 832-520-5786. MANUAL Your Guide to a Healthy manual is now on-line. Visit [email or web address] to download your free copy documented in this encounterDayton Va Medical Center10-22-2020 History of Past illness Narrative* Problem Noted Date Resolved Date Spotting in 12/01/2019 12/07/2019 Overview: 12/01/2019Patient states she had spotting 1 day on October 25. Denies any spotting or cramping since then last menstrual period 10/02/2019. Patient is advised to call/come in if she develops any further bleeding, the development of pain or as needed problems.TKRN Anal fissure 07/30/2016 12/07/2019 Well adult exam 07/30/2016 12/07/2019 Abnormal antibody titer 03/05/2016 05/20/19 17 Overview: March 05, 2016 Likely false positive, repeat in 6 weeks. Radha Dumont MD History of delivery by vacuum extraction, lexi tly 12/03/2015 08/05/2016 Overview: Boy on us Lipoma of right upper extremity 05/29/2015 12/07/2019 Overview: over triceps Supervision of normal first 10/05/2013 12/03/2015 Vaginismus 09/26/2010 09/24/2011 documented as of this encounter (statuses as of 05/20/2021) [facility] of Past illness Narrative* Problem Noted Date Resolved Date Spotting in 12/01/2019 12/07/2019 Overview: 12/01/2019Patient states she had spotting 1 day on October 25. Denies any spotting or cramping since then last menstrual period 10/02/2019. Patient is advised to call/come in if she develops any further bleeding, the development of pain or as needed problems.TKRN Anal fissure 07/30/2016 12/07/2019 Well adult exam 07/30/2016 12/07/2019 Abnormal antibody titer 03/05/2016 05/20/19 17 Overview: March 05, 2016 Likely false positive, repeat in 6 weeks. Radha Dumont MD History of delivery by vacuum extraction, lexi tly 12/03/2015 08/05/2016 Overview: Boy on us Lipoma of right upper extremity 05/29/2015 12/07/2019 Overview: over triceps Supervision of normal first 10/05/2013 12/03/2015 Vaginismus 09/26/2010 09/24/2011 documented as of this encounter (statuses as of 05/20/2021) [facility] of Past illness Narrative* Problem Noted Date Resolved Date Spotting in 12/01/2019 12/07/2019 Overview: 12/01/2019Patient states she had spotting 1 day on October 25. Denies any spotting or cramping since then last menstrual period 10/02/2019. Patient is advised to call/come in if she develops any further bleeding, the development of pain or as needed problems.TKRN Anal fissure 07/30/2016 12/07/2019 Well adult exam 07/30/2016 12/07/2019 Abnormal antibody titer 03/05/2016 05/20/19 17 Overview: March 05, 2016 Likely false positive, repeat in 6 weeks. Radha Dumont MD History of delivery by vacuum extraction, lexi lamb 12/03/2015 08/05/2016 Overview: Boy on us Lipoma of right upper extremity 05/29/2015 12/07/2019 Overview: over triceps Supervision of normal first 10/05/2013 12/03/2015 Vaginismus 09/26/2010 09/24/2011 documented as of this encounter (statuses as of 06/12/2021) [facility] of [facility] illness Narrative* Problem Noted Date Resolved Date Spotting in 12/01/2019 12/07/2019 Overview: 12/01/2019Patient states she had spotting 1 day on October 25. Denies any spotting or cramping since then last menstrual period 10/02/2019. Patient is advised to call/come in if she develops any further bleeding, the development of pain or as needed problems.TKRN Anal fissure 07/30/2016 12/07/2019 Well adult exam 07/30/2016 12/07/2019 Abnormal antibody titer 03/05/2016 05/20/19 Overview: March 05, 2016 Likely false positive, repeat in 6 weeks. Radha Dumont MD History of delivery by vacuum extraction, lexi lamb 12/03/2015 08/05/2016 Overview: Boy on us Lipoma of right upper extremity 05/29/2015 12/07/2019 Overview: over triceps Supervision of normal first 10/05/2013 12/03/2015 Vaginismus 09/26/2010 09/24/2011 documented as of this encounter (statuses as of 06/12/2021) [facility] of [facility] illness Narrative* Problem Noted Date Resolved Date Spotting in 12/01/2019 12/07/2019 Overview: 12/01/2019Patient states she had spotting 1 day on October 25. Denies any spotting or cramping since then last menstrual period 10/02/2019. Patient is advised to call/come in if she develops any further bleeding, the development of pain or as needed problems.TKRN Anal fissure 07/30/2016 12/07/2019 Well adult exam 07/30/2016 12/07/2019 Abnormal antibody titer 03/05/2016 05/20/19 17 Overview: March 05, 2016 Likely false positive, repeat in 6 weeks. Radha Dumont MD History of delivery by vacuum extraction, lexi lamb 12/03/2015 08/05/2016 Overview: Boy on us Lipoma of right upper extremity 05/29/2015 12/07/2019 Overview: over triceps Supervision of normal first 10/05/2013 12/03/2015 Vaginismus 09/26/2010 09/24/2011 documented as of this encounter (statuses as of 07/10/2021) [facility] History of Past illness Narrative* Problem Noted Date Resolved Date Spotting in 12/01/2019 12/07/2019 Overview: 12/01/2019Patient states she had spotting 1 day on October 25. Denies any spotting or cramping since then last menstrual period 10/02/2019. Patient is advised to call/come in if she develops any further bleeding, the development of pain or as needed problems.TKRN Anal fissure 07/30/2016 12/07/2019 Well adult exam 07/30/2016 12/07/2019 Abnormal antibody titer 03/05/2016 05/20/19 17 Overview: March 05, 2016 Likely false positive, repeat in 6 weeks. Radha Dumont MD History of delivery by vacuum extraction, lexi lamb 12/03/2015 08/05/2016 Overview: Boy on us Lipoma of right upper extremity 05/29/2015 12/07/2019 Overview: over triceps Supervision of normal first 10/05/2013 12/03/2015 Vaginismus 09/26/2010 09/24/2011 documented as of this encounter (statuses as of 08/07/2021) [facility] History of Past illness Narrative* Problem Noted Date Resolved Date Spotting in 12/01/2019 12/07/2019 Overview: 12/01/2019Patient states she had spotting 1 day on October 25. Denies any spotting or cramping since then last menstrual period 10/02/2019. Patient is advised to call/come in if she develops any further bleeding, the development of pain or as needed problems.TKRN Anal fissure 07/30/2016 12/07/2019 Well adult exam 07/30/2016 12/07/2019 Abnormal antibody titer 03/05/2016 05/20/19 17 Overview: March 05, 2016 Likely false positive, repeat in 6 weeks. Radha Dumont MD History of delivery by vacuum extraction, lexi tly 12/03/2015 08/05/2016 Overview: Boy on us Lipoma of right upper extremity 05/29/2015 12/07/2019 Overview: over triceps Supervision of normal first 10/05/2013 12/03/2015 Vaginismus 09/26/2010 09/24/2011 documented as of this encounter (statuses as of 08/19/2021) [facility] History of Past illness Narrative* Problem Noted Date Resolved Date Spotting in 12/01/2019 12/07/2019 Overview: 12/01/2019Patient states she had spotting 1 day on October 25. Denies any spotting or cramping since then last menstrual period 10/02/2019. Patient is advised to call/come in if she develops any further bleeding, the development of pain or as needed problems.TKRN Anal fissure 07/30/2016 12/07/2019 Well adult exam 07/30/2016 12/07/2019 Abnormal antibody titer 03/05/2016 05/20/19 17 Overview: March 05, 2016 Likely false positive, repeat in 6 weeks. Radha Dumont MD History of delivery by vacuum extraction, lexi lamb 12/03/2015 08/05/2016 Overview: Boy on us Lipoma of right upper extremity 05/29/2015 12/07/2019 Overview: over triceps Supervision of normal first 10/05/2013 12/03/2015 Vaginismus 09/26/2010 09/24/2011 documented as of this encounter (statuses as of 08/20/2021) [facility] History of Past illness Narrative* Problem Noted Date Resolved Date Spotting in 12/01/2019 12/07/2019 Overview: 12/01/2019Patient states she had spotting 1 day on October 25. Denies any spotting or cramping since then last menstrual period 10/02/2019. Patient is advised to call/come in if she develops any further bleeding, the development of pain or as needed problems.TKRN Anal fissure 07/30/2016 12/07/2019 Well adult exam 07/30/2016 12/07/2019 Abnormal antibody titer 03/05/2016 05/20/19 17 Overview: March 05, 2016 Likely false positive, repeat in 6 weeks. Radha Dumont MD History of delivery by vacuum extraction, lexi lamb 12/03/2015 08/05/2016 Overview: Boy on us Lipoma of right upper extremity 05/29/2015 12/07/2019 Overview: over triceps Supervision of normal first 10/05/2013 12/03/2015 Vaginismus 09/26/2010 09/24/2011 documented as of this encounter (statuses as of 08/21/2021) [facility] History of Past illness Narrative* Problem Noted Date Resolved Date Spotting in 12/01/2019 12/07/2019 Overview: 12/01/2019Patient states she had spotting 1 day on October 25. Denies any spotting or cramping since then last menstrual period 10/02/2019. Patient is advised to call/come in if she develops any further bleeding, the development of pain or as needed problems.TKRN Anal fissure 07/30/2016 12/07/2019 Well adult exam 07/30/2016 12/07/2019 Abnormal antibody titer 03/05/2016 05/20/19 17 Overview: March 05, 2016 Likely false positive, repeat in 6 weeks. Radha Dumont MD History of delivery by vacuum extraction, lexi lamb 12/03/2015 08/05/2016 Overview: Boy on us Lipoma of right upper extremity 05/29/2015 12/07/2019 Overview: over triceps Supervision of normal first 10/05/2013 12/03/2015 Vaginismus 09/26/2010 09/24/2011 documented as of this encounter (statuses as of 09/04/2021) [facility] History of Past illness Narrative* Problem Noted Date Resolved Date Spotting in 12/01/2019 12/07/2019 Overview: 12/01/2019Patient states she had spotting 1 day on October 25. Denies any spotting or cramping since then last menstrual period 10/02/2019. Patient is advised to call/come in if she develops any further bleeding, the development of pain or as needed problems.TKRN Anal fissure 07/30/2016 12/07/2019 Well adult exam 07/30/2016 12/07/2019 Abnormal antibody titer 03/05/2016 05/20/19 17 Overview: March 05, 2016 Likely false positive, repeat in 6 weeks. Radha Dumont MD History of delivery by vacuum extraction, lexi lamb 12/03/2015 08/05/2016 Overview: Boy on us Lipoma of right upper extremity 05/29/2015 12/07/2019 Overview: over triceps Supervision of normal first 10/05/2013 12/03/2015 Vaginismus 09/26/2010 09/24/2011 documented as of this encounter (statuses as of 09/18/2021) [facility] History of Past illness Narrative* Problem Noted Date Resolved Date Spotting in 12/01/2019 12/07/2019 Overview: 12/01/2019Patient states she had spotting 1 day on October 25. Denies any spotting or cramping since then last menstrual period 10/02/2019. Patient is advised to call/come in if she develops any further bleeding, the development of pain or as needed problems.TKRN Anal fissure 07/30/2016 12/07/2019 Well adult exam 07/30/2016 12/07/2019 Abnormal antibody titer 03/05/2016 05/20/19 17 Overview: March 05, 2016 Likely false positive, repeat in 6 weeks. Radha Dumont MD History of delivery by vacuum extraction, lexi vanessay 12/03/2015 08/05/2016 Overview: Boy on us Lipoma of right upper extremity 05/29/2015 12/07/2019 Overview: over triceps Supervision of normal first 10/05/2013 12/03/2015 Vaginismus 09/26/2010 09/24/2011 documented as of this encounter (statuses as of 10/03/2021) [facility] History of Past illness Narrative* Problem Noted Date Resolved Date Spotting in 12/01/2019 12/07/2019 Overview: 12/01/2019Patient states she had spotting 1 day on October 25. Denies any spotting or cramping since then last menstrual period 10/02/2019. Patient is advised to call/come in if she develops any further bleeding, the development of pain or as needed problems.TKRN Anal fissure 07/30/2016 12/07/2019 Well adult exam 07/30/2016 12/07/2019 Abnormal antibody titer 03/05/2016 04/10/20 17 Overview: March 05, 2016 Likely false positive, repeat in 6 weeks. Radha Dumont MD History of delivery by vacuum extraction, lexi lamb 12/03/2015 08/05/2016 Overview: Boy on us Lipoma of right upper extremity 05/29/2015 12/07/2019 Overview: over triceps Supervision of normal first 10/05/2013 12/03/2015 Vaginismus 09/26/2010 09/24/2011 documented as of this encounter (statuses as of 10/09/2021) [facility] History of Past illness Narrative* Problem Noted Date Resolved Date Spotting in 12/01/2019 12/07/2019 Overview: 12/01/2019Patient states she had spotting 1 day on October 25. Denies any spotting or cramping since then last menstrual period 10/02/2019. Patient is advised to call/come in if she develops any further bleeding, the development of pain or as needed problems.TKRN Anal fissure 07/30/2016 12/07/2019 Well adult exam 07/30/2016 12/07/2019 Abnormal antibody titer 03/05/2016 05/20/19 17 Overview: March 05, 2016 Likely false positive, repeat in 6 weeks. Radha Dumont MD History of delivery by vacuum extraction, lexi lamb 12/03/2015 08/05/2016 Overview: Boy on us Lipoma of right upper extremity 05/29/2015 12/07/2019 Overview: over triceps Supervision of normal first 10/05/2013 12/03/2015 Vaginismus 09/26/2010 09/24/2011 documented as of this encounter (statuses as of 10/17/2021) [facility] History of Past illness Narrative* Problem Noted Date Resolved Date Spotting in 12/01/2019 12/07/2019 Overview: 12/01/2019Patient states she had spotting 1 day on October 25. Denies any spotting or cramping since then last menstrual period 10/02/2019. Patient is advised to call/come in if she develops any further bleeding, the development of pain or as needed problems.TKRN Anal fissure 07/30/2016 12/07/2019 Well adult exam 07/30/2016 12/07/2019 Abnormal antibody titer 03/05/2016 05/20/19 17 Overview: March 05, 2016 Likely false positive, repeat in 6 weeks. Radha Dumont MD History of delivery by vacuum extraction, lexi tly 12/03/2015 08/05/2016 Overview: Boy on us Lipoma of right upper extremity 05/29/2015 12/07/2019 Overview: over triceps Supervision of normal first 10/05/2013 12/03/2015 Vaginismus 09/26/2010 09/24/2011 documented as of this encounter (statuses as of 10/25/2021) [facility] History of Past illness Narrative* Problem Noted Date Resolved Date Spotting in 12/01/2019 12/07/2019 Overview: 12/01/2019Patient states she had spotting 1 day on October 25. Denies any spotting or cramping since then last menstrual period 10/02/2019. Patient is advised to call/come in if she develops any further bleeding, the development of pain or as needed problems.TKRN Anal fissure 07/30/2016 12/07/2019 Well adult exam 07/30/2016 12/07/2019 Abnormal antibody titer 03/05/2016 05/20/19 17 Overview: March 05, 2016 Likely false positive, repeat in 6 weeks. Radha Dumont MD History of delivery by vacuum extraction, lexi tly 12/03/2015 08/05/2016 Overview: Boy on us Lipoma of right upper extremity 05/29/2015 12/07/2019 Overview: over triceps Supervision of normal first 10/05/2013 12/03/2015 Vaginismus 09/26/2010 09/24/2011 documented as of this encounter (statuses as of 11/20/2021) [facility] note* Diagnosis 17 weeks gestation of - Primary state, incidental AMA (advanced maternal age) multigravida 35+, first trimester Supervision of other high risk pregnancies, first trimester documented in this encounter [facility] note* Diagnosis 20 weeks gestation of - Primary state, incidental [facility] Diagnosis Encounter for anatomic survey- Primary Multigravida of advanced maternal age in second trimester 20 weeks gestation of state, incidental [facility]* Diagnosis AMA (advanced maternal age) multigravida 35+, second trimester- Primary 24 weeks gestation of state, incidental [facility] Diagnosis AMA (advanced maternal age) multigravida 35+, third trimester- Primary 28 weeks gestation of state, incidental Need for vaccination Need for prophylactic vaccination and inoculation against unspecified single disease documented in this encounter [facility] note* Diagnosis AMA (advanced maternal age) multigravida 35+, third trimester- Primary 30 weeks gestation of state, incidental [facility]* Diagnosis Multigravida of advanced maternal age in third trimester- Primary 32 weeks gestation of state, incidental [facility]* Diagnosis 32 weeks gestation of - Primary state, incidental AMA (advanced maternal age) multigravida 35+, third trimester [facility]* Diagnosis 34 weeks gestation of - Primary state, incidental AMA (advanced maternal age) multigravida 35+, third trimester [facility]* Diagnosis AMA (advanced maternal age) multigravida 35+, third trimester- Primary 36 weeks gestation of state, incidental [facility]* Diagnosis 37 weeks gestation of - Primary state, incidental AMA (advanced maternal age) multigravida 35+, third trimester Breech presentation, single or unspecified fetus Supervision of high-risk of elderly multigravida, third trimester Supervision of high-risk of elderly multigravida [facility] Phone: Evaluation note* Diagnosis Onset Date Resolution Status False labor acute 38 weeks gestation of acute Advanced maternal age (AMA) in acute Breech presentation acute Care and examination of lactating mother acute SROM (spontaneous rupture of membranes) acute Status post primary low transverse section acute [facility] Work Phone: Evaluation note* Diagnosis state- Primary Routine follow-up [facility] Diagnosis Need for influenza vaccination- Primary Need for prophylactic vaccination and inoculation against influenza [facility] Diagnosis care and examination- Primary Routine follow-up [facility] Diagnosis Well adult exam- Primary Routine general medical examination at a health care facility Fatigue, unspecified type Thyroid fullness Other specified disorders of thyroid [facility] Diagnosis Encounter for gynecological examination (general) (routine) without abnormal findings- Primary [facility] Diagnosis Fatigue, unspecified type- Primary Well adult exam Routine general medical examination at [facility] Thyroid fullness Other specified disorders of thyroid [facility] Diagnosis Cervicalgia- Primary Numbness and tingling in both hands [facility] Diagnosis Cervicalgia- Primary Numbness and tingling in both hands Muscle spasms of neck Spasm of muscle Bilateral arm weakness Other musculoskeletal symptoms referable to limbs [facility] C[facility]icalgia [facility] Diagnosis Cervicalgia- Primary Numbness and tingling in both hands [facility] Diagnosis Motor neuron disease (HCC)- Primary Amyotrophic lateral sclerosis Paresthesia of skin Disturbance of skin sensation Weakness of both arms Other musculoskeletal symptoms referable to limbs Chronic neck pain Cervicalgia Worsening headaches Headache [facility]* Diagnosis Cervicalgia- Primary Numbness and tingling in both hands [facility] Diagnosis Cervicalgia- Primary Numbness and tingling in both hands [facility] Diagnosis Cervicalgia- Primary Numbness and tingling in both hands [facility] Diagnosis Cervicalgia- Primary Numbness and tingling in both hands [facility] Diagnosis 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 Paresthesia of skin Disturbance of skin sensation Weakness of both arms Other musculoskeletal symptoms referable to limbs Chronic neck pain Cervicalgia Worsening headaches Headache [facility] Diagnosis 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 Paresthesia of skin Disturbance of skin sensation Weakness of both arms Other musculoskeletal symptoms referable to limbs Chronic neck pain Cervicalgia Worsening headaches Headache [facility] Diagnosis Cervicalgia- Primary Numbness and tingling in both hands [facility] Diagnosis Cervicalgia- Primary Numbness and tingling in both hands [facility] Diagnosis Encounter for gynecological examination (general) (routine) without abnormal findings- Primary Encounter for screening mammogram for breast cancer [facility] Diagnosis Cervicalgia- Primary Numbness and tingling in both hands [facility] Diagnosis Cervicalgia- Primary Numbness and tingling in both hands [facility] Diagnosis Well adult exam- Primary Routine general medical examination at a health care facility Cervicalgia Weakness of both arms Other musculoskeletal symptoms referable to limbs Numbness and tingling in both hands documented in this encounter [facility] for referral (narrative)* Diagnostic Procedure Only (Routine) - Pending Review Specialty Diagnoses / Procedures Referred By Ankush saleem Referred To Contact [facility] Diagnoses AMA (advanced maternal age) multigravida 35+, third trimester 28 weeks gestation of Procedures OBSTETRIC ULTRASOUND WHI US PREG UTERUS AFTER 1ST TRIMEST GESTATION Radha Dumont MD [address] [place] [address] [place] [address] [address] [address] Referral ID Status Reason Start Date Expiration Date Visits Requested Visits Authorized [id number] Pending Review Auto-Generat ed Referral 08/07/2021 08/07/2022 1 1 [facility] for referral (narrative)* Diagnostic Procedure Only (Routine) - Closed Specialty Diagnoses / Procedures Referred By Contac t Referred To Contact XR IMAGING Diagnoses Cervicalgia Procedures XR CERV OTHER 4V AP/LAT/OBL RADEX SPINE CERVICAL 4 OR 5 VIEWS Patrick Hirsch PA-C [address] [place] [address] [place] [address] Referral ID Status Reason Start Date Expiration Date V isits Requested Visits Authorized [id number] Closed Auto-Generate d Referral 10/06/2023 11/04/2024 1 1 [facility] for referral (narrative)* Outpatient Procedure (Routine) - New Request Specialty Diagnoses / Procedures Referred By Contac t Referred To Contact [facility] Diagnoses Cervicalgia Numbness and tingling in both hands Procedures ECG COMPLETE ECG ROUTINE ECG W/LEAST 12 LDS W/I&R Yuniel Moore DO [address] [place] [address] [facility] [address] [place] [address] Referral ID Status Reason Start Date Expiration Date Visits Requested Visits Authorized [id number] New Request Auto-Generat ed Referral 10/14/2023 10/13/2024 1 1 [facility] for referral (narrative)* Diagnostic Procedure Only (Routine) - Closed Specialty Diagnoses / Procedures Referred By Contac t Referred To Contact XR IMAGING Diagnoses Cervicalgia Procedures XR CERV OTHER 4V AP/LAT/OBL RADEX SPINE CERVICAL 4 OR 5 VIEWS Patrick Hirsch PA-C [address] [place] [address] [place] [address] Referral ID Status Reason Start Date Expiration Date V isits Requested Visits Authorized [id number] Closed Auto-Generate d Referral 10/06/2023 11/04/2024 1 1 [facility] Diagnostic Procedure Only (Routine) - Closed Specialty Diagnoses / Procedures Referred By Contac t Referred To Contact XR IMAGING Diagnoses Cervicalgia Procedures XR CERV OTHER 4V AP/LAT/OBL RADEX SPINE CERVICAL 4 OR 5 VIEWS Patrick Hirsch PA-C [address] [place] [address] [place] [address] Referral ID Status Reason Start Date Expiration Date V isits Requested Visits Authorized [id number] Closed Auto-Generate d Referral 10/06/2023 11/04/2024 1 1 [facility] Advance Directives No Advanced Directives Records FoundDocuments on File Type Date Recorded 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 Advance Directive(s) Documents on File Type Date Recorded 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 Advance Directive(s) Advance Directive Response Recorded Date/ Time Living Will No September 03, 2020 8:56am Power of Legal Department Manager No September 03 8:56am Advance Directive Response Recorded Date/ Time Name of Medical Power of Legal Department Manager Andrew Delvalle October 17, 2021 4:21am Living Will Yes October 17, 022 4:21am Power of Legal Department Manager Yes October 17, 2021 4:21am Chief Complaint and Reason for Visit Chief Complaint R/O LABOR Chief Complaint R/O LABOR PRIMARY C SECTION Reason for Visit False labor 38 weeks gestation of Advanced maternal age (AMA) in Breech presentation Care and examination of lactating mother SROM (spontaneous rupture of membranes) Status post primary low transverse section Family History No Family History Records Found Relationship Condition Age at Onset Recorded Date/T emilie Not Specified Family history of ma lignant neoplasm of skin Unknown father Malignant melanoma Unknown mother Osteoporosis Unknown Summary Purpose Reason for Referral Specialty Diagnoses / Procedures Referred By Ankush saleem Referred To Contact [facility] Diagnoses Motor neuron disease (HCC) Paresthesia of skin Weakness of both arms Chronic neck pain Worsening headaches Procedures MRI CERVICAL SPINE WO/W IVCON MRI SPINAL CANAL CERVICAL W/O & W/CONTR MATRL Yuniel Moore L, DO [address] [place] [address] [place] [address] Referral ID Status Reason Start Date Expiration Date Visits Requested Visits Authorized [id number] Pending Review Auto-Generat ed Referral 11/18/2023 12/17/2024 1 1 Specialty Diagnoses / Procedures Referred By Contac t Referred To Contact [facility] Diagnoses Motor neuron disease (HCC) Paresthesia of skin Weakness of both arms Chronic neck pain Worsening headaches Procedures MRI BRAIN WO/W IVCON MRI BRAIN BRAIN STEM W/O W/CONTRAST MATERIAL Yuniel Moore L, DO [address] [place] [address] [place] [address] Referral ID Status Reason Start Date Expiration Date Visits Requested Visits Authorized [id number] Pending Review Auto-Generat ed Referral 11/18/2023 12/17/2024 1 1 Referral ID Status Reason Start Date Expiration Date V isits Requested Visits Authorized [id number] Closed Auto-Generate d Referral 12/11/2023 01/25/2024 1 1 Referral ID Status Reason Start Date Expiration Date V isits Requested Visits Authorized [id number] Closed Auto-Generate d Referral 12/11/2023 01/25/2024 1 1 Additional Source Comments Source Comments (unrecognize d section and content) In the event this informatio n is protected by the Federal Confidentiality of Alcohol and Drug Abuse Patient Records regulations: The Federal rules restrict any use of the information to criminally investigate or prosecute any alcohol or drug abuse patient.[facility] the event this information is protected by the Federal Confidentiality of Alcohol and Drug Abuse Patient Records regulations: The Federal rules restrict any use of the information to criminally investigate or prosecute any alcohol or drug abuse patient.[facility] the event this information is protected by the Federal Confidentiality of Alcohol and Drug Abuse Patient Records regulations: The Federal rules restrict any use of the information to criminally investigate or prosecute any alcohol or drug abuse patient.[facility] CenterIn the event this information is protected by the Federal Confidentiality of Alcohol and Drug Abuse Patient Records regulations: The Federal rules restrict any use of the information to criminally investigate or prosecute any alcohol or drug abuse patient.[facility] CenterIn the event this information is protected by the Federal Confidentiality of Alcohol and Drug Abuse Patient Records regulations: The Federal rules restrict any use of the information to criminally investigate or prosecute any alcohol or drug abuse patient.[facility] CenterIn the event this information is protected by the Federal Confidentiality of Alcohol and Drug Abuse Patient Records regulations: The Federal rules restrict any use of the information to criminally investigate or prosecute any alcohol or drug abuse patient.[facility] CenterIn the event this information is protected by the Federal Confidentiality of Alcohol and Drug Abuse Patient Records regulations: The Federal rules restrict any use of the information to criminally investigate or prosecute any alcohol or drug abuse patient.[facility] CenterIn the event this information is protected by the Federal Confidentiality of Alcohol and Drug Abuse Patient Records regulations: The Federal rules restrict any use of the information to criminally investigate or prosecute any alcohol or drug abuse patient.[facility] CenterIn the event this information is protected by the Federal Confidentiality of Alcohol and Drug Abuse Patient Records regulations: The Federal rules restrict any use of the information to criminally investigate or prosecute any alcohol or drug abuse patient.[facility] CenterIn the event this information is protected by the Federal Confidentiality of Alcohol and Drug Abuse Patient Records regulations: The Federal rules restrict any use of the information to criminally investigate or prosecute any alcohol or drug abuse patient.[facility] CenterIn the event this information is protected by the Federal Confidentiality of Alcohol and Drug Abuse Patient Records regulations: The Federal rules restrict any use of the information to criminally investigate or prosecute any alcohol or drug abuse patient.[facility] CenterIn the event this information is protected by the Federal Confidentiality of Alcohol and Drug Abuse Patient Records regulations: The Federal rules restrict any use of the information to criminally investigate or prosecute any alcohol or drug abuse patient.[facility] CenterIn the event this information is protected by the Federal Confidentiality of Alcohol and Drug Abuse Patient Records regulations: The Federal rules restrict any use of the information to criminally investigate or prosecute any alcohol or drug abuse patient.[facility] CenterIn the event this information is protected by the Federal Confidentiality of Alcohol and Drug Abuse Patient Records regulations: The Federal rules restrict any use of the information to criminally investigate or prosecute any alcohol or drug abuse patient.[facility] CenterIn the event this information is protected by the Federal Confidentiality of Alcohol and Drug Abuse Patient Records regulations: The Federal rules restrict any use of the information to criminally investigate or prosecute any alcohol or drug abuse patient.[facility] CenterIn the event this information is protected by the Federal Confidentiality of Alcohol and Drug Abuse Patient Records regulations: The Federal rules restrict any use of the information to criminally investigate or prosecute any alcohol or drug abuse patient.[facility] CenterIn the event this information is protected by the Federal Confidentiality of Alcohol and Drug Abuse Patient Records regulations: The Federal rules restrict any use of the information to criminally investigate or prosecute any alcohol or drug abuse patient.[facility] CenterIn the event this information is protected by the Federal Confidentiality of Alcohol and Drug Abuse Patient Records regulations: The Federal rules restrict any use of the information to criminally investigate or prosecute any alcohol or drug abuse patient.[facility] CenterIn the event this information is protected by the Federal Confidentiality of Alcohol and Drug Abuse Patient Records regulations: The Federal rules restrict any use of the information to criminally investigate or prosecute any alcohol or drug abuse patient.[facility] CenterIn the event this information is protected by the Federal Confidentiality of Alcohol and Drug Abuse Patient Records regulations: The Federal rules restrict any use of the information to criminally investigate or prosecute any alcohol or drug abuse patient.[facility] CenterIn the event this information is protected by the Federal Confidentiality of Alcohol and Drug Abuse Patient Records regulations: The Federal rules restrict any use of the information to criminally investigate or prosecute any alcohol or drug abuse patient.[facility] CenterIn the event this information is protected by the Federal Confidentiality of Alcohol and Drug Abuse Patient Records regulations: The Federal rules restrict any use of the information to criminally investigate or prosecute any alcohol or drug abuse patient.[facility] CenterIn the event this information is protected by the Federal Confidentiality of Alcohol and Drug Abuse Patient Records regulations: The Federal rules restrict any use of the information to criminally investigate or prosecute any alcohol or drug abuse patient.[facility] CenterIn the event this information is protected by the Federal Confidentiality of Alcohol and Drug Abuse Patient Records regulations: The Federal rules restrict any use of the information to criminally investigate or prosecute any alcohol or drug abuse patient.[facility] CenterIn the event this information is protected by the Federal Confidentiality of Alcohol and Drug Abuse Patient Records regulations: The Federal rules restrict any use of the information to criminally investigate or prosecute any alcohol or drug abuse patient.[facility] CenterIn the event this information is protected by the Federal Confidentiality of Alcohol and Drug Abuse Patient Records regulations: The Federal rules restrict any use of the information to criminally investigate or prosecute any alcohol or drug abuse patient.[facility] CenterIn the event this information is protected by the Federal Confidentiality of Alcohol and Drug Abuse Patient Records regulations: The Federal rules restrict any use of the information to criminally investigate or prosecute any alcohol or drug abuse patient.[facility] CenterIn the event this information is protected by the Federal Confidentiality of Alcohol and Drug Abuse Patient Records regulations: The Federal rules restrict any use of the information to criminally investigate or prosecute any alcohol or drug abuse patient.[facility] CenterIn the event this information is protected by the Federal Confidentiality of Alcohol and Drug Abuse Patient Records regulations: The Federal rules restrict any use of the information to criminally investigate or prosecute any alcohol or drug abuse patient.[facility] CenterIn the event this information is protected by the Federal Confidentiality of Alcohol and Drug Abuse Patient Records regulations: The Federal rules restrict any use of the information to criminally investigate or prosecute any alcohol or drug abuse patient.[facility] CenterIn the event this information is protected by the Federal Confidentiality of Alcohol and Drug Abuse Patient Records regulations: The Federal rules restrict any use of the information to criminally investigate or prosecute any alcohol or drug abuse patient.[facility] CenterIn the event this information is protected by the Federal Confidentiality of Alcohol and Drug Abuse Patient Records regulations: The Federal rules restrict any use of the information to criminally investigate or prosecute any alcohol or drug abuse patient.[facility] CenterIn the event this information is protected by the Federal Confidentiality of Alcohol and Drug Abuse Patient Records regulations: The Federal rules restrict any use of the information to criminally investigate or prosecute any alcohol or drug abuse patient.[facility] CenterIn the event this information is protected by the Federal Confidentiality of Alcohol and Drug Abuse Patient Records regulations: The Federal rules restrict any use of the information to criminally investigate or prosecute any alcohol or drug abuse patient.[facility] CenterIn the event this information is protected by the Federal Confidentiality of Alcohol and Drug Abuse Patient Records regulations: The Federal rules restrict any use of the information to criminally investigate or prosecute any alcohol or drug abuse patient.[facility] CenterIn the event this information is protected by the Federal Confidentiality of Alcohol and Drug Abuse Patient Records regulations: The Federal rules restrict any use of the information to criminally investigate or prosecute any alcohol or drug abuse patient.[facility] CenterIn the event this information is protected by the Federal Confidentiality of Alcohol and Drug Abuse Patient Records regulations: The Federal rules restrict any use of the information to criminally investigate or prosecute any alcohol or drug abuse patient.[facility] CenterIn the event this information is protected by the Federal Confidentiality of Alcohol and Drug Abuse Patient Records regulations: The Federal rules restrict any use of the information to criminally investigate or prosecute any alcohol or drug abuse patient.[facility] CenterIn the event this information is protected by the Federal Confidentiality of Alcohol and Drug Abuse Patient Records regulations: The Federal rules restrict any use of the information to criminally investigate or prosecute any alcohol or drug abuse patient.[facility] CenterIn the event this information is protected by the Federal Confidentiality of Alcohol and Drug Abuse Patient Records regulations: The Federal rules restrict any use of the information to criminally investigate or prosecute any alcohol or drug abuse patient.[facility] CenterIn the event this information is protected by the Federal Confidentiality of Alcohol and Drug Abuse Patient Records regulations: The Federal rules restrict any use of the information to criminally investigate or prosecute any alcohol or drug abuse patient.[facility] CenterIn the event this information is protected by the Federal Confidentiality of Alcohol and Drug Abuse Patient Records regulations: The Federal rules restrict any use of the information to criminally investigate or prosecute any alcohol or drug abuse patient.[facility] CenterIn the event this information is protected by the Federal Confidentiality of Alcohol and Drug Abuse Patient Records regulations: The Federal rules restrict any use of the information to criminally investigate or prosecute any alcohol or drug abuse patient.[facility] CenterIn the event this information is protected by the Federal Confidentiality of Alcohol and Drug Abuse Patient Records regulations: The Federal rules restrict any use of the information to criminally investigate or prosecute any alcohol or drug abuse patient.[facility] CenterIn the event this information is protected by the Federal Confidentiality of Alcohol and Drug Abuse Patient Records regulations: The Federal rules restrict any use of the information to criminally investigate or prosecute any alcohol or drug abuse patient.[facility] CenterIn the event this information is protected by the Federal Confidentiality of Alcohol and Drug Abuse Patient Records regulations: The Federal rules restrict any use of the information to criminally investigate or prosecute any alcohol or drug abuse patient.[facility] CenterIn the event this information is protected by the Federal Confidentiality of Alcohol and Drug Abuse Patient Records regulations: The Federal rules restrict any use of the information to criminally investigate or prosecute any alcohol or drug abuse patient.[facility] CenterIn the event this information is protected by the Federal Confidentiality of Alcohol and Drug Abuse Patient Records regulations: The Federal rules restrict any use of the information to criminally investigate or prosecute any alcohol or drug abuse patient.[facility] CenterIn the event this information is protected by the Federal Confidentiality of Alcohol and Drug Abuse Patient Records regulations: The Federal rules restrict any use of the information to criminally investigate or prosecute any alcohol or drug abuse patient.[facility] CenterIn the event this information is protected by the Federal Confidentiality of Alcohol and Drug Abuse Patient Records regulations: The Federal rules restrict any use of the information to criminally investigate or prosecute any alcohol or drug abuse patient.[facility] CenterIn the event this information is protected by the Federal Confidentiality of Alcohol and Drug Abuse Patient Records regulations: The Federal rules restrict any use of the information to criminally investigate or prosecute any alcohol or drug abuse patient.[facility] Reason for Visit (unrecogniz ed section and content) Reason Comments PT Re-eval Specialty Diagnoses / Procedures Referred By Contac t Referred To Contact PHYSICAL THERAPY Diagnoses Cervicalgia [M54.2] Numbness and tingling in both hands [R20.0, R20.2] Procedures THERAPEUTIC EXERCISES RE, EA 15 MIN. Cervicalgia [M54.2] Numbness and tingling in both hands [R20.0, R20.2] Yuniel Moore DO [address] [place] [address] Phone: tel: fax: [facility] [address] [place] [address] Phone: tel: fax: Referral ID Status Reason Start Date Expiration Date V isits Requested Visits Authorized [id number] Authorized 02/10/2024 02/08/2025 99 99 Reason Comments PT Discharge Reason Comments Physical Therapy Reason Comments PT Progress Note Specialty Diagnoses / Procedures Referred By Ankush t Referred To Contact PHYSICAL THERAPY Diagnoses Cervicalgia [M54.2] Numbness and tingling in both hands [R20.0, R20.2] Procedures THERAPEUTIC EXERCISES RE, EA 15 MIN. Cervicalgia [M54.2] Numbness and tingling in both hands [R20.0, R20.2] Yuniel Moore DO [address] [place] [address] Pt [facility] [address] [place] [address] Specialty Diagnoses / Procedures Referred By Ankush t Referred To Contact [facility] Diagnoses Cervicalgia Numbness and tingling in both hands Procedures CONSULT TO PHYSICAL THERAPY PHYSICAL THERAPY EVALUATION HIGH COMPLEX 45 MINS Yuniel Moore DO [address] [place] [address] [facility] [address] [place] [address] Referral ID Status Reason Start Date Expiration Date Visits Requested Visits Authorized [id number] Authorized Auto-Generat ed Referral 02/09/2023 02/09/2024 99 99 Reason Onset Date Comments Care 10/09/2021 Specialty Diagnoses / Procedures Referred By Contac t Referred To Contact NUTRITION EDUCATOR Diagnoses OB Procedures [facility] Radha Dumont MD [address] [place] [address] Cecelia Masters MD [address] [facility] [place] [address] Referral ID Status Reason Start Date Expiration Date V isits Requested Visits Authorized [id number] Authorized 02/09/2021 02/08/2022 99 99 Reason Onset Date Comments Care 10/03/2021 Reason Onset Date Comments Care 09/18/2021 Reason Onset Date Comments Care 09/04/2021 Reason Comments US Reason Onset Date Comments Care 08/21/2021 Reason Onset Date Comments Care 07/10/2021 Reason Onset Date Comments Care 06/12/2021 Reason Onset Date Comments Care 05/20/2021 Reason Comments Orders Reason Onset Date Comments Care 08/07/2021 Specialty Diagnoses / Procedures Referred By Contac t Referred To Contact NUTRITION EDUCATOR Diagnoses 1 HR NON FASTING GLUCOSE / OB Procedures OFFICE/OUTPATIENT ESTABLISHED MOD MDM 30-39 MIN [facility] OB Radha Dumont MD [address] [place] [address] Radha Dumont MD [address] [place] [address] Referral ID Status Reason Start Date Expiration Date Visits Re quested Visits Authorized [id number] Closed 02/09/2021 02/08/2022 1 1 Reason Comments Ob Delivery Note Reason Comments Early Incision check Specialty Diagnoses / Procedures Referred By Contac t Referred To Contact NUTRITION EDUCATOR Diagnoses Follow-up exam 1 week PP Procedures OFFICE/OUTPATIENT ESTABLISHED HIGH MDM 40-54 MIN POST Cecelia Masters MD [address] [place] [address] Cecelia Masters MD [address] [facility] [place] [address] Referral ID Status Reason Start Date Expiration Date Visits Re quested Visits Authorized [id number] Closed 10/25/2021 02/08/2022 1 1 Reason Onset Date Comments Immunizations 11/20/2021 Flu vaccination Specialty Diagnoses / Procedures Referred By Geovannaac t Referred To Contact [facility] PED[facility]ATR[facility] Diagnoses Flu vaccine need flu vaccine Procedures OFFICE/OUTPATIENT ESTABLISHED MOD [facility] 30-39 MIN 4C NURSE PEDYuniel Hoover Pedbernardo [facility] [address] [place] [address] Referral ID Status Reason Start Date Expiration Date Visits Re quested Visits Authorized [id number] Closed 11/20/2021 02/08/2022 1 1 Specialty Diagnoses / Procedures Referred By Contac t Referred To Contact NUTRITION EDUCATOR Diagnoses OB Procedures [facility] OB Radha Dumont MD [address] [place] [address] Cecelia Masters MD [address] [place] [address] Reason Comments Yearly Exam Specialty Diagnoses / Procedures Referred By Contac t Referred To Contact Family Medicine / FAMILY MEDICINE Diagnoses Encounter for follow-up examination after completed treatment for conditions other than malignant neoplasm primary care yearly physical exam Procedures OFFICE/OUTPATIENT ESTABLISHED MOD [facility] 30-39 MIN MYC PHYSICAL Self Yuniel Moore L, DO [address] [place] [address] Referral ID Status Reason Start Date Expiration Date Visits Re quested Visits Authorized [id number] Closed 12/30/2021 02/08/2022 1 1 Reason Comments Well Woman Reason Comments Results Reason Comments hand/wrist pain Has been ongoing iss ue pain comes and goes but consistent the last week. neck/shoulder pain/tightness that radiat es Reason Comments left side jaw pain left shoulder pain Reason Comments Pain left side Reason Comments PT Eval Reason Comments Follow Up Specialty Diagnoses / Procedures Referred By Geovannaac t Referred To Contact MR IMAGING Diagnoses Motor neuron disease (HCC) Paresthesia of skin Weakness of both arms Chronic neck pain Worsening headaches Procedures MRI BRAIN WO/W IVCON MRI BRAIN BRAIN STEM W/O W/CONTRAST MATERIAL Moore, Yuniel L, DO [address] [place] [address] [place] [address] Referral ID Status Reason Start Date Expiration Date V isits Requested Visits Authorized [id number] Closed Auto-Generate d Referral 12/11/2023 01/25/2024 1 1 Specialty Diagnoses / Procedures Referred By Contac t Referred To Contact MR IMAGING Diagnoses Motor neuron disease (HCC) Paresthesia of skin Weakness of both arms Chronic neck pain Worsening headaches Procedures MRI CERVICAL SPINE WO/W IVCON MRI SPINAL CANAL CERVICAL W/O & W/CONTR MATRL Yuniel Moore, DO [address] [place] [address] [place] [address] Referral ID Status Reason Start Date Expiration Date V isits Requested Visits Authorized [id number] Closed Auto-Generate d Referral 12/11/2023 01/25/2024 1 1 Reason Comments Question Reason Comments Well Woman Reason Comments Yearly Exam Specialty Diagnoses / Procedures Referred By Contac t Referred To Contact Family Medicine / FAMILY MEDICINE Diagnoses PE (physical exam), annual Wellness examination yearly exam Procedures OFFICE/OUTPATIENT ESTABLISHED MOD MDM 30 MIN 4C EST [facility] [address] [address] Phone: tel:[phone] Yuniel Moore, DO [address] [place] [address] Phone: tel: fax: Referral ID Status Reason Start Date Expiration Date Visits Re quested Visits Authorized [id number] Closed 03/16/2024 02/08/2025 1 1 Care Teams (unrecognized sec tion and content) Process Control Operator Relationship Specialty Start Date End Date Yuniel Moore, DO [address] [place] [address] PCP - General Family Practice 07/30/15 Process Control Operator Relationship Specialty Start Date End Date Yuniel Moore DO [address] [place] [address] PCP - General Family Practice 07/30/15 Process Control Operator Relationship Specialty Start Date End Date Yuniel Moore, DO [address] [place] [address] PCP - General Family Practice 07/30/15 Process Control Operator Relationship Specialty Start Date End Date Yuniel Moore, DO [address] [place] [address] PCP - General Family Practice 07/30/15 Process Control Operator Relationship Specialty Start Date End Date Yuniel Moore, DO [address] [place] [address] PCP - General Family Practice 07/30/15 Process Control Operator Relationship Specialty Start Date End Date Yuniel Moore, DO [address] [place] [address] PCP - General Family Practice 07/30/15 Process Control Operator Relationship Specialty Start Date End Date Yuniel Moore, DO [address] [place] [address] PCP - General Family Practice 07/30/15 Process Control Operator Relationship Specialty Start Date End Date Yuniel Moore, DO [address] [place] [address] PCP - General Family Practice 07/30/15 Process Control Operator Relationship Specialty Start Date End Date Yuniel Moore, DO [address] [place] [address] PCP - General Family Practice 07/30/15 Process Control Operator Relationship Specialty Start Date End Date Yuniel Moore, DO [address] [place] [address] PCP - General Family Medicine 07/30/15 Process Control Operator Relationship Specialty Start Date End Date Yuniel Moore, DO [address] [place] [address] PCP - General Family Medicine 07/30/15 Process Control Operator Relationship Specialty Start Date End Date Yuniel Moore DO [address] [place] [address] PCP - General Family Medicine 07/30/15 Process Control Operator Relationship Specialty Start Date End Date Yuniel Moore DO [address] [place] [address] PCP - General Family Medicine 07/30/15 Process Control Operator Relationship Specialty Start Date End Date Yuniel Moore, [address] [place] [address] PCP - General Family Medicine 07/30/15 Process Control Operator Relationship Specialty Start Date End Date Yuniel Moore DO [address] [place] [address] PCP - General Family Medicine 07/30/15 Process Control Operator Relationship Specialty Start Date End Date Yuniel Moore DO [address] [place] [address] PCP - General Family Medicine 07/30/15 Process Control Operator Relationship Specialty Start Date End Date Yuniel Moore, [address] [place] [address] PCP - General Family Medicine 07/30/15 Process Control Operator Relationship Specialty Start Date End Date Yuniel Moore DO [address] [place] [address] PCP - General Family Medicine 07/30/15 Process Control Operator Relationship Specialty Start Date End Date Yuniel Moore DO [address] [place] [address] PCP - General Family Medicine 07/30/15 Process Control Operator Relationship Specialty Start Date End Date Yuniel Moore DO [address] [place] [address] PCP - General Family Medicine 07/30/15 Process Control Operator Relationship Specialty Start Date End Date Yuniel Moore DO [address] [place] [address] PCP - General Family Medicine 07/30/15 Process Control Operator Relationship Specialty Start Date End Date Yuniel Moore DO [address] [place] [address] PCP - General Family Medicine 07/30/15 Process Control Operator Relationship Specialty Start Date End Date Yuniel Moore DO [address] [place] [address] PCP - General Family Medicine 07/30/15 Process Control Operator Relationship Specialty Start Date End Date Yuniel Moore DO [address] [place] [place] [address] PCP - General Family Medicine 07/30/15 Process Control Operator Relationship Specialty Start Date End Date Yuniel Moore DO [address] [place] [address] PCP - General Family Medicine 07/30/15 Process Control Operator Relationship Specialty Start Date End Date Yuniel Moore DO [address] [place] [address] PCP - General Family Medicine 07/30/15 Process Control Operator Relationship Specialty Start Date End Date Yuniel Moore DO [address] [place] [address] PCP - General Family Medicine 07/30/15 Process Control Operator Relationship Specialty Start Date End Date Yuniel Moore DO [address] [place] [address] PCP - General Family Medicine 07/30/15 Process Control Operator Relationship Specialty Start Date End Date Yuniel Moore DO [address] [facility] [place] [address] PCP - General Family Medicine 07/30/15 Process Control Operator Relationship Specialty Start Date End Date Yuniel Moore DO [address] [facility] [address] PCP - General Family Medicine 07/30/15 Process Control Operator Relationship Specialty Start Date End Date Yuniel Moore DO [address] [place] [place] [address] PCP - General Family Medicine 07/30/15 Process Control Operator Relationship Specialty Start Date End Date Yuniel Moore DO [address] [facility] [place] [address] PCP - General Family Medicine 07/30/15 Myla Wu, ACCESS CONTROL SPECIALIST.VICE PRESIDENT TALENT MANAGEMENT [address] [facility] [place] [address] Engineering Administrator Family Medicine 01/17/24 Madison Frias, ZACKERY.VICE PRESIDENT TALENT MANAGEMENT [address] [place] [place] [address] Engineering Administrator Family Medicine 01/17/24 Process Control Operator Relationship Specialty Start Date End Date Yuniel Moore DO [address] [place] [address] PCP - General Family Medicine 07/30/15 Myla Wu, ACCESS CONTROL SPECIALIST.VICE PRESIDENT TALENT MANAGEMENT [address] [place] [address] Engineering Administrator Family Medicine 01/17/24 Madison Frias, ACCESS CONTROL SPECIALIST.VICE PRESIDENT TALENT MANAGEMENT [address] [place] [address] Engineering Administrator Family Medicine 01/17/24 Process Control Operator Relationship Specialty Start Date End Date Yuniel Moore DO [address] [place] [address] PCP - General Family Medicine 07/30/15 Myla Wu, ACCESS CONTROL SPECIALIST.VICE PRESIDENT TALENT MANAGEMENT [address] [place] [address] Engineering Administrator Family Medicine 01/17/24 Madison Frias, ACCESS CONTROL SPECIALIST.VICE PRESIDENT TALENT MANAGEMENT [address] [place] [address] Engineering Administrator Family Medicine 01/17/24 Process Control Operator Relationship Specialty Start Date End Date Yuniel Moore DO [address] [place] [address] PCP - General Family Medicine 07/30/15 Myla Wu, ACCESS CONTROL SPECIALIST.VICE PRESIDENT TALENT MANAGEMENT [address] [place] [address] Engineering Administrator Family Medicine 01/17/24 Madison Frias, ACCESS CONTROL SPECIALIST.VICE PRESIDENT TALENT MANAGEMENT [address] [facility] [place] [place] [address] [facility] 01/17/24 Process Control Operator Relationship Specialty Start Date End Date Yuniel Moore DO [address] [place] [address] PCP - General Family Medicine 07/30/15 Myla Wu, ACCESS CONTROL SPECIALIST.VICE PRESIDENT TALENT MANAGEMENT [address] [place] [address] Engineering Administrator Family Medicine 01/17/24 AltagraciaMadison, ACCESS CONTROL SPECIALIST.VICE PRESIDENT TALENT MANAGEMENT [address] [place] [address] [facility] 01/17/24 Process Control Operator Relationship Specialty Start Date End Date Yuniel Moore DO [address] [place] [address] PCP - General Family Medicine 07/30/15 AltagraciaMadison, ACCESS CONTROL SPECIALIST.VICE PRESIDENT TALENT MANAGEMENT [address] [place] [address] [facility] 01/17/24 Process Control Operator Relationship Specialty Start Date End Date Yuniel Moore DO [address] [place] [address] PCP - General Family Medicine 07/30/15 [facility] ACCESS CONTROL SPECIALIST.VICE PRESIDENT TALENT MANAGEMENT [address] [facility] [place] [address] [facility] Family [facility] 01/17/24 Belem Roberson, ACCESS CONTROL SPECIALIST.VICE PRESIDENT TALENT MANAGEMENT [address] [place] [address] [facility] 07/25/24 Process Control Operator Relationship Specialty Start Date End Date Yuniel Moore DO [address] [place], [place] [address] PCP - General Family Medicine 07/30/15 Madison Frias, ZACKERY.VICE PRESIDENT TALENT MANAGEMENT [address] [place] [address] Engineering Administrator Family [facility] 01/17/24 Belem Roberson, ACCESS CONTROL SPECIALIST.VICE PRESIDENT TALENT MANAGEMENT [address] [place] [address] [facility] 07/25/24 Goals (unrecognized section and content) Goals may be documented in a n alternate section INFORMATION SOURCE (unrecogn ized section and content) DATE CREATED AUTHOR 11/13/2021 [facility] DATE CREATED AUTHOR 'S KEREN THAKKAR 08/14/2024 [facility] FOR RECORDS PERTAINING TO PATIENTS WHO ARE OR HAVE BEEN ENROLLED IN A CHEMICAL DEPENDENCY/SUBSTANCEABUSE PROGRAM, SOME INFORMATION MAY BE OMITTED. This clinical summary was aggregated from multiple sources. Caution should be exercised in using it in the provision of clinical care. This summary normalizes information from multiple sources, and as a consequence, information in this document may materially change the coding, format and clinical context of patient data. In addition, data may be omitted in some cases. CLINICAL DECISIONS SHOULD BE BASED ON THE PRIMARY CLINICAL RECORDS. [employer] provides no warranty or guarantee of the accuracy or completeness of information in this document.
[2024-08-28 11:21] LABS: Anion Gap 11 (5-15); BUN 14 mg/dL (4-19); BUN/Creat Ratio 18.4 RATIO (10-20); Calcium,Total 9.0 mg/dL (7.6-11.0); Carbon Dioxide 20.4 mmol/L (21.0-32.0); Chloride 105 mmol/L (98-108); Estimated Creatinine Clearance 89.43 ml/min (50-250); Glucose 118 mg/dL (70-99); Potassium 3.8 mmol/L (3.3-5.1)
[2024-08-28 11:48] VITALS: BP 107/67; PULSE 63; RESP 16; TEMP 36.6; O2SAT 100
== END 2024-08-28 11:48 | disposition home or self-care (01) ==
PROVIDERS: Emergency Provider Emergency Medicine; PCP Student in an Organized Health Care Education/Training Program; Visit Provider Emergency Medicine
DX: R42 Dizziness and giddiness (principal); R29.700 NIHSS score 0; D64.9 Anemia, unspecified
CPT/HCPCS: 80048; 85025; 99282